=== PATIENT | female | born 1950 | race Hispanic/Latino ===

== ENCOUNTER → 2023-10-01 07:44 | Outpatient (REF) | payer OTHER, SELFPAY | LOC: RCS 07:44 | PROVIDERS: ATTENDING PHYSICIAN Internal Medicine Interventional Cardiology; FAMILY PHYSICIAN Family Medicine; REFERRING PHYSICIAN Orthopaedic Surgery | DX: E11.22 Type 2 diabetes mellitus with diabetic chronic kidney disease (principal); N18.6 End stage renal disease; Z79.4 Long term (current) use of insulin; Z99.2 Dependence on renal dialysis; E66.01 Morbid (severe) obesity due to excess calories; Z68.39 Body mass index [BMI] 39.0-39.9, adult; Z01.810 Encounter for preprocedural cardiovascular examination | CPT/HCPCS: 93306 ==

== ENCOUNTER → 2023-10-26 12:02 | Outpatient (REF) | payer OTHER, SELFPAY | LOC: PAVMRI 12:02 | PROVIDERS: ATTENDING PHYSICIAN Orthopaedic Surgery; FAMILY PHYSICIAN Family Medicine | DX: M54.12 Radiculopathy, cervical region (principal) | CPT/HCPCS: 72141 ==

== ENCOUNTER 2025-02-26 03:38 | Inpatient (IN) | payer MEDICARE, SELFPAY ==
[2025-02-25 22:35] VITALS: BP 152/56
[2025-02-25 23:05] LABS: Hematocrit 33.2 % (37.0-47.0); Hemoglobin 10.7 g/dL (12.0-16.0); Mean Corp Hgb Conc. 32.2 g/dL (33.0-37.0); Mean Corpuscular Volume 93.0 fL (81.0-99.0); Nucleated Red Blood Cells % 0 %; Platelet Count 119 10^3/uL (130-400); Red Cell Dist. Width 16.4 % (11.5-14.5)
[2025-02-25 23:22] LABS: ALT (SGPT) 15 U/L (0-35); AST (SGOT) 24 U/L (14-36); Albumin 3.8 g/dl (3.5-5.0); Alkaline Phosphatase 124 U/L (38-126); Blood Urea Nitrogen 29 mg/dl (7-17); Calcium 9.3 mg/dl (8.4-10.2); Carbon Dioxide 29 mmol/L (22-30); Chloride 95 mmol/L (98-107); Glucose 153 mg/dl (70-99); Potassium 5.7 mmol/L (3.5-5.1); Sodium 131 mmol/L (135-145); Total Protein 6.2 g/dl (6.3-8.2); eGFR 8.89
[2025-02-25 23:33] VITALS: BP 118/44; BMI 40.0
--- NOTE | 2025-02-25 23:50 | ED.GENMED ---
History of Present Illness
General
Chief Complaint: Change in Mental Status
Source: patient
Time Seen by Provider: 02/25/25 23:49
History of Present Illness
History of Present Illness:
74-year-old female brought to the emergency room for evaluation of weakness, mild confusion. Patient states she has not been feeling well over the past couple days. She feels generally weak, sometimes has chills. Today she felt too weak to walk
normally. She had 2 falls and getting up and going to the bathroom. Patient had dialysis today and had an episode of vomiting. Patient believes that she had a complete session. Family concerned that her face seems a bit swollen. Patient has had
a mild cough. She does make urine about twice a day.
Past History
Past History
ED Past Medical History: Asthma, CHF, HTN, IDDM, Renal failure (End-stage renal disease, dialysis dependent.), Hypothyroidism and Other (Anemia)
ED Past Surgical History: Other (cardiac catheterization; cataract extraction)
Social History
Tobacco: Non-smoker
Alcohol: None
Personal: Single
Living: with family (Currently residing at a local shelter for inpatient physical therapy August 2021)
Employment: Not employed
Family History
Family History: Diabetes, CAD and Other (Mother with breast cancer)
Phy Exam
Physical Exam
Physical Exam:
General: Awake, Alert, Oriented X3. Appears chronically ill
Vitals: Afebrile
Head: Atraumatic
Eyes: Pupils equal, EOMI
Throat: Airway intact, no exudates
Neck: Trachea midline
Lungs: Clear and equal b/l
Heart: Regular rate, no murmurs
Abd: Soft, Nontender, No pulsatile mass
Neuro no focal weakness
Skin: Warm, dry, no rash
Extremities: pulses equal b/l, no edema
Course
Orders/Labs/Results
Orders:
Orders
02/25/25 22:45
CT Head W/o Iv Contrast Urgent
Comment:
Reason For Exam: cims
02/25/25 22:46
Complete Blood Count/With Diff Urgent
Comprehensive Metabolic Panel Urgent
02/25/25 23:52
Pro-BNP [NT-proBNP] Urgent
02/26/25 00:05
CR Chest - 2 Views Urgent
Reason For Exam: cough
02/26/25 00:25
Straight cath- Treatment ONCE
02/26/25 01:08
COVID-19 Antigen Urgent
Source: Nasal Swab
02/26/25 02:33
Sodium Zirconium Cyclosilicate [Lokelma] 10 gram PO NOW STA
02/26/25 02:39
Electrocardiogram (*1) Urgent
Reason for Study: QTc Monitoring
EKG- Treatment ONCE
02/26/25 03:24
Admit/Transfer Patient As Directed
Co-Sign Provider:
Level of Care: Inpatient admission
Assign to:: Telemetry
Physician / Group: Danyel
Diagnosis: Pneumonia, Acute TME, ESRD
Reason for Telemetry: Syncope
Date to Stop Telemetry: 02/28/25
Time to Stop Telemetry: 11:00
Reason for Hospitalization: Pneumonia, Acute TME, ESRD
Expected length of stay greater than two midnights?: Yes
ELOS- Estimated Length of Stay in days: 4
I certify the patient meets the requirements for IP care: Yes
PRN Pain Medication Management As Directed
May give lesser potent ordered pain med per pt: Yes
preference::
Protocol:: Medication orders for pain may be administered in a
manner that supports deferring to patient preference
when the pt is:
- Requesting an ordered lesser potent pain medication.
Least to most potent pain medications are defined
as: acetaminophen < NSAID < tramadol < opioids
(morphine, oxycodone, hydromorphone).
- Requesting a lesser dose of the same medication IF
ORDERED.
- Requesting a less intrusive route of administration
if both routes are prescribed by the provider (PO <
IV).
02/26/25 03:25
Code Status As Directed
Resuscitation Status: Full Code
02/26/25 03:41
Acetaminophen [Tylenol] 650 mg PO Q4HPRN PRN
Albuterol Nebs [Ventolin Nebules] 2.5 mg INH R Q4HPRN PRN
Dextrose 50%-Water [Dextrose 50% Syringe] 12.5 grams IV [id number] PRN
Glucagon [GlucaGen] 1 mg IM PRN PRN
VANCOMYCIN Pharmacy to Dose [VANCOCIN Pharmacy to Dose] 1 each Pharmacy To Prepare [Call Pharmacy To Prepare] 0 ml IV PER PROTOCOL
02/26/25 03:41
Activity As Directed
Activity Level: Ambulate
With Assistance
Bedside Glucose Monitoring As Directed
Frequency: AC&HS
Additional Instructions:: Change to q6h if pt on TPN, tube feeding or not eating
Bladder Scan As Directed
Follow Bladder Retention/Intermittent Cath Algorithm?: Yes
PRN if no void in __ hours: 6
Frequency: Per Retention Algorithm
If Bladder Scan Result >: 400
then:: Straight cath
EKG with chest pain [ECG as needed] As Directed
ECG as needed for:: Chest Pain
I/O [Intake/ Output] As Directed
Frequency: Per unit guidelines
Orthostatic Vital Signs As Directed
Orthostatic VS Frequency: BID
Pneumatic Compression Sleeves As Directed
Type: Knee high
Straight Cath As Directed
Frequency: Per Retention Algorithm
Additional Instructions: straight cath as needed per acute urinary retention algorithm for 24 hrs
Additional Instructions: for bladder scan greater than 400 mL
Vital Signs As Directed
Frequency: Per unit guidelines
Weight As Directed
Frequency: Daily
Oxygen Therapy [O2 Therapy] [RESP] Routine
Titrate/Wean O2 to maintain O2 sat greater than (%): 94
DX Deep Vein Thrombosis Video Routine
02/26/25 04:00
Piperacillin/Tazo 2.25 Gram [Zosyn] 2.25 grams in 50 ml IV Q12H
02/26/25 04:26
Basic Metabolic Panel IN AM
Complete Blood Count/No Diff IN AM
Glycohemoglobin (HgbA1c) IN AM
Magnesium IN AM
Phosphorus IN AM
TSH Reflex To Free T4 Routine
Blood Culture Q30M
BRIAN Source: Blood/Venous
Specimen Description:
Blood Culture Q30M
BRIAN Source: Blood/Venous
Specimen Description:
MRSA Screen Routine
BRIAN Source: Nose
Specimen Description:
02/26/25 Breakfast
2000 calorie (17 carb) Diabetic
At Your Request: Full Participation
Liquid Modification: Thin Liquids
Diabetic Diet: Potassium, 2 Gram
Sodium, 2 Gram
Levothyroxine [Synthroid] 150 mcg PO DAILY @ 0600
02/26/25 07:30
Insulin Aspart Corrective Low [Novolog Flexpen-Low Resistance] See Protocol SC AC
02/26/25 08:00
Aspirin Low Dose EC [Aspir Low (Enteric Coated)] 81 mg PO DAILY
Heparin 5,000 units SC Q12
Pantoprazole [Protonix] 40 mg PO DAILY
Sevelamer Carbonate [Renvela] 1,600 mg PO MEALS
02/26/25 11:17
Urinalysis Reflex To Culture Urgent
Date Specimen was Collected: 02/26/25
Time Specimen was Collected: 11:16
02/26/25 22:00
Atorvastatin [Lipitor] 40 mg PO HS
02/28/25 11:00
DC Protocol for Telemetry ONCE
Abnormal Lab Results
02/25/25
22:46
RBC 3.57 L 10^6/uL
(4.20-5.40)
Hgb 10.7 L g/dL
(12.0-16.0)
Hct 33.2 L %
(37.0-47.0)
MCHC 32.2 L g/dL
(33.0-37.0)
RDW 16.4 H %
(11.5-14.5)
Plt Count 119 L 10^3/uL
(130-400)
MPV 11.2 H fL
(7.4-10.4)
Absolute Neuts (auto) 8.5 H 10^3/uL
(1.4-6.5)
Absolute Lymphs (auto) 0.8 L 10^3/uL
(1.2-3.4)
Absolute Monos (auto) 0.8 H 10^3/uL
(0.1-0.6)
Neutrophils % 83.6 H %
(42.2-75.2)
Lymphocytes % 7.8 L %
(20.5-51.1)
Sodium 131 L mmol/L
(135-145)
Potassium 5.7 H mmol/L
(3.5-5.1)
Chloride 95 L mmol/L
(98-107)
BUN 29 H mg/dl
(7-17)
Creatinine 4.9 H* mg/dL
(0.6-1.0)
Glucose 153 H mg/dl
(70-99)
Total Protein 6.2 L g/dl
(6.3-8.2)
02/25/25 22:46
02/25/25 22:46
Vital Signs
Initial and Last Documented VS:
Initial Vital Signs
Temp Pulse Resp BP Pulse Ox
98.3 F 98 18 152/56 92
02/25/25 22:35 02/25/25 22:35 02/25/25 22:35 02/25/25 22:35 02/25/25 22:35
Last Documented Vital Signs
Temp Pulse Resp BP Pulse Ox
98.1 F 88 16 168/74 97
02/28/25 19:00 02/28/25 20:36 02/28/25 20:36 02/28/25 19:00 02/28/25 20:36
MDM/Problems Addressed
Differential Diagnosis Includes:
COVID, UTI, pneumonia, electrolyte abnormality
MDM/Problems Addressed:
Workup here reveals essentially unremarkable CBC, chemistries show an expected elevation of BUN and creatinine. Her potassium is elevated at 5.7. Dose of Lokelma administered. Head CT shows no acute abnormalities. Chest x-ray shows poor
inspiratory effort. No obvious infiltrate to my evaluation. Patient was straight cath but had no urine. Patient will require hospitalization given her level weakness, hypokalemia and potential for bacteremia or other source. Blood cultures
ordered.
*Radiology
Radiology exam reviewed: preliminary read by ED provider (Poor inspiratory effort on my review of the patient's chest x-ray)
*Pulse Oximetry
SaO2: 92
Oxygen Mode of Delivery: Room air
Patient hypoxic: yes
*EKG
Interpreted by ED Provider?: Yes
Interpretation: abnormal
Heart Rate: 87
Rate: normal
[place]: normal axis
Interval: normal interval
QRS Pattern: normal QRS
Ischemia: non-specific ST changes
*Bicycle Racer Interpretation
Rate: normal
Interpretation: normal
Rhythm: sinus
*Critical Care Note
Total Time (30-74mins, 75-104mins- exclusive of procedures): Not Applicable
ED Attending Note
-
Portions of this chart may have been created with voice recognition software.� Occasional wrong word or��sound alike� substitutions may have occurred due to the inherent limitations of voice recognition software.
Discharge Plan
Departure
Patient Disposition: Admit
Date of Disposition: 02/26/25
Time of Disposition: 02:38
Presentation/result/management discussed w/ accepting MD/DO: Hospitalist
Condition: Fair
Discharge Problem:
Altered mental status, Acute hyperkalemia
Interventions
Interventions:
*Risk Screen - Suicide Last Done: 02/25/25 22:39
*General Assessment Last Done: 02/25/25 22:39
*Neglect/Abuse Screening Last Done: 02/25/25 22:39
*ED COVID-19 Vaccine History Last Done: 02/25/25 22:39
*Nursing Disposition Last Done: 02/26/25 14:57
ED- Cardiac Assessment Last Done: 02/25/25 23:33
ED- Neurological Assessment Last Done: 02/25/25 23:33
ED- Pulmonary Assessment Last Done: 02/25/25 23:33
Discharge Date and Time
Discharge Date/Time: 02/26/25 14:58
[2025-02-26] VITALS (10 sets, daily range): BP systolic 105–178; BP diastolic 40–93; BMI 40.0
--- NOTE | 2025-02-26 00:40 | EDRN ---
Attempted to straight cath patient, was only able to get a few drops, patient does state that she typically only urinates once in the morning and once at night, and did not have much to eat or drink yesterday, Dr. Danielle aware.
[2025-02-26 01:39] LABS: COVID-19 Antigen Negative (Negative)
--- NOTE | 2025-02-26 02:00 | EDRN ---
Myself and another RN attempted to walk patient, she was able to walk a few steps, however she needed full assist from both RNs and was a little wobbly on her feet, Dr. Danielle aware.
--- NOTE | 2025-02-26 03:13 | EDRN ---
Dr. Montaño at bedside
[2025-02-26] MEDS: LOKELMA 10 GRAM PO (03:24)
--- NOTE | 2025-02-26 03:31 | HPS.HSE ---
Family Physician
-
Family Physician: Tej Chavez
Chief Complaint
-
Confusion, Lethargy
History of Present Illness
Patient is a 74y F with PMH significant for ESRD on HD, DM-II and GERD / GAVE who presents to ED for evaluation of lethargy, weakness and confusion. History obtained from patient and her daughter at the bedside. Patient states that she has felt
weak and fatigued for the past week or so. She reports hacking, non-productive cough. No noted fever. She lives with her two daughters - who were out of town this weekend and returned home today. No one else in the house has been ill.
Patient went to her usual HD this AM (family monitored her comings and anirudh via Ring camera to confirm this).
Patient states that she 'must have' fallen asleep or passed out on dialysis. HD staff reportedly informed her that she had N/V during her session. Patient does not recall this.
She was told to present to the ED after HD, but was too tired and took the bus home instead. At home she climbed two flights of stairs - stopping midway due to fatigue - and went back to bed.
When daughters returned home this evening they found the patient lying on her bedroom floor confused and disoriented. Patient does not recall falling from bed. She complains of L sided headache and neck discomfort.
Daughters helped the patient to bed (around 7PM) and she fell back to sleep.
Patient then called out to her daughters again around 9:30 PM and they went to find her again on the floor.
They presented to the ED for further evaluation.
Patient states that her newest medication with zolpidem. She complains of chronic insomnia and notes that this has been helping. She started this < 2 weeks ago.
No other new medications.
She does however also take Lyrica, gabapentin and cyclobenzaprine.
Medical History
Past Medical History
Past Medical History: Reports Other
Additional Past Medical History:
Coronary Artery Disease
Chronic HFpEF
Essential Hypertension
Hyperlipidemia
Diabetes Mellitus, Insulin-Dependent
ESRD on HD
Hypothyroidism
Anemia of Chronic Disease
Anxiety/Depression
GERD/Gastritis
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
Past Surgical History: Reports Other
Additional Past Surgical History:
Left Upper Extremity AV Fistula
Right Upper Extremity AV Fistula
Left Carpal Tunnel
Left Tunneled HD Catheter
Social History
Tobacco: Non-smoker
Alcohol: None
Personal: Single
Living: With Family (2 daughters and granddaughters)
Family History
Family History: Other (Family history mother breast cancer other family history DM 2, CAD)
Allergies / Home Medications
Allergies reflects when Allergies were last updated in [employer].
Home Medications with original date entered in [employer]
Allergy/Medication List:
Allergies
Allergy/AdvReac Type Severity Reaction Status Date / Time
cephalexin Allergy rash, Verified 02/25/25 22:41
fever &
itching;
tolerates
cefazolin
(SEE
COMMENTS)
eggplant Allergy Shortness Verified 02/25/25 22:41
of Breath
erythromycin base Allergy Itching,Stomach Verified 02/25/25 22:41
pain 'bad'
latex Allergy Pt states Verified 02/25/25 22:41
she gets a
rash and
wheezes
Home Medications
atorvastatin 40 mg tablet 40 mg PO HS High cholesterol 02/13/20
sevelamer carbonate 800 mg tablet 1,600 mg PO MEALS Kidney Disease 07/30/21
levothyroxine 150 mcg tablet 150 mcg PO DAILY AT 0700 Thyroid 05/21/22
albuterol sulfate 90 mcg/actuation aerosol inhaler 2 puff inhalation R BID Lung/Breathing Issues 05/18/23
aspirin 81 mg tablet,delayed release 81 mg PO DAILY Blood Clot Prevention/Tx 05/18/23
gabapentin 100 mg capsule 100 mg PO HS Neurological Condition 05/18/23
insulin aspart U-100 100 unit/mL (3 mL) subcutaneous pen (Novolog FlexPen U-100 Insulin aspart) 0 - 6 sliding scale dose SC AC Diabetes 05/18/23
insulin glargine 100 unit/mL (3 mL) subcutaneous pen (Lantus Solostar U-100 Insulin) 10 unit SC HS Diabetes 05/18/23
pantoprazole 40 mg tablet,delayed release 40 mg PO DAILY #30 tabs 05/21/23
pregabalin 100 mg capsule (Lyrica) 100 mg PO DAILY 02/26/25
semaglutide 0.25 mg or 0.5 mg (2 mg/3 mL) subcutaneous pen injector (Ozempic) 0.5 mg SC FRIEDMAN 02/26/25
zolpidem 5 mg tablet 5 mg PO HSPRN PRN insomnia 02/26/25
Review of Systems
-
History Source: Patient
A 12 point ROS was completed and negative except as noted: Yes
Constitutional: Reports Fatigue; Denies Fever or Chills
EENT: Reports Sore Throat
Respiratory: Reports Cough and Trouble Breathing; Denies Hemoptysis
Cardiac: Reports Chest Pain and Syncope; Denies Diaphoresis or Palpitations
Abdomen/GI: Reports Nausea, Vomiting and Anorexia; Denies Abdominal Pain, Diarrhea, Constipated, Bloody Stools or Black Stools
: Reports Other (Patient urinates about twice daily. No recent changes.); Denies Dysuria or Flank Pain
Musculoskeletal: Denies Edema
Neurological: Reports Headache and Weakness; Denies Dizzy
Psych: Denies Depression or Anxiety
Physical Exam
Vital Signs
Vital Signs
Temp Pulse Resp BP Pulse Ox
98.3 F 86 22 118/44 92
02/25/25 22:35 02/25/25 23:45 02/25/25 23:45 02/25/25 23:33 02/25/25 23:50
Physical Exam
General: Other (74y F in no acute distress.)
HEENT: Moist mucous membranes and PERRLA
Respiratory: Other (Cough during exam. Coarse breath sounds at both bases. No wheezes.)
Cardiac: S1/S2 and Regular Rhythm; No Murmur
GI: Soft, Non Tender, Non Distended and Normal Bowel Sounds
Musculoskeletal: No Clubbing, No Cyanosis and No Edema
Neuro: AO x 3
Hematologic/Lymphatic: Other (Scarring b/l UE from prior AVF site(s). L IJ tunneled cath sit without bleeding / discharge / erythema.)
Laboratory Results
-
02/25/25 22:46
02/25/25 22:46
Laboratory Results
Total Bilirubin 0.8 mg/dl (0.2-1.3) 02/25/25 22:46
AST 24 U/L (14-36) 02/25/25 22:46
ALT 15 U/L (0-35) 02/25/25 22:46
Alkaline Phosphatase 124 U/L (38-126) 02/25/25 22:46
Impression/Plan
-
A/P: Patient is a 74y F with PMH significant for ESRD on HD, ASCVD and DM-II who presents to ED for evaluation of weakness and confusion.
Pneumonia
Sepsis secondary to the above
- Admit for further evaluation and treatment.
- Cough x 1 week, leukocytosis with L shift, tachycardia and tachypnea on arrival.
- CXR with bibasilar opacities - L > R.
- COVID negative in the ED.
- Empiric IV abx for now.
- Check all cultures and follow-up these results.
- MRSA screen and discontinue Vanco if this is negative.
- Follow temperature curve and monitor for any new / worsening symptoms.
- Albuterol PRN.
Acute TME
- ? secondary to sepsis as noted above versus med effect - or combination thereof.
- Patient recently started on zolpidem (Rx written 8/22).
- Also on cyclobenzaprine, Lyrica AND gabapentin.
- Treat infectious process as noted above.
- Hold all sedating medications acutely.
- Follow for clinical improvement.
- ? if there may have been some med confusion for the past few days while family out of town.
ESRD on HD
- Had HD today - unclear if she completed a full session.
- Nephrology evaluation for HD needs during acute stay.
- Patient states that she takes Lasix 80mg daily - will hold for now.
ASCVD
Chronic HFpEF
- Stable. Continue ASA, statin, etc.
- Holding Lasix acutely as noted above. Follow I/Os, daily weights, etc.
DM-II
- Stable. Continue Lantus.
- Follow glucose and cover with SSI as needed.
- Update A1C.
Hypothyroidism
- Continue current T4 supplementation for now.
- Update TFTs.
GERD / GAVE / Hiatal Hernia
- Stable. Prior h/o GI bleeding.
- Continue PPI.
Morbid Obesity
- Affects all aspects of care.
- Encourage healthy diet and increased activity as tolerated with goal of weight loss.
DVT Prophylaxis: Subcut Heparin
Code Status: Full
[2025-02-26] MEDS: ZOSYN 50 IV ×2 (04:30→15:32)
[2025-02-26] MEDS: VANCOCIN 530 MG IV (05:01)
[2025-02-26 05:08] LABS: Blood Urea Nitrogen 31 mg/dl (7-17); Calcium 8.6 mg/dl (8.4-10.2); Carbon Dioxide 29 mmol/L (22-30); Chloride 99 mmol/L (98-107); Estimated Creatinine Clearance 10 ml/min; Glucose 110 mg/dl (70-99); Magnesium 1.5 mg/dl (1.6-2.3); Potassium 4.9 mmol/L (3.5-5.1); Sodium 133 mmol/L (135-145); eGFR 8.28
--- NOTE | 2025-02-26 06:00 | EDRN ---
Patient is sleeping when observed, call davis in reach, will continue to monitor.
[2025-02-26 06:07] LABS: Hematocrit 29.2 % (37.0-47.0); Hemoglobin 9.6 g/dL (12.0-16.0); Mean Corp Hgb Conc. 32.9 g/dL (33.0-37.0); Mean Corpuscular Volume 93.0 fL (81.0-99.0); Platelet Count 102 10^3/uL (130-400); Red Cell Dist. Width 16.7 % (11.5-14.5)
[2025-02-26] MEDS: SYNTHROID 150 MCG PO (07:05)
[2025-02-26 08:04] LABS: Glucose - Point of Care 104 mg/dl (70-99)
[2025-02-26] MEDS: NOVOLOG FLEXPEN-LOW RESISTANCE SC ×2 (08:04→12:47)
--- NOTE | 2025-02-26 08:05 | W.PN.HOSP.TC ---
Today's Communication/Plan
-
See plan
Assessment / Plan
Assessment / Plan
Physical Exam
General: Not in acute distress
HEENT: Normocephalic. Moist mucous membranes
Respiratory: Expiratory wheezing bilaterally
Cardiac: S1/S2 and Regular Rhythm; No Murmur
GI: Soft, Non Tender, Non Distended and Normal Bowel Sounds
Musculoskeletal: No Cyanosis
Neuro: AAO x 3
Hematologic/Lymphatic: Other (Scarring at the bilateral UE from prior AVF site(s). L IJ tunneled cath sit without bleeding / discharge / erythema)
Assessment/Plan
74 y/o female with past medical history significant for ESRD on HD, DM-II and GERD / GAVE who presented to [facility] ED for evaluation of lethargy, weakness and confusion. History obtained from patient and her daughter at the bedside. Patient stated that
she has felt weak and fatigued for ~1 week prior to arrival. She reported hacking, non-productive cough. No noted fever. She lives with her two daughters - who were out of town over the past weekend and returned home on 02/25/25. No one else in
the house has been ill. Patient went to her usual HD on the morning of 02/25/25 (family monitored her comings and anirudh via Ring camera to confirm this).
Patient stated that she 'must have' fallen asleep or passed out on dialysis. HD staff reportedly informed her that she had N/V during her session. Patient does not recall this.
She was told to present to the [facility] ED after HD, but was too tired and took the bus home instead. At home she climbed two flights of stairs - stopping midway due to fatigue - and went back to bed.
When daughters returned home on 02/25/25 evening, they found the patient lying on her bedroom floor confused and disoriented. Patient does not recall falling from bed. She complains of L sided headache and neck discomfort. Daughters helped the
patient to bed (around 7PM) and she fell back to sleep. Patient then called out to her daughters again around 9:30 PM and they went to find her again on the floor.
Patient states that her newest medication with zolpidem. She complains of chronic insomnia and notes that this has been helping. She started this < 2 weeks ago.
No other new medications. She does however also take Lyrica, gabapentin and cyclobenzaprine.
Pneumonia (Right>Left)
Sepsis secondary to the above
Chills and feeling feverish at home
Aspiration?
- Cough x 1 week, leukocytosis with L shift, tachycardia and tachypnea on arrival.
- CXR with bibasilar opacities - L > R.
- COVID negative in the ED.
- Continue Vancomycin and Zosyn for now
- Check all cultures and follow-up these results.
- MRSA screen and discontinue Vanco if this is negative.
- Follow temperature curve and monitor for any new / worsening symptoms.
- Bronchodilators and steroids as below
- Speech evaluation
Syncope/Encephalopathy
- Suspected patient dyspnea and factors related to dyspnea, as well as polypharmacy, particularly gabapentin, Flexeril, Lyrica, zolpidem.
- Vasovagal episodes also possible considering vomiting and syncope while on hemodialysis.
- Checking echo
- Continue to monitor on telemetry
Acute TME
- ? secondary to sepsis as noted above versus med effect - or combination thereof.
- Patient recently started on zolpidem (Rx written 02/08).
- Also on cyclobenzaprine, Lyrica AND gabapentin.
- Treat infectious process as noted above.
- Hold all sedating medications acutely.
- Follow for clinical improvement.
- ? if there may have been some med confusion for the past few days while family out of town.
Mild intermittent asthma with acute exacerbation
History of Childhood Asthma
- Patient sees outpatient pulmonary at [facility]
- Wheezing on exam, together with fatigue and SOB
- Ordered Duonebs and Pulmicort
- Prednisone 40 mg daily for 5 days
- Consulted pulmonary for additional recommendations
- At the time of discharge, start Symbicort or generic version Breyna
- Will need close outpatient pulmonary follow-up
Nausea in upper chest/lower neck area
- Patient says she has been unable to tolerate much PO intake
- Patient sees GI Dr. Rola Wright at [facility]
- Worsened? Will consider GI consultation
- Speech evaluation requested
Chronic Dyspnea on exertion - likely multifactorial -- obstructive and restrictive lung disease, pneumonia, morbid obesity, heart failure, ESRD
- Repeat echo ordered
ESRD on HD
- Had HD today - unclear if she completed a full session.
- Nephrology evaluation for HD needs during acute stay.
- Patient states that she takes Lasix 80mg daily - will hold for now.
ASCVD
Chronic HFpEF
- Stable. Continue ASA, statin, etc.
- Holding Lasix acutely as noted above. Follow I/Os, daily weights, etc.
- Patient sees [facility] outpatient
- Checking echo as above
DM-II
- Stable. Continue Lantus.
- Follow glucose and cover with SSI as needed.
- Update A1C.
Hypothyroidism
- TSH somewhat suppressed and free T4 elevated
- Reduce Levothyroxine
GERD / GAVE / Hiatal Hernia
- Stable. Prior h/o GI bleeding.
- Continue PPI.
Morbid Obesity
- Affects all aspects of care.
- Encourage healthy diet and increased activity as tolerated with goal of weight loss.
- Check VBG in a.m.
- Assess for need for home oxygen prior to discharge
DVT Prophylaxis: Subcut Heparin
Code Status: Full Code
This is a non-billable note.
Anticipated Discharge: 24 - 48 hours
Subjective/Interval History
-
Date of Service: February 26, 2025
Patient was seen and examined. She was doing okay, she reported still feeling significantly fatigued.
Objective Data
-
Labs:
Laboratory Results
02/25/25 02/26/25
22:46 04:26
WBC 10.2 9.1
Hgb 10.7 L 9.6 L
Hct 33.2 L 29.2 L
Plt Count 119 L 102 L
Sodium 131 L 133 L
Potassium 5.7 H 4.9
Chloride 95 L 99
Carbon Dioxide 29 29
BUN 29 H 31 H
Creatinine 4.9 H* 5.2 H*
Glucose 153 H 110 H
Calcium 9.3 8.6
Total Bilirubin 0.8
AST 24
ALT 15
Alkaline Phosphatase 124
Vital Signs:
Vital Signs
Temp Pulse Resp BP Pulse Ox
98.3 F 84 19 113/43 91
02/25/25 22:35 02/26/25 05:45 02/26/25 05:45 02/26/25 05:00 02/26/25 05:45
--- NOTE | 2025-02-26 08:08 | PHA.VAN.IN ---
Assessment
- Assessment
Renal Function: Patient has ESRD, on chronic Hemodialysis
Hemodialysis Schedule: MWF
Concomitant Antimicrobials: piperacillin/tazobactam
Plan
- Plan
Initial / Loading Dose: 1500mg - 02/26 05:01
Maintenance Regimen: dosing by level / HD
Monitoring: pre-HD 02/27 0600
Pharmacokinetics Vancomycin I
- -
Patient Age: 74
Patient Sex: Female
Vancomycin Day #: 1
Indication: Pulmonary/Respiratory
Requesting Provider: Dr. Montaño
Pertinent Antimicrobial Allergies:
cephalexin - rash, fever & itching; tolerates cefazolin
Tolerates Cefazolin (NOTE: cefazolin has different side chain and structure and is low risk for cross-reactivity with cephalexin); caution with cephalexin allergy and penicillin, ampicillin and amoxicillin cross-reactivity
erythromycin base - Itching,Stomach pain 'bad'
Height / Weight:
Height 5 ft 1 in
Actual Weight 96 kg
Pertinent Past Medical History: BMI~40, ESRD on HD, DM-II
- Vital Signs / Lab Results
Temp Pulse Resp BP Pulse Ox
98.3 F 84 19 113/43 91
02/25/25 22:35 02/26/25 05:45 02/26/25 05:45 02/26/25 05:00 02/26/25 05:45
Lab Results - Hematology
02/25/25 02/26/25
22:46 04:26
WBC 10.2 9.1
Lab Results - Chemistry
02/25/25 02/26/25
22:46 04:26
BUN 29 H 31 H
Creatinine 4.9 H* 5.2 H*
Estimated Creat Clear 10
Albumin 3.8
[2025-02-26] MEDS: PROTONIX 40 MG PO (08:41)
[2025-02-26] MEDS: ASPIR LOW (ENTERIC COATED) 81 MG PO (08:41)
[2025-02-26] MEDS: HEPARIN 5000 UNITS SC ×2 (08:41→20:02)
[2025-02-26] MEDS: RENVELA 1600 MG PO ×3 (08:42→17:10)
--- NOTE | 2025-02-26 09:32 | PTCARENOTE ---
pt aaox3. states no pain. nsr on monitor. left upper arm fistula +b+t lcw hd cath.
[2025-02-26 10:37] LABS: Glycohemoglobin (HgbA1c) 5.1 % (4.0-5.6)
--- NOTE | 2025-02-26 11:34 | W.CON.NEPH ---
Consultation
-
Date/Time Consultation Requested: 02/26/25 9am
Date/Time Consultation Performed: 02/26/25 11am
Requesting Provider: Dr. Montaño
Performing Provider: Dr Montoya
Reason for Consultation: ESRD
Medical History
-
Chief Complaint: ESRD
History of Present Illness:
This is a 74 yo female known to us with ESRD on HD MWF at [facility]. She dialyzes via a left IJ HD CVC after failed LUE AV access. She has diabetes stable on insulin therapy, anemia controlled though low with SHANDA on HD. She has chronic pain
in waist and hips as well as chronic depression. She does not sleep well and recently obtained a rx for zolpidem from her PCP. she also has lyrica for neuropathy. She has not taken flexril for several weeks as she had run out. She is undergoing
renal transplant evaluation. Yesterday on HD she passed out and vomited. She has no recollection of the event. It was recommended that she go to the ER but she declined and went home. She made it into bed and slept for a few hours. When she tried to
get out of bed, she slid the the floor (she has a step to get in and out of bed). She could not get up and had to wait for her daughters to come home to help her. Last night the same thing happened again. Given persistent nausea and headache she
came to the ER.
Past Medical History
Coronary Artery Disease
Chronic HFpEF
Essential Hypertension
Hyperlipidemia
Diabetes Mellitus, Insulin-Dependent
ESRD on HD
Hypothyroidism
Anemia of Chronic Disease
Anxiety/Depression
GERD/Gastritis
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
Left Upper Extremity AV Fistula
Right Upper Extremity AV Fistula
Left Carpal Tunnel
Left Tunneled HD Catheter
Social History
Tobacco: Non-Smoker
Alcohol: None
Family History
Family History: Not Pertinent
Allergies / Home Medications
Allergy/AdvReac Type Severity Reaction Status Date / Time
cephalexin Allergy rash, Verified 02/25/25 22:41
fever &
itching;
tolerates
cefazolin
(SEE
COMMENTS)
eggplant Allergy Shortness Verified 02/25/25 22:41
of Breath
erythromycin base Allergy Itching,Stomach Verified 02/25/25 22:41
pain 'bad'
latex Allergy Pt states Verified 02/25/25 22:41
she gets a
rash and
wheezes
�Medication �Instructions �Recorded �Confirmed �Type
atorvastatin 40 mg tablet 40 mg PO HS High cholesterol 02/13/20 02/26/25 History
sevelamer carbonate 800 mg tablet 1,600 mg PO MEALS Kidney Disease 07/30/21 02/26/25 History
levothyroxine 150 mcg tablet 150 mcg PO DAILY AT 0700 Thyroid 05/21/22 02/26/25 History
albuterol sulfate 90 mcg/actuation 2 puff inhalation R BID 05/18/23 02/26/25 History
aerosol inhaler Lung/Breathing Issues
aspirin 81 mg tablet,delayed 81 mg PO DAILY Blood Clot 05/18/23 02/26/25 History
release Prevention/Tx
gabapentin 100 mg capsule 100 mg PO HS Neurological Condition 05/18/23 02/26/25 History
insulin aspart U-100 100 unit/mL 0 - 6 sliding scale dose SC AC 05/18/23 02/26/25 History
(3 mL) subcutaneous pen (Novolog Diabetes
FlexPen U-100 Insulin aspart)
insulin glargine 100 unit/mL (3 10 unit SC HS Diabetes 05/18/23 02/26/25 History
mL) subcutaneous pen (Lantus
Solostar U-100 Insulin)
pantoprazole 40 mg tablet,delayed 40 mg PO DAILY #30 tabs 05/21/23 02/26/25 Rx
release
furosemide 80 mg tablet (Lasix) 80 mg PO DAILY 02/26/25 02/26/25 History
pregabalin 100 mg capsule (Lyrica) 100 mg PO DAILY 02/26/25 02/26/25 History
semaglutide 0.25 mg or 0.5 mg (2 0.5 mg SC FRIEDMAN 02/26/25 02/26/25 History
mg/3 mL) subcutaneous pen injector
(Ozempic)
zolpidem 5 mg tablet 5 mg PO HSPRN PRN insomnia 02/26/25 02/26/25 History
Review of Systems
-
nausea/headache/weakness
All other systems: Negative unless noted
Physical Exam
Vital Signs
Vital Signs
Temp Pulse Resp BP Pulse Ox
98.8 F 84 19 113/43 91
02/26/25 08:25 02/26/25 05:45 02/26/25 05:45 02/26/25 05:00 02/26/25 05:45
Lab Results
WBC 9.1 10^3/uL (4.8-10.8) 02/26/25 04:26
RBC 3.14 10^6/uL (4.20-5.40) L 02/26/25 04:26
Hgb 9.6 g/dL (12.0-16.0) L 02/26/25 04:26
Hct 29.2 % (37.0-47.0) L 02/26/25 04:26
Plt Count 102 10^3/uL (130-400) L 02/26/25 04:26
Sodium 133 mmol/L (135-145) L 02/26/25 04:26
Potassium 4.9 mmol/L (3.5-5.1) 02/26/25 04:26
Chloride 99 mmol/L (98-107) 02/26/25 04:26
Carbon Dioxide 29 mmol/L (22-30) 02/26/25 04:26
BUN 31 mg/dl (7-17) H 02/26/25 04:26
Creatinine 5.2 mg/dL (0.6-1.0) H* 02/26/25 04:26
eGFR 8.28 02/26/25 04:26
Glucose 110 mg/dl (70-99) H 02/26/25 04:26
Calcium 8.6 mg/dl (8.4-10.2) 02/26/25 04:26
Phosphorus 3.3 mg/dl (2.5-4.5) 02/26/25 04:26
Sxt-O-Abrekpvdsqe Pept 9170 pg/ml 02/25/25 23:52
Albumin 3.8 g/dl (3.5-5.0) 02/25/25 22:46
Laboratory Tests
05/21/23
07:21
Hgb 8.0 L
Physical Exam
Patient is awake alert oriented and in no distress. Mood and affect were pleasant, insight and judgment were good. Pupils are equal round and reactive to light, extraocular movements are intact, sclera were anicteric. Hearing was normal, ears and
nose are intact. Oropharynx was clear. Neck was supple with trachea midline and no thyromegaly. Heart was regular rate and rhythm without rubs. Lower extremities without edema. Lungs were clear to auscultation bilaterally and with normal
excursion. Abdomen was soft, nontender, with normal active bowel sounds, and no hepatosplenomegaly. Skin was without rash and with normal turgor.
Data Reviewed
-
Radiology: Image Personally Visualized and interpreted (CXR 02/26/25 by my reading. low lung volumes, cardiomegaly)
CT Scan: Report Reviewed by me (head CT 02/25/25 no acute disease)
Medical Tests (Nuc Med, Echo etc): Image Personally Visualized and interpreted (EKG 02/26/25 by my reading normal sinus rhythm, left axis deviation)
Labs: Labs Reviewed by me
Old Records: Reviewed
Assessment/Plan
-
Assessment
ESRD
weakness
chronic pain
nausea
anemia
DM2
HTN
failed AV access, now CVC
Plan
HD tomorrow
check iron
hold ozempic with nausea
pain maangement per primary team
PT/OT eval
[2025-02-26 11:51] LABS: Urine Character Slightly Cloudy (Clear)
[2025-02-26 12:33] LABS: Urine Squamous Cell >30 /LPF (Few)
[2025-02-26 12:34] LABS: Urine Red Blood Cell 0-2 /HPF (0-2); Urine White Cell 21-25 /HPF (0-5)
--- NOTE | 2025-02-26 12:37 | CON.PUL ---
Consultation
Consultation Request
Date/Time Consultation Requested: 02/26/2025
Date/Time Consultation Performed: 02/26/2025
Medical History
-
Chief Complaint: Cough with wheezing
History of Present Illness:
Patient is a very pleasant 74-year-old female with extensive past medical history pertinent for hemodialysis for end-stage renal disease, diabetes, mild intermittent asthma and insomnia who was brought to the hospital for lethargy, weakness and
confusion. Patient reportedly over the last week has been having increasing cough, not productive with wheezing and shortness of breath. Patient reports that she reportedly has had a few episodes of passing out including 1 at dialysis which was
complicated by vomiting with possibly aspiration. Patient reports that post her session she went to home and was extremely tired. She got very short of breath walking upstairs and then lying down in her bed. Subsequently she reports she rolled
over and fell on the floor and was unable to get up. She reports that she was on the floor for few hours until her daughter found her and brought to the emergency room. She was felt to have toxic metabolic encephalopathy in the setting of
polypharmacy with newest medication being zolpidem while she has already been on Lyrica, gabapentin and Flexeril. Patient had workup in the emergency room including chest x-ray which showed right greater than left pneumonia and she was also noted
to have bilateral expiratory wheezing. On 02/26, pulmonary service was consulted in view of wheezing regarding further recommendations around asthma management.
Patient has known history of childhood asthma. Once she was an adult she has had more of a mild intermittent asthma pattern. She saw pulmonary intermittently and has not regularly been using any inhalers. She reports episodes of cough with
wheezing no specific relationship to temperature however notes association with exposure to pets particularly dogs which tend to give her increased allergy symptoms and asthma flare. She has not needed prednisone for asthma flare in the last year
and has not needed to go to emergency room or urgent care for asthma exacerbation. She also reports lately worsening exertional dyspnea but does not report any chest pain or chest tightness. No reported paroxysmal nocturnal dyspnea. No reported
orthopnea.
Past Medical History
Past Medical History: Reports Other
Additional Past Medical History:
Coronary Artery Disease
Chronic HFpEF
Essential Hypertension
Hyperlipidemia
Diabetes Mellitus, Insulin-Dependent
ESRD on HD
Hypothyroidism
Anemia of Chronic Disease
Anxiety/Depression
GERD/Gastritis
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
Past Surgical History: Reports Other
Additional Past Surgical History:
Left Upper Extremity AV Fistula
Right Upper Extremity AV Fistula
Left Carpal Tunnel
left Tunneled HD Catheter
Social History
Tobacco: Non-smoker
Alcohol: None
Personal: Single
Living: With Family (2 daughters and granddaughters)
Family History
Family History: Other (Family history mother breast cancer other family history DM 2, CAD). Grand daughter has Asthma
Allergies / Home Medications
Allergies
Allergy/AdvReac Type Severity Reaction Status Date / Time
cephalexin Allergy rash, Verified 02/25/25 22:41
fever &
itching;
tolerates
cefazolin
(SEE
COMMENTS)
eggplant Allergy Shortness Verified 02/25/25 22:41
of Breath
erythromycin base Allergy Itching,Stomach Verified 02/25/25 22:41
pain 'bad'
latex Allergy Pt states Verified 02/25/25 22:41
she gets a
rash and
wheezes
Home Medications
�Medication �Instructions �Recorded �Confirmed �Last Taken �Type
atorvastatin 40 mg tablet 40 mg PO HS High cholesterol 02/13/20 02/26/25 05/17/23 History
sevelamer carbonate 800 mg tablet 1,600 mg PO MEALS Kidney Disease 07/30/21 02/26/25 02/06/23 11:00 History
levothyroxine 150 mcg tablet 150 mcg PO DAILY AT 0700 Thyroid 05/21/22 02/26/25 05/18/23 History
albuterol sulfate 90 mcg/actuation 2 puff inhalation R BID 05/18/23 02/26/2523 History
aerosol inhaler Lung/Breathing Issues
aspirin 81 mg tablet,delayed 81 mg PO DAILY Blood Clot 05/18/23 02/26/25 05/18/23 History
release Prevention/Tx
gabapentin 100 mg capsule 100 mg PO HS Neurological Condition 05/18/23 02/26/25 05/17/23 History
insulin aspart U-100 100 unit/mL 0 - 6 sliding scale dose SC AC 05/18/23 02/26/25 1 Day Ago History
(3 mL) subcutaneous pen (Novolog Diabetes ~05/17/23
FlexPen U-100 Insulin aspart)
insulin glargine 100 unit/mL (3 10 unit SC HS Diabetes 05/18/23 02/26/25 05/17/23 History
mL) subcutaneous pen (Lantus
Solostar U-100 Insulin)
pantoprazole 40 mg tablet,delayed 40 mg PO DAILY #30 tabs 05/21/23 02/26/25 Unknown Rx
release
furosemide 80 mg tablet (Lasix) 80 mg PO DAILY 02/26/25 02/26/25 Unknown History
pregabalin 100 mg capsule (Lyrica) 100 mg PO DAILY 02/26/25 02/26/25 Unknown History
semaglutide 0.25 mg or 0.5 mg (2 0.5 mg SC FRIEDMAN 02/26/25 02/26/25 Unknown History
mg/3 mL) subcutaneous pen injector
(Ozempic)
zolpidem 5 mg tablet 5 mg PO HSPRN PRN insomnia 02/26/25 02/26/25 Unknown History
Review of Systems
-
Hematologic/Lymphatic: Other (All 14 systems reviewed and negative except as stated above in the history of present illness.)
Vitals / Labs / Diagnostic Testing
Vital Signs
Temp Pulse Resp BP Pulse Ox
98.8 F 84 19 113/43 91
02/26/25 08:25 02/26/25 05:45 02/26/25 05:45 02/26/25 05:00 02/26/25 05:45
Lab Data
02/26/25 04:26
02/26/25 04:26
Diagnostic Testing:
Physical Exam
-
HEENT: Normocephalic
Cardiovascular: S1/S2
Respiratory: Wheeze (Mild end expiratory wheeze bilaterally)
GI: Soft and Non Distended
Neurology: Awake, Alert and Oriented
Skin: Warm
General: Comfortable
Assessment
-
#1. Mild intermittent asthma with acute exacerbation
- Suspect current increased wheezing is in the setting of pulmonary infection
- Eosinophil count 0-200. Known history of childhood asthma. Suspect allergic variant with multiple environmental allergies including dogs and pets.
- Agree with scheduled DuoNeb and budesonide. Add prednisone 40 mg daily for 5 days
- Recommend starting Symbicort or generic version Breyna at discharge. Patient will need outpatient follow-up with pulmonary clinic, will leave information in discharge section
- Will pursue additional workup including IgE and RAST panel as outpatient
- Patient also needs pulmonary function testing including spirometry, lung volumes, diffusion capacity assessment, bronchodilator responsiveness as well as 6-minute walk test as outpatient. Restriction noted on prior spirometry likely related to
obesity.
#2. Pneumonia, R>L. Aspiration suspected
- Patient is afebrile, has normal white count of 9.1, afebrile. proBNP significantly elevated at 9170
- Reports chills and feeling feverish at home, reported episodes of vomiting with altered mental status
- Agree with current antibiotic vancomycin and Zosyn. Await MRSA screen and follow-up on cultures
- Prednisone 40 mg daily added for asthma exacerbation
#3. Obesity with BMI 40
- Patient at risk of underlying sleep disordered breathing. Prior history of mild sleep apnea in 2017, did not tolerate CPAP at that time.
- Outpatient follow-up with pulmonary clinic, will pursue sleep study as outpatient
- Bicarb level 29 on basic metabolic panel, elevated considering underlying end-stage neural disease. Check VBG in a.m.
- Assess for need for home oxygen prior to discharge
#4. Dyspnea on exertion.
- Patient's dyspnea on exertion is likely multifactorial. Underlying factors include obstructive airway disease, Pneumonia,Obesity with BMI 40, heart failure with preserved ejection fraction. Restrictive lung disease noted on prior spirometry,
suspect related to obesity.
- Recommend repeat echocardiogram. Will pursue full pulmonary function testing as outpatient along with 6-minute walk test.
- Continue to optimize volume, nephrology service on case for hemodialysis
Other medical diagnoses:
- Syncope/Encephalopathy, recurrent. Concern for polypharmacy, particularly gabapentin, Flexeril, Lyrica, zolpidem. Vasovagal episodes also in differential diagnosis considering vomiting and syncope while on hemodialysis.
- Incisional disease, on hemodialysis. Nephrology service on case
- Hypothyroidism on replacement. TSH somewhat suppressed and free T4 elevated. Defer to primary team, recommend considering lowering thyroxine replacement
- Diabetes mellitus type 2
- Gastroesophageal reflux disease
- Exertional dyspnea. Recommend repeating echocardiogram
- HFpEF. BNP elevated. ECHO pending
- Environmental allergies
Total time spent on this consultation/encounter __76__ minutes which includes review of history, physical exam, medications, laboratory data, personal review of imaging, extensive review of outpatient records, discussion with care team and
respiratory therapy.
Data:
CXR 02/2024: Parenchymal opacity within both lower lungs, which appears new from previous radiograph. Main differential considerations of atelectasis and/or pneumonia.
Cardiomegaly with no evidence for pulmonary edema.
ECHO 09/2023: Normal left ventricular size, wall thickness and systolic function. No
regional wall motion abnormalities are seen. Estimated ejection fraction is 55-
60%. Normal diastolic function.
Normal right ventricular size and function.
Mitral valve opens normally. Thickened mitral valve leaflets. Mitral annular
calcification. Trace mitral regurgitation.
Trileaflet aortic valve. Aortic valve opens normally. No aortic regurgitation
is seen.
Tricuspid valve opens normally. Trace tricuspid regurgitation. Estimated
pulmonary artery pressure of 15-20 mmHg. Assuming a right atrial pressure of 3
mmHg.
Spirometry, 2015. Moderate restrictive lung disease.
[2025-02-26 12:47] LABS: Glucose - Point of Care 105 mg/dl (70-99)
--- NOTE | 2025-02-26 13:12 | CM ---
CM reviewed chart and met with pt bedside in ED. Pt lives with her daughter in [address] [place] [address], 16 steps to enter and additionasl 16 steps to BR/BA. Pt told me she fell out of bed twice yesterday.
Independent in ADLs, personal care and ambulation. She told me she holds on the furniture in the house as it is a small space, uses cane or walker when outside the home.
Received Hemodialysis M-W- at [facility], 550am chair time, uses [facility].
Hx [facility] and [facility], SNF history at [facility], [facility] and [facility].
She does not know if she has prescription coverage.
PCP: Tej Chavez
Pharmacy: [facility] in [place]
Anticipate discharge home, watch for needs.
[2025-02-26] MEDS: DUONEB INH (13:27)
[2025-02-26] MEDS: PULMICORT INH (13:28)
[2025-02-26 15:10] LABS: Glucose - Point of Care 90 mg/dl (70-99)
[2025-02-26] MEDS: DUONEB 3 ML INH ×2 (15:31→19:16)
[2025-02-26] MEDS: DELTASONE 40 MG PO (15:32)
[2025-02-26 16:58] LABS: Glucose - Point of Care 216 mg/dl (70-99)
[2025-02-26] MEDS: NOVOLOG FLEXPEN-LOW RESISTANCE 2 UNITS SC (17:11)
[2025-02-26] MEDS: PULMICORT 0.25 MG INH (19:17)
[2025-02-26] MEDS: ROBITUSSIN DM 5 ML PO (20:42)
[2025-02-26 21:06] LABS: Glucose - Point of Care 215 mg/dl (70-99)
[2025-02-26] MEDS: LIPITOR 40 MG PO (21:19)
[2025-02-26] MEDS: TYLENOL 650 MG PO (21:19)
[2025-02-26] MEDS: LANTUS 0.1 UNITS SC (21:19)
[2025-02-27] MEDS: ZOSYN 50 IV ×2 (01:19→16:08)
[2025-02-27 03:00] VITALS: BP 158/70; BMI 39.5
[2025-02-27] MEDS: SYNTHROID 137 MCG PO (05:19)
[2025-02-27] MEDS: DUONEB 3 ML INH ×4 (07:20→19:10)
[2025-02-27] MEDS: PULMICORT 0.25 MG INH ×2 (07:22→19:10)
[2025-02-27 07:23] VITALS: BP 150/80
[2025-02-27 07:43] LABS: Glucose - Point of Care 156 mg/dl (70-99)
[2025-02-27 08:33] LABS: Venous Blood Gas B.E. -0.2 mmol/L (-4 to +4); Venous Blood Gas O2 Sat % 100.0 %
[2025-02-27 09:00] LABS: Hematocrit 27.4 % (37.0-47.0); Hemoglobin 9.2 g/dL (12.0-16.0); Mean Corp Hgb Conc. 33.6 g/dL (33.0-37.0); Mean Corpuscular Volume 92.6 fL (81.0-99.0); Nucleated Red Blood Cells % 0 %; Platelet Count 91 10^3/uL (130-400); Red Cell Dist. Width 16.4 % (11.5-14.5)
[2025-02-27 09:33] LABS: Carbon Dioxide 24 mmol/L (22-30); Chloride 97 mmol/L (98-107); Iron 32 ug/dl (37-170); Magnesium 1.4 mg/dl (1.6-2.3); Potassium 4.9 mmol/L (3.5-5.1); Sodium 131 mmol/L (135-145)
[2025-02-27 09:42] LABS: Total Iron Binding Capacity 152 ug/dl (265-497)
--- NOTE | 2025-02-27 09:46 | W.PN.HOSP.TC ---
Today's Communication/Plan
-
See plan
Assessment / Plan
Assessment / Plan
Physical Exam
General: Not in acute distress
HEENT: Normocephalic. Moist mucous membranes
Respiratory: Wheezing significantly improved
Cardiac: S1/S2 and Regular Rhythm; No Murmur
GI: Soft, Non Tender, Non Distended and Normal Bowel Sounds
Musculoskeletal: No Cyanosis
Neuro: AAO x 3
Hematologic/Lymphatic: Other (Scarring at the bilateral UE from prior AVF site(s). L IJ tunneled cath sit without bleeding / discharge / erythema)
Assessment/Plan
74 y/o female with past medical history significant for ESRD on HD, DM-II and GERD / GAVE who presented to [facility] ED for evaluation of lethargy, weakness and confusion. History obtained from patient and her daughter at the bedside. Patient stated that
she has felt weak and fatigued for ~1 week prior to arrival. She reported hacking, non-productive cough. No noted fever. She lives with her two daughters - who were out of town over the past weekend and returned home on 02/25/25. No one else in
the house has been ill. Patient went to her usual HD on the morning of 02/25/25 (family monitored her comings and anirudh via Ring camera to confirm this).
Patient stated that she 'must have' fallen asleep or passed out on dialysis. HD staff reportedly informed her that she had N/V during her session. Patient does not recall this.
She was told to present to the [facility] ED after HD, but was too tired and took the bus home instead. At home she climbed two flights of stairs - stopping midway due to fatigue - and went back to bed.
When daughters returned home on 02/25/25 evening, they found the patient lying on her bedroom floor confused and disoriented. Patient does not recall falling from bed. She complains of L sided headache and neck discomfort. Daughters helped the
patient to bed (around 7PM) and she fell back to sleep. Patient then called out to her daughters again around 9:30 PM and they went to find her again on the floor.
Patient states that her newest medication with zolpidem. She complains of chronic insomnia and notes that this has been helping. She started this < 2 weeks ago.
No other new medications. She does however also take Lyrica, gabapentin and cyclobenzaprine.
Pneumonia (Right>Left)
Sepsis secondary to the above
Chills and feeling feverish at home
Aspiration?
- Cough x 1 week, leukocytosis with L shift, tachycardia and tachypnea on arrival.
- CXR with bibasilar opacities - L > R.
- COVID negative in the ED.
- Continue Zosyn; Vancomycin stopped as MRSA negative
- Follow temperature curve and monitor for any new / worsening symptoms.
- Bronchodilators and steroids as below
- Speech evaluation
Syncope/Encephalopathy
- Suspected patient dyspnea and factors related to dyspnea, as well as polypharmacy, particularly gabapentin, Flexeril, Lyrica, zolpidem.
- Vasovagal episodes also possible considering vomiting and syncope while on hemodialysis.
- Echo with EF 55% and worsened MR
- Continue to monitor on telemetry
Acute TME - RESOLVED
- ? secondary to sepsis as noted above versus med effect - or combination thereof.
- Patient recently started on zolpidem (Rx written 02/08).
- Also on outpatient cyclobenzaprine, Lyrica AND gabapentin.
- Treat infectious process as noted above.
- Continue Lyrica but at lower dose of 25 mg daily. Holding cyclobenzaprine and Gabapentin. Suspected that Gabapentin may be mistake on med rec since patient is also on Lyrica -- will check with patient.
- Follow for clinical improvement.
- ? if there may have been some med confusion for the past few days while family out of town.
Mild intermittent asthma with acute exacerbation
History of Childhood Asthma
- Patient sees outpatient pulmonary at [facility]
- On 02/26/25, wheezing on exam, together with fatigue and SOB
- Ordered Duonebs and Pulmicort
- Prednisone 40 mg daily for 5 days (today is Day 2)
- Consulted pulmonary for additional recommendations
- At the time of discharge, start Symbicort or generic version Breyna
- Will need close outpatient pulmonary follow-up
Nausea in upper chest/lower neck area
- Patient says she has been unable to tolerate much PO intake, prior to presentation
- As of 02/27/25, she says she is able to tolerate oral intake well
- Patient sees GI Dr. Rola Wright at [facility]
- Speech evaluation with unremarkable results
Chronic Dyspnea on exertion - likely multifactorial -- obstructive and restrictive lung disease, pneumonia, morbid obesity, heart failure, ESRD
Significantly elevated proBNP
- Repeat echo showed EF 55% with worsened mitral regurgitation
- Question whether patient needs GDMT given SOB, fatigue and worsened MR in setting of EF<60%
- Question whether the mitral regurgitation is contributing to fatigue
- Appreciate cardiology input
ESRD on HD
- Nephrology evaluation for HD needs during acute stay.
- Patient states that she takes Lasix 80mg daily - will hold for now.
ASCVD
Chronic HFpEF
- Stable. Continue ASA, statin, etc.
- Holding Lasix acutely as noted above. Follow I/Os, daily weights, etc.
- Patient sees [facility] outpatient
- Checked echo as above
DM-II
- Stable. Continue Lantus.
- Follow glucose and cover with SSI as needed.
Hypothyroidism
- TSH somewhat suppressed and free T4 elevated
- Reduced Levothyroxine
GERD / GAVE / Hiatal Hernia
- Stable. Prior h/o GI bleeding.
- Continue PPI.
Morbid Obesity
- Affects all aspects of care.
- Encourage healthy diet and increased activity as tolerated with goal of weight loss.
- VBG noted
- Assess for need for home oxygen prior to discharge
Shellfish Allergy
Speech and Swallow: As of 02/27/25, per [employer] communication with Agustina Keita, patient has no signs of dysphagia. Needs to pick softer foods given missing many teeth.
DVT Prophylaxis: Subcutaneous Heparin
Code Status: Full Code
Anticipated Discharge: 24 - 48 hours
Subjective/Interval History
-
Date of Service: February 27, 2025
Patient was seen and examined. She denied any new symptoms or complaints.
Objective Data
-
Labs:
Laboratory Results
02/27/25
07:59
WBC 6.5
Hgb 9.2 L
Hct 27.4 L
Plt Count 91 L
Sodium 131 L
Potassium 4.9
Chloride 97 L
Carbon Dioxide 24
Vital Signs:
Vital Signs
Temp Pulse Resp BP Pulse Ox
97.8 F 89 18 150/80 97
02/27/25 07:23 02/27/25 07:24 02/27/25 07:24 02/27/25 07:23 02/27/25 07:24
I&O
02/26/25 02/27/25 02/28/25
06:59 06:59 06:59
Intake Total 480 / 480
Balance 480 / 480
[2025-02-27 10:36] LABS: Ferritin 1150.0 ng/ml (11.1-264.0)
[2025-02-27] MEDS: RETACRIT 10000 UNITS IV (10:40)
--- NOTE | 2025-02-27 11:03 | W.PN.NEPH.HD ---
Assessment
-
pt seen during HD
vitals stable , UF as tolerated to EDW
improving sob but MCCLURE still
on po steroids
CVC function well
off Ozempic, ambein, gabapentin
Progress Note - Hemodialysis
-
Date of Service: February 27, 2025
Duration: 30 minutes and 3 hours
Potassium Bath: 2
Calcium Bath: 2.5
Opti-Dialyzer: 160
Ultrafiltration: Other (2-2.5)
Blood Flow: 400
Dialysate Flow: 600
Heparin: no
EPO: [id number]
[2025-02-27 11:26] LABS: Glucose - Point of Care 118 mg/dl (70-99)
[2025-02-27] MEDS: HEPARIN 4000 UNITS INTRACATH (11:29)
--- NOTE | 2025-02-27 11:40 | W.PN.PUL3 ---
Today's Communication / Plan
-
- Discontinue IV vancomycin
- Follow-up on cultures
- Continue bronchodilators and steroids
- Continue to optimize volume with hemodialysis
Assessment
-
Patient is a very pleasant 74-year-old female with extensive past medical history pertinent for hemodialysis for end-stage renal disease, diabetes, mild intermittent asthma and insomnia who was brought to the hospital for lethargy, weakness and
confusion. Patient reportedly over the last week has been having increasing cough, not productive with wheezing and shortness of breath. Patient reports that she reportedly has had a few episodes of passing out including 1 at dialysis which was
complicated by vomiting with possibly aspiration. Patient reports that post her session she went to home and was extremely tired. She got very short of breath walking upstairs and then lying down in her bed. Subsequently she reports she rolled
over and fell on the floor and was unable to get up. She reports that she was on the floor for few hours until her daughter found her and brought to the emergency room. She was felt to have toxic metabolic encephalopathy in the setting of
polypharmacy with newest medication being zolpidem while she has already been on Lyrica, gabapentin and Flexeril. Patient had workup in the emergency room including chest x-ray which showed right greater than left pneumonia and she was also noted
to have bilateral expiratory wheezing. On 02/26, pulmonary service was consulted in view of wheezing regarding further recommendations around asthma management.
Patient has known history of childhood asthma. Once she was an adult she has had more of a mild intermittent asthma pattern. She saw pulmonary intermittently and has not regularly been using any inhalers. She reports episodes of cough with
wheezing no specific relationship to temperature however notes association with exposure to pets particularly dogs which tend to give her increased allergy symptoms and asthma flare. She has not needed prednisone for asthma flare in the last year
and has not needed to go to emergency room or urgent care for asthma exacerbation. She also reports lately worsening exertional dyspnea but does not report any chest pain or chest tightness. No reported paroxysmal nocturnal dyspnea. No reported
orthopnea.
#1. Mild intermittent asthma with acute exacerbation
- Clinically improving, likely exacerbated in the setting of pulmonary infection
- Eosinophil count 0-200. Known history of childhood asthma. Suspect allergic variant with multiple environmental allergies including dogs and pets.
- Agree with scheduled DuoNeb and budesonide. Continue prednisone 40 mg daily for 5 days
- Recommend starting Symbicort or generic version Breyna at discharge. Patient will need outpatient follow-up with pulmonary clinic, will leave information in discharge section
- Will pursue additional workup including IgE and RAST panel as outpatient
- Patient also needs pulmonary function testing including spirometry, lung volumes, diffusion capacity assessment, bronchodilator responsiveness as well as 6-minute walk test as outpatient. Restriction noted on prior spirometry likely related to
obesity.
#2. Pneumonia, R>L. Aspiration suspected
- Patient is afebrile. proBNP significantly elevated at 9170
- Reports chills and feeling feverish at home, reported episodes of vomiting with altered mental status
- MRSA screen negative, discontinue IV vancomycin. Continue Zosyn, follow-up on cultures.
- Prednisone 40 mg daily added for asthma exacerbation
#3. Obesity with BMI 40
- Patient at risk of underlying sleep disordered breathing. Prior history of mild sleep apnea in 2017, did not tolerate CPAP at that time.
- Outpatient follow-up with pulmonary clinic, will pursue sleep study as outpatient
- Bicarb level 29 on basic metabolic panel, elevated considering underlying end-stage neural disease. VBG 7.36/45. Without any CO2 retention.
- Assess for need for home oxygen prior to discharge
#4. Dyspnea on exertion.
- Patient's dyspnea on exertion is likely multifactorial. Underlying factors include obstructive airway disease, Pneumonia, Obesity with BMI 40, heart failure with preserved ejection fraction. Restrictive lung disease noted on prior spirometry,
suspect related to obesity.
- Repeat echocardiogram with preserved LVEF, increased mitral regurgitation. Will pursue full pulmonary function testing as outpatient along with 6-minute walk test.
- Continue to optimize volume, nephrology service on case for hemodialysis
Other medical diagnoses:
- Syncope/Encephalopathy, recurrent. Concern for polypharmacy, particularly gabapentin, Flexeril, Lyrica, zolpidem. Vasovagal episodes also in differential diagnosis considering vomiting and syncope while on hemodialysis.
- End stage renal disease, on hemodialysis. Nephrology service on case
- Hypothyroidism on replacement. TSH somewhat suppressed and free T4 elevated. Defer to primary team, recommend considering lowering thyroxine replacement
- Diabetes mellitus type 2
- Gastroesophageal reflux disease
- Exertional dyspnea. Recommend repeating echocardiogram
- HFpEF. BNP elevated. ECHO pending
- Environmental allergies
Total time spent on this consultation/encounter __48__ minutes which includes review of history, physical exam, medications, laboratory data, personal review of imaging, extensive review of outpatient records, discussion with care team and
respiratory therapy.
Data:
ECHO 02/2025: 1. Left ventricular ejection fraction is normal with an ejection fraction of 55 % by Larson's biplane method of discs.
2. Compared to a prior transthoracic echocardiogram study from 10/01/2023 MR has worsened from trace to at least mild to moderate.
3. Mild concentric left ventricular hypertrophy.
4. There is at least mild to moderate mitral regurgitation which may have been underestimated due to mitral annular calcification.
CXR 02/2024: Parenchymal opacity within both lower lungs, which appears new from previous radiograph. Main differential considerations of atelectasis and/or pneumonia.
Cardiomegaly with no evidence for pulmonary edema.
ECHO 09/2023: Normal left ventricular size, wall thickness and systolic function. No
regional wall motion abnormalities are seen. Estimated ejection fraction is 55-
60%. Normal diastolic function.
Normal right ventricular size and function.
Mitral valve opens normally. Thickened mitral valve leaflets. Mitral annular
calcification. Trace mitral regurgitation.
Trileaflet aortic valve. Aortic valve opens normally. No aortic regurgitation
is seen.
Tricuspid valve opens normally. Trace tricuspid regurgitation. Estimated
pulmonary artery pressure of 15-20 mmHg. Assuming a right atrial pressure of 3
mmHg.
Spirometry, 2015. Moderate restrictive lung disease.
Subjective Data
-
Date of Service:
Date of Service: February 27, 2025
Subjective:
Patient comfortably lying in bed, currently receiving hemodialysis.
Review of Systems
Genitourinary: Other (No new pulmonary symptoms reported.)
Objective Data
Data Reviewed
Vital Signs / I&O / Oxygen:
Vital Signs
Temp Pulse Resp BP Pulse Ox
97.8 F 97 18 150/80 96
02/27/25 07:23 02/27/25 11:27 02/27/25 11:27 02/27/25 07:23 02/27/25 11:27
Intake and Output
02/26/25 02/27/25 02/28/25
06:59 06:59 06:59
Intake Total 480 / 480
Balance 480 / 480
SaO2 96
Physical Exam
General: Comfortable
HEENT: Normocephalic
Cardiovascular: S1-S2
Respiratory: Wheeze (Faint end expiratory wheezing, overall improved)
GI: Soft and Non Distended
Neurology: Awake and Alert
Skin: Warm
Labs/Micro/Reports
Lab Data
02/27/25 07:59
02/27/25 07:59
Microbiology
02/26/25 04:26 Nose MRSA Screen - Final
No Methicillin Resistant Staphylococcus aureus isolated.
02/26/25 04:26 Blood/Venous Blood Culture - Preliminary
No Growth in 24 hours- Final report to follow
02/26/25 04:26 Blood/Venous Blood Culture - Preliminary
No Growth in 24 hours- Final report to follow
[2025-02-27 11:42] VITALS: BP 112/60
[2025-02-27] MEDS: NOVOLOG FLEXPEN-LOW RESISTANCE SC ×2 (11:56→12:13)
[2025-02-27] MEDS: RENVELA 1600 MG PO ×3 (12:02→18:05)
[2025-02-27 12:03] LABS: Glucose - Point of Care 146 mg/dl (70-99)
[2025-02-27] MEDS: DELTASONE 40 MG PO (12:05)
[2025-02-27] MEDS: RENVELA PO ×2 (12:06)
[2025-02-27] MEDS: PROTONIX 40 MG PO (12:07)
[2025-02-27] MEDS: ASPIR LOW (ENTERIC COATED) 81 MG PO (12:07)
[2025-02-27] MEDS: HEPARIN 5000 UNITS SC ×2 (12:10→22:06)
[2025-02-27] MEDS: LYRICA 25 MG PO (12:12)
[2025-02-27] MEDS: ZOSYN IV (12:13)
--- NOTE | 2025-02-27 14:11 | CON.CAR ---
Addendum entered and electronically signed by Duglas Apple MD 02/27/25 17:26:
I saw and evaluated the patient. I reviewed the resident�s note and agree with findings and plan as documented in the resident�s note.
Briefly, 74-year-old woman past medical history of end-stage renal disease on dialysis, hypertension, lipidemia and insulin-dependent diabetes who presented with worsening dyspnea and weakness echocardiogram showed worsening mitral digitation and
cardiology is consulted for evaluation of acute heart failure.
Patient reports ongoing shortness of breath as well as cough and wheezing for at least the last several weeks
Evaluated by pulmonology who is treating for possible pneumonia acute asthma exacerbation with antibiotics and steroids
We were asked to comment on a possible contribution from acute heart failure as well
Patient does not appear to be overtly volume overloaded on exam
Echo here shows preserved LV function. Mitral regurgitation has worsened since prior echo however is only mild to moderate and doubt this is contributing to her symptoms.
proBNP is elevated at 9000 but unchanged from prior
Suspect she may benefit from addition volume removal via dialysis. Patient tells me she has been on on Ozempic without significant weight loss. Would suggest targeting a lower dry weight to see if this improves her symptoms.
Reviewed eventual repeat echo as an outpatient in 1 to 2 years to reassess her mitral regurgitation
Original Note:
Consultation
Consultation Request
Date/Time Consultation Requested: 02/27/2025 10:41
Date/Time Consultation Performed: 02/27/2025 12:30
Requesting Provider: Javi Johns MD
Performing Provider: Jaime Logan DO (Resident); Duglas Henson MD
Reason for Consultation: SOB, Mitral Regurgitation on Echo
Medical History
-
Chief Complaint: Shortness of Breath, Weakness
History of Present Illness:
Ifrah Henry is a 74F w/ PMHx ESRD on HD, IDDM, GERD, GAVM, CAD, HTN, HLD, Hypothyroidism and anemia of chronic disease who is presenting for shortness of breath and weakness. Per the patient, she is chronically short of breath, but has felt more
so over the past few weeks. She notes that she lives in a 2 story town home and has to walk up 16 steps to get to her bedroom, which is how she assesses her respiratory status. Normally, she does feel short of breath once at the top of the stairs,
but notes that it is manageable. Over the past few weeks she has noticed she has been more and more short of breath, having to take breaks on the landing about half way up the stairs. Additionally she endorses lethargy, weakness and confusion for
about a week. During this time she has had a non-productive cough. She follows a [facility] schedule for HD, and while at HD on Tuesday, she was told that she passed out and had an episode of vomiting that she does not remember. At the time, she was told to
go to ED, but went home to try to sleep it off. She noted that she was extremely lethargic trying to get to her bed but eventually made it there. When she tried to get out of bed, she slid to the floor. She could not get up and had to wait for her
daughters to come home to help her. Last night the same thing happened again.
ED COURSE
AFVSS w/ coarse breath sounds at the bases
WBC nml, Hb 10.7 plt 119
Na 131 K 5.7 BUN 29, Cr 4.9
CT Head:
CXR: PNA vs atelectasis, no pulmonary edema
ECG: NSR, L Waterman Dev, no change from 04/2023
Pro-BNP 9170 representing a decrease from 9540 in 04/2023
HOSPITAL COURSE
ECHO showed 55% EF and worsened MR from trace to mild to moderate, mild LVH, annular calcification of the mitral valve
ECHO (09/2024): EF 55-60%, trace MR, annular calcification of the mitral valve
We were consulted to comment on possibility of reduced EF and worsening of mitral regurgitation contributing to symptoms and evaluation for GDMT.
Patient also endorses occasional swelling in the hands and feet bilaterally that is chronic, denies abdominal swelling, paroxysmal dyspnea. Does not know if she gets orthopneic because she usually sleeps propped upright secondary to chronic back
pain. Endorses a history of CATA, got a CPAP but stopped using shortly after.
Past Medical History
Past Medical History: IDDM and Other (HD, IDDM, GERD, GAVM, CAD, HTN, HLD, Hypothyroidism and anemia of chronic disease)
Past Surgical History: Other (Left Upper Extremity AV Fistula Right Upper Extremity AV Fistula Left Carpal Tunnel Left Tunneled HD Catheter)
Social History
Tobacco: Non-Smoker
Alcohol: None
Living: With Family
Family History
Family History: CAD and Diabetes
Allergies / Home Medications
Allergy/AdvReac Type Severity Reaction Status Date / Time
cephalexin Allergy rash, Verified 02/25/25 22:41
fever &
itching;
tolerates
cefazolin
(SEE
COMMENTS)
eggplant Allergy Shortness Verified 02/25/25 22:41
of Breath
erythromycin base Allergy Itching,Stomach Verified 02/25/25 22:41
pain 'bad'
latex Allergy Pt states Verified 02/25/25 22:41
she gets a
rash and
wheezes
�Medication �Instructions �Recorded �Confirmed �Type
atorvastatin 40 mg tablet 40 mg PO HS High cholesterol 02/13/20 02/26/25 History
sevelamer carbonate 800 mg tablet 1,600 mg PO MEALS Kidney Disease 07/30/21 02/26/25 History
levothyroxine 150 mcg tablet 150 mcg PO DAILY AT 0700 Thyroid 05/21/22 02/26/25 History
albuterol sulfate 90 mcg/actuation 2 puff inhalation R BID 05/18/23 02/26/25 History
aerosol inhaler Lung/Breathing Issues
aspirin 81 mg tablet,delayed 81 mg PO DAILY Blood Clot 05/18/23 02/26/25 History
release Prevention/Tx
gabapentin 100 mg capsule 100 mg PO HS Neurological Condition 05/18/23 02/26/25 History
insulin aspart U-100 100 unit/mL 0 - 6 sliding scale dose SC AC 05/18/23 02/26/25 History
(3 mL) subcutaneous pen (Novolog Diabetes
FlexPen U-100 Insulin aspart)
insulin glargine 100 unit/mL (3 10 unit SC HS Diabetes 05/18/23 02/26/25 History
mL) subcutaneous pen (Lantus
Solostar U-100 Insulin)
pantoprazole 40 mg tablet,delayed 40 mg PO DAILY #30 tabs 05/21/23 02/26/25 Rx
release
cyclobenzaprine 10 mg tablet 10 mg PO DAILYPRN PRN muscle spasms 02/26/25 02/26/25 History
furosemide 80 mg tablet (Lasix) 80 mg PO DAILY Fluid 02/26/25 02/26/25 History
Retention/Swelling
pregabalin 100 mg capsule (Lyrica) 100 mg PO DAILY Antiseizure Agent, 02/26/25 02/26/25 History
semaglutide 0.25 mg or 0.5 mg (2 0.5 mg SC FRIEDMAN WEIGHT LOSS 02/26/25 02/26/25 History
mg/3 mL) subcutaneous pen injector
(Ozempic)
zolpidem 5 mg tablet 5 mg PO HSPRN PRN insomnia 02/26/25 02/26/25 History
Review of Systems
-
History Source: Patient
All other systems: Negative unless noted
Physical Exam
Vital Signs
Temp Pulse Resp BP Pulse Ox
97.7 F 95 20 112/60 96
02/27/25 11:42 02/27/25 11:42 02/27/25 11:42 02/27/25 11:42 02/27/25 11:42
Lab Results
02/27/25 07:59
02/27/25 07:59
[id number]-Iebdxmfpymu Pept 9170 pg/ml 02/25/25 23:52
Physical Exam
General: No Apparent Distress and Comfortable
Respiratory: Other (coarse breath sounds bilaterally, patient catching breath with longer sentences)
Cardiac: S1/S2 and Regular Rhythm
Musculoskeletal: No Clubbing, No Cyanosis and No Edema
Skin: Warm
Neuro: Awake and Alert
Psych: Calm
Impression / Plan
-
Ifrah Henry is a 74F w/ PMHx ESRD on HD, IDDM, GERD, GAVM, CAD, HTN, HLD, Hypothyroidism and anemia of chronic disease who is presenting for shortness of breath and weakness. CXR was more suggestive of pneumonia than pulmonary edema, but repeat
ECHO shows progression of MR which may play a role in the patient's symptoms. Her BNP is in fact decreased from last visit, and she appears euvolemic on examination. Cardiology was consulted to comment on progression of MR and potential use of GDMT
therapy in the setting of possible CHF. She does not appear volume overloaded clinically but her BNP is elevated and perihilar patchiness on XR that is suggestive of PNA, could be pulmonary edema. However, her pulmonary arterial pressures on echo
were normal which goes against decompensated left sided heart failure. Her elevated BNP could be due to atrial stretch in the setting of volume overload due to ESRD. Additionally, increased mitral regurgitation as seen on ECHO when compared to
09/2024 may also be a result of left sided heart stretch in the setting of increased volumes in ESRD. We would not suggest proceeding with GDMT at this time. The patient may symptomatically benefit from extra dialysis to draw off more fluid. She can
then follow up for repeat ECHO in an outpatient setting.
We will continue to follow for now, possible sign off tomorrow.
Can follow up as an outpatient for repeat ECHO and evaluation of possible HFpEF/reevaluation of MR.
Data Reviewed
-
EKG: Tracing Personally Visualized and interpreted
Radiology: Image Personally Visualized and interpreted and Report Reviewed by me
Medical Tests (Nuc Med, Echo etc): Image Personally Visualized and interpreted, Report Reviewed by me and Discussed with Patient
Labs: Labs Reviewed by me and Discussed with Patient
Old Records: Reviewed
Total Time Spent with Patient (in minutes): 45
[2025-02-27 15:00] VITALS: BP 139/62
--- NOTE | 2025-02-27 15:14 | CM ---
CM reviewed chart, patient seen bedside, per therapy evnini, pt refused therapy today. Patient inquiring if she will need to go to rehab post discharge or if she can return home, patient preference to return home. Patient reports she lives at home
with her two daughters and four year old granddaughter. Pt current with [facility] schedule, 5:50 a.m. chair time. CM will continue to follow for all discharge planning needs.
Plan; home with continuance HD Myrna, watch for PT/OT evals
--- NOTE | 2025-02-27 15:15 | PTOTSP ---
Dysphagia Evaluation
Suspect oral/pharyngeal stages of swallowing are within functional limits. Patient will select soft foods from the menu given baseline changes to dentition that limits ability to masticate some meats.
Recommend:
1. Regular, Thin Liquids
2. Medications as best tolerated
3. Upright to 90 degrees, slow rate with breaks for breathing, reflux precautions
4. No further dysphagia tx warranted. Please reconsult as appropriate.
[2025-02-27 16:53] LABS: Glucose - Point of Care 324 mg/dl (70-99)
[2025-02-27] MEDS: NOVOLOG FLEXPEN-LOW RESISTANCE 4 UNITS SC (16:56)
[2025-02-27 19:00] VITALS: BP 144/70
[2025-02-27 21:35] LABS: Glucose - Point of Care 258 mg/dl (70-99)
[2025-02-27] MEDS: LIPITOR 40 MG PO (22:06)
[2025-02-27] MEDS: TYLENOL 650 MG PO (22:07)
[2025-02-27] MEDS: LANTUS 0.1 UNITS SC (22:09)
[2025-02-27] MEDS: ROBITUSSIN DM 10 ML PO (22:47)
[2025-02-27 23:06] VITALS: BP 172/86
[2025-02-28] VITALS (10 sets, daily range): BP systolic 118–182; BP diastolic 65–88; PULSE 71–102; O2SAT 97–98; BMI 39.5
[2025-02-28] MEDS: ZOSYN 50 IV ×2 (00:16→08:20)
[2025-02-28] MEDS: SYNTHROID 137 MCG PO (06:38)
[2025-02-28] MEDS: DUONEB 3 ML INH ×4 (07:14→20:32)
[2025-02-28] MEDS: PULMICORT 0.25 MG INH (07:14)
[2025-02-28 07:41] LABS: Glucose - Point of Care 156 mg/dl (70-99)
--- NOTE | 2025-02-28 07:42 | W.PN.HOSP.TC ---
Today's Communication/Plan
-
Change Zosyn to Unasyn
PT/OT
Acute Rehab placement
Assessment / Plan
Assessment / Plan
Physical Exam
General: Not in acute distress
HEENT: Normocephalic. Moist mucous membranes
Respiratory: Wheezing resolved
Cardiac: S1/S2 and Regular Rhythm
GI: Soft, Non Tender, Non Distended and Normal Bowel Sounds
Musculoskeletal: No Cyanosis
Neuro: AAO x 3
Hematologic/Lymphatic: Other (Scarring at the bilateral UE from prior AVF site(s). L IJ tunneled cath sit without bleeding / discharge / erythema)
Assessment/Plan
74 y/o female with past medical history significant for ESRD on HD, DM-II and GERD / GAVE who presented to [facility] ED for evaluation of lethargy, weakness and confusion. History obtained from patient and her daughter at the bedside. Patient stated that
she has felt weak and fatigued for ~1 week prior to arrival. She reported hacking, non-productive cough. No noted fever. She lives with her two daughters - who were out of town over the past weekend and returned home on 02/25/25. No one else in
the house has been ill. Patient went to her usual HD on the morning of 02/25/25 (family monitored her comings and anirudh via Ring camera to confirm this).
Patient stated that she 'must have' fallen asleep or passed out on dialysis. HD staff reportedly informed her that she had N/V during her session. Patient does not recall this.
She was told to present to the [facility] ED after HD, but was too tired and took the bus home instead. At home she climbed two flights of stairs - stopping midway due to fatigue - and went back to bed.
When daughters returned home on 02/25/25 evening, they found the patient lying on her bedroom floor confused and disoriented. Patient does not recall falling from bed. She complains of L sided headache and neck discomfort. Daughters helped the
patient to bed (around 7PM) and she fell back to sleep. Patient then called out to her daughters again around 9:30 PM and they went to find her again on the floor.
Patient states that her newest medication with zolpidem. She complains of chronic insomnia and notes that this has been helping. She started this < 2 weeks ago.
No other new medications. She does however also take Lyrica, gabapentin and cyclobenzaprine.
Pneumonia (Right>Left)
Sepsis secondary to the above
Chills and feeling feverish at home
Aspiration?
- Cough x 1 week, leukocytosis with L shift, tachycardia and tachypnea on arrival.
- CXR with bibasilar opacities - L > R.
- COVID negative in the ED.
- Vancomycin stopped as MRSA negative
- On 02/28/25, change Zosyn to Unasyn.
- Follow temperature curve and monitor for any new / worsening symptoms.
- Bronchodilators and steroids as below
- Speech evaluation
- Home oxygen assessment
Syncope/Encephalopathy
- Suspected patient dyspnea and factors related to dyspnea, as well as polypharmacy, particularly gabapentin, Flexeril, Lyrica, zolpidem.
- Lyrica low dose continued
- Patient reports back pain and would Flexeril to be added back if possible.
- Vasovagal episodes also possible considering vomiting and syncope while on hemodialysis.
- Echo with EF 55% and worsened MR
- Continue to monitor on telemetry
Acute TME - RESOLVED
- ? secondary to sepsis as noted above versus med effect - or combination thereof.
- Patient recently started on zolpidem (Rx written 02/08).
- Also on outpatient cyclobenzaprine, Lyrica AND gabapentin.
- Treat infectious process as noted above.
- Continue Lyrica but at lower dose of 25 mg daily. Continue low dose Flexeril. Holding Gabapentin. Patient did confirm she takes both Gabapentin and Lyrica.
- Follow for clinical improvement.
- ? if there may have been some med confusion for the past few days while family out of town.
Mild intermittent asthma with acute exacerbation
History of Childhood Asthma
- IMPROVING
- Patient sees outpatient pulmonary at [facility]
- On 02/26/25, wheezing on exam, together with fatigue and SOB
- Ordered Duonebs and Pulmicort
- Prednisone 40 mg daily for 5 days (today is Day 3)
- Consulted pulmonary for additional recommendations
- At the time of discharge, start Symbicort or generic version Breyna
- Will need close outpatient pulmonary follow-up
Nausea in upper chest/lower neck area
- Patient says she has been unable to tolerate much PO intake, prior to presentation
- Patient has been able to tolerate oral intake well
- Patient sees GI Dr. Rola Wright at [facility]
- Speech evaluation with unremarkable results
Chronic Dyspnea on exertion - likely multifactorial -- obstructive and restrictive lung disease, pneumonia, morbid obesity, heart failure, ESRD
Significantly elevated proBNP
- Repeat echo showed EF 55% with worsened mitral regurgitation
- Question whether patient needs GDMT given SOB, fatigue and worsened MR in setting of EF<60%
- Question whether the mitral regurgitation is contributing to fatigue
- Appreciate cardiology input
ESRD on HD
- Nephrology evaluation for HD needs during acute stay.
- Patient states that she takes Lasix 80mg daily - will hold for now.
Hypomagnesemia
- Replaced
- Recheck serum magnesium
ASCVD
Chronic HFpEF
- Stable. Continue ASA, statin, etc.
- Holding Lasix acutely as noted above. Follow I/Os, daily weights, etc.
- Patient sees [facility] outpatient
- Checked echo as above
DM-II
- Stable. Continue Lantus.
- Follow glucose and cover with SSI as needed.
Hypothyroidism
- TSH somewhat suppressed and free T4 elevated
- Reduced Levothyroxine
GERD / GAVE / Hiatal Hernia
- Stable. Prior h/o GI bleeding.
- Continue PPI.
Morbid Obesity
- Affects all aspects of care.
- Encourage healthy diet and increased activity as tolerated with goal of weight loss.
- VBG noted
- Assess for need for home oxygen prior to discharge
Shellfish Allergy
Speech and Swallow: As of 02/27/25, per [employer] Text communication with Agustina Keita, patient has no signs of dysphagia. Needs to pick softer foods given missing many teeth.
DVT Prophylaxis: Subcutaneous Heparin
Code Status: Full Code
Anticipated Discharge: 24 - 48 hours
Subjective/Interval History
-
Date of Service: February 28, 2025
Patient was seen and examined. Still with fatigue, and cough, but appearing to be doing better today. No new symptoms or complaints.
Objective Data
-
Labs:
Laboratory Results
02/28/25
06:00
WBC Pending
Hgb Pending
Hct Pending
Plt Count Pending
Sodium Pending
Potassium Pending
Chloride Pending
Carbon Dioxide Pending
BUN Pending
Creatinine Pending
Glucose Pending
Calcium Pending
Vital Signs:
Vital Signs
Temp Pulse Resp BP Pulse Ox
98.2 F 85 16 158/65 96
02/28/25 03:00 02/28/25 07:18 02/28/25 07:18 02/28/25 03:00 02/28/25 07:18
I&O
02/27/25 02/28/25 03/01/25
06:59 06:59 06:59
Intake Total 480 / 480 1250 / 1250
Balance 480 / 480 1250 / 1250
[2025-02-28] MEDS: RENVELA 1600 MG PO ×3 (08:17→17:43)
[2025-02-28] MEDS: NOVOLOG FLEXPEN-LOW RESISTANCE 1 UNITS SC ×2 (08:17→11:41)
[2025-02-28] MEDS: PROTONIX 40 MG PO (08:17)
[2025-02-28] MEDS: ASPIR LOW (ENTERIC COATED) 81 MG PO (08:18)
[2025-02-28] MEDS: DELTASONE 40 MG PO (08:18)
[2025-02-28] MEDS: LYRICA 25 MG PO (08:19)
[2025-02-28] MEDS: HEPARIN 5000 UNITS SC ×2 (08:19→19:43)
[2025-02-28 08:23] LABS: Hematocrit 27.9 % (37.0-47.0); Hemoglobin 9.3 g/dL (12.0-16.0); Mean Corp Hgb Conc. 33.3 g/dL (33.0-37.0); Mean Corpuscular Volume 91.8 fL (81.0-99.0); Platelet Count 108 10^3/uL (130-400); Red Cell Dist. Width 17.0 % (11.5-14.5)
[2025-02-28] MEDS: TYLENOL 650 MG PO (08:31)
[2025-02-28] MEDS: ROBITUSSIN DM 10 ML PO (08:32)
[2025-02-28 09:19] LABS: Blood Urea Nitrogen 41 mg/dl (7-17); Calcium 8.9 mg/dl (8.4-10.2); Carbon Dioxide 27 mmol/L (22-30); Chloride 96 mmol/L (98-107); Estimated Creatinine Clearance 10 ml/min; Glucose 148 mg/dl (70-99); Magnesium 1.5 mg/dl (1.6-2.3); Potassium 4.8 mmol/L (3.5-5.1); Sodium 134 mmol/L (135-145); eGFR 8.09
[2025-02-28 11:26] LABS: Glucose - Point of Care 192 mg/dl (70-99)
--- NOTE | 2025-02-28 11:53 | W.PN.PUL3 ---
Today's Communication / Plan
-
- DC IV Zosyn, switch to IV Unasyn
- Continue bronchodilators and PO steroids. Discontinue budesonide
- Initiate Symbicort 2 puffs twice a day, continue at discharge
- Recommend PT/OT, very deconditioned
Assessment
-
Patient is a very pleasant 74-year-old female with extensive past medical history pertinent for hemodialysis for end-stage renal disease, diabetes, mild intermittent asthma and insomnia who was brought to the hospital for lethargy, weakness and
confusion. Patient reportedly over the last week has been having increasing cough, not productive with wheezing and shortness of breath. Patient reports that she reportedly has had a few episodes of passing out including 1 at dialysis which was
complicated by vomiting with possibly aspiration. Patient reports that post her session she went to home and was extremely tired. She got very short of breath walking upstairs and then lying down in her bed. Subsequently she reports she rolled
over and fell on the floor and was unable to get up. She reports that she was on the floor for few hours until her daughter found her and brought to the emergency room. She was felt to have toxic metabolic encephalopathy in the setting of
polypharmacy with newest medication being zolpidem while she has already been on Lyrica, gabapentin and Flexeril. Patient had workup in the emergency room including chest x-ray which showed right greater than left pneumonia and she was also noted
to have bilateral expiratory wheezing. On 02/26, pulmonary service was consulted in view of wheezing regarding further recommendations around asthma management.
Patient has known history of childhood asthma. Once she was an adult she has had more of a mild intermittent asthma pattern. She saw pulmonary intermittently and has not regularly been using any inhalers. She reports episodes of cough with
wheezing no specific relationship to temperature however notes association with exposure to pets particularly dogs which tend to give her increased allergy symptoms and asthma flare. She has not needed prednisone for asthma flare in the last year
and has not needed to go to emergency room or urgent care for asthma exacerbation. She also reports lately worsening exertional dyspnea but does not report any chest pain or chest tightness. No reported paroxysmal nocturnal dyspnea. No reported
orthopnea.
#1. Mild intermittent asthma with acute exacerbation
- Clinically improving, likely exacerbated in the setting of pulmonary infection
- Eosinophil count 0-200. Known history of childhood asthma. Suspect allergic variant with multiple environmental allergies including dogs and pets.
- Continue DuoNeb, discontinue budesonide. Initiate Symbicort twice a day scheduled. Continue prednisone for 5 days. s
- Patient will need outpatient follow-up with pulmonary clinic, will leave information in discharge section
- Will pursue additional workup including IgE and RAST panel as outpatient
- Patient also needs pulmonary function testing including spirometry, lung volumes, diffusion capacity assessment, bronchodilator responsiveness as well as 6-minute walk test as outpatient. Restriction noted on prior spirometry likely related to
obesity.
#2. Pneumonia, R>L. Aspiration suspected
- Patient is afebrile. proBNP significantly elevated at 9170
- Reports chills and feeling feverish at home, reported episodes of vomiting with altered mental status
- MRSA screen negative, discontinued IV vancomycin. Cultures have stayed negative, discontinue Zosyn, initiate Unasyn instead.
- Prednisone 40 mg daily added for asthma exacerbation
#3. Obesity with BMI 40
- Patient at risk of underlying sleep disordered breathing. Prior history of mild sleep apnea in 2017, did not tolerate CPAP at that time.
- Outpatient follow-up with pulmonary clinic, will pursue sleep study as outpatient
- Bicarb level 29 on basic metabolic panel, elevated considering underlying end-stage neural disease. VBG 7.36/45. Without any CO2 retention.
- Assess for need for home oxygen prior to discharge
#4. Dyspnea on exertion.
- Patient's dyspnea on exertion is likely multifactorial. Underlying factors include obstructive airway disease, Pneumonia, Obesity with BMI 40, heart failure with preserved ejection fraction. Restrictive lung disease noted on prior spirometry,
suspect related to obesity.
- Repeat echocardiogram with preserved LVEF, increased mitral regurgitation. Will pursue full pulmonary function testing as outpatient along with 6-minute walk test.
- Continue to optimize volume, nephrology service on case for hemodialysis
- Patient appears to be very deconditioned, likely will benefit from PT/OT services.
Other medical diagnoses:
- Syncope/Encephalopathy, recurrent. Concern for polypharmacy, particularly gabapentin, Flexeril, Lyrica, zolpidem. Vasovagal episodes also in differential diagnosis considering vomiting and syncope while on hemodialysis.
- End stage renal disease, on hemodialysis. Nephrology service on case
- Hypothyroidism on replacement. TSH somewhat suppressed and free T4 elevated. Defer to primary team, recommend considering lowering thyroxine replacement
- Diabetes mellitus type 2
- Gastroesophageal reflux disease
- Exertional dyspnea. Recommend repeating echocardiogram
- HFpEF. BNP elevated. ECHO pending
- Environmental allergies
Total time spent on this consultation/encounter __45__ minutes which includes review of history, physical exam, medications, laboratory data, personal review of imaging, extensive review of outpatient records, discussion with care team and
respiratory therapy.
Data:
ECHO 02/2025: 1. Left ventricular ejection fraction is normal with an ejection fraction of 55 % by Larson's biplane method of discs.
2. Compared to a prior transthoracic echocardiogram study from 10/01/2023 MR has worsened from trace to at least mild to moderate.
3. Mild concentric left ventricular hypertrophy.
4. There is at least mild to moderate mitral regurgitation which may have been underestimated due to mitral annular calcification.
CXR 02/2024: Parenchymal opacity within both lower lungs, which appears new from previous radiograph. Main differential considerations of atelectasis and/or pneumonia.
Cardiomegaly with no evidence for pulmonary edema.
ECHO 09/2023: Normal left ventricular size, wall thickness and systolic function. No
regional wall motion abnormalities are seen. Estimated ejection fraction is 55-
60%. Normal diastolic function.
Normal right ventricular size and function.
Mitral valve opens normally. Thickened mitral valve leaflets. Mitral annular
calcification. Trace mitral regurgitation.
Trileaflet aortic valve. Aortic valve opens normally. No aortic regurgitation
is seen.
Tricuspid valve opens normally. Trace tricuspid regurgitation. Estimated
pulmonary artery pressure of 15-20 mmHg. Assuming a right atrial pressure of 3
mmHg.
Spirometry, 2015. Moderate restrictive lung disease.
Subjective Data
-
Date of Service:
Date of Service: February 28, 2025
Subjective:
Patient comfortably sitting in chair in no acute distress, currently on room air, reports feeling better
Review of Systems
Genitourinary: Other (All 14 systems reviewed and negative except as stated above in the history of present illness.)
Objective Data
Data Reviewed
Vital Signs / I&O / Oxygen:
Vital Signs
Temp Pulse Resp BP Pulse Ox
98.0 F 96 16 126/67 96
02/28/25 11:44 02/28/25 11:44 02/28/25 11:44 02/28/25 11:44 02/28/25 11:44
Intake and Output
02/27/25 02/28/25 03/01/25
06:59 06:59 06:59
Intake Total 480 / 480 1250 / 1250
Balance 480 / 480 1250 / 1250
SaO2 96
Nasal Cannula flow liters per 7
minute
Physical Exam
General: Comfortable
HEENT: Normocephalic
Cardiovascular: S1-S2
Respiratory: Wheeze (Resolved)
GI: Soft and Non Distended
Neurology: Awake and Alert
Skin: Warm
Labs/Micro/Reports
Lab Data
02/28/25 07:52
02/28/25 07:52
Microbiology
02/26/25 04:26 Blood/Venous Blood Culture - Preliminary
No Growth in 48 hours- Final report to follow
02/26/25 04:26 Blood/Venous Blood Culture - Preliminary
No Growth in 48 hours- Final report to follow
02/26/25 11:17 Urine Urine Culture - Final
02/26/25 04:26 Nose MRSA Screen - Final
No Methicillin Resistant Staphylococcus aureus isolated.
--- NOTE | 2025-02-28 13:02 | W.PN.NEPH.PH ---
Today's Communication / Plan
-
HD tomorrow
Assessment/Plan
-
Assessment
ESRD
weakness
chronic pain
nausea
anemia
DM2
HTN
failed AV access, now CVC
Plan
HD tomorrow
high ferritin in setting resp illness
hold ozempic with nausea
ok to resume lasix at higher dose-still makes urine
follow mg s/p po dose
pulm follows
-
-
Date of Service: February 28, 2025
CC / HPI / ROS
-
Chief Complaint:
Follow-up ESRD
History of Present Illness:
BP stable
hb 9.3, no fever
mg is low 1.5
Review of Systems:
MCCLURE on minimaal exertion
no cp, has dry cough
no n/v
Labs
-
Labs:
WBC 7.8 10^3/uL (4.8-10.8) 02/28/25 07:52
RBC 3.04 10^6/uL (4.20-5.40) L 02/28/25 07:52
Hgb 9.3 g/dL (12.0-16.0) L 02/28/25 07:52
Hct 27.9 % (37.0-47.0) L 02/28/25 07:52
Plt Count 108 10^3/uL (130-400) L 02/28/25 07:52
Sodium 134 mmol/L (135-145) L 02/28/25 07:52
Potassium 4.8 mmol/L (3.5-5.1) 02/28/25 07:52
Chloride 96 mmol/L (98-107) L 02/28/25 07:52
Carbon Dioxide 27 mmol/L (22-30) 02/28/25 07:52
BUN 41 mg/dl (7-17) H 02/28/25 07:52
Creatinine 5.3 mg/dL (0.6-1.0) H* 02/28/25 07:52
eGFR 8.09 02/28/25 07:52
Glucose 148 mg/dl (70-99) H 02/28/25 07:52
Calcium 8.9 mg/dl (8.4-10.2) 02/28/25 07:52
Phosphorus 3.3 mg/dl (2.5-4.5) 02/26/25 04:26
Qsm-H-Nkycmlhhnxq Pept 9170 pg/ml 02/25/25 23:52
Albumin 3.8 g/dl (3.5-5.0) 02/25/25 22:46
Physical Exam
-
Vital Signs:
Vital Signs
Temp Pulse Resp BP Pulse Ox
98.0 F 96 16 126/67 96
02/28/25 11:44 02/28/25 11:44 02/28/25 11:44 02/28/25 11:44 02/28/25 11:44
Cardiovascular:: Regular rate and rhythm
Respiratory:: Bilateral: Coarse
Lung Excursion:: Normal
Abdomen:: Nontender and Soft
Extremity Edema:: None: Bilateral:
Orantes Catheter: No
[2025-02-28] MEDS: UNASYN IV (13:58)
--- NOTE | 2025-02-28 14:38 | CM ---
Addendum entered by Nancy Agosto 02/28/25 14:53:
CM left VM for patients daughter, Norma, per patients request.
Original Note:
CM reviewed chart, reviewed with Hospitalist, feel as though patient would benefit from acute rehab. CM reviewed with therapy, patient deconditioned, limited endurance, recommending acute vs SNF. Patient seen bedside, discussed therapy
recommendation, aware patient would need insurance authorization if facilities able to accept for acute rehab. Patient agreeable to referral to [facility]. CM discussed back up SNF options, patient will need SNF with dialysis. CM will continue to follow
for all discharge planning needs.
Plan; referral to [facility], will need auth if able to accept
--- NOTE | 2025-02-28 15:15 | W.PN.CARDCBS ---
Addendum entered and electronically signed by Janusz Chopra DO 02/28/25 16:00:
I saw and examined the patient.
The Mine Safety Director's note was reviewed and I agree with the note.
Comment:
Plan:
Cont HD for volume control and defer additional lasix to nephrology
Echo reviewed with pt and pathophysiology of MR. MR is not clinically significant at this time.
Check echo in one year.
Continue pulm toilet for possible aspiration PNA
Please recall if needed.
Original Note:
Today's Communication / Plan
-
Ongoing SOB, consider a dose of Lasix IV, patient reports she still makes urine, defer to nephrology who is managing HD
Impression / Plan
-
PCP: Dr. Tej Chavez
Podiatric Physician: previously Dr. Chopra
Impression:
Admitted with syncope, PNA and sepsis 02/25/2025
Possible aspiration PNA
AE asthma
Syncope possibly from polypharmacy
Mild to moderate MR by echo 02/27/2025
ESRD on HD
ESRD secondary to diabetic nephropathy
s/p AVF with PCI left upper arm AV fistula
Chronic HFpEF
Diabetes mellitus with multiple microvascular complications
Anemia of CKD
Peripheral diabetic neuropathy
Morbid obesity, BMI 39
Hypertension
Hypothyroidism on replacement
History sleep apnea - not treated
History depression
Hypercholesterolemia
Echo 01/12/2019: Normal LV, mild LVH, EF 65-70%, normal right heart, normal atria, no mitral regurgitation, normal aortic valve, normal tricuspid valve, normal pulmonic valve
SANDOVAL 01/15/19: no vegetation. Nl LVEF. Small Papillary fibroelastoma v Lambdl excresence.
Echo 10/01/2023: EF 55 to 60%, normal RV size and function, trace MR
Echo 02/26/2025: EF 55%, mild to moderate MR, mild concentric LVH
Plan:
-Patient admitted with generalized weakness and SOB and cardiology was consulted for mild to moderate MR possibly contributing to symptoms. Patient had HD on 02/26/2025 and while undergoing treatment she had nausea and vomiting and was told to go to
the ER, but instead went home and while at home was profoundly weak and may barely able to ambulate up the stairs and reports laying on her bedroom floor and then her family found her and brought her to the ER.
-Hospitalist and pulmonology notes reviewed by me on 02/28/2025. Patient is being transition from Zosyn to Unasyn for treatment of a suspected aspiration PNA.
-From a cardiac standpoint, reviewed results of echo with patient. There is evidence of mild to moderate MR, but not to a degree to explain symptoms. Patient should have repeat echo in 1 year.
-Nephrology is following and managing HD. Patient also makes urine. Patient reports ongoing SOB and not sure if she needs more fluid removed during HD or possibly even a dose of Lasix IV as she still makes urine, defer to nephrology.
HPI: Ifrah Henry is a 74F w/ PMHx ESRD on HD, IDDM, GERD, GAVM, CAD, HTN, HLD, Hypothyroidism and anemia of chronic disease who is presenting for shortness of breath and weakness. CXR was more suggestive of pneumonia than pulmonary edema, but
repeat ECHO shows progression of MR which may play a role in the patient's symptoms. Her BNP is in fact decreased from last visit, and she appears euvolemic on examination. Cardiology was consulted to comment on progression of MR and potential use
of GDMT therapy in the setting of possible CHF. She does not appear volume overloaded clinically but her BNP is elevated and perihilar patchiness on XR that is suggestive of PNA, could be pulmonary edema. However, her pulmonary arterial pressures on
echo were normal which goes against decompensated left sided heart failure. Her elevated BNP could be due to atrial stretch in the setting of volume overload due to ESRD. Additionally, increased mitral regurgitation as seen on ECHO when compared to
09/2024 may also be a result of left sided heart stretch in the setting of increased volumes in ESRD. We would not suggest proceeding with GDMT at this time. The patient may symptomatically benefit from extra dialysis to draw off more fluid. She can
then follow up for repeat ECHO in an outpatient setting.
Progress Note - Podiatric Physician
Subjective
Date of Service: February 28, 2025
Ongoing SOB
Objective
Labs:
02/28/25 07:52
02/28/25 07:52
Labs
Hgb 9.3 g/dL (12.0-16.0) L 02/28/25 07:52
Hct 27.9 % (37.0-47.0) L 02/28/25 07:52
Plt Count 108 10^3/uL (130-400) L 02/28/25 07:52
Sodium 134 mmol/L (135-145) L 02/28/25 07:52
Potassium 4.8 mmol/L (3.5-5.1) 02/28/25 07:52
BUN 41 mg/dl (7-17) H 02/28/25 07:52
Creatinine 5.3 mg/dL (0.6-1.0) H* 02/28/25 07:52
Glucose 148 mg/dl (70-99) H 02/28/25 07:52
Vital Signs and I&O:
Vital Signs
Temp Pulse Resp BP Pulse Ox
98.0 F 90 16 126/67 98
02/28/25 11:44 02/28/25 15:12 02/28/25 15:12 02/28/25 11:44 02/28/25 15:12
Vital Signs
Temp Pulse Resp BP Pulse Ox
98.0 F 90 16 126/67 98
02/28/25 11:44 02/28/25 15:12 02/28/25 15:12 02/28/25 11:44 02/28/25 15:12
Intake & Output
02/26/25 02/27/25 02/28/25 03/01/25
06:59 06:59 06:59 06:59
Intake Total 480 / 480 1250 / 1250
Balance 480 / 480 1250 / 1250
Physical Exam
Physical Exam
GEN: NAD. AAOx3
LUNGS: RA. No audible wheeze
CV: SR on tele
[2025-02-28 17:38] LABS: Glucose - Point of Care 318 mg/dl (70-99)
[2025-02-28] MEDS: MAGNESIUM OXIDE 400 MG PO (17:43)
[2025-02-28] MEDS: NOVOLOG FLEXPEN-LOW RESISTANCE 4 UNITS SC (17:44)
[2025-02-28] MEDS: SYMBICORT 160/4.5 MCG INHALER 2 PUFF INH (20:32)
[2025-02-28 21:22] LABS: Glucose - Point of Care 206 mg/dl (70-99)
[2025-02-28] MEDS: LANTUS 0.1 UNITS SC (21:50)
[2025-02-28] MEDS: LIPITOR 40 MG PO (21:50)
[2025-02-28] MEDS: FLEXERIL 5 MG PO (22:00)
[2025-03-01 03:00] VITALS: BP 159/61
[2025-03-01 03:52] VITALS: BMI 40.3
[2025-03-01] MEDS: SYNTHROID 137 MCG PO (05:16)
[2025-03-01] MEDS: ROBITUSSIN DM 10 ML PO (05:17)
[2025-03-01] MEDS: VENTOLIN NEBULES 2.5 MG INH (05:27)
[2025-03-01 07:21] VITALS: BP 132/57
[2025-03-01] MEDS: SYMBICORT 160/4.5 MCG INHALER 2 PUFF INH ×2 (07:43→19:44)
[2025-03-01] MEDS: DUONEB 3 ML INH ×4 (07:43→19:44)
[2025-03-01 07:44] LABS: Glucose - Point of Care 115 mg/dl (70-99)
[2025-03-01] MEDS: NOVOLOG FLEXPEN-LOW RESISTANCE SC ×2 (07:46→11:40)
[2025-03-01] MEDS: HEPARIN 500 UNITS IV ×2 (08:10→08:11)
--- NOTE | 2025-03-01 08:24 | VATNOTE ---
Per pt, R arm AV graft was removed and it is OK to use R arm for blood pressures and IVs.
--- NOTE | 2025-03-01 09:13 | W.PN.PUL3 ---
Today's Communication / Plan
-
- Add Mucinex and PRN Tesalon perals
- Continue Symbicort twice a day scheduled at discharge
- Recommend prednisone 40 mg for 4 days followed by 30 mg for 4 days then 20 mg for 4 days then 10 mg for 4 days and then stop taking
- Total 7 days of antibiotic should suffice
- Assess for home oxygen prior to discharge
- Outpatient follow-up with pulmonary clinic
- Pulmonary team will sign off, please call as needed
Assessment
-
Patient is a very pleasant 74-year-old female with extensive past medical history pertinent for hemodialysis for end-stage renal disease, diabetes, mild intermittent asthma and insomnia who was brought to the hospital for lethargy, weakness and
confusion. Patient reportedly over the last week has been having increasing cough, not productive with wheezing and shortness of breath. Patient reports that she reportedly has had a few episodes of passing out including 1 at dialysis which was
complicated by vomiting with possibly aspiration. Patient reports that post her session she went to home and was extremely tired. She got very short of breath walking upstairs and then lying down in her bed. Subsequently she reports she rolled
over and fell on the floor and was unable to get up. She reports that she was on the floor for few hours until her daughter found her and brought to the emergency room. She was felt to have toxic metabolic encephalopathy in the setting of
polypharmacy with newest medication being zolpidem while she has already been on Lyrica, gabapentin and Flexeril. Patient had workup in the emergency room including chest x-ray which showed right greater than left pneumonia and she was also noted
to have bilateral expiratory wheezing. On 02/26, pulmonary service was consulted in view of wheezing regarding further recommendations around asthma management.
Patient has known history of childhood asthma. Once she was an adult she has had more of a mild intermittent asthma pattern. She saw pulmonary intermittently and has not regularly been using any inhalers. She reports episodes of cough with
wheezing no specific relationship to temperature however notes association with exposure to pets particularly dogs which tend to give her increased allergy symptoms and asthma flare. She has not needed prednisone for asthma flare in the last year
and has not needed to go to emergency room or urgent care for asthma exacerbation. She also reports lately worsening exertional dyspnea but does not report any chest pain or chest tightness. No reported paroxysmal nocturnal dyspnea. No reported
orthopnea.
#1. Mild intermittent asthma with acute exacerbation
- Clinically improving, likely exacerbated in the setting of pulmonary infection. No further wheezing this morning
- Eosinophil count 0-200. Known history of childhood asthma. Suspect allergic variant with multiple environmental allergies including dogs and pets.
- Continue DuoNeb, Symbicort twice a day and prednisone p.o.
- Patient will need outpatient follow-up with pulmonary clinic, will leave information in discharge section
- Will pursue additional workup including IgE and RAST panel as outpatient
- Patient also needs pulmonary function testing including spirometry, lung volumes, diffusion capacity assessment, bronchodilator responsiveness as well as 6-minute walk test as outpatient. Restriction noted on prior spirometry likely related to
obesity.
#2. Pneumonia,. Aspiration suspected
- Patient is afebrile, currently saturating well on room air. proBNP significantly elevated at 9170. WBC count normal, no further expectoration.
- Reports chills and feeling feverish at home, reported episodes of vomiting with altered mental status. No further episodes of chill
- MRSA screen negative, discontinued IV vancomycin. Cultures have stayed negative, discontinued Zosyn, initiated Unasyn instead. 7 days of antibiotics should suffice
- Prednisone 40 mg daily added for asthma exacerbation
- Cough is persisting, follow-up chest x-ray today continued radiological improvement. Add Mucinex twice daily and Tessalon Perles as needed
#3. Obesity with BMI 40
- Patient at risk of underlying sleep disordered breathing. Prior history of mild sleep apnea in 2017, did not tolerate CPAP at that time.
- Outpatient follow-up with pulmonary clinic, will pursue sleep study as outpatient
- Bicarb level 29 on basic metabolic panel, elevated considering underlying end-stage neural disease. VBG 7.36/45. Without any CO2 retention.
- Assess for need for home oxygen prior to discharge
#4. Dyspnea on exertion.
- Patient's dyspnea on exertion is likely multifactorial. Underlying factors include obstructive airway disease, Pneumonia, Obesity with BMI 40, heart failure with preserved ejection fraction. Restrictive lung disease noted on prior spirometry,
suspect related to obesity.
- Repeat echocardiogram with preserved LVEF, increased mitral regurgitation. Will pursue full pulmonary function testing as outpatient along with 6-minute walk test.
- Continue to optimize volume, nephrology service on case for hemodialysis
- Patient appears to be very deconditioned, likely will benefit from PT/OT services.
Other medical diagnoses:
- Syncope/Encephalopathy, recurrent. Concern for polypharmacy, particularly gabapentin, Flexeril, Lyrica, zolpidem. Vasovagal episodes also in differential diagnosis considering vomiting and syncope while on hemodialysis.
- End stage renal disease, on hemodialysis. Nephrology service on case
- Hypothyroidism on replacement. TSH somewhat suppressed and free T4 elevated. Defer to primary team, recommend considering lowering thyroxine replacement
- Diabetes mellitus type 2
- Gastroesophageal reflux disease
- Exertional dyspnea. Recommend repeating echocardiogram
- HFpEF. BNP elevated. ECHO pending
- Environmental allergies
Total time spent on this consultation/encounter __45__ minutes which includes review of history, physical exam, medications, laboratory data, personal review of imaging, extensive review of outpatient records, discussion with care team and
respiratory therapy.
Data:
ECHO 02/2025: 1. Left ventricular ejection fraction is normal with an ejection fraction of 55 % by Larson's biplane method of discs.
2. Compared to a prior transthoracic echocardiogram study from 10/01/2023 MR has worsened from trace to at least mild to moderate.
3. Mild concentric left ventricular hypertrophy.
4. There is at least mild to moderate mitral regurgitation which may have been underestimated due to mitral annular calcification.
CXR 02/2024: Parenchymal opacity within both lower lungs, which appears new from previous radiograph. Main differential considerations of atelectasis and/or pneumonia.
Cardiomegaly with no evidence for pulmonary edema.
ECHO 09/2023: Normal left ventricular size, wall thickness and systolic function. No
regional wall motion abnormalities are seen. Estimated ejection fraction is 55-
60%. Normal diastolic function.
Normal right ventricular size and function.
Mitral valve opens normally. Thickened mitral valve leaflets. Mitral annular
calcification. Trace mitral regurgitation.
Trileaflet aortic valve. Aortic valve opens normally. No aortic regurgitation
is seen.
Tricuspid valve opens normally. Trace tricuspid regurgitation. Estimated
pulmonary artery pressure of 15-20 mmHg. Assuming a right atrial pressure of 3
mmHg.
Spirometry, 2015. Moderate restrictive lung disease.
Subjective Data
-
Date of Service:
Date of Service: March 01, 2025
Subjective:
Patient comfortably lying in bed receiving hemodialysis. Respiratory symptoms improved except for persistent dry cough.
Review of Systems
Genitourinary: Other (No new pulmonary symptoms reported)
Objective Data
Data Reviewed
Vital Signs / I&O / Oxygen:
Vital Signs
Temp Pulse Resp BP Pulse Ox
97.8 F 56 16 132/57 96
03/01/25 07:21 03/01/25 07:44 03/01/25 07:44 03/01/25 07:21 03/01/25 07:21
Intake and Output
02/28/25 03/01/25 03/02/25
06:59 06:59 06:59
Intake Total 1250 / 1250 850 / 850
Balance 1250 / 1250 850 / 850
SaO2 96
Nasal Cannula flow liters per 7
minute
Physical Exam
General: Comfortable
HEENT: Normocephalic
Cardiovascular: S1-S2
Respiratory: Clear and Other (No wheezing or rhonchi, improved respiratory exam.)
GI: Soft and Non Distended
Neurology: Awake and Alert
Skin: Warm
Labs/Micro/Reports
Microbiology
02/26/25 04:26 Blood/Venous Blood Culture - Preliminary
No Growth in 72 hours- Final report to follow
02/26/25 04:26 Blood/Venous Blood Culture - Preliminary
No Growth in 72 hours- Final report to follow
02/26/25 11:17 Urine Urine Culture - Final
02/26/25 04:26 Nose MRSA Screen - Final
No Methicillin Resistant Staphylococcus aureus isolated.
[2025-03-01] MEDS: RETACRIT 8000 UNITS IV (09:31)
[2025-03-01 09:41] LABS: Hematocrit 27.6 % (37.0-47.0); Hemoglobin 9.4 g/dL (12.0-16.0); Mean Corp Hgb Conc. 34.1 g/dL (33.0-37.0); Mean Corpuscular Volume 92.0 fL (81.0-99.0); Platelet Count 117 10^3/uL (130-400); Red Cell Dist. Width 17.0 % (11.5-14.5)
[2025-03-01 09:55] LABS: Blood Urea Nitrogen 63 mg/dl (7-17); Calcium 9.0 mg/dl (8.4-10.2); Carbon Dioxide 27 mmol/L (22-30); Chloride 96 mmol/L (98-107); Estimated Creatinine Clearance 8 ml/min; Glucose 110 mg/dl (70-99); Potassium 4.6 mmol/L (3.5-5.1); Sodium 133 mmol/L (135-145); eGFR 5.79
[2025-03-01 10:02] LABS: Magnesium 1.4 mg/dl (1.6-2.3)
--- NOTE | 2025-03-01 10:05 | W.PN.HOSP.TC ---
Today's Communication/Plan
-
Acute rehab placement pending
Physiatry evaluation requested
See plan
Assessment / Plan
Assessment / Plan
Physical Exam
General: Not in acute distress
HEENT: Normocephalic. Moist mucous membranes
Respiratory: Wheezing resolved
Cardiac: S1/S2 and Regular Rhythm
GI: Soft, Non Tender, Non Distended and Normal Bowel Sounds
Musculoskeletal: No Cyanosis
Neuro: AAO x 3
Hematologic/Lymphatic: Other (Scarring at the bilateral UE from prior AVF site(s). L IJ tunneled cath sit without bleeding / discharge / erythema)
Assessment/Plan
74 y/o female with past medical history significant for ESRD on HD, DM-II and GERD / GAVE who presented to [facility] ED for evaluation of lethargy, weakness and confusion. History obtained from patient and her daughter at the bedside. Patient stated that
she has felt weak and fatigued for ~1 week prior to arrival. She reported hacking, non-productive cough. No noted fever. She lives with her two daughters - who were out of town over the past weekend and returned home on 02/25/25. No one else in
the house has been ill. Patient went to her usual HD on the morning of 02/25/25 (family monitored her comings and anirudh via Ring camera to confirm this).
Patient stated that she 'must have' fallen asleep or passed out on dialysis. HD staff reportedly informed her that she had N/V during her session. Patient does not recall this.
She was told to present to the [facility] ED after HD, but was too tired and took the bus home instead. At home she climbed two flights of stairs - stopping midway due to fatigue - and went back to bed.
When daughters returned home on 02/25/25 evening, they found the patient lying on her bedroom floor confused and disoriented. Patient does not recall falling from bed. She complains of L sided headache and neck discomfort. Daughters helped the
patient to bed (around 7PM) and she fell back to sleep. Patient then called out to her daughters again around 9:30 PM and they went to find her again on the floor.
Patient states that her newest medication with zolpidem. She complains of chronic insomnia and notes that this has been helping. She started this < 2 weeks ago.
No other new medications. She does however also take Lyrica, gabapentin and cyclobenzaprine.
Pneumonia (Right>Left)
Sepsis secondary to the above
Chills and feeling feverish at home
Aspiration?
- Cough x 1 week, leukocytosis with L shift, tachycardia and tachypnea on arrival.
- CXR with bibasilar opacities - L > R.
- COVID negative in the ED.
- Vancomycin stopped as MRSA negative
- On 02/28/25, change Zosyn to Unasyn --> plan for a total of 7 days of antibiotics
- Follow temperature curve and monitor for any new / worsening symptoms.
- Bronchodilators and steroids as below
- Speech evaluation
- Home/outpatient oxygen assessment performed on 03/01/25 -- does not need outpatient oxygen
Syncope/Encephalopathy
- Suspected patient dyspnea and factors related to dyspnea, as well as polypharmacy, particularly gabapentin, Flexeril, Lyrica, zolpidem.
- Lyrica low dose continued
- Patient reports back pain and would like Flexeril to be added back if possible --> Flexeril added back on 02/28/25
- Vasovagal episodes also possible considering vomiting and syncope while on hemodialysis.
- Echo with EF 55% and worsened MR
- Continue to monitor on telemetry
Acute TME - RESOLVED
- ? secondary to sepsis as noted above versus med effect - or combination thereof.
- Patient recently started on zolpidem (Rx written 02/08).
- Also on outpatient cyclobenzaprine, Lyrica AND gabapentin.
- Treat infectious process as noted above.
- Continue Lyrica but at lower dose of 25 mg daily. Continue low dose Flexeril.
- Holding Gabapentin. Patient did confirm she takes both Gabapentin and Lyrica.
- Follow for clinical improvement.
- ? if there may have been some med confusion for the past few days while family out of town.
Mild intermittent asthma with acute exacerbation
History of Childhood Asthma
- IMPROVING
- Patient sees outpatient pulmonary at [facility]
- On 02/26/25, wheezing on exam, together with fatigue and SOB
- Ordered Duonebs and Pulmicort
- Prednisone 40 mg daily for 5 days (today is Day 4)
- Consulted pulmonary for additional recommendations
- At the time of discharge, start Symbicort or generic version Breyna
- Will need close outpatient pulmonary follow-up
Nausea in upper chest/lower neck area
- Patient says she has been unable to tolerate much PO intake, prior to presentation
- Patient has been able to tolerate oral intake well
- Patient sees GI Dr. Rola Wright at [facility]
- Speech evaluation with unremarkable results
Chronic Dyspnea on exertion - likely multifactorial -- obstructive and restrictive lung disease, pneumonia, morbid obesity, heart failure, ESRD
Significantly elevated proBNP
- Repeat echo showed EF 55% with worsened mitral regurgitation
- Question whether patient needs GDMT given SOB, fatigue and worsened MR in setting of EF<60%
- Question whether the mitral regurgitation is contributing to fatigue
- Appreciate cardiology input
ESRD on HD
- Nephrology evaluation for HD needs during acute stay.
- Patient states that she takes Lasix 80mg daily - will hold for now.
Hypomagnesemia
- Replaced
- Recheck serum magnesium
ASCVD
Chronic HFpEF
- Stable. Continue ASA, statin, etc.
- Holding Lasix acutely as noted above. Follow I/Os, daily weights, etc.
- Patient sees [facility] outpatient
- Checked echo as above
DM-II
- Stable. Continue Lantus.
- Follow glucose and cover with SSI as needed.
Hypothyroidism
- TSH somewhat suppressed and free T4 elevated
- Reduced Levothyroxine
GERD / GAVE / Hiatal Hernia
- Stable. Prior h/o GI bleeding.
- Continue PPI.
Morbid Obesity
- Affects all aspects of care.
- Encourage healthy diet and increased activity as tolerated with goal of weight loss.
- VBG noted
- Assess for need for home oxygen prior to discharge
Shellfish Allergy
Speech and Swallow: As of 02/27/25, per [place] Text communication with Agustina Bossman, patient has no signs of dysphagia. Needs to pick softer foods given missing many teeth.
DVT Prophylaxis: Subcutaneous Heparin
Code Status: Full Code
Anticipated Discharge: 24 - 48 hours
Subjective/Interval History
-
Date of Service: March 01, 2025
Patient was seen and examined. She reported feeling better today. She was getting dialysis.
Objective Data
-
Labs:
Laboratory Results
03/01/25
08:35
WBC 7.1
Hgb 9.4 L
Hct 27.6 L
Plt Count 117 L
Sodium 133 L
Potassium 4.6
Chloride 96 L
Carbon Dioxide 27
BUN 63 H
Creatinine 7.0 H*
Glucose 110 H
Calcium 9.0
Vital Signs:
Vital Signs
Temp Pulse Resp BP Pulse Ox
97.8 F 56 16 132/57 96
03/01/25 07:21 03/01/25 07:44 03/01/25 07:44 03/01/25 07:21 03/01/25 07:21
I&O
02/28/25 03/01/25 03/02/25
06:59 06:59 06:59
Intake Total 1250 / 1250 850 / 850
Balance 1250 / 1250 850 / 850
[2025-03-01] MEDS: HEPARIN 4700 UNITS INTRACATH (10:55)
--- NOTE | 2025-03-01 11:17 | W.PN.NEPH.HD ---
Assessment
-
Seen on HD. no complaints. feeling better. VSS access ok
for acute rehab.
There is NO dialysis capability in [facility] at .
Progress Note - Hemodialysis
-
Date of Service: March 01, 2025
Duration: 30 minutes and 3 hours
Potassium Bath: 2
Calcium Bath: 2.5
Opti-Dialyzer: 160
Ultrafiltration: Other (2.5kg)
Blood Flow: 400
Dialysate Flow: 600
Heparin: 500x2
EPO: 8000 units
[2025-03-01 11:34] LABS: Glucose - Point of Care 120 mg/dl (70-99)
[2025-03-01] MEDS: RENVELA PO (11:40)
[2025-03-01 11:45] VITALS: BP 99/49
[2025-03-01] MEDS: HEPARIN 5000 UNITS SC ×2 (12:15→19:45)
[2025-03-01] MEDS: RENVELA 1600 MG PO ×2 (12:16→16:54)
[2025-03-01] MEDS: PROTONIX 40 MG PO (12:16)
[2025-03-01] MEDS: DELTASONE 40 MG PO (12:16)
[2025-03-01] MEDS: LYRICA 25 MG PO (12:16)
[2025-03-01] MEDS: LASIX 80 MG PO ×2 (12:16→16:59)
[2025-03-01] MEDS: ASPIR LOW (ENTERIC COATED) 81 MG PO (12:17)
[2025-03-01] MEDS: MUCINEX 600 MG PO ×2 (12:20→19:45)
--- NOTE | 2025-03-01 12:22 | CM ---
Addendum entered by Nancy Agosto 03/01/25 12:42:
CM spoke with patients daughters Felisa and Ifrah ([phone]) on conference call, discussed [facility] does not accept patient with HD, can send to additional acute rehab facilities for bed availability, discussed acute rehab requires diagnosis for
acute rehab level of care and chance patient will be denied through insurance if acute rehab bed is found, daughters aware. CM discussed request for therapy to re evaluate patient today as patient reports feeling better and looking to potentially go
home. Daughters agreeable to referral to [facility], and [facility], referrals placed in [facility].
Original Note:
CM reviewed chart, spoke with Katy from [facility] does not accept patient who require HD. Patient seen bedside, discussed can explore additional Acute Rehabs, patient will require insurance approval and chance patient may not get
approved. CM discussed if d/c to SNF, patient will require facility that provides HD ([facility], [facility], [facility] and will transport to for HD). Patient reports she is feeling much better and would prefer to discharge home if
able, requesting to work with therapy to see how patient does, TT to PT with request. CM reports she did leave patients daughter a VM yesterday with update. CM will continue to follow for all discharge planning needs.
Plan; patient prefers home with outpatient HD, will watch for update therapy evals pending patient progress
--- NOTE | 2025-03-01 14:08 | RESPNOTE ---
home 02 assessment completed as order
room air 02 sat at rest 100%
ambulating 02 sats on room air 95%
pt walked with a rolling walker and walked roughly 30 feet with 2 people assist
[2025-03-01] MEDS: UNASYN IV (14:37)
[2025-03-01 15:00] VITALS: BP 135/69
[2025-03-01 16:25] LABS: Glucose - Point of Care 183 mg/dl (70-99)
[2025-03-01 16:35] VITALS: BP 105/56; PULSE 99
[2025-03-01] MEDS: NOVOLOG FLEXPEN-LOW RESISTANCE 1 UNITS SC (16:55)
[2025-03-01 19:00] VITALS: BP 152/60
[2025-03-01] MEDS: TYLENOL 650 MG PO (19:48)
[2025-03-01 20:48] LABS: Glucose - Point of Care 376 mg/dl (70-99)
[2025-03-01] MEDS: LANTUS 0.1 UNITS SC (21:34)
[2025-03-01] MEDS: LIPITOR 40 MG PO (21:36)
[2025-03-01] MEDS: NOVOLOG FLEXPEN 5 UNITS SC (21:59)
[2025-03-01] MEDS: FLEXERIL 5 MG PO (23:40)
[2025-03-02 04:30] VITALS: BP 153/67
[2025-03-02 06:00] VITALS: BMI 38.8
[2025-03-02] MEDS: SYNTHROID 137 MCG PO (06:01)
[2025-03-02] MEDS: SYMBICORT 160/4.5 MCG INHALER 2 PUFF INH ×2 (07:20→19:53)
[2025-03-02] MEDS: DUONEB 3 ML INH ×4 (07:20→19:53)
[2025-03-02 07:35] VITALS: BP 155/61
[2025-03-02 08:05] LABS: Glucose - Point of Care 114 mg/dl (70-99)
--- NOTE | 2025-03-02 08:06 | W.PN.HOSP.TC ---
Today's Communication/Plan
-
Acute Rehab Placement Pending
Assessment / Plan
Assessment / Plan
Physical Exam
General: Not in acute distress
HEENT: Normocephalic. Moist mucous membranes
Respiratory: Wheezing resolved
Cardiac: S1/S2 and Regular Rhythm
GI: Soft, Non Tender, Non Distended and Normal Bowel Sounds
Musculoskeletal: No Cyanosis
Neuro: AAO x 3
Hematologic/Lymphatic: Other (Scarring at the bilateral UE from prior AVF site(s). L IJ tunneled cath sit without bleeding / discharge / erythema)
Assessment/Plan
74 y/o female with past medical history significant for ESRD on HD, DM-II and GERD / GAVE who presented to [facility] ED for evaluation of lethargy, weakness and confusion. History obtained from patient and her daughter at the bedside. Patient stated that
she has felt weak and fatigued for ~1 week prior to arrival. She reported hacking, non-productive cough. No noted fever. She lives with her two daughters - who were out of town over the past weekend and returned home on 02/25/25. No one else in
the house has been ill. Patient went to her usual HD on the morning of 02/25/25 (family monitored her comings and anirudh via Ring camera to confirm this).
Patient stated that she 'must have' fallen asleep or passed out on dialysis. HD staff reportedly informed her that she had N/V during her session. Patient does not recall this.
She was told to present to the [facility] ED after HD, but was too tired and took the bus home instead. At home she climbed two flights of stairs - stopping midway due to fatigue - and went back to bed.
When daughters returned home on 02/25/25 evening, they found the patient lying on her bedroom floor confused and disoriented. Patient does not recall falling from bed. She complains of L sided headache and neck discomfort. Daughters helped the
patient to bed (around 7PM) and she fell back to sleep. Patient then called out to her daughters again around 9:30 PM and they went to find her again on the floor.
Patient states that her newest medication with zolpidem. She complains of chronic insomnia and notes that this has been helping. She started this < 2 weeks ago.
No other new medications. She does however also take Lyrica, gabapentin and cyclobenzaprine.
Pneumonia (Right>Left)
Sepsis secondary to the above
Chills and feeling feverish at home
Aspiration?
- Cough x 1 week, leukocytosis with L shift, tachycardia and tachypnea on arrival.
- CXR with bibasilar opacities - L > R.
- COVID negative in the ED.
- Vancomycin stopped as MRSA negative
- On 02/28/25, change Zosyn to Unasyn --> plan for a total of 7 days of antibiotics (first day of antibiotics was 02/26/25)
- Follow temperature curve and monitor for any new / worsening symptoms.
- Bronchodilators and steroids as below
- Speech evaluation
- Home/outpatient oxygen assessment performed on 03/01/25 -- does not need outpatient oxygen
Syncope/Encephalopathy
- Suspected patient dyspnea and factors related to dyspnea, as well as polypharmacy, particularly gabapentin, Flexeril, Lyrica, zolpidem.
- Lyrica low dose continued
- Patient reports back pain and would like Flexeril to be added back if possible --> Flexeril added back on 02/28/25
- Vasovagal episodes also possible considering vomiting and syncope while on hemodialysis.
- Echo with EF 55% and worsened MR
- Continue to monitor on telemetry
Acute TME - RESOLVED
- ? secondary to sepsis as noted above versus med effect - or combination thereof.
- Patient recently started on zolpidem (Rx written 02/08).
- Also on outpatient cyclobenzaprine, Lyrica AND gabapentin.
- Treat infectious process as noted above.
- Continue Lyrica but at lower dose of 25 mg daily. Continue low dose Flexeril.
- Holding Gabapentin. Patient did confirm she takes both Gabapentin and Lyrica.
- Follow for clinical improvement.
- ? if there may have been some med confusion for the past few days while family out of town.
Mild intermittent asthma with acute exacerbation
History of Childhood Asthma
- IMPROVING
- Patient sees outpatient pulmonary at [facility]
- On 02/26/25, wheezing on exam, together with fatigue and SOB
- Ordered Duonebs and Pulmicort
- Prednisone 40 mg daily for 5 days (today is Day 4)
- Consulted pulmonary for additional recommendations
- At the time of discharge, start Symbicort or generic version Breyna
- Will need close outpatient pulmonary follow-up
Nausea in upper chest/lower neck area
- Patient says she has been unable to tolerate much PO intake, prior to presentation
- Patient has been able to tolerate oral intake well
- Patient sees GI Dr. Rola Wright at [facility]
- Speech evaluation with unremarkable results
Chronic Dyspnea on exertion - likely multifactorial -- obstructive and restrictive lung disease, pneumonia, morbid obesity, heart failure, ESRD
Significantly elevated proBNP
- Repeat echo showed EF 55% with worsened mitral regurgitation
- Question whether patient needs GDMT given SOB, fatigue and worsened MR in setting of EF<60%
- Question whether the mitral regurgitation is contributing to fatigue
- Appreciate cardiology input
ESRD on HD
- Nephrology evaluation for HD needs during acute stay.
- Patient states that she takes Lasix 80mg daily - will hold for now.
Hypomagnesemia
- Replaced
- Recheck serum magnesium
ASCVD
Chronic HFpEF
- Stable. Continue ASA, statin, etc.
- Holding Lasix acutely as noted above. Follow I/Os, daily weights, etc.
- Patient sees [facility] outpatient
- Checked echo as above
DM-II
- Stable. Continue Lantus.
- Follow glucose and cover with SSI as needed.
Hypothyroidism
- TSH somewhat suppressed and free T4 elevated
- Reduced Levothyroxine
GERD / GAVE / Hiatal Hernia
- Stable. Prior h/o GI bleeding.
- Continue PPI.
Morbid Obesity
- Affects all aspects of care.
- Encourage healthy diet and increased activity as tolerated with goal of weight loss.
- VBG noted
- Assess for need for home oxygen prior to discharge
Shellfish Allergy
Speech and Swallow: As of 02/27/25, per [place] Text communication with Agustina Keita, patient has no signs of dysphagia. Needs to pick softer foods given missing many teeth.
DVT Prophylaxis: Subcutaneous Heparin
Code Status: Full Code
Anticipated Discharge: 24 - 48 hours
Subjective/Interval History
-
Date of Service: March 02, 2025
Patient was seen and examined. She denied any new significant complaints.
Objective Data
-
Labs:
Laboratory Results
03/02/25
07:41
WBC Pending
Hgb Pending
Hct Pending
Plt Count Pending
Sodium Pending
Potassium Pending
Chloride Pending
Carbon Dioxide Pending
BUN Pending
Creatinine Pending
Glucose Pending
Calcium Pending
Vital Signs:
Vital Signs
Temp Pulse Resp BP Pulse Ox
97.9 F 86 18 153/67 98
03/02/25 04:30 03/02/25 07:23 03/02/25 07:23 03/02/25 04:30 03/02/25 07:23
I&O
03/01/25 03/02/25 03/03/25
06:59 06:59 06:59
Intake Total 850 / 850 1440 / 1440
Balance 850 / 850 1440 / 1440
[2025-03-02] MEDS: NOVOLOG FLEXPEN-LOW RESISTANCE SC ×2 (08:15→12:25)
[2025-03-02] MEDS: LASIX 80 MG PO ×2 (08:26→17:07)
[2025-03-02] MEDS: PROTONIX 40 MG PO (08:27)
[2025-03-02] MEDS: LYRICA 25 MG PO (08:27)
[2025-03-02] MEDS: DELTASONE 40 MG PO (08:28)
[2025-03-02] MEDS: ASPIR LOW (ENTERIC COATED) 81 MG PO (08:28)
[2025-03-02] MEDS: MUCINEX 600 MG PO ×2 (08:28→19:30)
[2025-03-02] MEDS: RENVELA 1600 MG PO ×3 (08:28→17:07)
[2025-03-02] MEDS: HEPARIN 5000 UNITS SC ×2 (08:28→19:30)
[2025-03-02] MEDS: FLEXERIL 5 MG PO ×2 (08:29→11:24)
[2025-03-02 08:40] LABS: Hematocrit 28.4 % (37.0-47.0); Hemoglobin 9.4 g/dL (12.0-16.0); Mean Corp Hgb Conc. 33.1 g/dL (33.0-37.0); Mean Corpuscular Volume 92.2 fL (81.0-99.0); Platelet Count 111 10^3/uL (130-400); Red Cell Dist. Width 17.1 % (11.5-14.5)
[2025-03-02 09:00] VITALS: BP 155/61
[2025-03-02 09:07] LABS: Blood Urea Nitrogen 47 mg/dl (7-17); Calcium 9.2 mg/dl (8.4-10.2); Carbon Dioxide 29 mmol/L (22-30); Chloride 100 mmol/L (98-107); Estimated Creatinine Clearance 11 ml/min; Glucose 108 mg/dl (70-99); Potassium 5.0 mmol/L (3.5-5.1); Sodium 137 mmol/L (135-145); eGFR 8.89
[2025-03-02 11:59] LABS: Glucose - Point of Care 138 mg/dl (70-99)
--- NOTE | 2025-03-02 13:21 | W.PN.NEPH.PH ---
Today's Communication / Plan
-
HD tuesday
Assessment/Plan
-
Assessment
ESRD
weakness
chronic pain
nausea
anemia
DM2
HTN
failed AV access, now CVC
Plan
HD tuesday
await rehab placement
-
-
Date of Service: March 02, 2025
CC / HPI / ROS
-
Chief Complaint:
Follow-up ESRD
History of Present Illness:
BP stable
hb 9.4 stable
tolerated HD yesterday
Review of Systems:
still weak
no cp, has dry cough
no n/v
Labs
-
Labs:
WBC 5.7 10^3/uL (4.8-10.8) 03/02/25 07:41
RBC 3.08 10^6/uL (4.20-5.40) L 03/02/25 07:41
Hgb 9.4 g/dL (12.0-16.0) L 03/02/25 07:41
Hct 28.4 % (37.0-47.0) L 03/02/25 07:41
Plt Count 111 10^3/uL (130-400) L 03/02/25 07:41
Sodium 137 mmol/L (135-145) 03/02/25 07:41
Potassium 5.0 mmol/L (3.5-5.1) 03/02/25 07:41
Chloride 100 mmol/L (98-107) 03/02/25 07:41
Carbon Dioxide 29 mmol/L (22-30) 03/02/25 07:41
BUN 47 mg/dl (7-17) H 03/02/25 07:41
Creatinine 4.9 mg/dL (0.6-1.0) H* 03/02/25 07:41
eGFR 8.89 03/02/25 07:41
Glucose 108 mg/dl (70-99) H 03/02/25 07:41
Calcium 9.2 mg/dl (8.4-10.2) 03/02/25 07:41
Phosphorus 3.3 mg/dl (2.5-4.5) 02/26/25 04:26
Ruv-B-Tsuehikqkpf Pept 9170 pg/ml 02/25/25 23:52
Albumin 3.8 g/dl (3.5-5.0) 02/25/25 22:46
Physical Exam
-
Vital Signs:
Vital Signs
Temp Pulse Resp BP Pulse Ox
97.9 F 80 17 155/61 98
03/02/25 04:30 03/02/25 11:39 03/02/25 11:39 03/02/25 08:26 03/02/25 11:39
Cardiovascular:: Regular rate and rhythm
Respiratory:: Bilateral: Coarse
Lung Excursion:: Normal
Abdomen:: Nontender and Soft
Bowel Sounds:: Normal
Extremity Edema:: None: Bilateral:
[2025-03-02 15:40] VITALS: BP 172/82
[2025-03-02] MEDS: UNASYN IV (15:55)
[2025-03-02 16:13] LABS: Glucose - Point of Care 242 mg/dl (70-99)
[2025-03-02] MEDS: NOVOLOG FLEXPEN-LOW RESISTANCE 2 UNITS SC (17:07)
[2025-03-02] MEDS: FLEXERIL 10 MG PO (21:27)
[2025-03-02] MEDS: LIPITOR 40 MG PO (21:28)
[2025-03-02] MEDS: NEURONTIN 100 MG PO (21:28)
[2025-03-02 21:34] LABS: Glucose - Point of Care 241 mg/dl (70-99)
[2025-03-02] MEDS: LANTUS 0.1 UNITS SC (21:40)
[2025-03-02 23:42] VITALS: BP 149/62
[2025-03-02] MEDS: ROBITUSSIN DM 10 ML PO (23:42)
[2025-03-03] MEDS: SYNTHROID 137 MCG PO (05:56)
[2025-03-03 06:00] VITALS: BMI 39.2
[2025-03-03] MEDS: DUONEB 3 ML INH ×4 (07:28→19:12)
[2025-03-03] MEDS: SYMBICORT 160/4.5 MCG INHALER 2 PUFF INH ×2 (07:28→19:12)
[2025-03-03 08:00] VITALS: BP 159/65
[2025-03-03] MEDS: NOVOLOG FLEXPEN-LOW RESISTANCE SC ×3 (08:14→17:28)
[2025-03-03] MEDS: RENVELA 1600 MG PO ×3 (08:15→17:28)
[2025-03-03] MEDS: PROTONIX 40 MG PO (08:15)
[2025-03-03] MEDS: ASPIR LOW (ENTERIC COATED) 81 MG PO (08:15)
[2025-03-03] MEDS: LYRICA 25 MG PO (08:15)
[2025-03-03] MEDS: LASIX 80 MG PO ×2 (08:15→15:41)
[2025-03-03 08:16] LABS: Glucose - Point of Care 116 mg/dl (70-99)
[2025-03-03] MEDS: MUCINEX 600 MG PO ×2 (08:16→20:06)
[2025-03-03] MEDS: HEPARIN 5000 UNITS SC ×2 (08:16→20:05)
[2025-03-03 09:00] VITALS: BP 137/76; BP 147/64; BP 93/66; PULSE 100; PULSE 92; PULSE 98
[2025-03-03 10:30] LABS: Hematocrit 28.0 % (37.0-47.0); Hemoglobin 9.4 g/dL (12.0-16.0); Mean Corp Hgb Conc. 33.6 g/dL (33.0-37.0); Mean Corpuscular Volume 92.7 fL (81.0-99.0); Platelet Count 126 10^3/uL (130-400); Red Cell Dist. Width 17.2 % (11.5-14.5)
[2025-03-03 10:57] LABS: Blood Urea Nitrogen 73 mg/dl (7-17); Calcium 8.8 mg/dl (8.4-10.2); Carbon Dioxide 25 mmol/L (22-30); Chloride 101 mmol/L (98-107); Estimated Creatinine Clearance 8 ml/min; Glucose 114 mg/dl (70-99); Magnesium 1.5 mg/dl (1.6-2.3); Potassium 4.8 mmol/L (3.5-5.1); Sodium 138 mmol/L (135-145); eGFR 5.79
[2025-03-03 12:04] LABS: Glucose - Point of Care 143 mg/dl (70-99)
--- NOTE | 2025-03-03 12:55 | W.PN.NEPH.PH ---
Today's Communication / Plan
-
HD tomorrow
Assessment/Plan
-
Assessment
ESRD
weakness
chronic pain
nausea
anemia
DM2
HTN
failed AV access, now CVC
Plan
HD tomorrow
await rehab placement
-
-
Date of Service: March 03, 2025
CC / HPI / ROS
-
Chief Complaint:
Follow-up ESRD
History of Present Illness:
BP stable
hb stable
tolerated HD tuesday
Review of Systems:
still weak, but walking more
no cp
no n/v
Labs
-
Labs:
WBC 6.8 10^3/uL (4.8-10.8) 03/03/25 10:10
RBC 3.02 10^6/uL (4.20-5.40) L 03/03/25 10:10
Hgb 9.4 g/dL (12.0-16.0) L 03/03/25 10:10
Hct 28.0 % (37.0-47.0) L 03/03/25 10:10
Plt Count 126 10^3/uL (130-400) L 03/03/25 10:10
Sodium 138 mmol/L (135-145) 03/03/25 10:10
Potassium 4.8 mmol/L (3.5-5.1) 03/03/25 10:10
Chloride 101 mmol/L (98-107) 03/03/25 10:10
Carbon Dioxide 25 mmol/L (22-30) 03/03/25 10:10
BUN 73 mg/dl (7-17) H 03/03/25 10:10
Creatinine 7.0 mg/dL (0.6-1.0) H* 03/03/25 10:10
eGFR 5.79 03/03/25 10:10
Glucose 114 mg/dl (70-99) H 03/03/25 10:10
Calcium 8.8 mg/dl (8.4-10.2) 03/03/25 10:10
Phosphorus 3.3 mg/dl (2.5-4.5) 02/26/25 04:26
Qua-X-Wmtbfogurdb Pept 9170 pg/ml 02/25/25 23:52
Albumin 3.8 g/dl (3.5-5.0) 02/25/25 22:46
Physical Exam
-
Vital Signs:
Vital Signs
Temp Pulse Resp BP Pulse Ox
97.9 F 89 16 159/65 100
03/03/25 08:00 03/03/25 11:20 03/03/25 11:20 03/03/25 08:00 03/03/25 11:20
Cardiovascular:: Regular rate and rhythm
Respiratory:: Bilateral: CTA
Lung Excursion:: Normal
Abdomen:: Nontender and Soft
Bowel Sounds:: Normal
Extremity Edema:: None: Bilateral:
[2025-03-03] MEDS: UNASYN IV (13:19)
--- NOTE | 2025-03-03 14:32 | W.PN.HOSP.TC ---
Today's Communication/Plan
-
I communicated with case management today who said [place] here doesn't accept HD patients and some more referrals were put in; looks like [facility] accepted patient but auth needs to be obtained and need to make sure they have a bed
One dose of Augmentin post dialysis tomorrow
Patient is MUCH improved
Assessment / Plan
Assessment / Plan
Physical Exam
General: Not in acute distress
HEENT: Normocephalic. Moist mucous membranes
Respiratory: Wheezing resolved
Cardiac: S1/S2 and Regular Rhythm
GI: Soft, Non Tender, Non Distended and Normal Bowel Sounds
Musculoskeletal: No Cyanosis
Neuro: AAO x 3
Hematologic/Lymphatic: Other (Scarring at the bilateral UE from prior AVF site(s). L IJ tunneled cath sit without bleeding / discharge / erythema)
Assessment/Plan
74 y/o female with past medical history significant for ESRD on HD, DM-II and GERD / GAVE who presented to [facility] ED for evaluation of lethargy, weakness and confusion. History obtained from patient and her daughter at the bedside. Patient stated that
she has felt weak and fatigued for ~1 week prior to arrival. She reported hacking, non-productive cough. No noted fever. She lives with her two daughters - who were out of town over the past weekend and returned home on 02/25/25. No one else in
the house has been ill. Patient went to her usual HD on the morning of 02/25/25 (family monitored her comings and anirudh via Ring camera to confirm this).
Patient stated that she 'must have' fallen asleep or passed out on dialysis. HD staff reportedly informed her that she had N/V during her session. Patient does not recall this.
She was told to present to the [facility] ED after HD, but was too tired and took the bus home instead. At home she climbed two flights of stairs - stopping midway due to fatigue - and went back to bed.
When daughters returned home on 02/25/25 evening, they found the patient lying on her bedroom floor confused and disoriented. Patient does not recall falling from bed. She complains of L sided headache and neck discomfort. Daughters helped the
patient to bed (around 7PM) and she fell back to sleep. Patient then called out to her daughters again around 9:30 PM and they went to find her again on the floor.
Patient states that her newest medication with zolpidem. She complains of chronic insomnia and notes that this has been helping. She started this < 2 weeks ago.
No other new medications. She does however also take Lyrica, gabapentin and cyclobenzaprine.
Pneumonia (Right>Left)
Sepsis secondary to the above
Chills and feeling feverish at home
Aspiration?
- Cough x 1 week, leukocytosis with L shift, tachycardia and tachypnea on arrival.
- CXR with bibasilar opacities - L > R.
- COVID negative in the ED.
- Vancomycin previously stopped as MRSA negative
- On 02/28/25, change Zosyn to Unasyn --> plan for a total of 7 days of antibiotics (first day of antibiotics was 02/26/25) --> switch to Augmentin (renally-dosed), last day of antibiotics is 03/04/25
- Bronchodilators and steroids (steroids course completed)
- Speech evaluation unremarkable
- Home/outpatient oxygen assessment performed on 03/01/25 -- does not need outpatient oxygen
- Patient is MUCH improved
Syncope/Encephalopathy
- ? secondary to sepsis as noted above versus med effect - or combination thereof
- Polypharmacy, particularly gabapentin, Flexeril, Lyrica and Zolpidem not helping in setting of infection/pneumonia
- Lyrica continued but at lower than home dose. Gabapentin resumed due to pain and insomnia. Zolpidem still on hold
- Patient reports back pain and would like Flexeril to be added back if possible --> Flexeril added back on 02/28/25 and now is at home dose
- Vasovagal episodes also possible considering vomiting and syncope while on hemodialysis.
- Echo with EF 55% and worsened MR
- Patient is doing RELATIVELY GREAT on the above regimen, except for sleep issues
Mild intermittent asthma with acute exacerbation
History of Childhood Asthma
- IMPROVED SIGNIFICANTLY
- Patient sees outpatient pulmonary at [facility]
- On 02/26/25, wheezing on exam, together with fatigue and SOB
- Ordered Duonebs and Pulmicort
- Prednisone 40 mg daily for 5 days -- COURSE COMPLETED
- Consulted pulmonary for additional recommendations
- At the time of discharge, start Symbicort or generic version Breyna
- Will need close outpatient pulmonary follow-up
Nausea in upper chest/lower neck area
- Patient says she has been unable to tolerate much PO intake, prior to presentation
- Patient is now able to tolerate oral intake well
- Patient sees GI Dr. Rola Wright at [facility]
- Speech evaluation with unremarkable results
Chronic Dyspnea on exertion - likely multifactorial -- obstructive and restrictive lung disease, pneumonia, morbid obesity, heart failure, ESRD
Significantly elevated proBNP
- Repeat echo showed EF 55% with worsened mitral regurgitation
- Question whether patient needs GDMT given SOB, fatigue and worsened MR in setting of EF<60%
- Question whether the mitral regurgitation is contributing to fatigue
- Appreciate cardiology input: no need for GDMT right now, follow-up outpatient, nothing else to do from cardio standpoint right now
ESRD on HD
- Nephrology evaluation for HD needs during acute stay.
- Continue patient's home Furosemide but at 80 mg BID instead of daily
Hypomagnesemia
- Replaced
- Recheck serum magnesium
ASCVD
Chronic HFpEF
- Stable. Continue ASA, statin, etc.
- Holding Lasix acutely as noted above. Follow I/Os, daily weights, etc.
- Patient sees [facility] outpatient
- Checked echo as above
DM-II
- Stable. Continue current regimen.
- Follow glucose and cover with SSI as needed.
Hypothyroidism
- TSH somewhat suppressed and free T4 elevated this hospitalization
- Reduced Levothyroxine
GERD / GAVE / Hiatal Hernia
- Stable. Prior h/o GI bleeding.
- Continue PPI.
Morbid Obesity
- Affects all aspects of care.
- Encourage healthy diet and increased activity as tolerated with goal of weight loss.
Shellfish Allergy
Speech and Swallow: As of 02/27/25, per [place] Text communication with Agustina Bossman, patient has no signs of dysphagia. Needs to pick softer foods given missing many teeth.
DVT Prophylaxis: Subcutaneous Heparin
Code Status: Full Code
Anticipated Discharge: Within 24 hours
Subjective/Interval History
-
Date of Service: March 03, 2025
Patient was seen and examined. She denied any complaints, reported her back pain was better.
Objective Data
-
Labs:
Laboratory Results
03/03/25 03/03/25
08:23 10:10
WBC Cancelled 6.8
Hgb Cancelled 9.4 L
Hct Cancelled 28.0 L
Plt Count Cancelled 126 L
Sodium Cancelled 138
Potassium Cancelled 4.8
Chloride Cancelled 101
Carbon Dioxide Cancelled 25
BUN Cancelled 73 H
Creatinine Cancelled 7.0 H*
Glucose Cancelled 114 H
Calcium Cancelled 8.8
Vital Signs:
Vital Signs
Temp Pulse Resp BP Pulse Ox
97.9 F 89 16 159/65 100
03/03/25 08:00 03/03/25 11:20 03/03/25 11:20 03/03/25 08:00 03/03/25 11:20
I&O
03/02/25 03/03/25 03/04/25
06:59 06:59 06:59
Intake Total 1440 / 1440 720 / 720
Balance 1440 / 1440 720 / 720
[2025-03-03] MEDS: TYLENOL 650 MG PO (15:44)
[2025-03-03 16:00] VITALS: BP 151/59
[2025-03-03 17:23] LABS: Glucose - Point of Care 143 mg/dl (70-99)
[2025-03-03] MEDS: NEURONTIN 100 MG PO (21:26)
[2025-03-03] MEDS: LIPITOR 40 MG PO (21:26)
[2025-03-03] MEDS: LANTUS 0.1 UNITS SC (21:31)
[2025-03-03 21:32] LABS: Glucose - Point of Care 144 mg/dl (70-99)
[2025-03-03 23:36] VITALS: BP 157/79
[2025-03-03] MEDS: ROBITUSSIN DM 10 ML PO (23:40)
[2025-03-03] MEDS: TESSALON PERLES 200 MG PO (23:43)
[2025-03-04] MEDS: ANESTHETIC LOZENGE 1 LOZENGE PO ×4 (00:05→21:28)
[2025-03-04] MEDS: SYNTHROID 137 MCG PO (04:41)
[2025-03-04] MEDS: ROBITUSSIN DM 10 ML PO ×2 (04:43→19:47)
[2025-03-04 06:00] VITALS: BMI 39.7
[2025-03-04] MEDS: DUONEB 3 ML INH ×4 (07:09→19:01)
[2025-03-04] MEDS: SYMBICORT 160/4.5 MCG INHALER 2 PUFF INH ×2 (07:09→19:01)
[2025-03-04] MEDS: TYLENOL 650 MG PO ×2 (07:48→13:43)
[2025-03-04] MEDS: PROTONIX 40 MG PO (07:49)
[2025-03-04] MEDS: MUCINEX 600 MG PO ×2 (07:50→19:48)
[2025-03-04] MEDS: ASPIR LOW (ENTERIC COATED) 81 MG PO (07:50)
--- NOTE | 2025-03-04 07:53 | W.PN.HOSP.TC ---
Today's Communication/Plan
-
cipro ear drops started left ear
HD as per nephro
discharge planning
Assessment / Plan
Assessment / Plan
Physical Exam
General: Not in acute distress
HEENT: Normocephalic. Moist mucous membranes, Tragus tenderness
Respiratory: clear to auscultation b/o
Cardiac: S1/S2 and Regular Rhythm
GI: Soft, Non Tender, Non Distended and Normal Bowel Sounds
Musculoskeletal: No Cyanosis
Neuro: AAO x 3
Hematologic/Lymphatic: Other (Scarring at the bilateral UE from prior AVF site(s). L IJ tunneled cath sit without bleeding / discharge / erythema)
Assessment/Plan
74 y/o female with past medical history significant for ESRD on HD, DM-II and GERD / GAVE who presented to [facility] ED for evaluation of lethargy, weakness and confusion. History obtained from patient and her daughter at the bedside. Patient stated that
she has felt weak and fatigued for ~1 week prior to arrival. She reported hacking, non-productive cough. No noted fever. She lives with her two daughters - who were out of town over the past weekend and returned home on 02/25/25. No one else in
the house has been ill. Patient went to her usual HD on the morning of 02/25/25 (family monitored her comings and anirudh via Ring camera to confirm this).
Patient stated that she 'must have' fallen asleep or passed out on dialysis. HD staff reportedly informed her that she had N/V during her session. Patient does not recall this.
She was told to present to the [facility] ED after HD, but was too tired and took the bus home instead. At home she climbed two flights of stairs - stopping midway due to fatigue - and went back to bed.
When daughters returned home on 02/25/25 evening, they found the patient lying on her bedroom floor confused and disoriented. Patient does not recall falling from bed. She complains of L sided headache and neck discomfort. Daughters helped the
patient to bed (around 7PM) and she fell back to sleep. Patient then called out to her daughters again around 9:30 PM and they went to find her again on the floor.
Patient states that her newest medication with zolpidem. She complains of chronic insomnia and notes that this has been helping. She started this < 2 weeks ago.
No other new medications. She does however also take Lyrica, gabapentin and cyclobenzaprine.
Pneumonia (Right>Left)
Sepsis secondary to the above
Chills and feeling feverish at home
- Cough x 1 week, leukocytosis with L shift, tachycardia and tachypnea on arrival.
- CXR with bibasilar opacities - L > R.
- COVID negative in the ED.
- Vancomycin previously stopped as MRSA negative
- On 02/28/25, change Zosyn to Unasyn --> plan for a total of 7 days of antibiotics (first day of antibiotics was 02/26/25) --> switch to Augmentin (renally-dosed), last day of antibiotics is 03/04/25
- Bronchodilators and steroids (steroids course completed)
- Speech evaluation unremarkable
- Home/outpatient oxygen assessment performed on 03/01/25 -- does not need outpatient oxygen
Syncope/Encephalopathy
- possibly secondary to sepsis as noted above versus med effect - or combination thereof
- Polypharmacy, particularly gabapentin, Flexeril, Lyrica and Zolpidem not helping in setting of infection/pneumonia
- Lyrica continued but at lower than home dose. Gabapentin resumed due to pain and insomnia. Zolpidem still on hold
- Patient reports back pain and would like Flexeril to be added back if possible --> Flexeril added back on 02/28/25 and now is at home dose
- Vasovagal episodes also possible considering vomiting and syncope while on hemodialysis.
- Echo with EF 55% and worsened MR
- Patient since improved
Mild intermittent asthma with acute exacerbation
History of Childhood Asthma
- Patient sees outpatient pulmonary at [facility]
- On 02/26/25, wheezing on exam, together with fatigue and SOB
- Ordered Duonebs and Pulmicort
- Prednisone 40 mg daily for 5 days completed
- Pulm gaby appreciated
- At the time of discharge, start Symbicort or generic version Breyna
- Will need close outpatient pulmonary follow-up
Nausea in upper chest/lower neck area
- Patient says she has been unable to tolerate much PO intake, prior to presentation
- Patient is now able to tolerate oral intake well
- Patient sees GI Dr. Rola Wright at [facility]
- Speech evaluation with unremarkable results
Chronic Dyspnea on exertion - likely multifactorial -- obstructive and restrictive lung disease, pneumonia, morbid obesity, heart failure, ESRD
Significantly elevated proBNP
- Repeat echo showed EF 55% with worsened mitral regurgitation
- Appreciate cardiology input: no need for GDMT right now, follow-up outpatient, nothing else to do from cardio standpoint right now
ESRD on HD
- Nephrology evaluation for HD needs during acute stay.
- Continue patient's home Furosemide but at 80 mg BID instead of daily
Hypomagnesemia
-monitor and replete as necessary
Otitis Externa Left ear
-cipro ear drops started 03/04 planned for 5 days
ASCVD
Chronic HFpEF
- Stable. Continue ASA, statin, etc.
- Holding Lasix acutely as noted above. Follow I/Os, daily weights, etc.
- Patient sees [facility] outpatient
- ECHO noted as above
DM-II
- Stable. Continue current regimen.
- Follow glucose and cover with SSI as needed.
Hypothyroidism
- TSH somewhat suppressed and free T4 elevated this hospitalization
- Reduced Levothyroxine
GERD / GAVE / Hiatal Hernia
- Stable. Prior h/o GI bleeding.
- Continue PPI.
Morbid Obesity
- Affects all aspects of care.
- Encourage healthy diet and increased activity as tolerated with goal of weight loss.
Shellfish Allergy
DVT Prophylaxis: Subcutaneous Heparin
Code Status: Full Code
I spent a total of 45 minutes with the patient or on the floor. More than 50% of this time involved counseling and coordination of care.
Anticipated Discharge: 24 - 48 hours
Subjective/Interval History
-
Date of Service: March 04, 2025
No acute distress resting comfortably in bed. Reports left ear jaw pain when swallowing. Tragus tenderness noted
Objective Data
-
Labs:
Laboratory Results
03/04/25
06:00
WBC Pending
Hgb Pending
Hct Pending
Plt Count Pending
Sodium Pending
Potassium Pending
Chloride Pending
Carbon Dioxide Pending
BUN Pending
Creatinine Pending
Glucose Pending
Calcium Pending
Vital Signs:
Vital Signs
Temp Pulse Resp BP Pulse Ox
98.3 F 98 14 157/79 98
03/03/25 23:36 03/04/25 07:12 03/04/25 07:12 03/03/25 23:36 03/04/25 07:12
I&O
03/03/25 03/04/25 03/05/25
06:59 06:59 06:59
Intake Total 720 / 720 1020 / 1020
Balance 720 / 720 1020 / 1020
[2025-03-04] MEDS: LYRICA 25 MG PO (07:55)
[2025-03-04] MEDS: HEPARIN 5000 UNITS SC ×2 (07:56→19:47)
[2025-03-04 08:00] VITALS: BMI 39.7
[2025-03-04 08:07] VITALS: BP 144/91
[2025-03-04] MEDS: NOVOLOG FLEXPEN-LOW RESISTANCE SC ×2 (08:07→12:39)
[2025-03-04 08:10] LABS: Glucose - Point of Care 100 mg/dl (70-99)
[2025-03-04] MEDS: LASIX PO (08:10)
[2025-03-04] MEDS: RENVELA PO (08:11)
[2025-03-04] MEDS: HEPARIN 500 UNITS IV ×2 (08:24→09:25)
[2025-03-04 08:49] LABS: Hematocrit 28.3 % (37.0-47.0); Hemoglobin 9.4 g/dL (12.0-16.0); Mean Corp Hgb Conc. 33.2 g/dL (33.0-37.0); Mean Corpuscular Volume 92.2 fL (81.0-99.0); Platelet Count 120 10^3/uL (130-400); Red Cell Dist. Width 17.5 % (11.5-14.5)
[2025-03-04 08:57] LABS: COVID-19 Antigen Negative (Negative)
[2025-03-04] MEDS: RETACRIT 8000 UNITS IV (09:13)
[2025-03-04 09:30] LABS: Blood Urea Nitrogen 90 mg/dl (7-17); Calcium 8.6 mg/dl (8.4-10.2); Carbon Dioxide 24 mmol/L (22-30); Chloride 99 mmol/L (98-107); Estimated Creatinine Clearance 6 ml/min; Glucose 102 mg/dl (70-99); Magnesium 1.4 mg/dl (1.6-2.3); Potassium 5.2 mmol/L (3.5-5.1); Sodium 136 mmol/L (135-145); eGFR 4.66
--- NOTE | 2025-03-04 10:02 | CON.MR ---
Documented by User: Bernice Joseph MD, Resident 03/05/25 14:34
Consultation
Consultation Request
Date/Time Consultation Requested: 03/01/2025
Date/Time Consultation Performed: 03/05/2025
Requesting Provider: Javi Mares
Performing Provider: Dr. Edmondson
Reason for Consultation: Rehab evaluation
Medical History
-
Chief Complaint: Confusion/lethargy
History of Present Illness:
Mr. Kapoor is a 74y F with PMH significant for ESRD on HD, CATA, HFpEF hypertension hyperlipidemia hypothyroidism anxiety depression DM-II and GERD / GAVE, elevated asthma asthma who presents to ED for evaluation of lethargy, weakness and
confusion. Patient states that she has felt weak and fatigued for the past week or so. She reports hacking, non-productive cough. Patient went to her usual HD on 02/26 and states that she 'must have' fallen asleep or passed out on dialysis. HD staff
reportedly informed her that she had N/V during her session although she does not recall this. She was told to present to the ED after HD, but was too tired and went home instead. Daughters returned home and found the patient lying on her bedroom
floor confused and disoriented. Patient does not recall falling from bed. Patient went back to sleep but then fell again prompting their presentation to the ED. Of note patient started new medication zolpidem less than 2 weeks prior to
presentation. In the ED workup showed a potassium, normal head CT, reassuring EKG, chest x-ray with which showed right greater than left pneumonia and she was also noted to have bilateral expiratory wheezing and patient was admitted to the
hospital for weakness hyperkalemia anemia and sepsis. During her hospital stay her confusion improved and was thought to be likely due to sepsis versus medication effect. Pulmonary treated her for acute asthma exacerbation with bronchodilators and
steroids, she also received a course of antibiotics for sepsis including anaerobic coverage for suspected aspiration pneumonia and received fluid removal via hemodialysis. Echo in the hospital showed an EF of 55% with worsened MR but patient's
proBNP remained unchanged at an elevated level of 9000, cardiology unsure whether this is an acute exacerbation of heart failure but recommended fluid removal via HD. Patient improved with interventions and is currently hemodynamically stable.
Past Medical History
Past Medical History: Asthma, CAD, CHF (HFpEF), GERD, HTN, Hypercholesterolemia, Hypothyroidism, IDDM, Renal Failure (ESRD on HD), Psychiatric (Anxiety/depression) and Other (GAVE, anemia of CKD, CATA, morbid obesity)
Procedure History:
Left Upper Extremity AV Fistula
Right Upper Extremity AV Fistula
Left Carpal Tunnel
Left Tunneled HD Catheter
Family History
Family History: CAD, Diabetes and Other (Breast cancer mother side)
Social History
Functional Level Premorbidity:
Independent for all activities.
iADLs per family
Current Funct Level: Ambulation, Transfer, UE/LE Dressing:
Bed mobility: Min a
Transfer: Min a
Ambulation: 30 feet with RW min A
ADL status: Eating independent, grooming set up, toileting mod a, lower extremity self-care mod a
Tobacco: Non-Smoker
Alcohol: None
Drug: None
Personal: Single
Living: With Family
Is 24 hour care available: Yes
Number of Floors: 3 (living room and bedrrom on 2nd and 3rd floors)
# Steps to Enter: 1
# Steps to Second Floor: 16 + 16
Potential First Floor Set Up: No
Driving: No
Employment: Retired
Allergies / Home Medications
Allergy/AdvReac Type Severity Reaction Status Date / Time
cephalexin Allergy rash, Verified 02/25/25 22:41
fever &
itching;
tolerates
cefazolin
(SEE
COMMENTS)
eggplant Allergy Shortness Verified 02/25/25 22:41
of Breath
erythromycin base Allergy Itching,Stomach Verified 02/25/25 22:41
pain 'bad'
latex Allergy Pt states Verified 02/25/25 22:41
she gets a
rash and
wheezes
shellfish derived Allergy Unknown Verified 02/27/25 15:46
�Medication �Instructions �Recorded �Confirmed �Last Taken �Type
atorvastatin 40 mg tablet 40 mg PO HS High cholesterol 02/13/20 02/26/25 05/17/23 History
sevelamer carbonate 800 mg tablet 1,600 mg PO MEALS Kidney Disease 07/30/21 02/26/25 02/06/23 11:00 History
levothyroxine 150 mcg tablet 150 mcg PO DAILY AT 0700 Thyroid 05/21/22 02/26/25 05/18/23 History
albuterol sulfate 90 mcg/actuation 2 puff inhalation R BID 05/18/23 02/26/25 05/18/23 History
aerosol inhaler Lung/Breathing Issues
aspirin 81 mg tablet,delayed 81 mg PO DAILY Blood Clot 05/18/23 02/26/25 05/18/23 History
release Prevention/Tx
gabapentin 100 mg capsule 100 mg PO HS Neurological Condition 05/18/23 02/26/25 05/17/23 History
insulin aspart U-100 100 unit/mL 0 - 6 sliding scale dose SC AC 05/18/23 02/26/25 1 Day Ago History
(3 mL) subcutaneous pen (Novolog Diabetes ~05/17/23
FlexPen U-100 Insulin aspart)
insulin glargine 100 unit/mL (3 10 unit SC HS Diabetes 05/18/23 02/26/25 05/17/23 History
mL) subcutaneous pen (Lantus
Solostar U-100 Insulin)
pantoprazole 40 mg tablet,delayed 40 mg PO DAILY #30 tabs 05/21/23 02/26/25 Unknown Rx
release
cyclobenzaprine 10 mg tablet 10 mg PO DAILYPRN PRN muscle spasms 02/26/25 02/26/25 Unknown History
furosemide 80 mg tablet (Lasix) 80 mg PO DAILY Fluid 02/26/25 02/26/25 Unknown History
Retention/Swelling
pregabalin 100 mg capsule (Lyrica) 100 mg PO DAILY Antiseizure Agent, 02/26/25 02/26/25 Unknown History
semaglutide 0.25 mg or 0.5 mg (2 0.5 mg SC FRIEDMAN WEIGHT LOSS 02/26/25 02/26/25 Unknown History
mg/3 mL) subcutaneous pen injector
(Ozempic)
zolpidem 5 mg tablet 5 mg PO HSPRN PRN insomnia 02/26/25 02/26/25 Unknown History
Review Of Systems
-
History Source: Patient
Constitutional: Reports No Symptoms; Denies Fever or Fatigue
Eye: Reports No Symptoms; Denies Blurry Vision or Visual Field Cut
EENT: Reports No Symptoms; Denies Tearing, Sore Throat or Runny Nose
Respiratory: Reports No Symptoms; Denies Cough or Trouble Breathing
Cardiac: Reports No Symptoms; Denies Chest Pain or Syncope
Abdomen/GI: Reports No Symptoms and Constipated; Denies Abdominal Pain, Nausea, Vomiting or Diarrhea
: Reports No Symptoms; Denies Dysuria
Musculoskeletal: Reports Joint Pain (Bilateral shoulder pain) and Joint Swelling
Integumentary: Reports No Symptoms
Neurological: Reports No Symptoms
Physical Exam
Active Medications
Generic Name Dose Route Start Last Admin
Trade Name Freq PRN Reason Stop Dose Admin
Acetaminophen 650 mg 02/26/25 03:41 03/04/25 07:48
Acetaminophen 325 Mg Tablet PO 03/26/25 03:40 650 mg
Q4HPRN PRN Administration
Mild Pain / Temp > 101
Albumin Human 12.5 grams 03/04/25 08:00
Albumin 12.5 Grams/50 Ml Bag *For Hemodialysis* IV 03/04/25 23:59
HD-Q1HPRN PRN
SBP < 90 mmHg
Albuterol Sulfate 2.5 mg 02/26/25 03:41 03/01/25 05:27
Albuterol Nebs 2.5 Mg/3 Ml Ampul INH 2.5 mg
R Q4HPRN PRN Administration
SOB
Protocol
Albuterol/Ipratropium 3 ml 02/26/25 12:20 03/04/25 07:09
Ipratropium 0.5/Albuterol 3 Mg (3 Ml Ampul) INH 3 ml
R QID EHSAN Administration
Protocol
Amoxicillin/Clavulanate Potassium 1 tablet 03/04/25 15:00
Amoxicillin (500 Mg)/Clavulanate (125 Mg) Tablet PO 03/04/25 15:01
HD-ONCE ONE
Aspirin 81 mg 02/26/25 08:00 03/04/25 07:50
Aspirin 81 Mg (Enteric Coated) Tablet PO 03/26/25 07:59 81 mg
DAILY EHSAN Administration
Atorvastatin Calcium 40 mg 02/26/25 22:00 03/03/25 21:26
Atorvastatin (Lipitor) 40 Mg Tablet PO 03/26/25 21:59 40 mg
HS EHSAN Administration
Benzocaine/Menthol 1 lozenge 03/03/25 23:50 03/04/25 07:49
Benzocaine/Menthol Lozenge PO 03/31/25 23:49 1 lozenge
Q4HPRN PRN Administration
throat irritation
Benzonatate 200 mg 03/01/25 09:16 03/03/25 23:43
Benzonatate 100 Mg Capsule PO 03/29/25 09:15 200 mg
TIDPRN PRN Administration
cough
Budesonide/Formoterol Fumarate 2 puff 02/28/25 20:00 03/04/25 07:09
Symbicort Inhaler 160/4.5 INH 03/28/25 19:59 2 puff
R BID EHSAN Administration
Protocol
Cyclobenzaprine HCl 10 mg 03/02/25 10:49 03/02/25 21:27
Cyclobenzaprine 10 Mg Tablet PO 03/28/25 15:18 10 mg
DAILYPRN PRN Administration
muscle spasms
Dextrose 12.5 grams 02/26/25 03:41
Dextrose 50% (0.5 Grams/Ml) 50 Ml Syringe IV 03/26/25 03:40
[id number] PRN
hypoglycemia
Protocol
Furosemide 80 mg 03/01/25 08:00 03/04/25 08:10
Furosemide 80 Mg Tablet PO 03/29/25 07:59 Not Given
BID@0800,1600 EHSAN
Gabapentin 100 mg 03/02/25 22:00 03/03/25 21:26
Gabapentin 100 Mg Capsule PO 03/30/25 21:59 100 mg
HS EHSAN Administration
Glucagon 1 mg 02/26/25 03:41
Glucagon 1 Mg Vial IM 03/26/25 03:40
On Hold: 02/26/25 12:17 PRN PRN
hypoglycemia
Protocol
Guaifenesin 600 mg 03/01/25 10:00 03/04/25 07:50
Guaifenesin 600 Mg Extended Release Tablet PO 03/29/25 09:59 600 mg
Q12 EHSAN Administration
Guaifenesin/Dextromethorphan 10 ml 02/27/25 22:33 03/04/25 04:43
Guaifenesin/Dextromethorphan 200 Mg/10 Ml Cup PO 03/27/25 22:32 10 ml
Q4HPRN PRN Administration
productive cough
Heparin Sodium 5,000 units 02/26/25 08:00 03/04/25 07:56
Heparin 5,000 Units/Ml 1 Ml Vial SC 03/26/25 07:59 5,000 units
Q12 EHSAN Administration
Insulin Glargine 10 units/ 0.1 mls @ 0 mls/hr 02/26/25 22:00 03/03/25 21:31
Device SC 03/26/25 21:59 0.1 mls
HS EHSAN Administration
As Directed
Insulin Aspart 0 units 02/26/25 07:30 03/04/25 08:07
Insulin Aspart Low Resistance 300 Units/3 Ml Pen.Injctr SC 03/26/25 07:29 Not Given
AC EHSAN
Protocol
Levothyroxine Sodium 137 mcg 02/27/25 06:00 03/04/25 04:41
Levothyroxine 137 Mcg Tablet PO 03/27/25 05:59 137 mcg
DAILY @ 0600 EHSAN Administration
Mannitol 12.5 grams 03/04/25 08:00
Mannitol 25% (12.5 Grams/50 Ml) Vial IV 03/04/25 23:59
HD-Q1HPRN PRN
SBP < 90 mmHg
Pantoprazole Sodium 40 mg 02/26/25 08:00 03/04/25 07:49
Pantoprazole 40 Mg Delayed Release Tablet PO 03/26/25 07:59 40 mg
DAILY EHSAN Administration
Pregabalin 25 mg 02/27/25 08:00 03/04/25 07:55
Pregabalin 25 Mg Capsule PO 03/27/25 07:59 25 mg
DAILY EHSAN Administration
Sevelamer Carbonate 1,600 mg 02/26/25 08:00 03/04/25 08:11
Sevelamer Carbonate (Renvela) 800 Mg Tablet PO 03/26/25 07:59 Not Given
MEALS EHSAN
Sodium Chloride 0 flush 02/26/25 05:00
Sodium Chloride 0.9% (Flush) Syringe IV 03/26/25 04:59
PER PROTOCOL EHSAN
Sodium Chloride 10 ml 03/04/25 08:00
Sodium Chloride (4 Meq/Ml) 30 Ml Vial *For Hemodialysis* IV 03/04/25 23:59
HD-Q1HPRN PRN
cramps
Vital Signs
Temp Pulse Resp BP Pulse Ox
98.0 F 101 20 144/91 97
03/04/25 08:07 03/04/25 08:07 03/04/25 08:07 03/04/25 08:07 03/04/25 08:07
Height 5 ft 1 in
Actual Weight 95.345 kg
Body Mass Index (BMI) 39.7
Physical Exam
Physical Exam:
General Appearance/Observation: Well-developed, well-nourished individual in no apparent distress.
Pain/Comfort Assessment: Bilateral shoulder, neck chronic pain
Mood/Affect: Appropriate
Integumentary/Operative Site:
Pressure Ulcer: absent
Other Type of Wound: absent:
Eyes: Conjunctiva/Lids: normal Pupils: pupils equal round and reactive to light and Accommodation
Ears/Nose/Throat: oral mucosa moist, throat clear. Lips/Teeth/Gums: normal
Neck: No muscle spasm or tenderness
Cardiovascular: Heart: regular rate, rhythm, no murmur
Pulses: dorsalis pedis 2+ bilaterally
Respiratory: Respiratory Effort/Chest Expansion: normal Auscultation: Clear to auscultation bilaterally
Gastrointestinal: abdomen not tender, no distension, normal abdominal bowel sounds
Genitourinary: No Orantes
Rectal Exam: Deferred
Extremities: Edema: None Cyanosis: None Trophic changes: None
Neurology Exam:
Orientation: Alert, Oriented to self, Time, Place, situation
Memory: Intact immediately
Higher cortical function
Speech: Intact
Repetition: Intact
Comprehension: Intact
Two step command: Intact
Naming: Intact
Cranial Nerves:
CNII: Pupillary light reflex: Intact Visual Field: Intact
CN III, IV, : Extraocular muscles: Intact
CN V: Facial Sensation at Forehead: Intact , Maxilla: Intact, Mandible: Intact
CN VII: Facial movement: Symmetric
CN VIII: Hearing: Normal
CN IX/X: Speech & swallow: Normal, Position of Uvula: Midline
CN XI: Shoulder shrug: Symmetric
CN XII: Tongue protrusion: Midline
Sensory:
Light touch: Intact in bilateral upper and lower extremities
Pinprick: Intact
Reflexes:
Biceps: 0 bilaterally
Brachioradialis: 0 bilaterally
Triceps: 0 bilaterally
Patellar: 0 bilaterally
Achilles: 0 bilaterally
Babinski: Downgoing bilaterally
Clonus: None
Thaddeus: Negative bilaterally
Cerebellar: Dysmetria/Ataxia: None
Musculoskeletal:
Motor: (Manual muscle scale 0-5)
Muscle SA EF WE EE FF FA HF KE DF EHL PF
Right 4 4 5 4 5 4 4 4 5 5 5
Left 4 4 5 4 5 4 4 4 5 5 5
Tone: Normal in all extremities
Range of Motion: Passively within normal limits in all extremities
Lab Results
03/04/25 08:47
03/04/25 08:47
WBC 6.7 10^3/uL (4.8-10.8) 03/04/25 08:47
Hgb 9.4 g/dL (12.0-16.0) L 03/04/25 08:47
Hct 28.3 % (37.0-47.0) L 03/04/25 08:47
MCV 92.2 fL (81.0-99.0) 03/04/25 08:47
Plt Count 120 10^3/uL (130-400) L 03/04/25 08:47
Sodium 136 mmol/L (135-145) 03/04/25 08:47
Potassium 5.2 mmol/L (3.5-5.1) H 03/04/25 08:47
Chloride 99 mmol/L (98-107) 03/04/25 08:47
Carbon Dioxide 24 mmol/L (22-30) 03/04/25 08:47
BUN 90 mg/dl (7-17) H 03/04/25 08:47
Creatinine 8.4 mg/dL (0.6-1.0) H* 03/04/25 08:47
eGFR 4.66 03/04/25 08:47
Glucose 102 mg/dl (70-99) H 03/04/25 08:47
Hemoglobin A1c 5.1 % (4.0-5.6) 02/26/25 04:26
Calcium 8.6 mg/dl (8.4-10.2) 03/04/25 08:47
Phosphorus 3.3 mg/dl (2.5-4.5) 02/26/25 04:26
Magnesium 1.4 mg/dl (1.6-2.3) L 03/04/25 08:47
Total Bilirubin 0.8 mg/dl (0.2-1.3) 02/25/25 22:46
AST 24 U/L (14-36) 02/25/25 22:46
ALT 15 U/L (0-35) 02/25/25 22:46
Alkaline Phosphatase 124 U/L (38-126) 02/25/25 22:46
Total Protein 6.2 g/dl (6.3-8.2) L 02/25/25 22:46
Albumin 3.8 g/dl (3.5-5.0) 02/25/25 22:46
Diagnostic Results
As per HPI.
Assessment / Plan
Assessment
Ms Henry is a 74F w/ PMHx ESRD on HD, IDDM, GERD, GAVM, CAD, HTN, HLD, Hypothyroidism and anemia of chronic disease who is presenting for shortness of breath and weakness. She was admitted with altered mental status in the setting of sepsis versus
asthma exacerbation.
Plan
PM&R PT/OT to increase independence with ADLs, improve balance, coordination, endurance, strength, mobility, community reintegration, decreased burden of care on others and family education.
HTN: continue medications, monitor closely
HLD: Statin
Coronary artery disease : Aspirin
DM II: Accu-Cheks, insulin sliding scale, metformin, lispro, lantus.
Hypothyroidism: levothyroxine
CATA: possible CPAP use.
Pneumonia: Completed course of antibiotics.
Anemia: Likely multifactorial. Continue to monitor.
Thrombocytopenia: Status post liver transplant and with elevated INR. Continue to monitor. With platelets less than 50,000 recommend keeping therapies to bedside. If platelets less than 20,000 will use further caution with activity levels and hold
therapy for platelets less than 10,000.
Skin: monitor for pressure sores/rashes/lesions.
Pain: acetaminophen or oxycodone as needed.
Bowel: Colace and Senna, PRN bisacodyl.
Bladder: Time void, PVRs, PRN straight cath.
GI Prophylaxis: Pantoprazole
DVT Prophylaxis:heparin
Pulmonary: Incentive spirometry
Morbid obesity: Continue to assessment counselor patient about diet adjustments to control obesity. Body habitus and increased force to move body and extremities causes further difficulty with functional tasks.
Safety: Continue to reinforce assistance with all transfers.
Code Status: Full code
Dispo: SNF
Functional and Medical Goals: Modified Independent with ADL�s, ambulation, transfers
Summary
-
Things that must be addressed in Hospital prior to discharge:
Patient must be stable on oral pain medications.
Blood pressure must be less than 180 systolic and 100 diastolic for 24 hours before being stable for transfer to SNF/acute rehab.
Please give blood pressure parameters.
Discharge Destination: SNF
Summary of recommendations:
- Discharge Destination: SNF patient would benefit from PT/OT to increase independence with ADLs, improve balance, coordination, endurance, strength, mobility, community reintegration, decreased burden of care on others and family education.
Will sign off, please re-consult if needed.
Thank you for allowing me to care for your patient. Please contact me with any questions or concerns.
Comments
-
This note was dictated using a voice recognition system. Please excuse any typographical errors from chronometer repairer. If you believe there are any discrepancies, please notify our office.

Documented by User: Alec Edmondson MD 03/05/25 23:02
Medical History
-
History of Present Illness:
Mrs. Kapoor is a 74y F with PMH significant for ESRD on HD, CATA, HFpEF hypertension hyperlipidemia hypothyroidism anxiety depression DM-II and GERD / GAVE, elevated asthma asthma who presents to ED for evaluation of lethargy, weakness and
confusion. Patient states that she has felt weak and fatigued for the past week or so. She reports hacking, non-productive cough. Patient went to her usual HD on 02/26 and states that she 'must have' fallen asleep or passed out on dialysis. HD staff
reportedly informed her that she had N/V during her session although she does not recall this. She was told to present to the ED after HD, but was too tired and went home instead. Daughters returned home and found the patient lying on her bedroom
floor confused and disoriented. Patient does not recall falling from bed. Patient went back to sleep but then fell again prompting their presentation to the ED. Of note patient started new medication zolpidem less than 2 weeks prior to
presentation. In the ED workup showed a potassium, normal head CT, reassuring EKG, chest x-ray with which showed right greater than left pneumonia and she was also noted to have bilateral expiratory wheezing and patient was admitted to the
hospital for weakness hyperkalemia anemia and sepsis. During her hospital stay her confusion improved and was thought to be likely due to sepsis versus medication effect. Pulmonary treated her for acute asthma exacerbation with bronchodilators and
steroids, she also received a course of antibiotics for sepsis including anaerobic coverage for suspected aspiration pneumonia and received fluid removal via hemodialysis. Echo in the hospital showed an EF of 55% with worsened MR but patient's
proBNP remained unchanged at an elevated level of 9000, cardiology unsure whether this is an acute exacerbation of heart failure but recommended fluid removal via HD. Patient improved with interventions and is currently hemodynamically stable.
Past Medical History
Past Medical History: Other (GAVE, anemia of CKD, CATA, morbid obesity, bilateral rotator cuff lesions limiting use of both shoulders)
Social History
Functional Level Premorbidity:
Independent for all activities. She notes that she had difficulty going up and down the steps and she would do them once or twice a day. Mainly went from room to room throughout the day and was not very active.
iADLs per family
Physical Exam
Physical Exam
Physical Exam:
General Appearance/Observation: Well-developed, well-nourished female in no apparent distress.
Pain/Comfort Assessment: Bilateral shoulder, neck chronic pain
Mood/Affect: Appropriate
Integumentary/Operative Site: Left IJ catheter
Pressure Ulcer: absent
Eyes: Conjunctiva/Lids: normal Pupils: pupils equal round and reactive to light and Accommodation
Ears/Nose/Throat: oral mucosa moist, throat clear. Lips/Teeth/Gums: normal
Neck: No muscle spasm or tenderness
Cardiovascular: Heart: regular rate, rhythm, no murmur
Pulses: dorsalis pedis 2+ bilaterally
Respiratory: Respiratory Effort/Chest Expansion: normal Auscultation: Clear to auscultation bilaterally
Gastrointestinal: abdomen not tender, no distension, normal abdominal bowel sounds
Genitourinary: No Orantes
Rectal Exam: Deferred
Extremities: Edema: None Cyanosis: None Trophic changes: None
Neurology Exam:
Orientation: Alert, Oriented to self, Time, Place, situation
Memory: Intact immediately
Repetition: Intact
Comprehension: Intact
Two step command: Intact
Cranial Nerves:
CNII: Pupillary light reflex: Intact Visual Field: Intact
CN III, IV, : Extraocular muscles: Intact
CN V: Facial Sensation at Forehead: Intact , Maxilla: Intact, Mandible: Intact
CN VII: Facial movement: Symmetric
CN VIII: Hearing: Normal
CN IX/X: Speech & swallow: Normal, Position of Uvula: Midline
CN XI: Shoulder shrug: Symmetric
CN XII: Tongue protrusion: Midline
Sensory:
Light touch: Intact in bilateral upper and lower extremities
Pinprick: Intact
Reflexes:
Biceps: 0 bilaterally
Brachioradialis: 0 bilaterally
Triceps: 0 bilaterally
Patellar: 0 bilaterally
Achilles: 0 bilaterally
Babinski: Downgoing bilaterally
Clonus: None
Thaddeus: Negative bilaterally
Cerebellar: Dysmetria/Ataxia: None
Musculoskeletal: Motor: (Manual muscle scale 0-5)
Muscle SA EF WE EE FF FA HF KE DF EHL PF
Right 2 4 5 4 5 4 4 4 5 5 5
Left 2 4 5 4 5 4 4 4 5 5 5
Tone: Normal in all extremities
Range of Motion: Limited active range of motion of both shoulders less than 90 degrees
Assessment / Plan
Assessment
Ms Henry is a 74 y/o F PMH (ESRD on HD, IDDM, GERD, GAVM, CAD, HTN, HLD, Hypothyroidism and anemia of chronic disease) with shortness of breath and weakness as well as altered mental status secondary to pneumonia and sepsis resulting in ADL and
amatory dysfunction
Plan
PM&R PT/OT to increase independence with ADLs, improve balance, coordination, endurance, strength, mobility, community reintegration, decreased burden of care on others and family education.
- Has limited bilateral shoulder movement which patient notes is secondary to bilateral rotator cuff problems
Pneumonia with sepsis: Completed course of antibiotics.
HTN: Lasix 80 mg twice daily, monitor closely
HLD: Statin
Coronary artery disease : Aspirin, statin. Not on beta-camila.
DM II: Accu-Cheks, insulin sliding scale, Lantus 10 units at night
Hypothyroidism: levothyroxine
Anemia: Likely multifactorial including dialysis, monitor.
Thrombocytopenia: Platelets stable in the 120 range continue to monitor. If platelets less than 50,000 recommend keeping therapies to bedside. If platelets less than 20,000 will use further caution with activity levels and hold therapy for
platelets less than 10,000.
Skin: monitor for pressure sores/rashes/lesions.
Pain: acetaminophen as needed. Lyrica 50 mg daily
Bowel: Colace and Senna, PRN bisacodyl.
Bladder: Time void, PVRs, PRN straight cath.
GERD: Pantoprazole
DVT Prophylaxis: Mechanical and heparin
Pulmonary: Incentive spirometry
Morbid obesity: Continue to assessment counselor patient about diet adjustments to control obesity. Body habitus and increased force to move body and extremities causes further difficulty with functional tasks.
Safety: Continue to reinforce assistance with all transfers.
Code Status: Full code
Dispo: SNF, patient with limited ability to use the upper extremities. She is not very active at baseline with concerns for being able to tolerate 3 hours of therapy. Anticipate that a slower and longer therapy program will be more beneficial for
her.
Attending Statement: I performed a history and examined the patient today.� I reviewed the care plan with therapy, nursing, and the resident.� I agree with the history and ROS above as modified.� The physical exam and plan documented reflects my
examination and plan.� � � �A total of 60 minutes were spent with the patient preparing for the evaluation, obtaining history, performing examination and evaluation, counseling, data review, case management, care coordination, sales order processor, and EMR
documentation.
Functional and Medical Goals: Modified Independent/supervision with ADL�s, ambulation, transfers
Summary
-
Summary of recommendations:
- Discharge Destination: SNF patient would benefit from PT/OT to increase independence with ADLs, improve balance, coordination, endurance, strength, mobility, community reintegration, decreased burden of care on others and family education.
Will sign off, please re-consult if needed.
Thank you for allowing me to care for your patient. Please contact me with any questions or concerns.
--- NOTE | 2025-03-04 11:04 | CM ---
Addendum entered by Lakeshia Holley 03/04/25 16:10:
[facility] does not have any available beds/HD chairs, VM left for daughter Felisa.
Addendum entered by Lakeshia Holley 03/04/25 15:06:
CM spoke with [facility] and they would accept patient pending auth / physician Dr. David Le [phone]. cm called to patient daughters and they indicated that they would like patient to have a referral sent to [facility] as
she had been there previously and would like to be closer to home. CM reviewed differences with Acute vs SNF and PT reviewed patient with recommendation SNF vs Acute today. CM sent referral to [facility] and await response at this time. CM
updated physician also via tt. CM will continue to follow for discharge planning needs.
Plan; SNF vs Acute; pending authorization and acceptance.
Original Note:
Patient seen at bedside with patient on HD. Patient recommendation from therapy remains Acute vs SNF and pending assessment today. CM spoke with liaison from [facility] [phone], and per [facility] patient does not qualify for Acute rehab
at this time. CM sent updated clinicals to [facility] and await response regarding bed availaility. CM will continue to follow for discharge planning needs.
Plan; Acute rehab vs snf
[2025-03-04] MEDS: MANNITOL 25% 12.5 GRAMS IV (11:09)
[2025-03-04] MEDS: FLEXBUMIN 25% FOR HEMODIALYSIS 12.5 GRAMS IV (11:10)
[2025-03-04] MEDS: HEPARIN 4700 UNITS INTRACATH (11:15)
[2025-03-04 11:36] LABS: Glucose - Point of Care 98 mg/dl (70-99)
--- NOTE | 2025-03-04 12:49 | W.PN.NEPH.HD ---
Assessment
-
Seen on dialysis tolerating treatment ultrafiltration 2 L
Progress Note - Hemodialysis
-
Date of Service: March 04, 2025
Duration: 30 minutes and 3 hours
Potassium Bath: 2
Calcium Bath: 2.5
Opti-Dialyzer: 160
Ultrafiltration: Other (2.5kg)
Blood Flow: 400
Dialysate Flow: 600
Heparin: 500x2
EPO: 8000 units
[2025-03-04] MEDS: RENVELA 1600 MG PO ×2 (13:42→18:35)
[2025-03-04 14:47] VITALS: BP 146/57; O2SAT 98
[2025-03-04 14:51] VITALS: BP 145/59; PULSE 108
[2025-03-04] MEDS: AUGMENTIN 500 MG/125 MG 1 TABLET PO (14:53)
[2025-03-04 15:22] VITALS: BP 155/63
--- NOTE | 2025-03-04 16:16 | PTCARENOTE ---
Assumed care of pt from previous nurse. Pt with some generalized pain and sore throat pain, managed with tylenol and lozenges. Pt had dialysis today, resting comfortably. Pt call davis is within reach, pt rings [email or web address] cont to monitor.
[2025-03-04 16:57] LABS: Glucose - Point of Care 191 mg/dl (70-99)
[2025-03-04] MEDS: MIRALAX 17 GRAMS PO (17:40)
[2025-03-04] MEDS: LASIX 80 MG PO (17:41)
[2025-03-04] MEDS: NOVOLOG FLEXPEN-LOW RESISTANCE 1 UNITS SC (18:35)
[2025-03-04] MEDS: CIPRO 1 DROPPERETT OTIC (19:47)
[2025-03-04] MEDS: SENOKOT-S 1 TABLET PO (19:48)
[2025-03-04 21:13] LABS: Glucose - Point of Care 174 mg/dl (70-99)
[2025-03-04] MEDS: NEURONTIN 100 MG PO (21:28)
[2025-03-04] MEDS: LANTUS 0.1 UNITS SC (21:28)
[2025-03-04] MEDS: LIPITOR 40 MG PO (21:28)
[2025-03-04] MEDS: TESSALON PERLES 200 MG PO (21:29)
[2025-03-04] MEDS: MELATONIN 5 MG PO (22:40)
[2025-03-04 23:14] VITALS: BP 157/77; BP 185/72; BP 188/86; PULSE 108; PULSE 97; PULSE 98
[2025-03-05] VITALS (9 sets, daily range): BP systolic 140–180; BP diastolic 60–115; PULSE 80–96; BMI 39.0
[2025-03-05] MEDS: SYNTHROID 137 MCG PO (03:19)
[2025-03-05] MEDS: ANESTHETIC LOZENGE 1 LOZENGE PO ×2 (03:20→19:44)
[2025-03-05] MEDS: ROBITUSSIN DM 10 ML PO ×2 (03:20→20:06)
[2025-03-05 07:34] LABS: Hematocrit 28.6 % (37.0-47.0); Hemoglobin 9.6 g/dL (12.0-16.0); Mean Corp Hgb Conc. 33.6 g/dL (33.0-37.0); Mean Corpuscular Volume 92.9 fL (81.0-99.0); Platelet Count 127 10^3/uL (130-400); Red Cell Dist. Width 17.7 % (11.5-14.5)
[2025-03-05] MEDS: DUONEB 3 ML INH (07:49)
[2025-03-05] MEDS: SYMBICORT 160/4.5 MCG INHALER 2 PUFF INH ×2 (07:49→20:17)
[2025-03-05 08:04] LABS: Blood Urea Nitrogen 45 mg/dl (7-17); Calcium 9.0 mg/dl (8.4-10.2); Carbon Dioxide 27 mmol/L (22-30); Chloride 101 mmol/L (98-107); Estimated Creatinine Clearance 10 ml/min; Glucose 102 mg/dl (70-99); Magnesium 1.6 mg/dl (1.6-2.3); Potassium 4.7 mmol/L (3.5-5.1); Sodium 137 mmol/L (135-145); eGFR 7.74
[2025-03-05 08:19] LABS: Glucose - Point of Care 94 mg/dl (70-99)
[2025-03-05] MEDS: NOVOLOG FLEXPEN-LOW RESISTANCE SC ×3 (09:17→17:34)
[2025-03-05] MEDS: PROTONIX 40 MG PO (09:33)
[2025-03-05] MEDS: LYRICA 25 MG PO (09:33)
[2025-03-05] MEDS: SENOKOT-S 1 TABLET PO ×2 (09:33→19:45)
[2025-03-05] MEDS: ASPIR LOW (ENTERIC COATED) 81 MG PO (09:33)
[2025-03-05] MEDS: MUCINEX 600 MG PO ×2 (09:33→19:45)
[2025-03-05] MEDS: RENVELA 1600 MG PO (09:33)
[2025-03-05] MEDS: HEPARIN 5000 UNITS SC ×2 (09:34→19:44)
[2025-03-05] MEDS: MIRALAX 17 GRAMS PO (09:34)
--- NOTE | 2025-03-05 09:42 | CM ---
Chart reviewed and patient has been declined at [facility], per [facility] patient does not meet acute rehab criteria, referral sent to [facility] and they have accepted patient special education case manager will attempt to obtain Auth for patient, special education case manager reached out to
patient's daughter, Felisa and explained to her that patient may not be approved for acute rehab by insurance and patient's daughter stated that she would want patient to return to home if patient is denied, no HD beds at [facility].
Plan; Submit Auth for [facility] acute rehab.
[2025-03-05] MEDS: FLEXERIL 10 MG PO (09:50)
[2025-03-05] MEDS: LASIX 80 MG PO ×2 (09:50→16:22)
[2025-03-05] MEDS: ROBITUSSIN DM PO (09:50)
--- NOTE | 2025-03-05 11:08 | W.PN.HOSP.TC ---
Today's Communication/Plan
-
cont bowel regimen
suppository prn constipation
zofran prn nausea
Lyrica increased to 50 mg daily (dose to be given after dialysis on dialysis days)
Gabapentin discontinued in favor increased dose Lyrica
cont melatonin prn sleep
replete Mg
Assessment / Plan
Assessment / Plan
Physical Exam
General: Not in acute distress
HEENT: Normocephalic. Moist mucous membranes, Tragus tenderness
Respiratory: clear to auscultation b/o
Cardiac: S1/S2 and Regular Rhythm
GI: Soft, Non Tender, Non Distended and Normal Bowel Sounds
Musculoskeletal: No Cyanosis
Neuro: AAO x 3
Hematologic/Lymphatic: Other (Scarring at the bilateral UE from prior AVF site(s). L IJ tunneled cath sit without bleeding / discharge / erythema)
Assessment/Plan
74 y/o female with past medical history significant for ESRD on HD, DM-II and GERD / GAVE who presented to [facility] ED for evaluation of lethargy, weakness and confusion. History obtained from patient and her daughter at the bedside. Patient stated that
she has felt weak and fatigued for ~1 week prior to arrival. She reported hacking, non-productive cough. No noted fever. She lives with her two daughters - who were out of town over the past weekend and returned home on 02/25/25. No one else in
the house has been ill. Patient went to her usual HD on the morning of 02/25/25 (family monitored her comings and anirudh via Ring camera to confirm this).
Patient stated that she 'must have' fallen asleep or passed out on dialysis. HD staff reportedly informed her that she had N/V during her session. Patient does not recall this.
She was told to present to the [facility] ED after HD, but was too tired and took the bus home instead. At home she climbed two flights of stairs - stopping midway due to fatigue - and went back to bed.
When daughters returned home on 02/25/25 evening, they found the patient lying on her bedroom floor confused and disoriented. Patient does not recall falling from bed. She complains of L sided headache and neck discomfort. Daughters helped the
patient to bed (around 7PM) and she fell back to sleep. Patient then called out to her daughters again around 9:30 PM and they went to find her again on the floor.
Patient states that her newest medication with zolpidem. She complains of chronic insomnia and notes that this has been helping. She started this < 2 weeks ago.
No other new medications. She does however also take Lyrica, gabapentin and cyclobenzaprine.
Pneumonia (Right>Left)
Sepsis secondary to the above
Chills and feeling feverish at home
- Cough x 1 week, leukocytosis with L shift, tachycardia and tachypnea on arrival.
- CXR with bibasilar opacities - L > R.
- COVID negative in the ED.
- Vancomycin previously stopped as MRSA negative
- On 02/28/25, changed Zosyn to Unasyn --> plan for a total of 7 days of antibiotics (first day of antibiotics was 02/26/25) --> switch to Augmentin (renally-dosed), last day of antibiotics is 03/04/25
- Bronchodilators and steroids (steroids course completed)
- Speech evaluation unremarkable
- Home/outpatient oxygen assessment performed on 03/01/25 -- does not need outpatient oxygen
Syncope/Encephalopathy
-possibly secondary to sepsis as noted above versus med effect - or combination thereof
- concern for possible Polypharmacy (gabapentin, Flexeril, Lyrica and Zolpidem)
- Lyrica resumed at lower dose. Zolpidem on hold. Trial PRN melatonin
- cont prn Flexeril
- Vasovagal episodes also possible considering vomiting and syncope while on hemodialysis.
- Echo with EF 55% and worsened MR
- Patient since improved
Mild intermittent asthma with acute exacerbation
History of Childhood Asthma
- Patient sees outpatient pulmonary at [facility]
- On 02/26/25, wheezing on exam, together with fatigue and SOB
- Ordered Duonebs and Pulmicort
- Prednisone 40 mg daily for 5 days completed
- Pulm eval appreciated
- At the time of discharge, start Symbicort or generic version Breyna
- Will need close outpatient pulmonary follow-up
Nausea/vomiting suspect d/t severe constipation
-03/05 Abd X-ray appreciated moderate fecal matter colon no obstruction
-prn zofran
-bowel regimen miralax senokot-s
-prn bisacodyl suppository
Chronic Dyspnea on exertion - likely multifactorial -- obstructive and restrictive lung disease, pneumonia, morbid obesity, heart failure, ESRD, physical deconditioning
Significantly elevated proBNP
- Repeat echo showed EF 55% with worsened mitral regurgitation
- Appreciate cardiology input: no need for GDMT right now, follow-up outpatient, nothing else to do from cardio standpoint right now
ESRD on HD
- Nephrology evaluation for HD needs during acute stay.
- Continue patient's home Furosemide but at 80 mg BID instead of daily
Hypomagnesemia
-monitor and replete as necessary
Suspect Otitis Externa Left ear vs Trigeminal Neuralgia
-cipro ear drops started 03/04 planned for 5 days
-Lyrica increased to 50 mg daily (dose to be given after dialysis on dialysis days)
-Gabapentin discontinued in favor of increased dose Lyrica as above
ASCVD
Chronic HFpEF
- Stable. Continue ASA, statin, etc.
- Home Lasix resumed at increased dose 80 mg BID as per Nephro
- Patient sees [facility] outpatient
- ECHO noted as above
DM-II
- Stable. Continue current regimen.
- Follow glucose and cover with SSI as needed.
Hypothyroidism
- TSH somewhat suppressed and free T4 elevated this hospitalization
- Home Levothyroxine reduced from 150 mcg to 137 mcg daily
- repeat TFT in 1 month
GERD / GAVE / Hiatal Hernia
- Stable. Prior h/o GI bleeding.
- Continue PPI.
Morbid Obesity
- Affects all aspects of care.
- Encourage healthy diet and increased activity as tolerated with goal of weight loss.
Shellfish Allergy
DVT Prophylaxis: Subcutaneous Heparin
Code Status: Full Code
I spent a total of 45 minutes with the patient or on the floor. More than 50% of this time involved counseling and coordination of care.
Anticipated Discharge: 24 - 48 hours
Subjective/Interval History
-
Date of Service: March 05, 2025
Nausea vomiting this morning, suspect d/t severe constipation, improved with zofran. Also reports left sided head pain/paraesthesia persists.
Objective Data
-
Labs:
Laboratory Results
03/05/25
07:12
WBC 6.5
Hgb 9.6 L
Hct 28.6 L
Plt Count 127 L
Sodium 137
Potassium 4.7
Chloride 101
Carbon Dioxide 27
BUN 45 H
Creatinine 5.5 H*
Glucose 102 H
Calcium 9.0
Vital Signs:
Vital Signs
Temp Pulse Resp BP Pulse Ox
98.4 F 96 16 178/76 95
03/05/25 07:45 03/05/25 07:52 03/05/25 07:52 03/05/25 07:45 03/05/25 07:52
I&O
03/04/25 03/05/25 03/06/25
06:59 06:59 06:59
Intake Total 1020 / 1020 480 / 480
Balance 1020 / 1020 480 / 480
[2025-03-05] MEDS: ZOFRAN 4 MG IV ×2 (11:13→17:19)
[2025-03-05] MEDS: MAGNESIUM SULFATE 50 IV (11:13)
[2025-03-05] MEDS: CIPRO 1 DROPPERETT OTIC ×2 (11:14→19:45)
[2025-03-05] MEDS: FLUSH (NSS) 2 FLUSH IV (11:15)
[2025-03-05] MEDS: DUONEB INH ×3 (11:59→19:35)
[2025-03-05 12:35] LABS: Glucose - Point of Care 121 mg/dl (70-99)
[2025-03-05] MEDS: RENVELA PO ×2 (13:00→17:34)
--- NOTE | 2025-03-05 14:50 | W.PN.NEPH.PH ---
Today's Communication / Plan
-
Acute need for dialysis today
HD tomorrow
Assessment/Plan
-
Assessment
ESRD
weakness
chronic pain
nausea
anemia
DM2
HTN
failed AV access, now CVC
Plan
MWF
No acute need for dialysis today
await rehab placement
See orders
-
-
Date of Service: March 05, 2025
CC / HPI / ROS
-
Chief Complaint:
Follow-up ESRD
History of Present Illness:
BP stable
hb stable
Review of Systems:
no cp
no n/v
Labs
-
Labs:
WBC 6.5 10^3/uL (4.8-10.8) 03/05/25 07:12
RBC 3.08 10^6/uL (4.20-5.40) L 03/05/25 07:12
Hgb 9.6 g/dL (12.0-16.0) L 03/05/25 07:12
Hct 28.6 % (37.0-47.0) L 03/05/25 07:12
Plt Count 127 10^3/uL (130-400) L 03/05/25 07:12
Sodium 137 mmol/L (135-145) 03/05/25 07:12
Potassium 4.7 mmol/L (3.5-5.1) 03/05/25 07:12
Chloride 101 mmol/L (98-107) 03/05/25 07:12
Carbon Dioxide 27 mmol/L (22-30) 03/05/25 07:12
BUN 45 mg/dl (7-17) H 03/05/25 07:12
Creatinine 5.5 mg/dL (0.6-1.0) H* 03/05/25 07:12
eGFR 7.74 03/05/25 07:12
Glucose 102 mg/dl (70-99) H 03/05/25 07:12
Calcium 9.0 mg/dl (8.4-10.2) 03/05/25 07:12
Phosphorus 5.3 mg/dl (2.5-4.5) H 03/05/25 07:12
Toi-F-Jsstmrqchwj Pept 9170 pg/ml 02/25/25 23:52
Albumin 3.8 g/dl (3.5-5.0) 02/25/25 22:46
Physical Exam
-
Vital Signs:
Vital Signs
Temp Pulse Resp BP Pulse Ox
98.2 F 90 12 167/70 91
03/05/25 11:52 03/05/25 11:52 03/05/25 11:52 03/05/25 11:52 03/05/25 11:52
Cardiovascular:: Regular rate and rhythm
Respiratory:: Bilateral: CTA
Lung Excursion:: Normal
Abdomen:: Nontender and Soft
Bowel Sounds:: Normal
Extremity Edema:: None: Bilateral:
[2025-03-05 17:08] LABS: Glucose - Point of Care 113 mg/dl (70-99)
[2025-03-05] MEDS: TYLENOL 650 MG PO (17:19)
[2025-03-05] MEDS: TESSALON PERLES 200 MG PO (17:28)
[2025-03-05] MEDS: SYMBICORT 160/4.5 MCG INHALER INH (19:35)
[2025-03-05] MEDS: VENTOLIN NEBULES 2.5 MG INH (20:14)
[2025-03-05] MEDS: MELATONIN 5 MG PO (21:27)
[2025-03-05] MEDS: LIPITOR 40 MG PO (21:27)
[2025-03-05 21:34] LABS: Glucose - Point of Care 120 mg/dl (70-99)
[2025-03-05] MEDS: LANTUS 0.1 UNITS SC (21:34)
[2025-03-06] MEDS: ANESTHETIC LOZENGE 1 LOZENGE PO ×4 (01:15→21:50)
[2025-03-06] MEDS: ROBITUSSIN DM 10 ML PO ×4 (01:15→22:20)
--- NOTE | 2025-03-06 02:20 | DOWNTIME ---
There was a [employer] Downtime on 03/06/2025 from 0100 to 03/06/2025 at 0215. Downtime documentation of patient's care, including medication administrations, has been reconciled in the electronic record per guidelines. Refer to the
patient's paper chart under the miscellaneous tab to see printed paper medication records and downtime forms.
[2025-03-06 06:00] VITALS: BMI 39.2
[2025-03-06] MEDS: SYNTHROID 137 MCG PO (06:02)
[2025-03-06] MEDS: TESSALON PERLES 200 MG PO (06:05)
[2025-03-06] MEDS: ZOFRAN 4 MG IV ×2 (06:46→12:52)
--- NOTE | 2025-03-06 07:28 | W.PN.HOSP.TC ---
Today's Communication/Plan
-
HD as per Nephro
increased dose Lyrica
cont cipro ear drops
once fleet enema
Assessment / Plan
Assessment / Plan
Physical Exam
General: Not acute distress appears relatively comfortable at this time
HEENT: Normocephalic. Moist mucous membranes
Respiratory: clear to auscultation b/l
Cardiac: S1/S2 and Regular Rhythm
GI: Soft, Non Tender, Non Distended and Normal Bowel Sounds
Musculoskeletal: No Cyanosis
Neuro: AAO x 3 conversant coherent
Psych: calm
Assessment/Plan
74 y/o female with past medical history significant for ESRD on HD, DM-II and GERD / GAVE who presented to [facility] ED for evaluation of lethargy, weakness and confusion. History obtained from patient and her daughter at the bedside. Patient stated that
she has felt weak and fatigued for ~1 week prior to arrival. She reported hacking, non-productive cough. No noted fever. She lives with her two daughters - who were out of town over the past weekend and returned home on 02/25/25. No one else in
the house has been ill. Patient went to her usual HD on the morning of 02/25/25 (family monitored her comings and anirudh via Ring camera to confirm this).
Patient stated that she 'must have' fallen asleep or passed out on dialysis. HD staff reportedly informed her that she had N/V during her session. Patient does not recall this.
She was told to present to the [facility] ED after HD, but was too tired and took the bus home instead. At home she climbed two flights of stairs - stopping midway due to fatigue - and went back to bed.
When daughters returned home on 02/25/25 evening, they found the patient lying on her bedroom floor confused and disoriented. Patient does not recall falling from bed. She complains of L sided headache and neck discomfort. Daughters helped the
patient to bed (around 7PM) and she fell back to sleep. Patient then called out to her daughters again around 9:30 PM and they went to find her again on the floor.
Patient states that her newest medication with zolpidem. She complains of chronic insomnia and notes that this has been helping. She started this < 2 weeks ago.
No other new medications. She does however also take Lyrica, gabapentin and cyclobenzaprine.
Pneumonia (Right>Left)
Sepsis secondary to the above
Chills and feeling feverish at home
- Cough x 1 week, leukocytosis with L shift, tachycardia and tachypnea on arrival.
- CXR with bibasilar opacities - L > R.
- COVID negative in the ED.
- Vancomycin previously stopped as MRSA negative
- On 02/28/25, changed Zosyn to Unasyn --> plan for a total of 7 days of antibiotics (first day of antibiotics was 02/26/25) --> switch to Augmentin (renally-dosed), last day of antibiotics is 03/04/25
- Bronchodilators and steroids (steroids course completed)
- Speech evaluation unremarkable
- Home/outpatient oxygen assessment performed on 03/01/25 -- does not need outpatient oxygen
Syncope/Encephalopathy
-possibly secondary to sepsis as noted above versus med effect - or combination thereof
- concern for possible Polypharmacy (gabapentin, Flexeril, Lyrica and Zolpidem)
- Lyrica resumed at lower dose. Zolpidem on hold. Trial PRN melatonin
- cont prn Flexeril
- Vasovagal episodes also possible considering vomiting and syncope while on hemodialysis.
- Echo with EF 55% and worsened MR
- Patient since improved
Mild intermittent asthma with acute exacerbation
History of Childhood Asthma
- Patient sees outpatient pulmonary at [facility]
- On 02/26/25, wheezing on exam, together with fatigue and SOB
- Ordered Duonebs and Pulmicort
- Prednisone 40 mg daily for 5 days completed
- Pulm eval appreciated
- At the time of discharge, start Symbicort or generic version Breyna
- outpatient pulmonary follow-up
Nausea/vomiting suspect d/t severe constipation
-03/05 Abd X-ray appreciated moderate fecal matter colon no obstruction
-prn zofran
-bowel regimen miralax senokot-s
-prn bisacodyl suppository
-03/06/25 once fleet enema
Chronic Dyspnea on exertion - likely multifactorial -- obstructive and restrictive lung disease, pneumonia, morbid obesity, heart failure, ESRD, physical deconditioning
Significantly elevated proBNP
- Repeat echo showed EF 55% with worsened mitral regurgitation
- Appreciate cardiology input: no need for GDMT right now, follow-up outpatient, nothing else to do from cardio standpoint right now
ESRD on HD
- Nephrology evaluation for HD needs during acute stay.
- Continue patient's home Furosemide but at 80 mg BID instead of daily
Hypomagnesemia
-monitor and replete as necessary
Suspect Otitis Externa Left ear vs Trigeminal Neuralgia
-cipro ear drops started 03/04 planned for 5 days
-Lyrica increased to 50 mg daily (dose to be given after dialysis on dialysis days)
-Gabapentin discontinued in favor of increased dose Lyrica as above
-considering oxcarbazepine if no improvement
ASCVD
Chronic HFpEF
- Stable. Continue ASA, statin, etc.
- Home Lasix resumed at increased dose 80 mg BID as per Nephro
- Patient sees [facility] outpatient
- ECHO noted as above
DM-II
- Stable. Continue current regimen.
- Follow glucose and cover with SSI as needed.
Hypothyroidism
- TSH somewhat suppressed and free T4 elevated this hospitalization
- Home Levothyroxine reduced from 150 mcg to 137 mcg daily
- repeat TFT in 1 month
GERD / GAVE / Hiatal Hernia
- Stable. Prior h/o GI bleeding.
- Continue PPI.
Morbid Obesity
- Affects all aspects of care.
- Encourage healthy diet and increased activity as tolerated with goal of weight loss.
Shellfish Allergy
DVT Prophylaxis: Subcutaneous Heparin
Code Status: Full Code
discussed with patient and patient's daughter Felisa
I spent a total of 45 minutes with the patient or on the floor. More than 50% of this time involved counseling and coordination of care.
Anticipated Discharge: 24 - 48 hours
Subjective/Interval History
-
Date of Service: March 06, 2025
on HD today. Intermittent n/v persists. Constipation also persists. Left sided head facial pain continues.
Objective Data
-
Labs:
Laboratory Results
03/06/25
06:00
Sodium Pending
Potassium Pending
Chloride Pending
Carbon Dioxide Pending
BUN Pending
Creatinine Pending
Glucose Pending
Calcium Pending
Vital Signs:
Vital Signs
Temp Pulse Resp BP Pulse Ox
97.9 F 86 20 140/61 93
03/05/25 23:41 03/05/25 23:41 03/05/25 23:41 03/05/25 23:41 03/05/25 23:41
I&O
03/05/25 03/06/25 03/07/25
06:59 06:59 06:59
Intake Total 480 / 480 1250 / 1250
Output Total 0 / 0
Balance 480 / 480 1250 / 1250
[2025-03-06 07:33] LABS: Glucose - Point of Care 88 mg/dl (70-99)
[2025-03-06] MEDS: SYMBICORT 160/4.5 MCG INHALER 2 PUFF INH ×2 (07:34→19:41)
[2025-03-06] MEDS: DUONEB 3 ML INH (07:34)
[2025-03-06 07:45] VITALS: BP 160/79
[2025-03-06] MEDS: LASIX PO (08:00)
[2025-03-06] MEDS: NOVOLOG FLEXPEN-LOW RESISTANCE SC ×3 (08:26→18:11)
[2025-03-06] MEDS: RETACRIT 4000 UNITS IV (08:28)
[2025-03-06] MEDS: HEPARIN 5000 UNITS SC ×2 (08:32→20:28)
[2025-03-06] MEDS: CIPRO 1 DROPPERETT OTIC ×2 (08:34→20:29)
[2025-03-06] MEDS: RENVELA PO ×2 (08:34→13:17)
[2025-03-06 09:33] LABS: Blood Urea Nitrogen 53 mg/dl (7-17); Calcium 8.7 mg/dl (8.4-10.2); Carbon Dioxide 26 mmol/L (22-30); Chloride 100 mmol/L (98-107); Estimated Creatinine Clearance 7 ml/min; Glucose 103 mg/dl (70-99); Magnesium 2.1 mg/dl (1.6-2.3); Potassium 5.4 mmol/L (3.5-5.1); Sodium 137 mmol/L (135-145); eGFR 5.09
--- NOTE | 2025-03-06 09:55 | CM ---
Plan is for [facility] Acute rehab, will submit for Auth when patient has been cleared for discharge.
Plan; Acute rehab at [facility] needs Auth.
[2025-03-06] MEDS: MANNITOL 25% 12.5 GRAMS IV (10:38)
[2025-03-06] MEDS: FLEXBUMIN 25% FOR HEMODIALYSIS 12.5 GRAMS IV (10:39)
--- NOTE | 2025-03-06 11:32 | W.PN.NEPH.HD ---
Assessment
-
Seen on HD. c/o nausea, left facial pain. VSS, access ok.
ok for lyrica/oxcarbamazepinea
await rehab
Progress Note - Hemodialysis
-
Date of Service: March 06, 2025
Duration: 30 minutes and 3 hours
Potassium Bath: 2
Calcium Bath: 2.5
Opti-Dialyzer: 160
Ultrafiltration: Other (2kg)
Blood Flow: 400
Dialysate Flow: 600
Heparin: 0
EPO: 4000 units
[2025-03-06 12:24] LABS: Glucose - Point of Care 71 mg/dl (70-99)
[2025-03-06] MEDS: ASPIR LOW (ENTERIC COATED) 81 MG PO (12:54)
[2025-03-06] MEDS: FLUSH (NSS) 1 FLUSH IV (12:54)
[2025-03-06] MEDS: FLEXERIL 10 MG PO (12:54)
[2025-03-06] MEDS: MUCINEX 600 MG PO ×2 (12:55→20:28)
[2025-03-06] MEDS: PROTONIX 40 MG PO (12:55)
[2025-03-06] MEDS: MIRALAX 17 GRAMS PO (12:55)
[2025-03-06] MEDS: SENOKOT-S 1 TABLET PO ×2 (12:55→20:28)
[2025-03-06 12:56] VITALS: BP 117/72; PULSE 89; O2SAT 97
[2025-03-06] MEDS: FLEET MINERAL OIL ENEMA 133 ML RECTAL (12:56)
[2025-03-06] MEDS: LYRICA 50 MG PO (13:00)
[2025-03-06 15:45] VITALS: BP 99/64
[2025-03-06 16:45] LABS: Glucose - Point of Care 109 mg/dl (70-99)
[2025-03-06] MEDS: LASIX 80 MG PO (18:14)
[2025-03-06] MEDS: RENVELA 1600 MG PO (18:17)
[2025-03-06 21:33] LABS: Glucose - Point of Care 148 mg/dl (70-99)
[2025-03-06] MEDS: TYLENOL 650 MG PO (21:49)
[2025-03-06] MEDS: LANTUS 0.1 UNITS SC (21:49)
[2025-03-06] MEDS: LIPITOR 40 MG PO (21:50)
[2025-03-06] MEDS: MELATONIN 5 MG PO (21:50)
[2025-03-06 22:42] VITALS: BP 147/63
[2025-03-07] MEDS: SYNTHROID 137 MCG PO (05:28)
[2025-03-07] MEDS: TYLENOL 650 MG PO (05:49)
[2025-03-07] MEDS: ROBITUSSIN DM 10 ML PO (05:50)
[2025-03-07] MEDS: ANESTHETIC LOZENGE 1 LOZENGE PO (05:50)
[2025-03-07 06:00] VITALS: BMI 38.3
[2025-03-07 07:13] VITALS: BP 128/75
--- NOTE | 2025-03-07 07:14 | W.PN.HOSP.TC ---
Today's Communication/Plan
-
start oxcarbazepine
milk and molasses enema
discharge planning
Assessment / Plan
Assessment / Plan
Physical Exam
General: Not acute distress appears relatively comfortable at this time
HEENT: Normocephalic. Moist mucous membranes
Respiratory: clear to auscultation b/l
Cardiac: S1/S2 and Regular Rhythm
GI: Soft, Non Tender, Non Distended and Normal Bowel Sounds
Musculoskeletal: No Cyanosis
Neuro: AAO x 3 conversant coherent
Psych: calm
Assessment/Plan
74 y/o female with past medical history significant for ESRD on HD, DM-II and GERD / GAVE who presented to [facility] ED for evaluation of lethargy, weakness and confusion. History obtained from patient and her daughter at the bedside. Patient stated that
she has felt weak and fatigued for ~1 week prior to arrival. She reported hacking, non-productive cough. No noted fever. She lives with her two daughters - who were out of town over the past weekend and returned home on 02/25/25. No one else in
the house has been ill. Patient went to her usual HD on the morning of 02/25/25 (family monitored her comings and anirudh via Ring camera to confirm this).
Patient stated that she 'must have' fallen asleep or passed out on dialysis. HD staff reportedly informed her that she had N/V during her session. Patient does not recall this.
She was told to present to the [facility] ED after HD, but was too tired and took the bus home instead. At home she climbed two flights of stairs - stopping midway due to fatigue - and went back to bed.
When daughters returned home on 02/25/25 evening, they found the patient lying on her bedroom floor confused and disoriented. Patient does not recall falling from bed. She complains of L sided headache and neck discomfort. Daughters helped the
patient to bed (around 7PM) and she fell back to sleep. Patient then called out to her daughters again around 9:30 PM and they went to find her again on the floor.
Patient states that her newest medication with zolpidem. She complains of chronic insomnia and notes that this has been helping. She started this < 2 weeks ago.
No other new medications. She does however also take Lyrica, gabapentin and cyclobenzaprine.
Pneumonia (Right>Left)
Sepsis secondary to the above
Chills and feeling feverish at home
- Cough x 1 week, leukocytosis with L shift, tachycardia and tachypnea on arrival.
- CXR with bibasilar opacities - L > R.
- COVID negative in the ED.
- Vancomycin previously stopped as MRSA negative
- On 02/28/25, changed Zosyn to Unasyn --> plan for a total of 7 days of antibiotics (first day of antibiotics was 02/26/25) --> switch to Augmentin (renally-dosed), last day of antibiotics is 03/04/25
- Bronchodilators and steroids (steroids course completed)
- Speech evaluation unremarkable
- Home/outpatient oxygen assessment performed on 03/01/25 -- does not need outpatient oxygen
Syncope/Encephalopathy
-possibly secondary to sepsis as noted above versus med effect - or combination thereof
- concern for possible Polypharmacy (gabapentin, Flexeril, Lyrica and Zolpidem)
- Lyrica resumed at lower dose. Zolpidem on hold. Trial PRN melatonin
- cont prn Flexeril
- Vasovagal episodes also possible considering vomiting and syncope while on hemodialysis.
- Echo with EF 55% and worsened MR
- Patient since improved
Mild intermittent asthma with acute exacerbation
History of Childhood Asthma
- Patient sees outpatient pulmonary at [facility]
- On 02/26/25, wheezing on exam, together with fatigue and SOB
- Ordered Duonebs and Pulmicort
- Prednisone 40 mg daily for 5 days completed
- Pulm eval appreciated
- At the time of discharge, start Symbicort or generic version Breyna
- outpatient pulmonary follow-up
Nausea/vomiting suspect d/t severe constipation
-03/05 Abd X-ray appreciated moderate fecal matter colon no obstruction
-prn zofran
-bowel regimen miralax senokot-s
-prn bisacodyl suppository
-03/06/25 once fleet enema, no improvement noted
-03/07/25 once milk and molasses enemia
Chronic Dyspnea on exertion - likely multifactorial -- obstructive and restrictive lung disease, pneumonia, morbid obesity, heart failure, ESRD, physical deconditioning
Significantly elevated proBNP
- Repeat echo showed EF 55% with worsened mitral regurgitation
- Appreciate cardiology input: no need for GDMT right now, follow-up outpatient, nothing else to do from cardio standpoint right now
ESRD on HD
- Nephrology evaluation for HD needs during acute stay.
- Continue patient's home Furosemide but at 80 mg BID instead of daily
Hypomagnesemia
-monitor and replete as necessary
Most likely Trigeminal Neuralgia
Left Ear Otitis Externa ruled out
-cipro ear drops discontinued
-Lyrica increased to 50 mg daily (dose to be given after dialysis on dialysis days)
-Gabapentin discontinued in favor of increased dose Lyrica as above
-oxcarbazepine 150 mg BID started, patient since noted significant improvement in left sided facial/head pain
ASCVD
Chronic HFpEF
- Stable. Continue ASA, statin, etc.
- Home Lasix resumed at increased dose 80 mg BID as per Nephro
- Patient sees [facility] outpatient
- ECHO noted as above
DM-II
- Stable. Continue current regimen.
- Follow glucose and cover with SSI as needed.
Hypothyroidism
- TSH somewhat suppressed and free T4 elevated this hospitalization
- Home Levothyroxine reduced from 150 mcg to 137 mcg daily
- repeat TFT in 1 month
GERD / GAVE / Hiatal Hernia
- Stable. Prior h/o GI bleeding.
- Continue PPI.
Morbid Obesity
- Affects all aspects of care.
- Encourage healthy diet and increased activity as tolerated with goal of weight loss.
Shellfish Allergy
DVT Prophylaxis: Subcutaneous Heparin
Code Status: Full Code
I spent a total of 45 minutes with the patient or on the floor. More than 50% of this time involved counseling and coordination of care.
Anticipated Discharge: Within 24 hours
Subjective/Interval History
-
Date of Service: March 07, 2025
nausea vomiting this morning, reports constipation persists along with left sided facial/head pain
Objective Data
-
Vital Signs:
Vital Signs
Temp Pulse Resp BP Pulse Ox
98.4 F 85 18 147/63 91
03/06/25 22:42 03/06/25 22:42 03/06/25 22:42 03/06/25 22:42 03/06/25 22:42
I&O
03/06/25 03/07/25 03/08/25
06:59 06:59 06:59
Intake Total 1250 / 1250 600 / 600
Output Total 0 / 0
Balance 1250 / 1250 600 / 600
[2025-03-07] MEDS: SYMBICORT 160/4.5 MCG INHALER 2 PUFF INH ×2 (07:54→19:45)
[2025-03-07 08:10] LABS: Glucose - Point of Care 106 mg/dl (70-99)
[2025-03-07] MEDS: NOVOLOG FLEXPEN-LOW RESISTANCE SC ×3 (08:16→17:39)
[2025-03-07] MEDS: CIPRO 1 DROPPERETT OTIC (08:17)
[2025-03-07] MEDS: MIRALAX 17 GRAMS PO (08:17)
[2025-03-07] MEDS: MUCINEX 600 MG PO ×2 (08:17→20:10)
[2025-03-07] MEDS: LYRICA 50 MG PO (08:19)
[2025-03-07] MEDS: ASPIR LOW (ENTERIC COATED) 81 MG PO (08:19)
[2025-03-07] MEDS: SENOKOT-S 1 TABLET PO ×2 (08:19→20:10)
[2025-03-07] MEDS: PROTONIX 40 MG PO (08:19)
[2025-03-07] MEDS: RENVELA 1600 MG PO ×3 (08:19→17:39)
[2025-03-07] MEDS: HEPARIN 5000 UNITS SC ×2 (08:26→20:10)
[2025-03-07] MEDS: LASIX 80 MG PO ×2 (08:27→17:36)
--- NOTE | 2025-03-07 10:21 | W.PN.NEPH.PH ---
Today's Communication / Plan
-
HD tomorrow
Assessment/Plan
-
Assessment
ESRD
weakness
chronic pain
nausea
anemia
DM2
HTN
failed AV access, now CVC
Plan
MWF
HD tomorrow
await rehab placement
-
-
Date of Service: March 07, 2025
CC / HPI / ROS
-
Chief Complaint:
Follow-up ESRD
History of Present Illness:
BP stable
hb stable
tolerated HD yesterday
Review of Systems:
eating this morning
nausea
no cp
no n/v
Labs
-
Labs:
WBC 6.5 10^3/uL (4.8-10.8) 03/05/25 07:12
RBC 3.08 10^6/uL (4.20-5.40) L 03/05/25 07:12
Hgb 9.6 g/dL (12.0-16.0) L 03/05/25 07:12
Hct 28.6 % (37.0-47.0) L 03/05/25 07:12
Plt Count 127 10^3/uL (130-400) L 03/05/25 07:12
Sodium 137 mmol/L (135-145) 03/06/25 08:15
Potassium 5.4 mmol/L (3.5-5.1) H 03/06/25 08:15
Chloride 100 mmol/L (98-107) 03/06/25 08:15
Carbon Dioxide 26 mmol/L (22-30) 03/06/25 08:15
BUN 53 mg/dl (7-17) H 03/06/25 08:15
Creatinine 7.8 mg/dL (0.6-1.0) H* 03/06/25 08:15
eGFR 5.09 03/06/25 08:15
Glucose 103 mg/dl (70-99) H 03/06/25 08:15
Calcium 8.7 mg/dl (8.4-10.2) 03/06/25 08:15
Phosphorus 6.9 mg/dl (2.5-4.5) H 03/06/25 08:15
Eqo-F-Nizmsqdrexz Pept 9170 pg/ml 02/25/25 23:52
Albumin 3.8 g/dl (3.5-5.0) 02/25/25 22:46
Physical Exam
-
Vital Signs:
Vital Signs
Temp Pulse Resp BP Pulse Ox
98.3 F 72 16 128/75 95
03/07/25 07:13 03/07/25 08:27 03/07/25 07:55 03/07/25 08:27 03/07/25 07:55
Cardiovascular:: Regular rate and rhythm
Respiratory:: Bilateral: CTA
Lung Excursion:: Normal
Abdomen:: Nontender and Soft
Bowel Sounds:: Normal
Extremity Edema:: None: Bilateral:
[2025-03-07] MEDS: ZOFRAN 4 MG IV (11:39)
[2025-03-07 11:45] LABS: Glucose - Point of Care 149 mg/dl (70-99)
[2025-03-07] MEDS: TRILEPTAL 150 MG PO ×2 (13:22→20:10)
[2025-03-07 15:18] VITALS: BP 156/64
--- NOTE | 2025-03-07 15:29 | CM ---
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
facilities.
Plan; Acute rehab at [facility] if approved by insurance, v's home with family.
[2025-03-07 17:11] LABS: Glucose - Point of Care 81 mg/dl (70-99)
--- NOTE | 2025-03-07 20:00 | PTCARENOTE ---
Pt ordered enema during day shift but was not administered. This RN administered enema per ordered @ 2200, which resulted in a large hard formed stool. Pt reports adequate relief s/p enema. Plan of care ongoing.
[2025-03-07 21:17] LABS: Glucose - Point of Care 120 mg/dl (70-99)
[2025-03-07] MEDS: LANTUS 0.1 UNITS SC (21:37)
[2025-03-07] MEDS: LIPITOR 40 MG PO (21:37)
[2025-03-07 23:00] VITALS: BP 167/66
[2025-03-08] MEDS: SYNTHROID 137 MCG PO (05:11)
[2025-03-08] MEDS: TYLENOL 650 MG PO (05:12)
[2025-03-08] MEDS: ANESTHETIC LOZENGE 1 LOZENGE PO ×3 (05:15→21:45)
[2025-03-08] MEDS: TESSALON PERLES 200 MG PO (05:17)
[2025-03-08 06:00] VITALS: BMI 38.6
[2025-03-08] MEDS: SYMBICORT 160/4.5 MCG INHALER 2 PUFF INH ×2 (07:05→20:08)
[2025-03-08 07:35] VITALS: BP 166/76
[2025-03-08 07:47] LABS: Glucose - Point of Care 98 mg/dl (70-99)
[2025-03-08] MEDS: NOVOLOG FLEXPEN-LOW RESISTANCE SC ×3 (08:15→16:41)
[2025-03-08] MEDS: HEPARIN 5000 UNITS SC ×2 (08:15→19:39)
[2025-03-08] MEDS: ASPIR LOW (ENTERIC COATED) 81 MG PO (08:16)
[2025-03-08] MEDS: RENVELA 1600 MG PO ×3 (08:16→17:39)
[2025-03-08] MEDS: MUCINEX 600 MG PO ×2 (08:16→19:39)
[2025-03-08] MEDS: PROTONIX 40 MG PO (08:16)
[2025-03-08] MEDS: MIRALAX 17 GRAMS PO (08:16)
[2025-03-08] MEDS: SENOKOT-S 1 TABLET PO ×2 (08:16→19:39)
[2025-03-08] MEDS: TRILEPTAL 150 MG PO ×2 (08:16→19:39)
[2025-03-08] MEDS: LASIX 80 MG PO ×2 (08:16→16:07)
[2025-03-08] MEDS: LYRICA 50 MG PO (08:28)
--- NOTE | 2025-03-08 08:34 | W.PN.HOSP.TC ---
Today's Communication/Plan
-
Medically stable for discharge Acute vs SNF rehab
cont bowel regimen
HD as per Nephro
cont oxcarbazepine current dose for now
Assessment / Plan
Assessment / Plan
Physical Exam
General: Not acute distress, appears comfortable at this time
HEENT: Normocephalic. Moist mucous membranes
Respiratory: clear to auscultation b/l
Cardiac: S1/S2 and Regular Rhythm
GI: Soft, Non Tender, Non Distended and Normal Bowel Sounds
Musculoskeletal: No Cyanosis
Neuro: AAO x 3 conversant coherent
Psych: calm
Assessment/Plan
74 y/o female with past medical history significant for ESRD on HD, DM-II and GERD / GAVE who presented to [facility] ED for evaluation of lethargy, weakness and confusion. History obtained from patient and her daughter at the bedside. Patient stated that
she has felt weak and fatigued for ~1 week prior to arrival. She reported hacking, non-productive cough. No noted fever. She lives with her two daughters - who were out of town over the past weekend and returned home on 02/25/25. No one else in
the house has been ill. Patient went to her usual HD on the morning of 02/25/25 (family monitored her comings and anirudh via Ring camera to confirm this).
Patient stated that she 'must have' fallen asleep or passed out on dialysis. HD staff reportedly informed her that she had N/V during her session. Patient does not recall this.
She was told to present to the [facility] ED after HD, but was too tired and took the bus home instead. At home she climbed two flights of stairs - stopping midway due to fatigue - and went back to bed.
When daughters returned home on 02/25/25 evening, they found the patient lying on her bedroom floor confused and disoriented. Patient does not recall falling from bed. She complains of L sided headache and neck discomfort. Daughters helped the
patient to bed (around 7PM) and she fell back to sleep. Patient then called out to her daughters again around 9:30 PM and they went to find her again on the floor.
Patient states that her newest medication with zolpidem. She complains of chronic insomnia and notes that this has been helping. She started this < 2 weeks ago.
No other new medications. She does however also take Lyrica, gabapentin and cyclobenzaprine.
Pneumonia (Right>Left)
Sepsis secondary to the above
Chills and feeling feverish at home
- Cough x 1 week, leukocytosis with L shift, tachycardia and tachypnea on arrival.
- CXR with bibasilar opacities - L > R.
- COVID negative in the ED.
- Vancomycin previously stopped as MRSA negative
- On 02/28/25, changed Zosyn to Unasyn --> plan for a total of 7 days of antibiotics (first day of antibiotics was 02/26/25) --> switch to Augmentin (renally-dosed), last day of antibiotics is 03/04/25
- Bronchodilators and steroids (steroids course completed)
- Speech evaluation unremarkable
- Home/outpatient oxygen assessment performed on 03/01/25 -- does not need outpatient oxygen
Syncope/Encephalopathy
-possibly secondary to sepsis as noted above versus med effect - or combination thereof
- concern for possible Polypharmacy (gabapentin, Flexeril, Lyrica and Zolpidem)
- Lyrica resumed at lower dose. Zolpidem on hold. Trial PRN melatonin
- cont prn Flexeril
- Vasovagal episodes also possible considering vomiting and syncope while on hemodialysis.
- Echo with EF 55% and worsened MR
- Patient since improved
Mild intermittent asthma with acute exacerbation
History of Childhood Asthma
- Patient sees outpatient pulmonary at [facility]
- On 02/26/25, wheezing on exam, together with fatigue and SOB
- Ordered Duonebs and Pulmicort
- Prednisone 40 mg daily for 5 days completed
- Pulm eval appreciated
- At the time of discharge, start Symbicort or generic version Breyna
- outpatient pulmonary follow-up
Nausea/vomiting suspect d/t severe constipation
-03/05 Abd X-ray appreciated moderate fecal matter colon no obstruction
-prn zofran
-bowel regimen miralax senokot-s
-prn bisacodyl suppository
-03/06/25 once fleet enema, no improvement noted
-03/07/25 once milk and molasses enemia
-constipation n/v since resolved
Chronic Dyspnea on exertion - likely multifactorial -- obstructive and restrictive lung disease, pneumonia, morbid obesity, heart failure, ESRD, physical deconditioning
Significantly elevated proBNP
- Repeat echo showed EF 55% with worsened mitral regurgitation
- Appreciate cardiology input: no need for GDMT right now, follow-up outpatient, nothing else to do from cardio standpoint right now
ESRD on HD
- Nephrology evaluation for HD needs during acute stay.
- Continue patient's home Furosemide but at 80 mg BID instead of daily
Hypomagnesemia
-monitor and replete as necessary
Trigeminal Neuralgia
Left Ear Otitis Externa ruled out
-cipro ear drops discontinued
-Lyrica increased to 50 mg daily (dose to be given after dialysis on dialysis days)
-Gabapentin discontinued in favor of increased dose Lyrica as above
-oxcarbazepine 150 mg BID started, patient since noted significant improvement in left sided facial/head pain though not resolved
ASCVD
Chronic HFpEF
- Stable. Continue ASA, statin, etc.
- Home Lasix resumed at increased dose 80 mg BID as per Nephro
- Patient sees [facility] outpatient
- ECHO noted as above
DM-II
- Stable. Continue current regimen.
- Follow glucose and cover with SSI as needed.
Hypothyroidism
- TSH somewhat suppressed and free T4 elevated this hospitalization
- Home Levothyroxine reduced from 150 mcg to 137 mcg daily
- repeat TFT in 1 month
GERD / GAVE / Hiatal Hernia
- Stable. Prior h/o GI bleeding.
- Continue PPI.
Morbid Obesity
- Affects all aspects of care.
- Encourage healthy diet and increased activity as tolerated with goal of weight loss.
Shellfish Allergy
DVT Prophylaxis: Subcutaneous Heparin
Code Status: Full Code
Medically stable for discharge Acute vs SNF rehab pending insurance auth
Called daughters with update, no answer received, message left for daughter Felisa with brief update and call back number
I spent a total of 45 minutes with the patient or on the floor. More than 50% of this time involved counseling and coordination of care.
Anticipated Discharge: 24 - 48 hours
Subjective/Interval History
-
Date of Service: March 08, 2025
Reports much improvement since start oxcarbazepine and resolution of constipation. N/V resolved at this time, tolerating diet. Left facial/head pain persists but significantly improved.
Objective Data
-
Labs:
Laboratory Results
03/08/25
07:00
Hgb Pending
Hct Pending
Sodium Pending
Potassium Pending
Chloride Pending
Carbon Dioxide Pending
Vital Signs:
Vital Signs
Temp Pulse Resp BP Pulse Ox
98.1 F 72 14 167/66 96
03/07/25 23:00 03/08/25 07:08 03/08/25 07:08 03/07/25 23:00 03/08/25 07:08
I&O
03/07/25 03/08/25 03/09/25
06:59 06:59 06:59
Intake Total 600 / 600 480 / 480
Output Total 350 / 350
Balance 600 / 600 130 / 130
[2025-03-08 11:09] VITALS: BP 164/66; BP 167/74; PULSE 82; PULSE 85; O2SAT 97
--- NOTE | 2025-03-08 11:29 | CM ---
Chart reviewed and plan is to submit patient's physical therapy notes to [facility] for Auth for acute rehab, patient has been accepted at [facility]. manager mortgage reached out to Dior [phone] in admissions and confirmed a bed for patient,
patient will need Auth.
[facility]

Elise Le
[2025-03-08 11:37] LABS: Glucose - Point of Care 84 mg/dl (70-99)
[2025-03-08 13:03] LABS: Hematocrit 29.9 % (37.0-47.0); Hemoglobin 9.7 g/dL (12.0-16.0)
[2025-03-08 13:25] LABS: Carbon Dioxide 28 mmol/L (22-30); Chloride 100 mmol/L (98-107); Potassium 5.3 mmol/L (3.5-5.1); Sodium 136 mmol/L (135-145)
--- NOTE | 2025-03-08 13:38 | W.PN.NEPH.HD ---
Assessment
-
Tolerating treatment
Progress Note - Hemodialysis
-
Date of Service: March 08, 2025
Duration: 30 minutes and 3 hours
Potassium Bath: 2
Calcium Bath: 2.5
Opti-Dialyzer: 160
Ultrafiltration: Other (2kg)
Blood Flow: 400
Dialysate Flow: 600
Heparin: 0
EPO: 4000 units
[2025-03-08] MEDS: RETACRIT 4000 UNITS IV (14:10)
[2025-03-08] MEDS: MANNITOL 25% 12.5 GRAMS IV (15:05)
[2025-03-08] MEDS: FLEXBUMIN 25% FOR HEMODIALYSIS 12.5 GRAMS IV (15:11)
[2025-03-08 15:16] VITALS: BP 107/53
[2025-03-08] MEDS: HEPARIN 4700 UNITS INTRACATH (16:15)
[2025-03-08 16:40] LABS: Glucose - Point of Care 153 mg/dl (70-99)
[2025-03-08 17:20] VITALS: BMI 38.6
[2025-03-08 21:11] LABS: Glucose - Point of Care 121 mg/dl (70-99)
[2025-03-08] MEDS: LIPITOR 40 MG PO (21:28)
[2025-03-08] MEDS: LANTUS 0.1 UNITS SC (21:28)
[2025-03-08] MEDS: MELATONIN 5 MG PO (21:45)
[2025-03-08 23:00] VITALS: BP 167/75; BP 175/78; BP 185/75; PULSE 85; PULSE 86; PULSE 96
[2025-03-09 06:00] VITALS: BMI 38.2
[2025-03-09] MEDS: SYNTHROID 137 MCG PO (06:05)
[2025-03-09] MEDS: ANESTHETIC LOZENGE 1 LOZENGE PO (06:08)
[2025-03-09] MEDS: TYLENOL 650 MG PO (06:11)
[2025-03-09] MEDS: TESSALON PERLES 200 MG PO (06:11)
[2025-03-09 07:37] LABS: Glucose - Point of Care 79 mg/dl (70-99)
--- NOTE | 2025-03-09 07:41 | W.PN.HOSP.TC ---
Today's Communication/Plan
-
Medically stable for discharge to rehab awaiting insurance auth
cont HD as per Nephro
oxcarbazepine to increase tonight to 300 mg BID
Assessment / Plan
Assessment / Plan
Physical Exam
General: Not acute distress, appears comfortable at this time
HEENT: Normocephalic. Moist mucous membranes
Respiratory: clear to auscultation b/l
Cardiac: S1/S2 and Regular Rhythm
GI: Soft, Non Tender, Non Distended and Normal Bowel Sounds
Musculoskeletal: No Cyanosis
Neuro: AAO x 3 conversant coherent
Psych: calm
Assessment/Plan
74 y/o female with past medical history significant for ESRD on HD, DM-II and GERD / GAVE who presented to [facility] ED for evaluation of lethargy, weakness and confusion. History obtained from patient and her daughter at the bedside. Patient stated that
she has felt weak and fatigued for ~1 week prior to arrival. She reported hacking, non-productive cough. No noted fever. She lives with her two daughters - who were out of town over the past weekend and returned home on 02/25/25. No one else in
the house has been ill. Patient went to her usual HD on the morning of 02/25/25 (family monitored her comings and anirudh via Ring camera to confirm this).
Patient stated that she 'must have' fallen asleep or passed out on dialysis. HD staff reportedly informed her that she had N/V during her session. Patient does not recall this.
She was told to present to the [facility] ED after HD, but was too tired and took the bus home instead. At home she climbed two flights of stairs - stopping midway due to fatigue - and went back to bed.
When daughters returned home on 02/25/25 evening, they found the patient lying on her bedroom floor confused and disoriented. Patient does not recall falling from bed. She complains of L sided headache and neck discomfort. Daughters helped the
patient to bed (around 7PM) and she fell back to sleep. Patient then called out to her daughters again around 9:30 PM and they went to find her again on the floor.
Patient states that her newest medication with zolpidem. She complains of chronic insomnia and notes that this has been helping. She started this < 2 weeks ago.
No other new medications. She does however also take Lyrica, gabapentin and cyclobenzaprine.
Pneumonia (Right>Left)
Sepsis secondary to the above
Chills and feeling feverish at home
- Cough x 1 week, leukocytosis with L shift, tachycardia and tachypnea on arrival.
- CXR with bibasilar opacities - L > R.
- COVID negative in the ED.
- Vancomycin previously stopped as MRSA negative
- On 02/28/25, changed Zosyn to Unasyn --> plan for a total of 7 days of antibiotics (first day of antibiotics was 02/26/25) --> switch to Augmentin (renally-dosed), last day of antibiotics is 03/04/25
- Bronchodilators and steroids (steroids course completed)
- Speech evaluation unremarkable
- Home/outpatient oxygen assessment performed on 03/01/25 -- does not need outpatient oxygen
Syncope/Encephalopathy
-possibly secondary to sepsis as noted above versus med effect - or combination thereof
- concern for possible Polypharmacy (gabapentin, Flexeril, Lyrica and Zolpidem)
- Lyrica resumed at lower dose. Zolpidem on hold. Trial PRN melatonin
- cont prn Flexeril
- Vasovagal episodes also possible considering vomiting and syncope while on hemodialysis.
- Echo with EF 55% and worsened MR
- Patient since improved
Mild intermittent asthma with acute exacerbation
History of Childhood Asthma
- Patient sees outpatient pulmonary at [facility]
- On 02/26/25, wheezing on exam, together with fatigue and SOB
- Ordered Duonebs and Pulmicort
- Prednisone 40 mg daily for 5 days completed
- Pulm eval appreciated
- At the time of discharge, start Symbicort or generic version Breyna
- outpatient pulmonary follow-up
Nausea/vomiting suspect d/t severe constipation
-03/05 Abd X-ray appreciated moderate fecal matter colon no obstruction
-prn zofran
-bowel regimen miralax senokot-s
-prn bisacodyl suppository
-03/06/25 once fleet enema, no improvement noted
-03/07/25 once milk and molasses enemia
-constipation n/v since resolved
Chronic Dyspnea on exertion - likely multifactorial -- obstructive and restrictive lung disease, pneumonia, morbid obesity, heart failure, ESRD, physical deconditioning
Significantly elevated proBNP
- Repeat echo showed EF 55% with worsened mitral regurgitation
- Appreciate cardiology input: no need for GDMT right now, follow-up outpatient, nothing else to do from cardio standpoint right now
ESRD on HD
- Nephrology evaluation for HD needs during acute stay.
- Continue patient's home Furosemide but at 80 mg BID instead of daily
Hypomagnesemia
-monitor and replete as necessary
Trigeminal Neuralgia
Left Ear Otitis Externa ruled out
-cipro ear drops discontinued
-Lyrica increased to 50 mg daily (dose to be given after dialysis on dialysis days)
-Gabapentin discontinued in favor of increased dose Lyrica as above
-oxcarbazepine 150 mg BID started, patient since noted significant improvement in left sided facial/head pain though not resolved, slow titration to avoid polypharmacy, increased to 300 mg BID starting evening 03/09/25
ASCVD
Chronic HFpEF
- Stable. Continue ASA, statin, etc.
- Home Lasix resumed at increased dose 80 mg BID as per Nephro
- Patient sees [facility]
- ECHO noted as above
DM-II
- Stable. Continue current regimen.
- Follow glucose and cover with SSI as needed.
Hypothyroidism
- TSH somewhat suppressed and free T4 elevated this hospitalization
- Home Levothyroxine reduced from 150 mcg to 137 mcg daily
- repeat TFT in 1 month
GERD / GAVE / Hiatal Hernia
- Stable. Prior h/o GI bleeding.
- Continue PPI.
Morbid Obesity
- Affects all aspects of care.
- Encourage healthy diet and increased activity as tolerated with goal of weight loss.
Shellfish Allergy
DVT Prophylaxis: Subcutaneous Heparin
Code Status: Full Code
Medically stable for discharge Acute vs SNF rehab pending insurance auth
discussed with patient and patient's daughters Felisa and same name Ifrah
I spent a total of 45 minutes with the patient or on the floor. More than 50% of this time involved counseling and coordination of care.
Anticipated Discharge: 24 - 48 hours
Subjective/Interval History
-
Date of Service: March 09, 2025
No acute distress sitting up comfortably in bed overall reports feeling well though left facial head pain persists leading to poor sleep. Tolerating diet
Objective Data
-
Vital Signs:
Vital Signs
Temp Pulse Resp BP Pulse Ox
98.4 F 85 18 175/78 93
03/08/25 23:00 03/08/25 23:00 03/08/25 23:00 03/08/25 23:00 03/08/25 23:00
I&O
03/08/25 03/09/25 03/10/25
06:59 06:59 06:59
Intake Total 480 / 480 250 / 250
Output Total 350 / 350
Balance 130 / 130 250 / 250
[2025-03-09] MEDS: NOVOLOG FLEXPEN-LOW RESISTANCE SC ×3 (07:50→18:12)
[2025-03-09 08:25] VITALS: BP 133/54
[2025-03-09] MEDS: PROTONIX 40 MG PO (08:26)
[2025-03-09] MEDS: RENVELA 1600 MG PO ×3 (08:26→18:13)
[2025-03-09] MEDS: LASIX 80 MG PO ×2 (08:26→16:07)
[2025-03-09] MEDS: LYRICA 50 MG PO (08:27)
[2025-03-09] MEDS: MUCINEX 600 MG PO ×2 (08:27→19:49)
[2025-03-09] MEDS: TRILEPTAL 150 MG PO (08:27)
[2025-03-09] MEDS: SENOKOT-S 1 TABLET PO ×2 (08:27→19:49)
[2025-03-09] MEDS: ASPIR LOW (ENTERIC COATED) 81 MG PO (08:27)
[2025-03-09] MEDS: MIRALAX 17 GRAMS PO (08:28)
[2025-03-09] MEDS: HEPARIN 5000 UNITS SC ×2 (08:28→19:50)
[2025-03-09] MEDS: SYMBICORT 160/4.5 MCG INHALER 2 PUFF INH ×2 (08:33→19:37)
[2025-03-09 11:43] VITALS: BP 122/60; BP 122/68; BP 134/60; PULSE 80; PULSE 84; PULSE 89
[2025-03-09 12:29] LABS: Glucose - Point of Care 114 mg/dl (70-99)
--- NOTE | 2025-03-09 15:31 | PTCARENOTE ---
Assumed care of pt from previous nurse. Pt denies pain. Pt call davis is within reach, pt rings phu. will cont to monitor.
[2025-03-09 15:40] VITALS: BP 163/77
--- NOTE | 2025-03-09 15:55 | W.PN.NEPH.PH ---
Today's Communication / Plan
-
Dialysis Tuesday
Assessment/Plan
-
Assessment
ESRD
weakness
chronic pain
nausea
anemia
DM2
HTN
failed AV access, now CVC
Plan
MWF
No acute need for dialysis today
await rehab placement
-
-
Date of Service: March 09, 2025
CC / HPI / ROS
-
Chief Complaint:
Follow-up ESRD
History of Present Illness:
BP stable
hb stable
tolerated HD yesterday
Review of Systems:
eating this morning
nausea
no cp
no n/v
Labs
-
Labs:
WBC 6.5 10^3/uL (4.8-10.8) 03/05/25 07:12
RBC 3.08 10^6/uL (4.20-5.40) L 03/05/25 07:12
Hgb 9.7 g/dL (12.0-16.0) L 03/08/25 12:34
Hct 29.9 % (37.0-47.0) L 03/08/25 12:34
Plt Count 127 10^3/uL (130-400) L 03/05/25 07:12
Sodium 136 mmol/L (135-145) 03/08/25 12:34
Potassium 5.3 mmol/L (3.5-5.1) H 03/08/25 12:34
Chloride 100 mmol/L (98-107) 03/08/25 12:34
Carbon Dioxide 28 mmol/L (22-30) 03/08/25 12:34
BUN 53 mg/dl (7-17) H 03/06/25 08:15
Creatinine 7.8 mg/dL (0.6-1.0) H* 03/06/25 08:15
eGFR 5.09 03/06/25 08:15
Glucose 103 mg/dl (70-99) H 03/06/25 08:15
Calcium 8.7 mg/dl (8.4-10.2) 03/06/25 08:15
Phosphorus 6.9 mg/dl (2.5-4.5) H 03/06/25 08:15
Wsh-L-Hxaehqrpbjt Pept 9170 pg/ml 02/25/25 23:52
Albumin 3.8 g/dl (3.5-5.0) 02/25/25 22:46
Physical Exam
-
Vital Signs:
Vital Signs
Temp Pulse Resp BP Pulse Ox
98.1 F 78 16 133/54 95
03/09/25 08:25 03/09/25 08:36 03/09/25 08:36 03/09/25 08:26 03/09/25 08:25
Cardiovascular:: Regular rate and rhythm
Respiratory:: Bilateral: CTA
Lung Excursion:: Normal
Abdomen:: Nontender and Soft
Bowel Sounds:: Normal
Extremity Edema:: None: Bilateral:
[2025-03-09] MEDS: ZOFRAN 4 MG IV (16:07)
[2025-03-09 16:41] LABS: Glucose - Point of Care 125 mg/dl (70-99)
[2025-03-09] MEDS: TRILEPTAL 300 MG PO (19:49)
[2025-03-09 20:48] LABS: Hepatitis B Surface Antigen Negative (Negative)
[2025-03-09 21:57] LABS: Glucose - Point of Care 170 mg/dl (70-99)
[2025-03-09] MEDS: MELATONIN 5 MG PO (22:47)
[2025-03-09] MEDS: LANTUS 0.1 UNITS SC (22:48)
[2025-03-09] MEDS: LIPITOR 40 MG PO (22:48)
[2025-03-09 23:00] VITALS: BP 151/77
[2025-03-10 04:00] VITALS: BMI 38.8
[2025-03-10] MEDS: SYNTHROID 137 MCG PO (05:20)
[2025-03-10 07:34] VITALS: BP 197/86
[2025-03-10] MEDS: SYMBICORT 160/4.5 MCG INHALER 2 PUFF INH ×2 (07:39→20:04)
--- NOTE | 2025-03-10 07:53 | W.PN.HOSP.TC ---
Today's Communication/Plan
-
Oxygen therapy prn as per Neuro
MRA neck w/o contrast pending
HD as per nephro
PT/OT
Assessment / Plan
Assessment / Plan
Physical Exam
General: Not acute distress, appears relatively comfortable at this time
HEENT: Normocephalic. Moist mucous membranes
Respiratory: clear to auscultation b/l
Cardiac: S1/S2 and Regular Rhythm
GI: Soft, Non Tender, Non Distended and Normal Bowel Sounds
Musculoskeletal: No Cyanosis
Neuro: AAO x 3 conversant coherent
Psych: calm
Assessment/Plan
74 y/o female with past medical history significant for ESRD on HD, DM-II and GERD / GAVE who presented to [facility] ED for evaluation of lethargy, weakness and confusion. History obtained from patient and her daughter at the bedside. Patient stated that
she has felt weak and fatigued for ~1 week prior to arrival. She reported hacking, non-productive cough. No noted fever. She lives with her two daughters - who were out of town over the past weekend and returned home on 02/25/25. No one else in
the house has been ill. Patient went to her usual HD on the morning of 02/25/25 (family monitored her comings and anirudh via Ring camera to confirm this).
Patient stated that she 'must have' fallen asleep or passed out on dialysis. HD staff reportedly informed her that she had N/V during her session. Patient does not recall this.
She was told to present to the [facility] ED after HD, but was too tired and took the bus home instead. At home she climbed two flights of stairs - stopping midway due to fatigue - and went back to bed.
When daughters returned home on 02/25/25 evening, they found the patient lying on her bedroom floor confused and disoriented. Patient does not recall falling from bed. She complains of L sided headache and neck discomfort. Daughters helped the
patient to bed (around 7PM) and she fell back to sleep. Patient then called out to her daughters again around 9:30 PM and they went to find her again on the floor.
Patient states that her newest medication with zolpidem. She complains of chronic insomnia and notes that this has been helping. She started this < 2 weeks ago.
No other new medications. She does however also take Lyrica, gabapentin and cyclobenzaprine.
Pneumonia (Right>Left)
Sepsis secondary to the above
Chills and feeling feverish at home
- Cough x 1 week, leukocytosis with L shift, tachycardia and tachypnea on arrival.
- CXR with bibasilar opacities - L > R.
- COVID negative in the ED.
- Vancomycin previously stopped as MRSA negative
- On 02/28/25, changed Zosyn to Unasyn --> plan for a total of 7 days of antibiotics (first day of antibiotics was 02/26/25) --> switch to Augmentin (renally-dosed), last day of antibiotics is 03/04/25
- Bronchodilators and steroids (steroids course completed)
- Speech evaluation unremarkable
- Home/outpatient oxygen assessment performed on 03/01/25 -- does not need outpatient oxygen
Syncope/Encephalopathy
-possibly secondary to sepsis as noted above versus med effect - or combination thereof
- concern for possible Polypharmacy (gabapentin, Flexeril, Lyrica and Zolpidem)
- Lyrica resumed at lower dose. Zolpidem on hold. Trial PRN melatonin
- cont prn Flexeril
- Vasovagal episodes also possible considering vomiting and syncope while on hemodialysis.
- Echo with EF 55% and worsened MR
- Patient since improved
Mild intermittent asthma with acute exacerbation
History of Childhood Asthma
- Patient sees outpatient pulmonary at [facility]
- On 02/26/25, wheezing on exam, together with fatigue and SOB
- Ordered Duonebs and Pulmicort
- Prednisone 40 mg daily for 5 days completed
- Pulm eval appreciated
- At the time of discharge, start Symbicort or generic version Breyna
- outpatient pulmonary follow-up
Nausea/vomiting suspect d/t severe constipation
-03/05 Abd X-ray appreciated moderate fecal matter colon no obstruction
-prn zofran
-bowel regimen miralax senokot-s
-prn bisacodyl suppository
-03/06/25 once fleet enema, no improvement noted
-03/07/25 once milk and molasses enemia
-constipation n/v since resolved
Chronic Dyspnea on exertion - likely multifactorial -- obstructive and restrictive lung disease, pneumonia, morbid obesity, heart failure, ESRD, physical deconditioning
Significantly elevated proBNP
- Repeat echo showed EF 55% with worsened mitral regurgitation
- Appreciate cardiology input: no need for GDMT right now, follow-up outpatient, nothing else to do from cardio standpoint right now
ESRD on HD
- Nephrology evaluation for HD needs during acute stay.
- Continue patient's home Furosemide but at 80 mg BID instead of daily
Hypomagnesemia
-monitor and replete as necessary
Trigeminal Neuralgia vs Trigeminal Autonomic Cephalgia (type of headache)
Left Ear Otitis Externa ruled out
cipro ear drops discontinued
Lyrica increased to 50 mg daily (dose to be given after dialysis on dialysis days)
Gabapentin discontinued in favor of increased dose Lyrica as above (doesn't make sense to be on both Lyrica and gabapentin)
oxcarbazepine 150 mg BID started, patient since noted significant improvement in left sided facial/head pain though not resolved, briefly increased to 300 mg BID since tapered back to 150 mg d/t the following.
Neuro eval appreciated assessed more likely Trigeminal Autonomic Cephalgia or other form of headache
-recommended tapering off Lyrica and Oxcarbazepine (concern toxic-metabolic myoclonus and polyneuropathy) patient however notes significant improvement with oxcarbazepine (more so than with Lyrica) would attempt to taper off Lyrica first,
oxcarbazepine at lowest dose possible, follow up oxcarbazepine level
-MRA neck w/o pending
-prn Oxygen therapy NRB w/ at least 7L for 15 min while sitting upright (patient notes significant relief headache with this therapy)
-recommended prn cocktail Toradol/Benadryl/Reglan however pharmacy expressed significant concerns regarding use Toradol/High dose NSAID in ESRD patient. Holding off for now, especially since other therapies effective as above
ASCVD
Chronic HFpEF
- Stable. Continue ASA, statin, etc.
- Home Lasix resumed at increased dose 80 mg BID as per Nephro
- Patient sees [facility] Card[facility] outpatient
- ECHO noted as above
DM-II
- Stable. Continue current regimen.
- Follow glucose and cover with SSI as needed.
Hypothyroidism
- TSH somewhat suppressed and free T4 elevated this hospitalization
- Home Levothyroxine reduced from 150 mcg to 137 mcg daily
- repeat TFT in 1 month
GERD / GAVE / Hiatal Hernia
- Stable. Prior h/o GI bleeding.
- Continue PPI.
Morbid Obesity
- Affects all aspects of care.
- Encourage healthy diet and increased activity as tolerated with goal of weight loss.
[employer]
case mgmt gaby appreciated pt accepted to [facility] acute rehab, awaiting insurance auth
DVT Prophylaxis: Subcutaneous Heparin
Code Status: Full Code
discussed with patient and patient's daughters Felisa and same name Ifrah
I spent a total of 45 minutes with the patient or on the floor. More than 50% of this time involved counseling and coordination of care.
Anticipated Discharge: 24 - 48 hours
Subjective/Interval History
-
Date of Service: March 10, 2025
No acute distress, head facial pain persists on left, no spreading to the right
Objective Data
-
Vital Signs:
Vital Signs
Temp Pulse Resp BP Pulse Ox
98.1 F 81 16 151/77 96
03/09/25 23:00 03/10/25 07:42 03/10/25 07:42 03/09/25 23:00 03/10/25 07:42
I&O
03/09/25 03/10/25 03/11/25
06:59 06:59 06:59
Intake Total 250 / 250 480 / 480
Balance 250 / 250 480 / 480
[2025-03-10] MEDS: ASPIR LOW (ENTERIC COATED) 81 MG PO (08:10)
[2025-03-10] MEDS: PROTONIX 40 MG PO (08:12)
[2025-03-10 08:13] LABS: Glucose - Point of Care 85 mg/dl (70-99)
[2025-03-10] MEDS: TRILEPTAL 300 MG PO (08:13)
[2025-03-10] MEDS: RENVELA 1600 MG PO ×3 (08:13→17:39)
[2025-03-10] MEDS: LYRICA 50 MG PO (08:14)
[2025-03-10] MEDS: MUCINEX 600 MG PO ×2 (08:15→20:19)
[2025-03-10] MEDS: LASIX 80 MG PO ×2 (08:15→17:09)
[2025-03-10] MEDS: HEPARIN 5000 UNITS SC ×2 (08:15→20:19)
[2025-03-10] MEDS: NOVOLOG FLEXPEN-LOW RESISTANCE SC ×3 (08:21→17:12)
[2025-03-10] MEDS: MIRALAX PO (08:23)
[2025-03-10] MEDS: SENOKOT-S PO ×2 (08:23→20:20)
[2025-03-10 12:10] LABS: Glucose - Point of Care 115 mg/dl (70-99)
--- NOTE | 2025-03-10 12:44 | CON.NEURO ---
Consultation
Order
Date of Consultation: 03/10/25
Requesting Provider: Blake Walls MD
Reason for Consult: Headache
Neurology Consultation Note.
HPI: This is a 74-year-old woman who presented to [facility] on 02/25/2025 after being found by her daughter's lying on her bedroom floor confused and disoriented.
The patient was treated for pneumonia, hyponatremia and hyperkalemia.
Ms. Henry reports intermittent moderate to severe predominantly left hemispheric pain, which started 3-4 days ago.
The facial pain is described as irregular, stabbing and intermittent, causing the patient to wince. The pain episodes last about 15 minutes, occurring approximately hourly, sometimes more frequently. The patient reports that the pain never fully
resolves between episodes. No identified triggers. Ms. Henry states that she thought that her pain has improved following initiation of Tegretol however she states that her headache is back
No reports of head trauma, change in vision, facial allodynia, worsening of symptoms with speech or toothbrushing, nausea, photophobia or phonophobia, worsening with cough
VS: Review of vital signs was notable for elevated blood pressure up to 197/86
EKG:NSR, QTcB Int : 459 ms
PDMP:Zolpidem Tartrate 5 Mg 30 tablets filled in on 01/06/2025, 02/08/2025, Pregabalin 100 Mg 180 capsules filled in on 06/27/2024
Labs on admission: Sodium�131, creatinine�4.9, potassium�5.7, glucose�153, magnesium�1.5, free T4-2.45 (0.78�2.19), SARS Cov 2�negative
CT head wo contrast(02/25/2025) diffuse cortical atrophy with nonspecific white matter changes
Brain MRI without cordell (09/06/2021) done for confusion showed mild chronic microvascular white matter ischemic disease and interval development of small chronic hemorrhagic focus involving periventricular white matter at the superior margin of the
body of the right lateral ventricle. Possibly secondary to chronic hemorrhagic lacunar infarct or tiny developmental venous anomaly.
PMH: Migraines with aur, R rotator cuff tear, ESRD on HD, HTN, DLP, DM, polyneuropathy, hypothyroidism, anemia, thrombocytopenia, BMI 38, insomnia, cervical DJD, Gastric antral vascular ectasia, h/o GIB
PSH: Bilateral cataract surgery, brachiocephalic AVF
SH:lives with daughters; Previously worked for [employer] in [facility]; Never drove, non-smoker, denies excessive alcohol use
FH: Mother�breast cancer, father�diabetes
All: Erythromycin, cephalexin, shellfish
ROS:General: Positive for transient fatigue, confusion.
HEENT: Positive for runny nose
Respiratory: Positive for violent cough, shortness of breath.
Gastrointestinal: Positive for transient vomiting. Admission.
Neurological: Positive for headache
Musculoskeletal: Positive for chronic right arm pain
General: Well developed. In no acute distress.
Cardio: Regular rate and rhythm without murmur. Extremities are without cyanosis or edema.
Neuro:
Mental Status: Alert, oriented to person, place, time. Normal attention and recall. Good fund of knowledge. Follows complex requests across the midline. Comprehension, naming, and repetition intact.
Cranial Nerves: Pupils are equally round, surgical. EOMs full. Visual bello full to confrontation. No ptosis. No nystagmus. V1-V3 intact to light touch and pinprick bilaterally, symmetric. Face symmetric. Normal hearing AU. The palate
elevated well. SCMs and traps 5/5. Tongue midline. No dysarthria.
Motor: Normal bulk and tone. No pronator or arm drift. Strength 5/5 throughout except for pain related proximal right arm weakness (chronic). No clonus.
Reflexes: Without exam due to body habitus
Sensory: Absent vibration at the toes and ankles
Coordination: No dysmetria or tremor. Intermittent myoclonus
Gait: deferred
Assessment and Plan:
I. Trigeminal autonomic cephalgia vs idiopathic stabbing headache
II. Toxic-metabolic myoclonus
II. Distal symmetric large fiber polyneuropathy. Likely etiology�metabolic
- Fall precaution
- Avoid medications known to cause myoclonus recommendation is for chronic uremia
- IV Toradol 30 mg, Reglan 10 mg, Benadryl 25 mg Q8h PRN for moderate to severe headache.
- Brain MRI without cordell
- trial of oxygen 100% of O2 via a nonrebreathing facemask with a flow rate of at least 7 L/min for 15 minutes at the start of an attack with the patient sitting in an upright position. Oxygen is effective for up to 78 percent of patients with
cluster headache.
- Would wean off Tegretol and Lyrica and consider Indomethacin
- Please obtain medical records from patient's neurology for review.
I personally reviewed all radiology and labs along with past medical records pertinent to current medical problems. Total time spent in patient care is 60 minutes.
Thank you for allowing us to participate in the care of this patient. We will continue to follow. Please do not hesitate to contact us with any questions or concerns.
Subjective/Objective
Subjective Data
Date of Service: March 10, 2025
Objective Data
Vital Signs
Temp Pulse Resp BP Pulse Ox
36.7 C 81 16 197/86 96
03/10/25 07:34 03/10/25 07:42 03/10/25 07:42 03/10/25 07:34 03/10/25 07:42
Lab Results
03/08/25 12:34
03/08/25 12:34
Sodium 136 mmol/L (135-145) 03/08/25 12:34
Potassium 5.3 mmol/L (3.5-5.1) H 03/08/25 12:34
BUN 53 mg/dl (7-17) H 03/06/25 08:15
Glucose 103 mg/dl (70-99) H 03/06/25 08:15
Calcium 8.7 mg/dl (8.4-10.2) 03/06/25 08:15
Phosphorus 6.9 mg/dl (2.5-4.5) H 03/06/25 08:15
Dpf-R-Eaupbeglcxq Pept 9170 pg/ml 02/25/25 23:52
Patient Allergies
cephalexin Allergy (Verified 02/25/25 22:41)
rash, fever & itching; tolerates cefazolin (SEE COMMENTS)
eggplant Allergy (Verified 02/25/25 22:41)
Shortness of Breath
erythromycin base Allergy (Verified 02/25/25 22:41)
Itching,Stomach pain 'bad'
latex Allergy (Verified 02/25/25 22:41)
Pt states she gets a rash and wheezes
shellfish derived Allergy (Verified 02/27/25 15:46)
Unknown
Medications
-
Active Medications
Generic Name Dose Route Start Last Admin
Trade Name Freq PRN Reason Stop Dose Admin
Acetaminophen 650 mg 02/26/25 03:41 03/09/25 06:11
Acetaminophen 325 Mg Tablet PO 03/26/25 03:40 650 mg
Q4HPRN PRN Administration
Mild Pain / Temp > 101
Albuterol Sulfate 2.5 mg 02/26/25 03:41 03/05/25 20:14
Albuterol Nebs 2.5 Mg/3 Ml Ampul INH 2.5 mg
R Q4HPRN PRN Administration
SOB
Protocol
Aspirin 81 mg 02/26/25 08:00 03/10/25 08:10
Aspirin 81 Mg (Enteric Coated) Tablet PO 03/26/25 07:59 81 mg
DAILY EHSAN Administration
Atorvastatin Calcium 40 mg 02/26/25 22:00 03/09/25 22:48
Atorvastatin (Lipitor) 40 Mg Tablet PO 03/26/25 21:59 40 mg
HS EHSAN Administration
Benzocaine/Menthol 1 lozenge 03/03/25 23:50 03/09/25 06:08
Benzocaine/Menthol Lozenge PO 03/31/25 23:49 1 lozenge
Q4HPRN PRN Administration
throat irritation
Benzonatate 200 mg 03/01/25 09:16 03/09/25 06:11
Benzonatate 100 Mg Capsule PO 03/29/25 09:15 200 mg
TIDPRN PRN Administration
cough
Bisacodyl 10 mg 03/05/25 19:29
Bisacodyl 10 Mg Rectal Suppository RECTAL 04/02/25 19:28
DAILYPRN PRN
constipation
Budesonide/Formoterol Fumarate 2 puff 02/28/25 20:00 03/10/25 07:39
Symbicort Inhaler 160/4.5 INH 03/28/25 19:59 2 puff
R BID EHSAN Administration
Protocol
Cyclobenzaprine HCl 10 mg 03/02/25 10:49 03/06/25 12:54
Cyclobenzaprine 10 Mg Tablet PO 03/28/25 15:18 10 mg
DAILYPRN PRN Administration
muscle spasms
Dextrose 12.5 grams 02/26/25 03:41
Dextrose 50% (0.5 Grams/Ml) 50 Ml Syringe IV 03/26/25 03:40
[id number] PRN
hypoglycemia
Protocol
Furosemide 80 mg 03/01/25 08:00 03/10/25 08:15
Furosemide 80 Mg Tablet PO 03/29/25 07:59 80 mg
BID@0800,1600 EHSAN Administration
Guaifenesin 600 mg 03/01/25 10:00 03/10/25 08:15
Guaifenesin 600 Mg Extended Release Tablet PO 03/29/25 09:59 600 mg
Q12 EHSAN Administration
Guaifenesin/Dextromethorphan 10 ml 02/27/25 22:33 03/07/25 05:50
Guaifenesin/Dextromethorphan 200 Mg/10 Ml Cup PO 03/27/25 22:32 10 ml
Q4HPRN PRN Administration
productive cough
Heparin Sodium 5,000 units 02/26/25 08:00 03/10/25 08:15
Heparin 5,000 Units/Ml 1 Ml Vial SC 03/26/25 07:59 5,000 units
Q12 EHSAN Administration
Insulin Glargine 10 units/ 0.1 mls @ 0 mls/hr 02/26/25 22:00 03/09/25 22:48
Device SC 03/26/25 21:59 0.1 mls
HS EHSAN Administration
As Directed
Insulin Aspart 0 units 02/26/25 07:30 03/10/25 12:31
Insulin Aspart Low Resistance 300 Units/3 Ml Pen.Injctr SC 03/26/25 07:29 Not Given
AC EHSAN
Protocol
Levothyroxine Sodium 137 mcg 02/27/25 06:00 03/10/25 05:20
Levothyroxine 137 Mcg Tablet PO 03/27/25 05:59 137 mcg
DAILY @ 0600 EHSAN Administration
Melatonin 5 mg 03/05/25 22:00 03/09/25 22:47
Melatonin 5 Mg Tablet PO 04/02/25 21:59 5 mg
HSPRN PRN Administration
insomnia
Ondansetron HCl 4 mg 03/05/25 10:28 03/09/25 16:07
Ondansetron 4 Mg/2 Ml Vial IV 04/02/25 10:27 4 mg
Q6HPRN PRN Administration
NAUSEA/VOMITING
Oxcarbazepine 300 mg 03/09/25 20:00 03/10/25 08:13
Oxcarbazepine 300 Mg Tablet PO 04/06/25 19:59 300 mg
BID EHSAN Administration
Pantoprazole Sodium 40 mg 02/26/25 08:00 03/10/25 08:12
Pantoprazole 40 Mg Delayed Release Tablet PO 03/26/25 07:59 40 mg
DAILY EHSAN Administration
Phenol 0 spray 03/07/25 06:07
Chloraseptic (1.4% Phenol) Throat [place] PO 04/04/25 06:06
Q2HPRN PRN
sore throat
Polyethylene Glycol 17 grams 03/04/25 18:00 03/10/25 08:23
Polyethylene Glycol Powder 17 Grams Packet PO 04/01/25 17:59 Not Given
DAILY EHSAN
Pregabalin 50 mg 03/05/25 12:22 03/10/25 08:14
Pregabalin 25 Mg Capsule PO 03/27/25 07:59 50 mg
DAILY EHSAN Administration
Senna/Docusate Sodium 1 tablet 03/04/25 20:00 03/10/25 08:23
Docusate W/Senna (Nel-Colace) Tablet PO 04/01/25 19:59 Not Given
BID EHSAN
Sevelamer Carbonate 1,600 mg 02/26/25 08:00 03/10/25 08:13
Sevelamer Carbonate (Renvela) 800 Mg Tablet PO 03/26/25 07:59 1,600 mg
MEALS EHSAN Administration
Sodium Chloride 0 flush 02/26/25 05:00 03/06/25 12:54
Sodium Chloride 0.9% (Flush) Syringe IV 03/26/25 04:59 1 flush
PER PROTOCOL EHSAN Administration
Home Medications
�Medication �Instructions �Recorded
atorvastatin 40 mg tablet 40 mg PO HS High cholesterol 02/13/20
sevelamer carbonate 800 mg tablet 1,600 mg PO MEALS Kidney Disease 07/30/21
levothyroxine 150 mcg tablet 150 mcg PO DAILY AT 0700 Thyroid 05/21/22
albuterol sulfate 90 mcg/actuation 2 puff inhalation R BID 05/18/23
aerosol inhaler Lung/Breathing Issues
aspirin 81 mg tablet,delayed 81 mg PO DAILY Blood Clot 05/18/23
release Prevention/Tx
gabapentin 100 mg capsule 100 mg PO HS Neurological Condition 05/18/23
insulin aspart U-100 100 unit/mL 0 - 6 sliding scale dose SC AC 05/18/23
(3 mL) subcutaneous pen (Novolog Diabetes
FlexPen U-100 Insulin aspart)
insulin glargine 100 unit/mL (3 10 unit SC HS Diabetes 05/18/23
mL) subcutaneous pen (Lantus
Solostar U-100 Insulin)
pantoprazole 40 mg tablet,delayed 40 mg PO DAILY #30 tabs 05/21/23
release
cyclobenzaprine 10 mg tablet 10 mg PO DAILYPRN PRN muscle spasms 02/26/25
furosemide 80 mg tablet (Lasix) 80 mg PO DAILY Fluid 02/26/25
Retention/Swelling
pregabalin 100 mg capsule (Lyrica) 100 mg PO DAILY Antiseizure Agent, 02/26/25
semaglutide 0.25 mg or 0.5 mg (2 0.5 mg SC FRIEDMAN WEIGHT LOSS 02/26/25
mg/3 mL) subcutaneous pen injector
(Ozempic)
zolpidem 5 mg tablet 5 mg PO HSPRN PRN insomnia 02/26/25
Vital Signs and Labs
-
Vital Signs and Labs:
Vital Signs
Temp Pulse Resp BP Pulse Ox
36.7 C 81 16 197/86 96
03/10/25 07:34 03/10/25 07:42 03/10/25 07:42 03/10/25 07:34 03/10/25 07:42
Lab Results
03/08/25 12:34
03/08/25 12:34
Sodium 136 mmol/L (135-145) 03/08/25 12:34
Potassium 5.3 mmol/L (3.5-5.1) H 03/08/25 12:34
BUN 53 mg/dl (7-17) H 03/06/25 08:15
Glucose 103 mg/dl (70-99) H 03/06/25 08:15
Calcium 8.7 mg/dl (8.4-10.2) 03/06/25 08:15
Phosphorus 6.9 mg/dl (2.5-4.5) H 03/06/25 08:15
Yhi-Z-Jjrbolwplhp Pept 9170 pg/ml 02/25/25 23:52
Medications
-
Medications:
Generic Name Dose Route Start Last Admin
Trade Name Freq PRN Reason Stop Dose Admin
Acetaminophen 650 mg 02/26/25 03:41 03/09/25 06:11
Acetaminophen 325 Mg Tablet PO 03/26/25 03:40 650 mg
Q4HPRN PRN Administration
Mild Pain / Temp > 101
Albuterol Sulfate 2.5 mg 02/26/25 03:41 03/05/25 20:14
Albuterol Nebs 2.5 Mg/3 Ml Ampul INH 2.5 mg
R Q4HPRN PRN Administration
SOB
Protocol
Aspirin 81 mg 02/26/25 08:00 03/10/25 08:10
Aspirin 81 Mg (Enteric Coated) Tablet PO 03/26/25 07:59 81 mg
DAILY EHSAN Administration
Atorvastatin Calcium 40 mg 02/26/25 22:00 03/09/25 22:48
Atorvastatin (Lipitor) 40 Mg Tablet PO 03/26/25 21:59 40 mg
HS EHSAN Administration
Benzocaine/Menthol 1 lozenge 03/03/25 23:50 03/09/25 06:08
Benzocaine/Menthol Lozenge PO 03/31/25 23:49 1 lozenge
Q4HPRN PRN Administration
throat irritation
Benzonatate 200 mg 03/01/25 09:16 03/09/25 06:11
Benzonatate 100 Mg Capsule PO 03/29/25 09:15 200 mg
TIDPRN PRN Administration
cough
Bisacodyl 10 mg 03/05/25 19:29
Bisacodyl 10 Mg Rectal Suppository RECTAL 04/02/25 19:28
DAILYPRN PRN
constipation
Budesonide/Formoterol Fumarate 2 puff 02/28/25 20:00 09/21/25 07:39
Symbicort Inhaler 160/4.5 INH 03/28/25 19:59 2 puff
R BID EHSAN Administration
Protocol
Cyclobenzaprine HCl 10 mg 03/02/25 10:49 03/06/25 12:54
Cyclobenzaprine 10 Mg Tablet PO 03/28/25 15:18 10 mg
DAILYPRN PRN Administration
muscle spasms
Dextrose 12.5 grams 02/26/25 03:41
Dextrose 50% (0.5 Grams/Ml) 50 Ml Syringe IV 03/26/25 03:40
[id number] PRN
hypoglycemia
Protocol
Furosemide 80 mg 03/01/25 08:00 03/10/25 08:15
Furosemide 80 Mg Tablet PO 03/29/25 07:59 80 mg
BID@0800,1600 EHSAN Administration
Guaifenesin 600 mg 03/01/25 10:00 03/10/25 08:15
Guaifenesin 600 Mg Extended Release Tablet PO 03/29/25 09:59 600 mg
Q12 EHSAN Administration
Guaifenesin/Dextromethorphan 10 ml 02/27/25 22:33 03/07/25 05:50
Guaifenesin/Dextromethorphan 200 Mg/10 Ml Cup PO 03/27/25 22:32 10 ml
Q4HPRN PRN Administration
productive cough
Heparin Sodium 5,000 units 02/26/25 08:00 03/10/25 08:15
Heparin 5,000 Units/Ml 1 Ml Vial SC 03/26/25 07:59 5,000 units
Q12 EHSAN Administration
Insulin Glargine 10 units/ 0.1 mls @ 0 mls/hr 02/26/25 22:00 03/09/25 22:48
Device SC 03/26/25 21:59 0.1 mls
HS EHSAN Administration
As Directed
Insulin Aspart 0 units 02/26/25 07:30 03/10/25 12:31
Insulin Aspart Low Resistance 300 Units/3 Ml Pen.Injctr SC 03/26/25 07:29 Not Given
AC EHSAN
Protocol
Levothyroxine Sodium 137 mcg 02/27/25 06:00 03/10/25 05:20
Levothyroxine 137 Mcg Tablet PO 03/27/25 05:59 137 mcg
DAILY @ 0600 EHSAN Administration
Melatonin 5 mg 03/05/25 22:00 03/09/25 22:47
Melatonin 5 Mg Tablet PO 04/02/25 21:59 5 mg
HSPRN PRN Administration
insomnia
Ondansetron HCl 4 mg 03/05/25 10:28 03/09/25 16:07
Ondansetron 4 Mg/2 Ml Vial IV 04/02/25 10:27 4 mg
Q6HPRN PRN Administration
NAUSEA/VOMITING
Oxcarbazepine 300 mg 03/09/25 20:00 03/10/25 08:13
Oxcarbazepine 300 Mg Tablet PO 04/06/25 19:59 300 mg
BID EHSAN Administration
Pantoprazole Sodium 40 mg 02/26/25 08:00 03/10/25 08:12
Pantoprazole 40 Mg Delayed Release Tablet PO 03/26/25 07:59 40 mg
DAILY EHSAN Administration
Phenol 0 spray 03/07/25 06:07
Chloraseptic (1.4% Phenol) Throat [place] PO 04/04/25 06:06
Q2HPRN PRN
sore throat
Polyethylene Glycol 17 grams 03/04/25 18:00 03/10/25 08:23
Polyethylene Glycol Powder 17 Grams Packet PO 04/01/25 17:59 Not Given
DAILY EHSAN
Pregabalin 50 mg 03/05/25 12:22 03/10/25 08:14
Pregabalin 25 Mg Capsule PO 03/27/25 07:59 50 mg
DAILY EHSAN Administration
Senna/Docusate Sodium 1 tablet 03/04/25 20:00 03/10/25 08:23
Docusate W/Senna (Nel-Colace) Tablet PO 04/01/25 19:59 Not Given
BID EHSAN
Sevelamer Carbonate 1,600 mg 02/26/25 08:00 03/10/25 08:13
Sevelamer Carbonate (Renvela) 800 Mg Tablet PO 03/26/25 07:59 1,600 mg
MEALS EHSAN Administration
Sodium Chloride 0 flush 02/26/25 05:00 03/06/25 12:54
Sodium Chloride 0.9% (Flush) Syringe IV 03/26/25 04:59 1 flush
PER PROTOCOL EHSAN Administration
Home Medications
-
Home Medications
atorvastatin 40 mg tablet 40 mg PO HS High cholesterol 02/13/20
sevelamer carbonate 800 mg tablet 1,600 mg PO MEALS Kidney Disease 07/30/21
levothyroxine 150 mcg tablet 150 mcg PO DAILY AT 0700 Thyroid 05/21/22
albuterol sulfate 90 mcg/actuation aerosol inhaler 2 puff inhalation R BID Lung/Breathing Issues 05/18/23
aspirin 81 mg tablet,delayed release 81 mg PO DAILY Blood Clot Prevention/Tx 05/18/23
gabapentin 100 mg capsule 100 mg PO HS Neurological Condition 05/18/23
insulin aspart U-100 100 unit/mL (3 mL) subcutaneous pen (Novolog FlexPen U-100 Insulin aspart) 0 - 6 sliding scale dose SC AC Diabetes 05/18/23
insulin glargine 100 unit/mL (3 mL) subcutaneous pen (Lantus Solostar U-100 Insulin) 10 unit SC HS Diabetes 05/18/23
pantoprazole 40 mg tablet,delayed release 40 mg PO DAILY #30 tabs 05/21/23
cyclobenzaprine 10 mg tablet 10 mg PO DAILYPRN PRN muscle spasms 02/26/25
furosemide 80 mg tablet (Lasix) 80 mg PO DAILY Fluid Retention/Swelling 02/26/25
pregabalin 100 mg capsule (Lyrica) 100 mg PO DAILY Antiseizure Agent, 02/26/25
semaglutide 0.25 mg or 0.5 mg (2 mg/3 mL) subcutaneous pen injector (Ozempic) 0.5 mg SC FRIEDMAN WEIGHT LOSS 02/26/25
zolpidem 5 mg tablet 5 mg PO HSPRN PRN insomnia 02/26/25
[2025-03-10 14:43] LABS: D-Dimer 1.57 ug/mlFEU (0.00-0.50)
[2025-03-10 14:50] LABS: C-Reactive Protein 16.80 mg/L (0.0-10.00)
--- NOTE | 2025-03-10 14:51 | W.PN.NEPH.PH ---
Today's Communication / Plan
-
Dialysis tomorrow
Assessment/Plan
-
Assessment
ESRD
weakness
chronic pain
nausea
anemia
DM2
HTN
failed AV access, now CVC
Plan
MWF
No acute need for dialysis today
await rehab placement
-
-
Date of Service: March 10, 2025
CC / HPI / ROS
-
Chief Complaint:
Follow-up ESRD
History of Present Illness:
BP stable
hb stable
tolerated HD yesterday
Review of Systems:
eating this morning
nausea
no cp
no n/v
Labs
-
Labs:
WBC 6.5 10^3/uL (4.8-10.8) 03/05/25 07:12
RBC 3.08 10^6/uL (4.20-5.40) L 03/05/25 07:12
Hgb 9.7 g/dL (12.0-16.0) L 03/08/25 12:34
Hct 29.9 % (37.0-47.0) L 03/08/25 12:34
Plt Count 127 10^3/uL (130-400) L 03/05/25 07:12
Sodium 136 mmol/L (135-145) 03/08/25 12:34
Potassium 5.3 mmol/L (3.5-5.1) H 03/08/25 12:34
Chloride 100 mmol/L (98-107) 03/08/25 12:34
Carbon Dioxide 28 mmol/L (22-30) 03/08/25 12:34
BUN 53 mg/dl (7-17) H 03/06/25 08:15
Creatinine 7.8 mg/dL (0.6-1.0) H* 03/06/25 08:15
eGFR 5.09 03/06/25 08:15
Glucose 103 mg/dl (70-99) H 03/06/25 08:15
Calcium 8.7 mg/dl (8.4-10.2) 03/06/25 08:15
Phosphorus 6.9 mg/dl (2.5-4.5) H 03/06/25 08:15
Eoi-Q-Gxhkqhixidt Pept 9170 pg/ml 02/25/25 23:52
Albumin 3.8 g/dl (3.5-5.0) 02/25/25 22:46
Physical Exam
-
Vital Signs:
Vital Signs
Temp Pulse Resp BP Pulse Ox
98.0 F 81 16 197/86 96
03/10/25 07:34 03/10/25 07:42 03/10/25 07:42 03/10/25 07:34 03/10/25 07:42
Cardiovascular:: Regular rate and rhythm
Respiratory:: Bilateral: CTA
Lung Excursion:: Normal
Abdomen:: Nontender and Soft
Bowel Sounds:: Normal
Extremity Edema:: None: Bilateral:
[2025-03-10 15:22] VITALS: BP 184/80
[2025-03-10 16:40] LABS: Glucose - Point of Care 118 mg/dl (70-99)
[2025-03-10] MEDS: ANESTHETIC LOZENGE 1 LOZENGE PO (17:01)
[2025-03-10 17:42] LABS: Vitamin B12 477 pg/ml (239-931)
[2025-03-10] MEDS: TRILEPTAL 150 MG PO (20:19)
[2025-03-10] MEDS: LIPITOR 40 MG PO (20:19)
[2025-03-10 21:24] LABS: Glucose - Point of Care 119 mg/dl (70-99)
[2025-03-10] MEDS: LANTUS 0.1 UNITS SC (21:35)
[2025-03-10 23:00] VITALS: BP 142/70
[2025-03-11 03:56] VITALS: BMI 38.8
[2025-03-11] MEDS: SYNTHROID 137 MCG PO (05:38)
[2025-03-11 07:00] VITALS: BP 145/90
--- NOTE | 2025-03-11 07:48 | W.PN.HOSP.TC ---
Today's Communication/Plan
-
Dialysis today
Brain MRI
Assessment / Plan
Assessment / Plan
Physical Exam
General: Not acute distress, appears relatively comfortable at this time
HEENT: Normocephalic. Moist mucous membranes
Respiratory: clear to auscultation b/l
Cardiac: S1/S2 and Regular Rhythm
GI: Soft, Non Tender, Non Distended and Normal Bowel Sounds
Musculoskeletal: No Cyanosis
Neuro: AAO x 3 conversant coherent
Psych: calm
Assessment/Plan
74 y/o female with past medical history significant for ESRD on HD, DM-II and GERD / GAVE who presented to [facility] ED for evaluation of lethargy, weakness and confusion. History obtained from patient and her daughter at the bedside. Patient stated that
she has felt weak and fatigued for ~1 week prior to arrival. She reported hacking, non-productive cough. No noted fever. She lives with her two daughters - who were out of town over the past weekend and returned home on 02/25/25. No one else in
the house has been ill. Patient went to her usual HD on the morning of 02/25/25 (family monitored her comings and anirudh via Ring camera to confirm this).
Patient stated that she 'must have' fallen asleep or passed out on dialysis. HD staff reportedly informed her that she had N/V during her session. Patient does not recall this.
She was told to present to the [facility] ED after HD, but was too tired and took the bus home instead. At home she climbed two flights of stairs - stopping midway due to fatigue - and went back to bed.
When daughters returned home on 02/25/25 evening, they found the patient lying on her bedroom floor confused and disoriented. Patient does not recall falling from bed. She complains of L sided headache and neck discomfort. Daughters helped the
patient to bed (around 7PM) and she fell back to sleep. Patient then called out to her daughters again around 9:30 PM and they went to find her again on the floor.
Patient states that her newest medication with zolpidem. She complains of chronic insomnia and notes that this has been helping. She started this < 2 weeks ago.
No other new medications. She does however also take Lyrica, gabapentin and cyclobenzaprine.
Pneumonia (Right>Left)
Sepsis secondary to the above
Chills and feeling feverish at home
- Cough x 1 week, leukocytosis with L shift, tachycardia and tachypnea on arrival.
- CXR with bibasilar opacities - L > R.
- COVID negative in the ED.
- Vancomycin previously stopped as MRSA negative
- On 02/28/25, changed Zosyn to Unasyn --> plan for a total of 7 days of antibiotics (first day of antibiotics was 02/26/25) --> switch to Augmentin (renally-dosed), last day of antibiotics is 03/04/25
- Bronchodilators and steroids (steroids course completed)
- Speech evaluation unremarkable
- Home/outpatient oxygen assessment performed on 03/01/25 -- does not need outpatient oxygen
Syncope/Encephalopathy
-possibly secondary to sepsis as noted above versus med effect - or combination thereof
- concern for possible Polypharmacy (gabapentin, Flexeril, Lyrica and Zolpidem)
- Lyrica resumed at lower dose. Zolpidem on hold. Trial PRN melatonin
- cont prn Flexeril
- Vasovagal episodes also possible considering vomiting and syncope while on hemodialysis.
- Echo with EF 55% and worsened MR
- Patient since improved
Mild intermittent asthma with acute exacerbation
History of Childhood Asthma
- Patient sees outpatient pulmonary at [facility]
- On 02/26/25, wheezing on exam, together with fatigue and SOB
- Ordered Duonebs and Pulmicort
- Prednisone 40 mg daily for 5 days completed
- Pulm eval appreciated
- At the time of discharge, start Symbicort or generic version Breyna
- outpatient pulmonary follow-up
Nausea/vomiting suspect d/t severe constipation
-03/05 Abd X-ray appreciated moderate fecal matter colon no obstruction
-prn zofran
-bowel regimen miralax senokot-s
-prn bisacodyl suppository
-03/06/25 once fleet enema, no improvement noted
-03/07/25 once milk and molasses enema
-constipation n/v since resolved
-Also developed diarrhea, so bowel regimen was switched to PRN
Chronic Dyspnea on exertion - likely multifactorial -- obstructive and restrictive lung disease, pneumonia, morbid obesity, heart failure, ESRD, physical deconditioning
Significantly elevated proBNP
- Repeat echo showed EF 55% with worsened mitral regurgitation
- Appreciate cardiology input: no need for GDMT right now, follow-up outpatient, nothing else to do from cardio standpoint right now
ESRD on HD
- Nephrology evaluation for HD needs during acute stay.
- Continue patient's home Furosemide but at 80 mg BID instead of daily
Hypomagnesemia
-monitor and replete as necessary
Trigeminal Neuralgia vs Trigeminal Autonomic Cephalgia (type of headache)
Left-sided facial pain
Left Ear Otitis Externa ruled out
cipro ear drops discontinued
Lyrica increased to 50 mg daily (dose to be given after dialysis on dialysis days)
Gabapentin discontinued in favor of increased dose Lyrica as above (doesn't make sense to be on both Lyrica and gabapentin)
oxcarbazepine 150 mg BID started, patient since noted significant improvement in left sided facial/head pain though not resolved, briefly increased to 300 mg BID since tapered back to 150 mg d/t the following.
Neuro eval appreciated assessed more likely Trigeminal Autonomic Cephalgia or other form of headache
-recommended tapering off Lyrica and Oxcarbazepine (concern toxic-metabolic myoclonus and polyneuropathy) patient however notes significant improvement with oxcarbazepine (more so than with Lyrica) would attempt to taper off Lyrica first,
oxcarbazepine at lowest dose possible, follow up oxcarbazepine level
-MRA neck w/o pending
-prn Oxygen therapy NRB w/ at least 7L for 15 min while sitting upright (patient notes significant relief headache with this therapy)
-recommended prn cocktail Toradol/Benadryl/Reglan however pharmacy expressed significant concerns regarding use Toradol/High dose NSAID in ESRD patient. Holding off for now, especially since other therapies effective as above
ASCVD
Chronic HFpEF
- Stable. Continue ASA, statin, etc.
- Home Lasix resumed at increased dose 80 mg BID as per Nephro
- Patient sees [facility] outpatient
- ECHO noted as above
DM-II
- Stable. Continue current regimen.
- Follow glucose and cover with SSI as needed.
Hypothyroidism
- TSH somewhat suppressed and free T4 elevated this hospitalization
- Home Levothyroxine reduced from 150 mcg to 137 mcg daily
- repeat TFT in 1 month
GERD / GAVE / Hiatal Hernia
- Stable. Prior h/o GI bleeding.
- Continue PPI.
Morbid Obesity
- Affects all aspects of care.
- Encourage healthy diet and increased activity as tolerated with goal of weight loss.
Shellfish Allergy
case mgmt gaby appreciated pt accepted to [facility] acute rehab, awaiting insurance auth
DVT Prophylaxis: Subcutaneous Heparin
Code Status: Full Code
Dr. Walls discussed with patient and patient's daughters Felisa and same name Ifrah
Anticipated Discharge: 24 - 48 hours
Subjective/Interval History
-
Date of Service: March 11, 2025
Patient was seen and examined. She was sleeping during dialysis. No new symptoms or complaints.
Objective Data
-
Vital Signs:
Vital Signs
Temp Pulse Resp BP Pulse Ox
97.7 F 87 18 142/70 98
03/10/25 23:00 03/10/25 23:00 03/10/25 23:00 03/10/25 23:00 03/10/25 23:00
I&O
03/10/25 03/11/25 03/12/25
06:59 06:59 06:59
Intake Total 480 / 480 750 / 750
Balance 480 / 480 750 / 750
[2025-03-11] MEDS: SYMBICORT 160/4.5 MCG INHALER 2 PUFF INH ×2 (07:54→19:38)
--- NOTE | 2025-03-11 08:17 | W.PN.NEURO.1 ---
Today's Communication / Plan
-
.
Subjective/Objective
Subjective Data
Date of Service: March 11, 2025
Neurology follow-up note.
HPI: Ms. Henry endorses sore throat as well as ongoing constant left hemicephalic headache. No reports of photophobia, phonophobia, change in vision.
Labs: ESR�42, CRP�16.80 vitamin B12 [address]
CT head wo contrast(02/25/2025) diffuse cortical atrophy with nonspecific white matter changes
PMH: Migraines with aura, R rotator cuff tear, ESRD on HD, HTN, DLP, DM, polyneuropathy, hypothyroidism, anemia, thrombocytopenia, BMI 38, insomnia, cervical DJD, Gastric antral vascular ectasia, h/o GIB
PSH: Bilateral cataract surgery, brachiocephalic AVF
SH:lives with daughters; Previously worked for [employer] in [facility]; Never drove, non-smoker, denies excessive alcohol use
FH: Mother�breast cancer, father�diabetes
All: Erythromycin, cephalexin, shellfish
ROS:General: Positive for transient fatigue, confusion.
HEENT: Positive for runny nose
Respiratory: Positive for violent cough, shortness of breath.
Gastrointestinal: Positive for transient vomiting. Admission.
Neurological: Positive for headache
Musculoskeletal: Positive for chronic right arm pain and limited range of movements
General: Well developed. In no acute distress.
Cardio: Regular rate and rhythm without murmur. Extremities are without cyanosis or edema.
Neuro:
Mental Status: Alert, oriented to person, place, time. Normal attention and recall. Good fund of knowledge. Follows complex requests across the midline. Comprehension, naming, and repetition intact.
Cranial Nerves: Pupils are equally round, surgical. EOMs full. Visual bello full to confrontation. No ptosis. No nystagmus. V1-V3 intact to light touch and pinprick bilaterally, symmetric. Face symmetric. Normal hearing AU. The palate
elevated well. SCMs and traps 5/5. Tongue midline. No dysarthria.
Motor: Normal bulk and tone. No pronator or arm drift. Strength 5/5 throughout except for pain related proximal right arm weakness (chronic). No clonus.
Reflexes: Without exam due to body habitus
Sensory: Absent vibration at the toes and ankles
Coordination: No dysmetria or tremor. Intermittent myoclonus
Gait: deferred
Assessment and Plan:
I. Trigeminal autonomic cephalgia?
II. PNA
II. Distal symmetric large fiber polyneuropathy. Likely etiology�metabolic
- Fall precautions
- IV Reglan 10 mg, Benadryl 25 mg Q8h PRN for moderate to severe headache.
- Brain MRI without cordell
- Wean off Trileptal given inefficacy
- Consider valproate 500 mg BID IV if headache continues to be moderate to severe
I personally reviewed all radiology and labs along with past medical records pertinent to current medical problems. Total time spent in patient care is 35 minutes.
Thank you for allowing us to participate in the care of this patient. We will continue to follow. Please do not hesitate to contact us with any questions or concerns.
Objective Data
Vital Signs
Temp Pulse Resp BP Pulse Ox
36.5 C 90 16 142/70 96
03/10/25 23:00 03/11/25 07:55 03/11/25 07:55 03/10/25 23:00 03/11/25 07:55
Sodium 136 mmol/L (135-145) 03/08/25 12:34
Potassium 5.3 mmol/L (3.5-5.1) H 03/08/25 12:34
BUN 53 mg/dl (7-17) H 03/06/25 08:15
Glucose 103 mg/dl (70-99) H 03/06/25 08:15
Calcium 8.7 mg/dl (8.4-10.2) 03/06/25 08:15
Phosphorus 6.9 mg/dl (2.5-4.5) H 03/06/25 08:15
Swm-R-Nieozkwdoun Pept 9170 pg/ml 02/25/25 23:52
Vitamin B12 Cancelled 03/10/25 15:03
Patient Allergies
cephalexin Allergy (Verified 02/25/25 22:41)
rash, fever & itching; tolerates cefazolin (SEE COMMENTS)
eggplant Allergy (Verified 02/25/25 22:41)
Shortness of Breath
erythromycin base Allergy (Verified 02/25/25 22:41)
Itching,Stomach pain 'bad'
latex Allergy (Verified 02/25/25 22:41)
Pt states she gets a rash and wheezes
shellfish derived Allergy (Verified 02/27/25 15:46)
Unknown
Vital Signs and Labs
-
Vital Signs and Labs:
Vital Signs
Temp Pulse Resp BP Pulse Ox
36.5 C 90 16 142/70 96
03/10/25 23:00 03/11/25 07:55 03/11/25 07:55 03/10/25 23:00 03/11/25 07:55
Sodium 136 mmol/L (135-145) 03/08/25 12:34
Potassium 5.3 mmol/L (3.5-5.1) H 03/08/25 12:34
BUN 53 mg/dl (7-17) H 03/06/25 08:15
Glucose 103 mg/dl (70-99) H 03/06/25 08:15
Calcium 8.7 mg/dl (8.4-10.2) 03/06/25 08:15
Phosphorus 6.9 mg/dl (2.5-4.5) H 03/06/25 08:15
Rvu-S-Zvhtykrbidf Pept 9170 pg/ml 02/25/25 23:52
Vitamin B12 Cancelled 03/10/25 15:03
Medications
-
Medications:
Generic Name Dose Route Start Last Admin
Trade Name Freq PRN Reason Stop Dose Admin
Acetaminophen 650 mg 02/26/25 03:41 03/09/25 06:11
Acetaminophen 325 Mg Tablet PO 03/26/25 03:40 650 mg
Q4HPRN PRN Administration
Mild Pain / Temp > 101
Albuterol Sulfate 2.5 mg 02/26/25 03:41 03/05/25 20:14
Albuterol Nebs 2.5 Mg/3 Ml Ampul INH 2.5 mg
R Q4HPRN PRN Administration
SOB
Protocol
Aspirin 81 mg 02/26/25 08:00 03/10/25 08:10
Aspirin 81 Mg (Enteric Coated) Tablet PO 03/26/25 07:59 81 mg
DAILY EHSAN Administration
Atorvastatin Calcium 40 mg 02/26/25 22:00 03/10/25 20:19
Atorvastatin (Lipitor) 40 Mg Tablet PO 03/26/25 21:59 40 mg
HS EHSAN Administration
Benzocaine/Menthol 1 lozenge 03/03/25 23:50 03/10/25 17:01
Benzocaine/Menthol Lozenge PO 03/31/25 23:49 1 lozenge
Q4HPRN PRN Administration
throat irritation
Benzonatate 200 mg 03/01/25 09:16 03/09/25 06:11
Benzonatate 100 Mg Capsule PO 03/29/25 09:15 200 mg
TIDPRN PRN Administration
cough
Bisacodyl 10 mg 03/05/25 19:29
Bisacodyl 10 Mg Rectal Suppository RECTAL 04/02/25 19:28
DAILYPRN PRN
constipation
Budesonide/Formoterol Fumarate 2 puff 02/28/25 20:00 03/11/25 07:54
Symbicort Inhaler 160/4.5 INH 03/28/25 19:59 2 puff
R BID EHSAN Administration
Protocol
Cyclobenzaprine HCl 10 mg 03/02/25 10:49 03/06/25 12:54
Cyclobenzaprine 10 Mg Tablet PO 03/28/25 15:18 10 mg
DAILYPRN PRN Administration
muscle spasms
Dextrose 12.5 grams 02/26/25 03:41
Dextrose 50% (0.5 Grams/Ml) 50 Ml Syringe IV 03/26/25 03:40
[id number] PRN
hypoglycemia
Protocol
Furosemide 80 mg 03/01/25 08:00 03/10/25 17:09
Furosemide 80 Mg Tablet PO 03/29/25 07:59 80 mg
BID@0800,1600 EHSAN Administration
Guaifenesin 600 mg 03/01/25 10:00 03/10/25 20:19
Guaifenesin 600 Mg Extended Release Tablet PO 03/29/25 09:59 600 mg
Q12 EHSAN Administration
Guaifenesin/Dextromethorphan 10 ml 02/27/25 22:33 03/07/25 05:50
Guaifenesin/Dextromethorphan 200 Mg/10 Ml Cup PO 03/27/25 22:32 10 ml
Q4HPRN PRN Administration
productive cough
Heparin Sodium 5,000 units 02/26/25 08:00 03/10/25 20:19
Heparin 5,000 Units/Ml 1 Ml Vial SC 03/26/25 07:59 5,000 units
Q12 EHSAN Administration
Insulin Glargine 10 units/ 0.1 mls @ 0 mls/hr 02/26/25 22:00 03/10/25 21:35
Device SC 03/26/25 21:59 0.1 mls
HS EHSAN Administration
As Directed
Insulin Aspart 0 units 02/26/25 07:30 03/10/25 17:12
Insulin Aspart Low Resistance 300 Units/3 Ml Pen.Injctr SC 03/26/25 07:29 Not Given
AC EHSAN
Protocol
Levothyroxine Sodium 137 mcg 02/27/25 06:00 03/11/25 05:38
Levothyroxine 137 Mcg Tablet PO 03/27/25 05:59 137 mcg
DAILY @ 0600 EHSAN Administration
Mannitol 12.5 grams 03/11/25 08:00
Mannitol 25% (12.5 Grams/50 Ml) Vial IV 03/11/25 23:59
HD-Q1HPRN PRN
SBP < 90 mmHg
Melatonin 5 mg 03/05/25 22:00 03/09/25 22:47
Melatonin 5 Mg Tablet PO 04/02/25 21:59 5 mg
HSPRN PRN Administration
insomnia
Ondansetron HCl 4 mg 03/05/25 10:28 03/09/25 16:07
Ondansetron 4 Mg/2 Ml Vial IV 04/02/25 10:27 4 mg
Q6HPRN PRN Administration
NAUSEA/VOMITING
Oxcarbazepine 150 mg 03/10/25 20:00 03/10/25 20:19
Oxcarbazepine 150 Mg Tablet PO 04/07/25 19:59 150 mg
BID EHSAN Administration
Pantoprazole Sodium 40 mg 02/26/25 08:00 03/10/25 08:12
Pantoprazole 40 Mg Delayed Release Tablet PO 03/26/25 07:59 40 mg
DAILY EHSAN Administration
Phenol 0 spray 03/07/25 06:07
Chloraseptic (1.4% Phenol) Throat [place] PO 04/04/25 06:06
Q2HPRN PRN
sore throat
Polyethylene Glycol 17 grams 03/04/25 18:00 03/10/25 08:23
Polyethylene Glycol Powder 17 Grams Packet PO 04/01/25 17:59 Not Given
DAILY EHSAN
Pregabalin 50 mg 03/05/25 12:22 03/10/25 08:14
Pregabalin 25 Mg Capsule PO 03/27/25 07:59 50 mg
DAILY EHSAN Administration
Senna/Docusate Sodium 1 tablet 03/04/25 20:00 03/10/25 20:20
Docusate W/Senna (Nel-Colace) Tablet PO 04/01/25 19:59 Not Given
BID EHSAN
Sevelamer Carbonate 1,600 mg 02/26/25 08:00 03/10/25 17:39
Sevelamer Carbonate (Renvela) 800 Mg Tablet PO 03/26/25 07:59 1,600 mg
MEALS EHSAN Administration
Sodium Chloride 0 flush 02/26/25 05:00 03/06/25 12:54
Sodium Chloride 0.9% (Flush) Syringe IV 03/26/25 04:59 1 flush
PER PROTOCOL EHSAN Administration
Thiamine HCl 100 mg 03/11/25 08:00
Thiamine 100 Mg Tablet PO 04/08/25 07:59
DAILY EHSAN
Home Medications
-
Home Medications
atorvastatin 40 mg tablet 40 mg PO HS High cholesterol 02/13/20
sevelamer carbonate 800 mg tablet 1,600 mg PO MEALS Kidney Disease 07/30/21
levothyroxine 150 mcg tablet 150 mcg PO DAILY AT 0700 Thyroid 05/21/22
albuterol sulfate 90 mcg/actuation aerosol inhaler 2 puff inhalation R BID Lung/Breathing Issues 05/18/23
aspirin 81 mg tablet,delayed release 81 mg PO DAILY Blood Clot Prevention/Tx 05/18/23
gabapentin 100 mg capsule 100 mg PO HS Neurological Condition 05/18/23
insulin aspart U-100 100 unit/mL (3 mL) subcutaneous pen (Novolog FlexPen U-100 Insulin aspart) 0 - 6 sliding scale dose SC AC Diabetes 05/18/23
insulin glargine 100 unit/mL (3 mL) subcutaneous pen (Lantus Solostar U-100 Insulin) 10 unit SC HS Diabetes 05/18/23
pantoprazole 40 mg tablet,delayed release 40 mg PO DAILY #30 tabs 05/21/23
cyclobenzaprine 10 mg tablet 10 mg PO DAILYPRN PRN muscle spasms 02/26/25
furosemide 80 mg tablet (Lasix) 80 mg PO DAILY Fluid Retention/Swelling 02/26/25
pregabalin 100 mg capsule (Lyrica) 100 mg PO DAILY Antiseizure Agent, 02/26/25
semaglutide 0.25 mg or 0.5 mg (2 mg/3 mL) subcutaneous pen injector (Ozempic) 0.5 mg SC FRIEDMAN WEIGHT LOSS 02/26/25
zolpidem 5 mg tablet 5 mg PO HSPRN PRN insomnia 02/26/25
[2025-03-11 08:20] LABS: Glucose - Point of Care 102 mg/dl (70-99)
[2025-03-11] MEDS: NOVOLOG FLEXPEN-LOW RESISTANCE SC ×2 (08:27→12:36)
[2025-03-11] MEDS: RENVELA PO (08:35)
[2025-03-11] MEDS: HEPARIN 5000 UNITS SC ×2 (08:36→22:10)
[2025-03-11] MEDS: TRILEPTAL 150 MG PO (08:37)
[2025-03-11] MEDS: PROTONIX 40 MG PO (08:37)
[2025-03-11] MEDS: MUCINEX 600 MG PO ×2 (08:37→22:09)
[2025-03-11] MEDS: ASPIR LOW (ENTERIC COATED) 81 MG PO (08:37)
[2025-03-11] MEDS: SENOKOT-S PO ×2 (08:38→22:09)
[2025-03-11] MEDS: MIRALAX PO (08:38)
--- NOTE | 2025-03-11 08:52 | W.PN.NEPH.HD ---
Assessment
-
Patient seen on dialysis
Systolic blood pressure 177 at current UF
HD via PermCath
Progress Note - Hemodialysis
-
Date of Service: March 11, 2025
Duration: 30 minutes and 3 hours
Calcium Bath: 2.5
Opti-Dialyzer: 160
Ultrafiltration: Other (2.5)
Blood Flow: 400
Dialysate Flow: 600
Heparin: None
EPO: 4000
[2025-03-11 09:19] LABS: Hematocrit 31.2 % (37.0-47.0); Hemoglobin 10.0 g/dL (12.0-16.0)
[2025-03-11] MEDS: RETACRIT 4000 UNITS IV (09:31)
[2025-03-11 10:00] LABS: Carbon Dioxide 25 mmol/L (22-30); Chloride 99 mmol/L (98-107); Potassium 5.6 mmol/L (3.5-5.1); Sodium 135 mmol/L (135-145)
[2025-03-11 11:43] LABS: Glucose - Point of Care 101 mg/dl (70-99)
[2025-03-11] MEDS: RENVELA 1600 MG PO ×2 (12:44→16:46)
[2025-03-11] MEDS: LASIX 80 MG PO ×2 (12:44→16:44)
[2025-03-11 12:46] LABS: Lyme Antibody Screen, EIA Negative (Negative)
[2025-03-11] MEDS: LYRICA 50 MG PO (12:46)
[2025-03-11 14:18] LABS: Glucose - Point of Care 99 mg/dl (70-99)
--- NOTE | 2025-03-11 14:34 | CM ---
Chart reviewed and patient with ESRD on HD, patient and and daughter requesting acute rehab and if patient is not approved for acute rehab they want to take patient to home, patient has been in many skilled facilities in past, patient has been
accepted at [facility] Acute rehab, will need auth from insurance.
Plan; Patient and family want acute rehab or home, patient accepted at [facility]. Needs auth for acute rehab.
[2025-03-11 15:00] VITALS: BP 146/56
[2025-03-11 16:36] LABS: Glucose - Point of Care 157 mg/dl (70-99)
[2025-03-11] MEDS: NOVOLOG FLEXPEN-LOW RESISTANCE 1 UNITS SC (16:45)
[2025-03-11 21:42] LABS: Glucose - Point of Care 113 mg/dl (70-99)
[2025-03-11] MEDS: LIPITOR 40 MG PO (22:09)
[2025-03-11] MEDS: LANTUS 0.1 UNITS SC (22:10)
[2025-03-11] MEDS: OCEAN, SALINE MIST 1 SPRAYS NASAL (22:11)
[2025-03-11] MEDS: MELATONIN 5 MG PO (22:22)
[2025-03-11 23:00] VITALS: BP 165/73
[2025-03-12] MEDS: ANESTHETIC LOZENGE 1 LOZENGE PO (03:28)
[2025-03-12] MEDS: TYLENOL 650 MG PO (03:29)
[2025-03-12 04:54] VITALS: BMI 38.6
[2025-03-12] MEDS: SYNTHROID 137 MCG PO (05:52)
[2025-03-12 07:00] VITALS: BP 175/79
[2025-03-12] MEDS: SYMBICORT 160/4.5 MCG INHALER 2 PUFF INH ×2 (07:25→19:23)
[2025-03-12 07:26] LABS: Glucose - Point of Care 78 mg/dl (70-99)
[2025-03-12] MEDS: NOVOLOG FLEXPEN-LOW RESISTANCE SC ×2 (07:56→17:02)
[2025-03-12] MEDS: RENVELA 1600 MG PO ×3 (09:39→17:02)
[2025-03-12] MEDS: LYRICA 50 MG PO (09:39)
[2025-03-12] MEDS: LASIX 80 MG PO ×2 (09:39→15:48)
[2025-03-12] MEDS: PROTONIX 40 MG PO (09:39)
[2025-03-12] MEDS: MUCINEX 600 MG PO ×2 (09:39→22:13)
[2025-03-12] MEDS: HEPARIN 5000 UNITS SC ×2 (09:40→22:13)
[2025-03-12] MEDS: ASPIR LOW (ENTERIC COATED) 81 MG PO (09:40)
[2025-03-12] MEDS: MIRALAX PO (09:45)
[2025-03-12] MEDS: TRILEPTAL 150 MG PO (09:45)
[2025-03-12] MEDS: SENOKOT-S PO ×2 (09:45→22:14)
--- NOTE | 2025-03-12 10:30 | W.PN.NEPH.PH ---
Today's Communication / Plan
-
Dialysis tomorrow
Assessment/Plan
-
Assessment
ESRD
weakness
chronic pain
nausea
anemia
DM2
HTN
failed AV access, now CVC
Plan
MWF HD to continue,orders provided
MRIs without acute findings per review of report
await rehab placement
Maintain phosphate binders with meals re: hyperphosphatemia
-
-
Date of Service: March 12, 2025
CC / HPI / ROS
-
Chief Complaint:
Follow-up ESRD
History of Present Illness:
BP stable
hb stable
ESRD Tuesday
Review of Systems:
eating this morning
nausea
no cp
no n/v
Labs
-
Labs:
WBC 6.5 10^3/uL (4.8-10.8) 03/05/25 07:12
RBC 3.08 10^6/uL (4.20-5.40) L 03/05/25 07:12
Hgb 10.0 g/dL (12.0-16.0) L 03/11/25 08:55
Hct 31.2 % (37.0-47.0) L 03/11/25 08:55
Plt Count 127 10^3/uL (130-400) L 03/05/25 07:12
eGFR 5.09 03/06/25 08:15
Phosphorus 6.9 mg/dl (2.5-4.5) H 03/06/25 08:15
Tyu-J-Hmmhxiuhhug Pept 9170 pg/ml 02/25/25 23:52
Albumin 3.8 g/dl (3.5-5.0) 02/25/25 22:46
Physical Exam
-
Vital Signs:
Vital Signs
Temp Pulse Resp BP Pulse Ox
98.0 F 79 16 175/79 98
03/12/25 07:00 03/12/25 07:28 03/12/25 07:28 03/12/25 07:00 03/12/25 07:28
Cardiovascular:: Regular rate and rhythm
Respiratory:: Bilateral: CTA
Lung Excursion:: Normal
Abdomen:: Nontender and Soft
Bowel Sounds:: Normal
Extremity Edema:: None: Bilateral:
Orantes Catheter: No
[2025-03-12 10:43] LABS: Blood Urea Nitrogen 30 mg/dl (7-17); Calcium 9.5 mg/dl (8.4-10.2); Carbon Dioxide 27 mmol/L (22-30); Chloride 97 mmol/L (98-107); Estimated Creatinine Clearance 8 ml/min; Glucose 79 mg/dl (70-99); Magnesium 1.9 mg/dl (1.6-2.3); Potassium 5.1 mmol/L (3.5-5.1); Sodium 133 mmol/L (135-145); eGFR 6.45
[2025-03-12 11:12] VITALS: BP 132/62; BP 157/72; PULSE 85
--- NOTE | 2025-03-12 11:22 | W.PN.HOSP.TC ---
Today's Communication/Plan
-
Dysphagia -- NPO after midnight for EGD tomorrow
Auth and placement pending, as per case management
Baclofen for pain
Assessment / Plan
Assessment / Plan
Physical Exam
General: Not acute distress, appears relatively comfortable at this time
HEENT: Normocephalic. Moist mucous membranes
Respiratory: clear to auscultation b/l
Cardiac: S1/S2 and Regular Rhythm
GI: Soft, Non Tender, Non Distended and Normal Bowel Sounds
Musculoskeletal: No Cyanosis
Neuro: AAO x 3 conversant coherent
Psych: calm
Assessment/Plan
74 y/o female with past medical history significant for ESRD on HD, DM-II and GERD / GAVE who presented to [facility] ED for evaluation of lethargy, weakness and confusion. History obtained from patient and her daughter at the bedside. Patient stated that
she has felt weak and fatigued for ~1 week prior to arrival. She reported hacking, non-productive cough. No noted fever. She lives with her two daughters - who were out of town over the past weekend and returned home on 02/25/25. No one else in
the house has been ill. Patient went to her usual HD on the morning of 02/25/25 (family monitored her comings and anirudh via Ring camera to confirm this).
Patient stated that she 'must have' fallen asleep or passed out on dialysis. HD staff reportedly informed her that she had N/V during her session. Patient does not recall this.
She was told to present to the [facility] ED after HD, but was too tired and took the bus home instead. At home she climbed two flights of stairs - stopping midway due to fatigue - and went back to bed.
When daughters returned home on 02/25/25 evening, they found the patient lying on her bedroom floor confused and disoriented. Patient does not recall falling from bed. She complains of L sided headache and neck discomfort. Daughters helped the
patient to bed (around 7PM) and she fell back to sleep. Patient then called out to her daughters again around 9:30 PM and they went to find her again on the floor.
Patient states that her newest medication with zolpidem. She complains of chronic insomnia and notes that this has been helping. She started this < 2 weeks ago.
No other new medications. She does however also take Lyrica, gabapentin and cyclobenzaprine.
Dysphagia
- Increase PPI to BID
- AXR to eval fecal burden
- C/w miralax
- NPO at MO for UGI tomorrow
- Appreciate GI
Pneumonia (Right>Left)
Sepsis secondary to the above
Chills and feeling feverish at home
- Cough x 1 week, leukocytosis with L shift, tachycardia and tachypnea on arrival.
- CXR with bibasilar opacities - L > R.
- COVID negative in the ED.
- Vancomycin previously stopped as MRSA negative
- On 02/28/25, changed Zosyn to Unasyn --> plan for a total of 7 days of antibiotics (first day of antibiotics was 02/26/25) --> switch to Augmentin (renally-dosed), last day of antibiotics is 03/04/25
- Bronchodilators and steroids (steroids course completed)
- Speech evaluation unremarkable
- Home/outpatient oxygen assessment performed on 03/01/25 -- does not need outpatient oxygen
Syncope/Encephalopathy
-possibly secondary to sepsis as noted above versus med effect - or combination thereof
- concern for possible Polypharmacy (gabapentin, Flexeril, Lyrica and Zolpidem)
- Lyrica resumed at lower dose. Zolpidem on hold. Trial PRN melatonin
- cont prn Flexeril
- Vasovagal episodes also possible considering vomiting and syncope while on hemodialysis.
- Echo with EF 55% and worsened MR
- Patient since improved
Mild intermittent asthma with acute exacerbation
History of Childhood Asthma
- Patient sees outpatient pulmonary at [facility]
- On 02/26/25, wheezing on exam, together with fatigue and SOB
- Ordered Duonebs and Pulmicort
- Prednisone 40 mg daily for 5 days completed
- Pulm eval appreciated
- At the time of discharge, start Symbicort or generic version Breyna
- outpatient pulmonary follow-up
Nausea/vomiting suspect d/t severe constipation
-03/05 Abd X-ray appreciated moderate fecal matter colon no obstruction
-prn zofran
-bowel regimen miralax senokot-s
-prn bisacodyl suppository
-03/06/25 once fleet enema, no improvement noted
-03/07/25 once milk and molasses enema
-constipation n/v since resolved
-Also developed diarrhea, so bowel regimen was switched to PRN
Chronic Dyspnea on exertion - likely multifactorial -- obstructive and restrictive lung disease, pneumonia, morbid obesity, heart failure, ESRD, physical deconditioning
Significantly elevated proBNP
- Repeat echo showed EF 55% with worsened mitral regurgitation
- Appreciate cardiology input: no need for GDMT right now, follow-up outpatient, nothing else to do from cardio standpoint right now
ESRD on HD
- Nephrology evaluation for HD needs during acute stay.
- Continue patient's home Furosemide but at 80 mg BID instead of daily
Hypomagnesemia
-monitor and replete as necessary
Trigeminal Neuralgia vs Trigeminal Autonomic Cephalgia (type of headache)
Left-sided facial pain
Left Ear Otitis Externa ruled out
cipro ear drops discontinued
Lyrica increased to 50 mg daily (dose to be given after dialysis on dialysis days)
Gabapentin discontinued in favor of increased dose Lyrica as above (doesn't make sense to be on both Lyrica and gabapentin)
oxcarbazepine 150 mg BID started, patient since noted significant improvement in left sided facial/head pain though not resolved, briefly increased to 300 mg BID since tapered back to 150 mg d/t the following.
Neuro eval appreciated assessed more likely Trigeminal Autonomic Cephalgia or other form of headache
-recommended tapering off Lyrica and Oxcarbazepine (concern toxic-metabolic myoclonus and polyneuropathy) patient however notes significant improvement with oxcarbazepine (more so than with Lyrica) would attempt to taper off Lyrica first,
oxcarbazepine now stopped and replaced with Baclofen as per neurology
-prn Oxygen therapy NRB w/ at least 7L for 15 min while sitting upright (patient notes significant relief headache with this therapy)
-recommended prn cocktail Toradol/Benadryl/Reglan however pharmacy expressed significant concerns regarding use Toradol/High dose NSAID in ESRD patient. Holding off for now, especially since other therapies effective as above
ASCVD
Chronic HFpEF
- Stable. Continue ASA, statin, etc.
- Home Lasix resumed at increased dose 80 mg BID as per Nephro
- Patient sees [facility] outpatient
- ECHO noted as above
DM-II
- Stable. Continue current regimen.
- Follow glucose and cover with SSI as needed.
Hypothyroidism
- TSH somewhat suppressed and free T4 elevated this hospitalization
- Home Levothyroxine reduced from 150 mcg to 137 mcg daily
- repeat TFT in 1 month
GERD / GAVE / Hiatal Hernia
- Stable. Prior h/o GI bleeding.
- Continue PPI.
Morbid Obesity
- Affects all aspects of care.
- Encourage healthy diet and increased activity as tolerated with goal of weight loss.
Shellfish Allergy
case mgmt eval appreciated pt accepted to [facility] [place] acute rehab, awaiting insurance auth
DVT Prophylaxis: Subcutaneous Heparin
Code Status: Full Code
Dr. Walls discussed with patient and patient's daughters Felisa and same name Ifrah
Anticipated Discharge: 24 - 48 hours
Subjective/Interval History
-
Date of Service: March 12, 2025
Patient was seen and examined. She said she didn't get that much sleep last night. She also reports difficulty swallowing. She reports continued pain on the right side of her face.
Objective Data
-
Labs:
Laboratory Results
03/12/25
09:11
Sodium 133 L
Potassium 5.1
Chloride 97 L
Carbon Dioxide 27
BUN 30 H
Creatinine 6.4 H*
Glucose 79
Calcium 9.5
Vital Signs:
Vital Signs
Temp Pulse Resp BP Pulse Ox
98.0 F 79 16 175/79 98
03/12/25 07:00 03/12/25 07:28 03/12/25 07:28 03/12/25 07:00 03/12/25 07:28
I&O
03/11/25 03/12/25 03/13/25
06:59 06:59 06:59
Intake Total 750 / 750 120 / 120
Balance 750 / 750 120 / 120
[2025-03-12 11:38] LABS: Glucose - Point of Care 171 mg/dl (70-99)
--- NOTE | 2025-03-12 11:55 | CON.GI ---
Addendum entered and electronically signed by Rola Aviles Do, MD 03/12/25 17:47:
I saw and examined the patient.
The FILE MACHINE OPERATOR's note was reviewed and I agree with the note.
Comment: Ifrah is a 74yo W with h/o DM, COPD, ESRD on HD who was admitted for weakness with confusion treated for PNA. She has had 13 day admission awaiting placement currently. GI consulted for dysphagia. She is known to me for chronic GERD and
GAVE with APC in the past. She feels overall reflux improved on protonix but still has breakthrough. She feels that since admission food slow to go down. She also reports constipation. Had good evacuation with enema but none since there is fecal
smearing at times. Exam VSS soft obese abdomen NTTP. Labs reviewed
Impression
- Dysphagia
Suspect esophagitis. She has had several EGDs last 06/2023
Ozempic may be contributor as worsens GERD
Also trigeminal autonomic cephalgia as well
- GERD
- Constipation
- Pelvic floor dysfunction
- PNA
- COPD
- ESRD on HD
- DM
- Obesity
Recommendation
- Documented as eating 80% of DM meals
- Increase PPI to BID
- AXR to eval fecal burden
- C/w miralax
- NPO at DC for UGI tomorrow
Will follow with you
Original Note:
Consultation
-
Date/Time Consultation Requested: 03/12/25 1145
Date/Time Consultation Performed: 03/12/25 1155
Requesting Provider: Javi garcia MD
Performing Provider: JIM Vasquez, Rola Wright MD
Reason for Consultation: dysphagia, drooling
Medical History
Chief Complaint / HPI
Chief Complaint: shortness of breath
History of Present Illness:
Pt is a 73yo with multiple medical problems IDDM, GERD, Asthma, COPD, CVA, CAD, CHF, HTN, hypercholesterolemia, ESRD on HD, CATA, anemia, GAVE with APC , duodenal polyp, gastric polyp, diverticulosis and duodenitis presents to with weakness and
confusion with concern for PNA and weakness. She is now noted with dysphagia, and drooling and asked to see. Labs noted with chronic but stable hbg at 10, persistent thrombocytopenia, Na 133, BUN 30, creat 6.4 with known renal disease otherwise
stable chemistry. Xray completed 03/05 with moderate stool in colon no obstruction.
In review with patient she had recent transplant evaluation for kidney at [facility] and was declined and she was unclear of denial but was recommended to start Ozempic. She started about 4 months ago and now presents with PNA. She had multiple GI
complaints of dysphagia with solids and liquid in upper esophagus, nausea, vomiting, feeling of increased salivation and drooling, bloating, constipation with need for enemas then diarrhea. She denies blood or black in stools. Last EGD last
06/2023- with Dr. Wright with normal esophagus, GAVE with APC treatment and normal duodenum with hx multiple prior scopes in past.
Past Medical History
Past Medical History: CAD, CHF, COPD, GERD, HTN, Hypercholesterolemia, Hypothyroidism, IDDM, Renal Failure (ESRD on HD) and Other (GAVE )
Past Surgical History: Orthopedic (carpel tunnel) and Other (AV fistula, tunneled cath )
Social History
Tobacco: Non-Smoker
Alcohol: None
Drug: None
Living: With Family
Employment: Retired
Family History
Family History: Other (no family hx colon cA or polyps)
Allergies / Home Medications
Allergy/AdvReac Type Severity Reaction Status Date / Time
cephalexin Allergy rash, Verified 02/25/25 22:41
fever &
itching;
tolerates
cefazolin
(SEE
COMMENTS)
eggplant Allergy Shortness Verified 02/25/25 22:41
of Breath
erythromycin base Allergy Itching,Stomach Verified 02/25/25 22:41
pain 'bad'
latex Allergy Pt states Verified 02/25/25 22:41
she gets a
rash and
wheezes
shellfish derived Allergy Unknown Verified 02/27/25 15:46
�Medication �Instructions �Recorded
atorvastatin 40 mg tablet 40 mg PO HS High cholesterol 02/13/20
sevelamer carbonate 800 mg tablet 1,600 mg PO MEALS Kidney Disease 07/30/21
levothyroxine 150 mcg tablet 150 mcg PO DAILY AT 0700 Thyroid 05/21/22
albuterol sulfate 90 mcg/actuation 2 puff inhalation R BID 05/18/23
aerosol inhaler Lung/Breathing Issues
aspirin 81 mg tablet,delayed 81 mg PO DAILY Blood Clot 05/18/23
release Prevention/Tx
gabapentin 100 mg capsule 100 mg PO HS Neurological Condition 05/18/23
insulin aspart U-100 100 unit/mL 0 - 6 sliding scale dose SC AC 05/18/23
(3 mL) subcutaneous pen (Novolog Diabetes
FlexPen U-100 Insulin aspart)
insulin glargine 100 unit/mL (3 10 unit SC HS Diabetes 05/18/23
mL) subcutaneous pen (Lantus
Solostar U-100 Insulin)
pantoprazole 40 mg tablet,delayed 40 mg PO DAILY #30 tabs 05/21/23
release
cyclobenzaprine 10 mg tablet 10 mg PO DAILYPRN PRN muscle spasms 02/26/25
furosemide 80 mg tablet (Lasix) 80 mg PO DAILY Fluid 02/26/25
Retention/Swelling
pregabalin 100 mg capsule (Lyrica) 100 mg PO DAILY Antiseizure Agent, 02/26/25
semaglutide 0.25 mg or 0.5 mg (2 0.5 mg SC FRIEDMAN WEIGHT LOSS 02/26/25
mg/3 mL) subcutaneous pen injector
(Ozempic)
zolpidem 5 mg tablet 5 mg PO HSPRN PRN insomnia 02/26/25
Review of Systems
-
History Source: Patient
Constitutional: Reports Fatigue
EENT: Reports No Symptoms
Respiratory: Reports Trouble Breathing
Abdomen/GI: Reports Nausea, Vomiting, Diarrhea, Constipated and Other (bloating )
: Reports Other (small amounts of urination with HD)
Musculoskeletal: Reports Joint Pain
Skin: Reports No Symptoms
Neurological: Reports Weakness
Endocrine: Reports No Symptoms
Hematologic/Lymphatic: Reports No Symptoms
Vital Signs
Temp Pulse Resp BP Pulse Ox
98.0 F 79 16 175/79 98
03/12/25 07:00 03/12/25 07:28 03/12/25 07:28 03/12/25 07:00 03/12/25 07:28
Physical Exam
Exam
General: Well Developed, Well Nourished, No Apparent Distress and Other (no drooling during exam )
HEENT: Normocephalic and Anicteric
Respiratory: Clear
Cardiac: Regular Rhythm
GI: Soft, Non Tender and Distended (minimal )
Musculoskeletal: No Clubbing and No Cyanosis
Skin: Warm and Dry
Neuro: Awake, Alert and AO x 3
Psych: Calm
Results
WBC 6.5 10^3/uL (4.8-10.8) 03/05/25 07:12
Hgb 10.0 g/dL (12.0-16.0) L 03/11/25 08:55
Hct 31.2 % (37.0-47.0) L 03/11/25 08:55
MCV 92.9 fL (81.0-99.0) 03/05/25 07:12
Plt Count 127 10^3/uL (130-400) L 03/05/25 07:12
Absolute Neuts (auto) 5.7 10^3/uL (1.4-6.5) 02/27/25 07:59
Sodium 133 mmol/L (135-145) L 03/12/25 09:11
Potassium 5.1 mmol/L (3.5-5.1) 03/12/25 09:11
Chloride 97 mmol/L (98-107) L 03/12/25 09:11
Carbon Dioxide 27 mmol/L (22-30) 03/12/25 09:11
BUN 30 mg/dl (7-17) H 03/12/25 09:11
Creatinine 6.4 mg/dL (0.6-1.0) H* 03/12/25 09:11
Calcium 9.5 mg/dl (8.4-10.2) 03/12/25 09:11
Total Bilirubin 0.8 mg/dl (0.2-1.3) 02/25/25 22:46
AST 24 U/L (14-36) 02/25/25 22:46
ALT 15 U/L (0-35) 02/25/25 22:46
Alkaline Phosphatase 124 U/L (38-126) 02/25/25 22:46
Diagnostic Image Results:
02/18/25 Abd X ray --
Moderate fecal matter throughout the colon. No evidence of intestinal obstruction. Stable
Severe bilateral hip osteoarthritis. Progressed bilaterally.
Prior GI Procedures:
07/15/2023 EGD > Indication: HUMBLE and h/o AVMFindings: GAVE s/p APC, no bx taken
05/[address] Lott clot in gastric body underneath diffuse AVMs s/p APC, multiple small AVMs around prepyloric area s/p APC, nodular lesion in duodenual bulb on bx duodenitis.
07/2022 VCS: normal
06/2022 EGD enteroscopy: Normal esophagus, gave treated with APC. Duodenitis. Examined portion of the jejunum normal.
07/02/2022 colonoscopy: Diminutive polyp found in cecum. 4 mm polyp in the sigmoid. Diverticulosis in the left colon in the right colon. (Hyperplastic polyp)
06/2022 EGD no gross lesions in entire esophagus. Z-line regular at 34 cm. Small hiatal hernia. GAVE treated with APC. Clips placed. Single gastric polyp biopsied. Negative H. pylori. Del's gland hyperplasia and gastric heterotopia.
Assessment / Plan
-
Pt is a 73yo with multiple medical problems IDDM, GERD, Asthma, COPD, CVA, CAD, CHF, HTN, hypercholesterolemia, ESRD on HD, CATA, anemia, GAVE with APC , duodenal polyp, gastric polyp, diverticulosis and duodenitis presents to with weakness and
confusion with concern for PNA and weakness. She is now noted with dysphagia, and drooling and asked to see. She also has complaints of nausea, vomiting, feeling of increased salivation, bloating, constipation with need for enemas then diarrhea
during admission. Labs noted with chronic but stable hbg at 10, persistent thrombocytopenia, Na 133, BUN 30, creat 6.4 with known renal disease otherwise stable chemistry. Xray completed 03/05 with moderate stool in colon no obstruction. She is
new to Ozempic 4 months ago. Last EGD last 06/2023- with Dr. Wright with normal esophagus, GAVE with APC treatment and normal duodenum with hx multiple prior scopes in past.
-dysphagia
-drooling with feeling increased salivation
-bloating
-nausea/vomiting
-constipation then diarrhea
-PNA/sepsis on admission
-syncope/encephalopathy
-hx chronic anemia
-hx GAVE
other med problem:
IDDM, GERD, Asthma, COPD, CVA, CAD, CHF, HTN, hypercholesterolemia, ESRD on HD, CATA, anemia, duodenal polyp, gastric polyp, diverticulosis and duodenitis
PLAN:
etiology of symptoms unclear may have some component of dysphagia with dysmotility vs esophagitis with recent inhaler use vs other . She has had multiple EGD less likely mass or stricture. She also has complaints of nausea, vomiting, and
bloating. She is new to Ozempic along with Miralax added during admission for constipation which may be causing nausea and bloating symptoms
cont PPI daily
cont bowel regimen with Miralax daily and senna BID with Dulcolax PRN
hbg stable with hx GAVE
-
-
Thank you for consultation and allowing me to participate in the patient's care. Please call the broadcast director operations GI physician during the after hours with any questions or concerns.
[2025-03-12 12:09] VITALS: BP 160/69
[2025-03-12] MEDS: NOVOLOG FLEXPEN-LOW RESISTANCE 1 UNITS SC (12:30)
[2025-03-12 14:35] VITALS: BP 124/56
--- NOTE | 2025-03-12 14:36 | CM ---
CM reviewed chart, reviewed with Hospitalist, stable for d/c.
CM spoke with Dior ([phone]) from [facility], able to offer patient a bed- updated clinicals faxed to Dior at [phone]
Auth submitted to [facility], faxed [phone], pending ref #[id number].
CM will continue to follow for all d/c planning needs.
Plan; Auth submitted to [facility] for [facility] approval to [facility]
[2025-03-12 16:54] LABS: Glucose - Point of Care 111 mg/dl (70-99)
--- NOTE | 2025-03-12 19:11 | W.PN.NEURO.1 ---
Today's Communication / Plan
-
.
Subjective/Objective
Subjective Data
Date of Service: March 12, 2025
Neurology follow-up note.
HPI: Ms. Henry describes severe left-sided facial pain extending from the ear to the neck and head, involving the lower jaw and gums. The pain is characterized as throbbing and intermittent, but constant since last night. Aggravating factors
include washing the face and brushing teeth, particularly affecting the gums which have been painful for two days. The patient states that Trileptal provided temporary relief before the pain returned.
Concurrent with the facial pain, the patient is experiencing difficulty swallowing for at least a week. They report a sensation of food and pills getting stuck in their throat. This is accompanied by some soreness. The patient is also experiencing
sialorrhea.
The patient recalls these facial pain episodes typically last for weeks before disappearing for a few years. Previously, she managed the pain with Tylenol, 'Percocet' and Aleve. The last attack occurred a few years ago and eventually resolved with
Tylenol treatment.
Brain MRI wo cordell(03/11/2025) mild to moderate age-related parenchymal atrophy. T2/FLAIR hyperintense signal in the white matter of the bilateral cerebral hemispheres. Stable single small chronic microhemorrhage in the right periventricular centrum
semiovale.
PMH: Migraines with aura, R rotator cuff tear, ESRD on HD, HTN, DLP, DM, polyneuropathy, hypothyroidism, anemia, thrombocytopenia, BMI 38, insomnia, cervical DJD, Gastric antral vascular ectasia, h/o GIB
PSH: Bilateral cataract surgery, brachiocephalic AVF
SH:lives with daughters; Previously worked for [employer] in [facility]; Never drove, non-smoker, denies excessive alcohol use
FH: Mother�breast cancer, father�diabetes
All: Erythromycin, cephalexin, shellfish
ROS:General: Positive for insomnia.
HEENT: Positive for facial pain, eye pain, difficulty swallowing, drooling, sore throat sensation, ear pain, jaw pain, gum pain.
Respiratory: Positive for cough (last week).
Gastrointestinal: Positive for dysphagia.
Neurological: Positive for facial pain.
General: Well developed. In no acute distress.
Cardio: Regular rate and rhythm without murmur. Extremities are without cyanosis or edema.
Neuro:
Mental Status: Alert, oriented to person, place, time. Normal attention and recall. Good fund of knowledge. Follows complex requests across the midline. Comprehension, naming, and repetition intact.
Cranial Nerves: Pupils are equally round, surgical. EOMs full. Visual bello full to confrontation. No ptosis. No nystagmus. V1-V3 intact to light touch and pinprick bilaterally, symmetric. Face symmetric. Normal hearing AU. The palate
elevated well. SCMs and traps 5/5. Tongue midline. No dysarthria.
Motor: Normal bulk and tone. No pronator or arm drift. Strength 5/5 throughout except for pain related proximal right arm weakness (chronic). No clonus.
Coordination: No dysmetria or tremor. Intermittent myoclonus
Gait: deferred
Assessment and Plan:
I. Trigeminal autonomic cephalgia?
II. PNA
II. Distal symmetric large fiber polyneuropathy. Likely etiology�metabolic
- Fall precautions
- IV Reglan 10 mg, Benadryl 25 mg Q8h PRN for moderate to severe headache.
- Start baclofen 2.5 mg 3 times daily
- Consider valproate 500 mg BID IV if headache continues to be moderate to severe
-Will follow
I personally reviewed all radiology and labs along with past medical records pertinent to current medical problems. Total time spent in patient care is 35 minutes.
Thank you for allowing us to participate in the care of this patient. We will continue to follow. Please do not hesitate to contact us with any questions or concerns.
Objective Data
Vital Signs
Temp Pulse Resp BP Pulse Ox
36.7 C 75 16 124/56 98
03/12/25 14:35 03/12/25 14:35 03/12/25 14:35 03/12/25 14:35 03/12/25 14:35
Lab Results
03/11/25 08:55
03/12/25 09:11
Sodium 133 mmol/L (135-145) L 03/12/25 09:11
Potassium 5.1 mmol/L (3.5-5.1) 03/12/25 09:11
BUN 30 mg/dl (7-17) H 03/12/25 09:11
Glucose 79 mg/dl (70-99) 03/12/25 09:11
Calcium 9.5 mg/dl (8.4-10.2) 03/12/25 09:11
Phosphorus 6.9 mg/dl (2.5-4.5) H 03/06/25 08:15
Jhb-Y-Dixmbndbynj Pept 9170 pg/ml 02/25/25 23:52
Vitamin B12 Cancelled 03/10/25 15:03
Patient Allergies
cephalexin Allergy (Verified 02/25/25 22:41)
rash, fever & itching; tolerates cefazolin (SEE COMMENTS)
eggplant Allergy (Verified 02/25/25 22:41)
Shortness of Breath
erythromycin base Allergy (Verified 02/25/25 22:41)
Itching,Stomach pain 'bad'
latex Allergy (Verified 02/25/25 22:41)
Pt states she gets a rash and wheezes
shellfish derived Allergy (Verified 02/27/25 15:46)
Unknown
Vital Signs and Labs
-
Vital Signs and Labs:
Vital Signs
Temp Pulse Resp BP Pulse Ox
36.7 C 75 16 124/56 98
03/12/25 14:35 03/12/25 14:35 03/12/25 14:35 03/12/25 14:35 03/12/25 14:35
Lab Results
03/11/25 08:55
03/12/25 09:11
Sodium 133 mmol/L (135-145) L 03/12/25 09:11
Potassium 5.1 mmol/L (3.5-5.1) 03/12/25 09:11
BUN 30 mg/dl (7-17) H 03/12/25 09:11
Glucose 79 mg/dl (70-99) 03/12/25 09:11
Calcium 9.5 mg/dl (8.4-10.2) 03/12/25 09:11
Phosphorus 6.9 mg/dl (2.5-4.5) H 03/06/25 08:15
Vfe-Z-Qebnmklrjyc Pept 9170 pg/ml 02/25/25 23:52
Vitamin B12 Cancelled 03/10/25 15:03
Medications
-
Medications:
Generic Name Dose Route Start Last Admin
Trade Name Freq PRN Reason Stop Dose Admin
Acetaminophen 650 mg 02/26/25 03:41 03/12/25 03:29
Acetaminophen 325 Mg Tablet PO 03/26/25 03:40 650 mg
Q4HPRN PRN Administration
Mild Pain / Temp > 101
Albuterol Sulfate 2.5 mg 02/26/25 03:41 03/05/25 20:14
Albuterol Nebs 2.5 Mg/3 Ml Ampul INH 2.5 mg
R Q4HPRN PRN Administration
SOB
Protocol
Aspirin 81 mg 02/26/25 08:00 03/12/25 09:40
Aspirin 81 Mg (Enteric Coated) Tablet PO 03/26/25 07:59 81 mg
DAILY EHSAN Administration
Atorvastatin Calcium 40 mg 02/26/25 22:00 03/11/25 22:09
Atorvastatin (Lipitor) 40 Mg Tablet PO 03/26/25 21:59 40 mg
HS EHSAN Administration
Baclofen 2.5 mg 03/12/25 20:00
Baclofen 5 Mg Tablet PO 04/09/25 19:59
Q12 EHSAN
Benzocaine/Menthol 1 lozenge 03/03/25 23:50 03/12/25 03:28
Benzocaine/Menthol Lozenge PO 03/31/25 23:49 1 lozenge
Q4HPRN PRN Administration
throat irritation
Benzonatate 200 mg 03/01/25 09:16 03/09/25 06:11
Benzonatate 100 Mg Capsule PO 03/29/25 09:15 200 mg
TIDPRN PRN Administration
cough
Bisacodyl 10 mg 03/05/25 19:29
Bisacodyl 10 Mg Rectal Suppository RECTAL 04/02/25 19:28
DAILYPRN PRN
constipation
Budesonide/Formoterol Fumarate 2 puff 02/28/25 20:00 03/12/25 07:25
Symbicort Inhaler 160/4.5 INH 03/28/25 19:59 2 puff
R BID EHSAN Administration
Protocol
Cyclobenzaprine HCl 10 mg 03/02/25 10:49 03/06/25 12:54
Cyclobenzaprine 10 Mg Tablet PO 03/28/25 15:18 10 mg
DAILYPRN PRN Administration
muscle spasms
Dextrose 12.5 grams 02/26/25 03:41
Dextrose 50% (0.5 Grams/Ml) 50 Ml Syringe IV 03/26/25 03:40
[id number] PRN
hypoglycemia
Protocol
Epoetin Konrad-epbx 6,000 units 03/13/25 08:00
Epoetin Konrad-Epbx (Retacrit) 3,000 Units/Ml Vial IV 03/13/25 08:01
HD-ONCE ONE
Furosemide 80 mg 03/01/25 08:00 03/12/25 15:48
Furosemide 80 Mg Tablet PO 03/29/25 07:59 80 mg
BID@0800,1600 EHSAN Administration
Guaifenesin 600 mg 03/01/25 10:00 03/12/25 09:39
Guaifenesin 600 Mg Extended Release Tablet PO 03/29/25 09:59 600 mg
Q12 EHSAN Administration
Guaifenesin/Dextromethorphan 10 ml 02/27/25 22:33 03/07/25 05:50
Guaifenesin/Dextromethorphan 200 Mg/10 Ml Cup PO 03/27/25 22:32 10 ml
Q4HPRN PRN Administration
productive cough
Heparin Sodium 5,000 units 02/26/25 08:00 03/12/25 09:40
Heparin 5,000 Units/Ml 1 Ml Vial SC 03/26/25 07:59 5,000 units
Q12 EHSAN Administration
Heparin Sodium 0 units 03/13/25 08:00
Heparin (1000 Units/Ml) 10,000 Units/10 Ml Vial INTRACATH 03/13/25 08:01
HD-ONCE ONE
Insulin Glargine 10 units/ 0.1 mls @ 0 mls/hr 02/26/25 22:00 03/11/25 22:10
Device SC 03/26/25 21:59 0.1 mls
HS EHSAN Administration
As Directed
Insulin Aspart 0 units 02/26/25 07:30 03/12/25 17:02
Insulin Aspart Low Resistance 300 Units/3 Ml Pen.Injctr SC 03/26/25 07:29 Not Given
AC EHSAN
Protocol
Levothyroxine Sodium 137 mcg 02/27/25 06:00 03/12/25 05:52
Levothyroxine 137 Mcg Tablet PO 03/27/25 05:59 137 mcg
DAILY @ 0600 EHSAN Administration
Mannitol 12.5 grams 03/13/25 08:00
Mannitol 25% (12.5 Grams/50 Ml) Vial IV 03/13/25 23:59
HD-Q1HPRN PRN
SBP < 90 mmHg
Melatonin 5 mg 03/05/25 22:00 03/11/25 22:22
Melatonin 5 Mg Tablet PO 04/02/25 21:59 5 mg
HSPRN PRN Administration
insomnia
Ondansetron HCl 4 mg 03/05/25 10:28 03/09/25 16:07
Ondansetron 4 Mg/2 Ml Vial IV 04/02/25 10:27 4 mg
Q6HPRN PRN Administration
NAUSEA/VOMITING
Pantoprazole Sodium 40 mg 02/26/25 08:00 03/12/25 09:39
Pantoprazole 40 Mg Delayed Release Tablet PO 03/26/25 07:59 40 mg
DAILY EHSAN Administration
Phenol 0 spray 03/07/25 06:07
Chloraseptic (1.4% Phenol) Throat [place] PO 04/04/25 06:06
Q2HPRN PRN
sore throat
Polyethylene Glycol 17 grams 03/04/25 18:00 03/12/25 09:45
Polyethylene Glycol Powder 17 Grams Packet PO 04/01/25 17:59 Not Given
DAILY EHSAN
Pregabalin 50 mg 03/05/25 12:22 03/12/25 09:39
Pregabalin 25 Mg Capsule PO 03/27/25 07:59 50 mg
DAILY EHSAN Administration
Senna/Docusate Sodium 1 tablet 03/04/25 20:00 03/12/25 09:45
Docusate W/Senna (Nel-Colace) Tablet PO 04/01/25 19:59 Not Given
BID EHSAN
Sevelamer Carbonate 1,600 mg 02/26/25 08:00 03/12/25 17:02
Sevelamer Carbonate (Renvela) 800 Mg Tablet PO 03/26/25 07:59 1,600 mg
MEALS EHSAN Administration
Sodium Chloride 0 flush 02/26/25 05:00 03/06/25 12:54
Sodium Chloride 0.9% (Flush) Syringe IV 03/26/25 04:59 1 flush
PER PROTOCOL EHSAN Administration
Sodium Chloride 0 sprays 03/11/25 20:09 03/11/25 22:11
Sodium Chloride 0.65% Nasal [place] 45 Ml Bottle NASAL 04/08/25 20:08 1 sprays
QIDPRN PRN Administration
nasal congestion/dryness
Sodium Chloride 10 ml 03/13/25 08:00
Sodium Chloride (4 Meq/Ml) 30 Ml Vial *For Hemodialysis* IV 03/13/25 23:59
HD-Q1HPRN PRN
cramps
Home Medications
-
Home Medications
atorvastatin 40 mg tablet 40 mg PO HS High cholesterol 02/13/20
sevelamer carbonate 800 mg tablet 1,600 mg PO MEALS Kidney Disease 07/30/21
levothyroxine 150 mcg tablet 150 mcg PO DAILY AT 0700 Thyroid 05/21/22
albuterol sulfate 90 mcg/actuation aerosol inhaler 2 puff inhalation R BID Lung/Breathing Issues 05/18/23
aspirin 81 mg tablet,delayed release 81 mg PO DAILY Blood Clot Prevention/Tx 05/18/23
gabapentin 100 mg capsule 100 mg PO HS Neurological Condition 05/18/23
insulin aspart U-100 100 unit/mL (3 mL) subcutaneous pen (Novolog FlexPen U-100 Insulin aspart) 0 - 6 sliding scale dose SC AC Diabetes 05/18/23
insulin glargine 100 unit/mL (3 mL) subcutaneous pen (Lantus Solostar U-100 Insulin) 10 unit SC HS Diabetes 05/18/23
pantoprazole 40 mg tablet,delayed release 40 mg PO DAILY #30 tabs 05/21/23
cyclobenzaprine 10 mg tablet 10 mg PO DAILYPRN PRN muscle spasms 02/26/25
furosemide 80 mg tablet (Lasix) 80 mg PO DAILY Fluid Retention/Swelling 02/26/25
pregabalin 100 mg capsule (Lyrica) 100 mg PO DAILY Antiseizure Agent, 02/26/25
semaglutide 0.25 mg or 0.5 mg (2 mg/3 mL) subcutaneous pen injector (Ozempic) 0.5 mg SC FRIEDMAN WEIGHT LOSS 02/26/25
zolpidem 5 mg tablet 5 mg PO HSPRN PRN insomnia 02/26/25
[2025-03-12 21:10] LABS: Glucose - Point of Care 141 mg/dl (70-99)
[2025-03-12] MEDS: LIORESAL 2.5 MG PO (22:13)
[2025-03-12] MEDS: LANTUS 0.1 UNITS SC (22:14)
[2025-03-12] MEDS: LIPITOR 40 MG PO (22:14)
[2025-03-12 23:54] VITALS: BP 170/76
[2025-03-13] MEDS: SYNTHROID 137 MCG PO (05:52)
[2025-03-13 06:00] VITALS: BMI 38.7
[2025-03-13 07:00] VITALS: BP 189/85
[2025-03-13] MEDS: SYMBICORT 160/4.5 MCG INHALER 2 PUFF INH ×2 (07:45→19:21)
[2025-03-13 07:47] LABS: Glucose - Point of Care 71 mg/dl (70-99)
[2025-03-13] MEDS: NOVOLOG FLEXPEN-LOW RESISTANCE SC ×3 (08:26→16:33)
--- NOTE | 2025-03-13 10:11 | W.PN.HOSP.TC ---
Today's Communication/Plan
-
MRI of the spine as below
Restarted Trileptal given facial pain
Appreciate GI
Assessment / Plan
Assessment / Plan
Physical Exam
General: Not acute distress, appears relatively comfortable at this time
HEENT: Normocephalic. Moist mucous membranes
Respiratory: clear to auscultation b/l
Cardiac: S1/S2 and Regular Rhythm
GI: Soft, Non Tender, Non Distended and Normal Bowel Sounds
Musculoskeletal: No Cyanosis
Neuro: AAO x 3 conversant coherent
Psych: calm
Assessment/Plan
74 y/o female with past medical history significant for ESRD on HD, DM-II and GERD / GAVE who presented to [facility] ED for evaluation of lethargy, weakness and confusion. History obtained from patient and her daughter at the bedside. Patient stated that
she has felt weak and fatigued for ~1 week prior to arrival. She reported hacking, non-productive cough. No noted fever. She lives with her two daughters - who were out of town over the past weekend and returned home on 02/25/25. No one else in
the house has been ill. Patient went to her usual HD on the morning of 02/25/25 (family monitored her comings and anirudh via Ring camera to confirm this).
Patient stated that she 'must have' fallen asleep or passed out on dialysis. HD staff reportedly informed her that she had N/V during her session. Patient does not recall this.
She was told to present to the [facility] ED after HD, but was too tired and took the bus home instead. At home she climbed two flights of stairs - stopping midway due to fatigue - and went back to bed.
When daughters returned home on 02/25/25 evening, they found the patient lying on her bedroom floor confused and disoriented. Patient does not recall falling from bed. She complains of L sided headache and neck discomfort. Daughters helped the
patient to bed (around 7PM) and she fell back to sleep. Patient then called out to her daughters again around 9:30 PM and they went to find her again on the floor.
Patient states that her newest medication with zolpidem. She complains of chronic insomnia and notes that this has been helping. She started this < 2 weeks ago.
No other new medications. She does however also take Lyrica, gabapentin and cyclobenzaprine.
Dysphagia
- Increase PPI to BID
- AXR to eval fecal burden
- C/w miralax
- UGI today
- Appreciate GI
Left leg reduced sensation
Fecal incontinence (more so with coughing)
-Check MRI Thoracic and Lumbar Spine with and without contrast
-On 03/13/25, I spoke with academic administrator Dr. Melgar who said it is fine to do MRI contrast in the setting of ESRD
Pneumonia (Right>Left)
Sepsis secondary to the above
Chills and feeling feverish at home
- Cough x 1 week, leukocytosis with L shift, tachycardia and tachypnea on arrival.
- CXR with bibasilar opacities - L > R.
- COVID negative in the ED.
- Vancomycin previously stopped as MRSA negative
- On 02/28/25, changed Zosyn to Unasyn --> plan for a total of 7 days of antibiotics (first day of antibiotics was 02/26/25) --> switch to Augmentin (renally-dosed), last day of antibiotics is 03/04/25
- Bronchodilators and steroids (steroids course completed)
- Speech evaluation unremarkable
- Home/outpatient oxygen assessment performed on 03/01/25 -- does not need outpatient oxygen
Syncope/Encephalopathy
-possibly secondary to sepsis as noted above versus med effect - or combination thereof
- concern for possible Polypharmacy (gabapentin, Flexeril, Lyrica and Zolpidem)
- Lyrica resumed at lower dose. Zolpidem on hold. Trial PRN melatonin
- cont prn Flexeril
- Vasovagal episodes also possible considering vomiting and syncope while on hemodialysis.
- Echo with EF 55% and worsened MR
- Patient since improved
Mild intermittent asthma with acute exacerbation
History of Childhood Asthma
- Patient sees outpatient pulmonary at [facility]
- On 02/26/25, wheezing on exam, together with fatigue and SOB
- Ordered Duonebs and Pulmicort
- Prednisone 40 mg daily for 5 days completed
- Pulm eval appreciated
- At the time of discharge, start Symbicort or generic version Breyna
- outpatient pulmonary follow-up
Nausea/vomiting suspect d/t severe constipation
-03/05 Abd X-ray appreciated moderate fecal matter colon no obstruction
-prn zofran
-bowel regimen miralax senokot-s
-prn bisacodyl suppository
-03/06/25 once fleet enema, no improvement noted
-03/07/25 once milk and molasses enema
-constipation n/v since resolved
-Also developed diarrhea, so bowel regimen was switched to PRN
Chronic Dyspnea on exertion - likely multifactorial -- obstructive and restrictive lung disease, pneumonia, morbid obesity, heart failure, ESRD, physical deconditioning
Significantly elevated proBNP
- Repeat echo showed EF 55% with worsened mitral regurgitation
- Appreciate cardiology input: no need for GDMT right now, follow-up outpatient, nothing else to do from cardio standpoint right now
ESRD on HD
- Nephrology evaluation for HD needs during acute stay.
- Continue patient's home Furosemide but at 80 mg BID instead of daily
Hypomagnesemia
-monitor and replete as necessary
Trigeminal Neuralgia vs Trigeminal Autonomic Cephalgia (type of headache)
Left-sided facial pain
Left Ear Otitis Externa ruled out
cipro ear drops discontinued
Lyrica increased to 50 mg daily (dose to be given after dialysis on dialysis days)
Gabapentin discontinued in favor of increased dose Lyrica as above (doesn't make sense to be on both Lyrica and gabapentin)
oxcarbazepine 150 mg BID started, patient since noted significant improvement in left sided facial/head pain though not resolved, briefly increased to 300 mg BID since tapered back to 150 mg d/t the following.
Neuro eval appreciated assessed more likely Trigeminal Autonomic Cephalgia or other form of headache
-recommended tapering off Lyrica and Oxcarbazepine (concern toxic-metabolic myoclonus and polyneuropathy) patient however notes significant improvement with oxcarbazepine (more so than with Lyrica) would attempt to taper off Lyrica first,
oxcarbazepine was stopped, but restarted on 03/13/25, and Baclofen added as per neurology; Lyrica restarted 03/13/25
-prn Oxygen therapy NRB w/ at least 7L for 15 min while sitting upright (patient notes significant relief headache with this therapy)
-recommended prn cocktail Toradol/Benadryl/Reglan however pharmacy expressed significant concerns regarding use Toradol/High dose NSAID in ESRD patient. Holding off for now, especially since other therapies effective as above
ASCVD
Chronic HFpEF
- Stable. Continue ASA, statin, etc.
- Home Lasix resumed at increased dose 80 mg BID as per Nephro
- Patient sees [facility] Cardiology outpatient
- ECHO noted as above
DM-II
- Stable. Continue current regimen.
- Follow glucose and cover with SSI as needed.
Hypothyroidism
- TSH somewhat suppressed and free T4 elevated this hospitalization
- Home Levothyroxine reduced from 150 mcg to 137 mcg daily
- repeat TFT in 1 month
GERD / GAVE / Hiatal Hernia
- Stable. Prior h/o GI bleeding.
- Continue PPI.
Morbid Obesity
- Affects all aspects of care.
- Encourage healthy diet and increased activity as tolerated with goal of weight loss.
Shellfish Allergy
case mgmt eval appreciated pt accepted to [facility] acute rehab, awaiting insurance auth
DVT Prophylaxis: Subcutaneous Heparin
Code Status: Full Code
Dr. Walls discussed with patient and patient's daughters Felisa and same name Ifrah
Anticipated Discharge: 24 - 48 hours
Subjective/Interval History
-
Date of Service: March 13, 2025
Patient was seen and examined. She denied any new complaints, but reported back pain, fecal incontinence (she thinks maybe with coughing).
Objective Data
-
Vital Signs:
Vital Signs
Temp Pulse Resp BP Pulse Ox
97.4 F 85 16 189/85 99
03/13/25 07:00 03/13/25 07:47 03/13/25 07:47 03/13/25 07:00 03/13/25 07:47
I&O
03/12/25 03/13/25 03/14/25
06:59 06:59 06:59
Intake Total 120 / 120 1919
Balance 120 / 120 1919
--- NOTE | 2025-03-13 10:39 | CM ---
Addendum entered by Danielle Torres RN 03/13/25 14:37:
Called from [facility] called pts case went to medical equipment repairer and wanted a peer to peer .DR Vishnu GALVIN MD she called and spoke with pediatrician/medical doctor.
[facility] called back to say acute rehab denied but within 24 hours can accept a snf with no additional PT evals.
Spoke with Felisa ashton explained above . She requested [facility] Sn[facility] . Referral placed.
[facility] acute aware pt not coming.
PLAN to snf after auth
Original Note:
Called [facility] [phone] spoke with Mile Vazquez she said case was under review with pediatrician/medical doctor.Pending ref #[id number].
Awaiting auth for acute rehab.
[facility] ([phone]) from [facility], offered patient a bed after auth.
[facility] Acute rehab
report [phone]

Plan [facility] after auth
[2025-03-13] MEDS: RENVELA 1600 MG PO ×2 (11:59→16:29)
[2025-03-13 12:03] LABS: Glucose - Point of Care 86 mg/dl (70-99)
[2025-03-13 12:08] VITALS: BP 177/73; PULSE 77; O2SAT 97
--- NOTE | 2025-03-13 13:04 | W.PN.NEPH.HD ---
Progress Note - Hemodialysis
-
Date of Service: March 13, 2025
Duration: 30 minutes and 3 hours
Calcium Bath: 2.5
Opti-Dialyzer: 160
Ultrafiltration: Other (2.5)
Blood Flow: 400
Dialysate Flow: 600
Heparin: None
EPO: 4000
--- NOTE | 2025-03-13 13:04 | W.PN.NEURO.1 ---
Today's Communication / Plan
-
.
Subjective/Objective
Subjective Data
Date of Service: March 13, 2025
24-hour events hypertensive up to 189/80 in the morning, afebrile.
Neurology follow-up note.
HPI: Ms. Henry complaints of severe headache and left facial pain. She reports waking up today with intense pain that she describes as feeling 'like a bad toothache' in her gum area, extending to her ear.
The patient states that the pain is currently at a level of 5 - 6 out of 10. She mentions soreness in her ear and discomfort with swallowing and chewing. The patient does not report any eye pain.
Mr. Henry is unsure of its effectiveness as she fell asleep after taking it.
Brain MRI wo cordell(03/11/2025) mild to moderate age-related parenchymal atrophy. T2/FLAIR hyperintense signal in the white matter of the bilateral cerebral hemispheres. Stable single small chronic microhemorrhage in the right periventricular centrum
semiovale.
PMH: Migraines with aura, R rotator cuff tear, ESRD on HD, HTN, DLP, DM, polyneuropathy, hypothyroidism, anemia, thrombocytopenia, BMI 38, insomnia, cervical DJD, Gastric antral vascular ectasia, h/o GIB
PSH: Bilateral cataract surgery, brachiocephalic AVF
SH:lives with daughters; Previously worked for [employer] in [facility]; Never drove, non-smoker, denies excessive alcohol use
FH: Mother�breast cancer, father�diabetes
All: Erythromycin, cephalexin, shellfish
ROS:General: Positive for insomnia.
HEENT: Positive for ear pain, sore throat, and difficulty swallowing. Negative for eye pain.
Respiratory: Positive for cough (last week).
Gastrointestinal: Positive for dysphagia.
Neurological: Positive for facial pain.
General: Well developed. In no acute distress.
Cardio: Regular rate and rhythm without murmur. Extremities are without cyanosis or edema.
Neuro:
Mental Status: Alert, oriented to person, place, time. Normal attention and recall. Good fund of knowledge. Follows complex requests across the midline. Comprehension, naming, and repetition intact.
Cranial Nerves: Pupils are equally round, surgical. EOMs full. Visual bello full to confrontation. No ptosis. No nystagmus. V1-V3 intact to light touch and pinprick bilaterally, symmetric. Face symmetric. Normal hearing AU. The palate
elevated well. SCMs and traps 5/5. Tongue midline. No dysarthria.
Motor: Normal bulk and tone. No pronator or arm drift. Strength 5/5 throughout except for pain related proximal right arm weakness (chronic). No clonus.
Coordination: No dysmetria or tremor. Intermittent myoclonus
Gait: deferred
Assessment and Plan:
I. Trigeminal autonomic cephalgia?
II. PNA
II. Distal symmetric large fiber polyneuropathy. Likely etiology�metabolic
- Fall precautions
- restart Trileptal 150 mg once a day
- Continue baclofen 2.5 mg 3 times daily
- Continue Lyrica 75 mg QD
- ENT consult
- Will follow
I personally reviewed all radiology and labs along with past medical records pertinent to current medical problems. Total time spent in patient care is 35 minutes.
Thank you for allowing us to participate in the care of this patient. We will continue to follow. Please do not hesitate to contact us with any questions or concerns.
Objective Data
Vital Signs
Temp Pulse Resp BP Pulse Ox
36.3 C 85 16 189/85 99
03/13/25 07:00 03/13/25 07:47 03/13/25 07:47 03/13/25 07:00 03/13/25 07:47
Sodium 133 mmol/L (135-145) L 03/12/25 09:11
Potassium 5.1 mmol/L (3.5-5.1) 03/12/25 09:11
BUN 30 mg/dl (7-17) H 03/12/25 09:11
Glucose 79 mg/dl (70-99) 03/12/25 09:11
Calcium 9.5 mg/dl (8.4-10.2) 03/12/25 09:11
Phosphorus 6.9 mg/dl (2.5-4.5) H 03/06/25 08:15
Mmo-K-Skxpaupifcs Pept 9170 pg/ml 02/25/25 23:52
Vitamin B12 Cancelled 03/10/25 15:03
Patient Allergies
cephalexin Allergy (Verified 02/25/25 22:41)
rash, fever & itching; tolerates cefazolin (SEE COMMENTS)
eggplant Allergy (Verified 02/25/25 22:41)
Shortness of Breath
erythromycin base Allergy (Verified 02/25/25 22:41)
Itching,Stomach pain 'bad'
latex Allergy (Verified 02/25/25 22:41)
Pt states she gets a rash and wheezes
shellfish derived Allergy (Verified 02/27/25 15:46)
Unknown
Vital Signs and Labs
-
Vital Signs and Labs:
Vital Signs
Temp Pulse Resp BP Pulse Ox
36.3 C 85 16 189/85 99
03/13/25 07:00 03/13/25 07:47 03/13/25 07:47 03/13/25 07:00 03/13/25 07:47
Sodium 133 mmol/L (135-145) L 03/12/25 09:11
Potassium 5.1 mmol/L (3.5-5.1) 03/12/25 09:11
BUN 30 mg/dl (7-17) H 03/12/25 09:11
Glucose 79 mg/dl (70-99) 03/12/25 09:11
Calcium 9.5 mg/dl (8.4-10.2) 03/12/25 09:11
Phosphorus 6.9 mg/dl (2.5-4.5) H 03/06/25 08:15
Aar-Q-Mnmysthrnog Pept 9170 pg/ml 02/25/25 23:52
Vitamin B12 Cancelled 03/10/25 15:03
Medications
-
Medications:
Generic Name Dose Route Start Last Admin
Trade Name Freq PRN Reason Stop Dose Admin
Acetaminophen 650 mg 02/26/25 03:41 03/12/25 03:29
Acetaminophen 325 Mg Tablet PO 03/26/25 03:40 650 mg
Q4HPRN PRN Administration
Mild Pain / Temp > 101
Albuterol Sulfate 2.5 mg 02/26/25 03:41 03/05/25 20:14
Albuterol Nebs 2.5 Mg/3 Ml Ampul INH 2.5 mg
R Q4HPRN PRN Administration
SOB
Protocol
Aspirin 81 mg 02/26/25 08:00 03/12/25 09:40
Aspirin 81 Mg (Enteric Coated) Tablet PO 03/26/25 07:59 81 mg
DAILY EHSAN Administration
Atorvastatin Calcium 40 mg 02/26/25 22:00 03/12/25 22:14
Atorvastatin (Lipitor) 40 Mg Tablet PO 03/26/25 21:59 40 mg
HS EHSAN Administration
Baclofen 2.5 mg 03/12/25 20:00 03/12/25 22:13
Baclofen 5 Mg Tablet PO 04/09/25 19:59 2.5 mg
Q12 EHSAN Administration
Benzocaine/Menthol 1 lozenge 03/03/25 23:50 03/12/25 03:28
Benzocaine/Menthol Lozenge PO 03/31/25 23:49 1 lozenge
Q4HPRN PRN Administration
throat irritation
Benzonatate 200 mg 03/01/25 09:16 03/09/25 06:11
Benzonatate 100 Mg Capsule PO 03/29/25 09:15 200 mg
TIDPRN PRN Administration
cough
Bisacodyl 10 mg 03/05/25 19:29
Bisacodyl 10 Mg Rectal Suppository RECTAL 04/02/25 19:28
DAILYPRN PRN
constipation
Budesonide/Formoterol Fumarate 2 puff 02/28/25 20:00 03/13/25 07:45
Symbicort Inhaler 160/4.5 INH 03/28/25 19:59 2 puff
R BID EHSAN Administration
Protocol
Cyclobenzaprine HCl 10 mg 03/02/25 10:49 03/06/25 12:54
Cyclobenzaprine 10 Mg Tablet PO 03/28/25 15:18 10 mg
DAILYPRN PRN Administration
muscle spasms
Dextrose 12.5 grams 02/26/25 03:41
Dextrose 50% (0.5 Grams/Ml) 50 Ml Syringe IV 03/26/25 03:40
[id number] PRN
hypoglycemia
Protocol
Furosemide 80 mg 03/01/25 08:00 03/12/25 15:48
Furosemide 80 Mg Tablet PO 03/29/25 07:59 80 mg
BID@0800,1600 EHSAN Administration
Guaifenesin 600 mg 03/01/25 10:00 03/12/25 22:13
Guaifenesin 600 Mg Extended Release Tablet PO 03/29/25 09:59 600 mg
Q12 EHSAN Administration
Guaifenesin/Dextromethorphan 10 ml 02/27/25 22:33 03/07/25 05:50
Guaifenesin/Dextromethorphan 200 Mg/10 Ml Cup PO 03/27/25 22:32 10 ml
Q4HPRN PRN Administration
productive cough
Heparin Sodium 5,000 units 02/26/25 08:00 03/12/25 22:13
Heparin 5,000 Units/Ml 1 Ml Vial SC 03/26/25 07:59 5,000 units
Q12 EHSAN Administration
Insulin Glargine 10 units/ 0.1 mls @ 0 mls/hr 02/26/25 22:00 03/12/25 22:14
Device SC 03/26/25 21:59 0.1 mls
HS EHSAN Administration
As Directed
Insulin Aspart 0 units 02/26/25 07:30 03/13/25 12:02
Insulin Aspart Low Resistance 300 Units/3 Ml Pen.Injctr SC 03/26/25 07:29 Not Given
AC EHSAN
Protocol
Levothyroxine Sodium 137 mcg 02/27/25 06:00 03/13/25 05:52
Levothyroxine 137 Mcg Tablet PO 03/27/25 05:59 137 mcg
DAILY @ 0600 EHSAN Administration
Mannitol 12.5 grams 03/13/25 08:00
Mannitol 25% (12.5 Grams/50 Ml) Vial IV 03/13/25 23:59
HD-Q1HPRN PRN
SBP < 90 mmHg
Melatonin 5 mg 03/05/25 22:00 03/11/25 22:22
Melatonin 5 Mg Tablet PO 04/02/25 21:59 5 mg
HSPRN PRN Administration
insomnia
Ondansetron HCl 4 mg 03/05/25 10:28 03/09/25 16:07
Ondansetron 4 Mg/2 Ml Vial IV 04/02/25 10:27 4 mg
Q6HPRN PRN Administration
NAUSEA/VOMITING
Pantoprazole Sodium 40 mg 02/26/25 08:00 03/12/25 09:39
Pantoprazole 40 Mg Delayed Release Tablet PO 03/26/25 07:59 40 mg
DAILY EHSAN Administration
Phenol 0 spray 03/07/25 06:07
Chloraseptic (1.4% Phenol) Throat [place] PO 04/04/25 06:06
Q2HPRN PRN
sore throat
Polyethylene Glycol 17 grams 03/04/25 18:00 03/12/25 09:45
Polyethylene Glycol Powder 17 Grams Packet PO 04/01/25 17:59 Not Given
DAILY EHSAN
Pregabalin 50 mg 03/05/25 12:22 03/12/25 09:39
Pregabalin 25 Mg Capsule PO 03/27/25 07:59 50 mg
DAILY EHSAN Administration
Senna/Docusate Sodium 1 tablet 03/04/25 20:00 03/12/25 22:14
Docusate W/Senna (Nel-Colace) Tablet PO 04/01/25 19:59 Not Given
BID EHSAN
Sevelamer Carbonate 1,600 mg 02/26/25 08:00 03/13/25 11:59
Sevelamer Carbonate (Renvela) 800 Mg Tablet PO 03/26/25 07:59 1,600 mg
MEALS EHSAN Administration
Sodium Chloride 0 flush 02/26/25 05:00 03/06/25 12:54
Sodium Chloride 0.9% (Flush) Syringe IV 03/26/25 04:59 1 flush
PER PROTOCOL EHSAN Administration
Sodium Chloride 0 sprays 03/11/25 20:09 03/11/25 22:11
Sodium Chloride 0.65% Nasal [place] 45 Ml Bottle NASAL 04/08/25 20:08 1 sprays
QIDPRN PRN Administration
nasal congestion/dryness
Sodium Chloride 10 ml 03/13/25 08:00
Sodium Chloride (4 Meq/Ml) 30 Ml Vial *For Hemodialysis* IV 03/13/25 23:59
HD-Q1HPRN PRN
cramps
Home Medications
-
Home Medications
atorvastatin 40 mg tablet 40 mg PO HS High cholesterol 02/13/20
sevelamer carbonate 800 mg tablet 1,600 mg PO MEALS Kidney Disease 07/30/21
levothyroxine 150 mcg tablet 150 mcg PO DAILY AT 0700 Thyroid 05/21/22
albuterol sulfate 90 mcg/actuation aerosol inhaler 2 puff inhalation R BID Lung/Breathing Issues 05/18/23
aspirin 81 mg tablet,delayed release 81 mg PO DAILY Blood Clot Prevention/Tx 05/18/23
gabapentin 100 mg capsule 100 mg PO HS Neurological Condition 05/18/23
insulin aspart U-100 100 unit/mL (3 mL) subcutaneous pen (Novolog FlexPen U-100 Insulin aspart) 0 - 6 sliding scale dose SC AC Diabetes 05/18/23
insulin glargine 100 unit/mL (3 mL) subcutaneous pen (Lantus Solostar U-100 Insulin) 10 unit SC HS Diabetes 05/18/23
pantoprazole 40 mg tablet,delayed release 40 mg PO DAILY #30 tabs 05/21/23
cyclobenzaprine 10 mg tablet 10 mg PO DAILYPRN PRN muscle spasms 02/26/25
furosemide 80 mg tablet (Lasix) 80 mg PO DAILY Fluid Retention/Swelling 02/26/25
pregabalin 100 mg capsule (Lyrica) 100 mg PO DAILY Antiseizure Agent, 02/26/25
semaglutide 0.25 mg or 0.5 mg (2 mg/3 mL) subcutaneous pen injector (Ozempic) 0.5 mg SC FRIEDMAN WEIGHT LOSS 02/26/25
zolpidem 5 mg tablet 5 mg PO HSPRN PRN insomnia 02/26/25
[2025-03-13 13:14] LABS: Hematocrit 30.2 % (37.0-47.0); Hemoglobin 10.0 g/dL (12.0-16.0); Mean Corp Hgb Conc. 33.1 g/dL (33.0-37.0); Mean Corpuscular Volume 95.0 fL (81.0-99.0); Platelet Count 141 10^3/uL (130-400); Red Cell Dist. Width 16.5 % (11.5-14.5)
[2025-03-13 13:34] LABS: Blood Urea Nitrogen 43 mg/dl (7-17); Calcium 9.3 mg/dl (8.4-10.2); Carbon Dioxide 24 mmol/L (22-30); Chloride 97 mmol/L (98-107); Estimated Creatinine Clearance 6 ml/min; Glucose 123 mg/dl (70-99); Potassium 5.4 mmol/L (3.5-5.1); Sodium 132 mmol/L (135-145); eGFR 4.72
[2025-03-13] MEDS: MIRALAX PO (14:24)
[2025-03-13] MEDS: SENOKOT-S PO (14:25)
[2025-03-13] MEDS: RETACRIT 6000 UNITS IV (14:53)
[2025-03-13 15:30] VITALS: BP 162/88
[2025-03-13] MEDS: TRILEPTAL 150 MG PO (16:22)
[2025-03-13] MEDS: LYRICA 75 MG PO (16:22)
[2025-03-13] MEDS: PROTONIX 40 MG PO (16:23)
[2025-03-13] MEDS: MUCINEX 600 MG PO ×2 (16:23→20:48)
[2025-03-13] MEDS: LIORESAL 2.5 MG PO ×2 (16:23→20:49)
[2025-03-13] MEDS: LASIX 80 MG PO (16:23)
[2025-03-13] MEDS: ASPIR LOW (ENTERIC COATED) 81 MG PO (16:24)
[2025-03-13] MEDS: RENVELA PO (16:24)
[2025-03-13] MEDS: HEPARIN 5000 UNITS SC ×2 (16:24→20:50)
[2025-03-13] MEDS: LASIX PO (16:24)
[2025-03-13] MEDS: HEPARIN 4700 UNITS INTRACATH (16:33)
[2025-03-13 16:34] LABS: Glucose - Point of Care 135 mg/dl (70-99)
--- NOTE | 2025-03-13 16:41 | W.PN.GI.CBS2 ---
Today's Communication / Plan
-
Mag citrate for fecal burden seen on AXR
Results of UGI reviewed no obstruction--presbyesophagus and small HH contributor. HOB elevated pre and post meals for at least 1 hr
Tolerating diet
Will sign off please call for ?
Assessment / Plan
-
Ifrah is a 74yo W with h/o DM, COPD, ESRD on HD who was admitted for weakness with confusion treated for PNA. She has had 13 day admission awaiting placement currently. GI consulted for dysphagia. She is known to me for chronic GERD and GAVE
with [facility] in the past. She feels overall reflux improved on protonix but still has breakthrough. She feels that since admission food slow to go down. She also reports constipation. Had good evacuation with enema but none since there is fecal
smearing at times.
Impression
- Dysphagia
Suspect esophagitis. She has had several EGDs last 06/2023
Ozempic may be contributor as worsens GERD
Also trigeminal autonomic cephalgia as well
- GERD
- Constipation
- Pelvic floor dysfunction
- PNA
- COPD
- ESRD on HD
- DM
- Obesity
Recommendation
- She is tolerating Diet
- Results of UGI reviewed with her by APPN without obstruction and copy given. HOB elevated pre and post meals
- C/w PPI BID
- AXR again shows fecal burden. mag citrate 10oz x2 now
- C/w miralax
GI will sign off please call for ?
Subjective
Subjective
Date of Service: March 13, 2025
She had UGI series and getting HD now. Tolerating diet welll
Objective
Data Reviewed
Laboratory Data:
Laboratory Results
03/13/25 13:00
03/13/25 13:00
Laboratory Results
Phosphorus 6.9 mg/dl (2.5-4.5) H 03/06/25 08:15
Magnesium 1.9 mg/dl (1.6-2.3) 03/12/25 09:11
Total Bilirubin 0.8 mg/dl (0.2-1.3) 02/25/25 22:46
AST 24 U/L (14-36) 02/25/25 22:46
ALT 15 U/L (0-35) 02/25/25 22:46
Alkaline Phosphatase 124 U/L (38-126) 02/25/25 22:46
Vital Signs and I&O:
Vital Signs
Temp Pulse Resp BP Pulse Ox
97.4 F 85 16 189/85 99
03/13/25 07:00 03/13/25 07:47 03/13/25 07:47 03/13/25 07:00 03/13/25 07:47
I&O
03/12/25 03/13/25 03/14/25
06:59 06:59 06:59
Intake Total 120 / 120 1919
Balance 120 / 120 1919
Physical Exam
Physical Exam
GEN: No acute distress, conversant, pleasant obese depressed affect
HEENT: anicteric, extraocular movements intact, clear oropharynx without exudates
GI: soft, mildly-distended, not tender to palpation, normal active bowel sounds, no hepatosplenomegaly
EXT: warm, well perfused, trace edema bilaterally
NEURO: AAOx3, non-focal
[2025-03-13] MEDS: CITROMA 300 ML PO (16:54)
[2025-03-13] MEDS: LYRICA PO (16:54)
[2025-03-13] MEDS: SENOKOT-S 1 TABLET PO (20:49)
[2025-03-13 21:25] LABS: Glucose - Point of Care 128 mg/dl (70-99)
[2025-03-13] MEDS: LANTUS 0.1 UNITS SC (22:14)
[2025-03-13] MEDS: LIPITOR 40 MG PO (22:15)
[2025-03-13] MEDS: MELATONIN 5 MG PO (22:15)
[2025-03-13] MEDS: ANESTHETIC LOZENGE 1 LOZENGE PO (22:25)
[2025-03-13] MEDS: TESSALON PERLES 200 MG PO (22:25)
[2025-03-13 23:10] VITALS: BP 141/69
[2025-03-14] MEDS: SYNTHROID 137 MCG PO (05:01)
[2025-03-14 06:00] VITALS: BMI 38.1
[2025-03-14] MEDS: SYMBICORT 160/4.5 MCG INHALER 2 PUFF INH ×2 (07:22→19:46)
[2025-03-14 07:58] VITALS: BP 136/72
[2025-03-14 08:05] LABS: Glucose - Point of Care 106 mg/dl (70-99)
[2025-03-14] MEDS: ASPIR LOW (ENTERIC COATED) 81 MG PO (08:16)
[2025-03-14] MEDS: NOVOLOG FLEXPEN-LOW RESISTANCE SC ×2 (08:16→18:02)
[2025-03-14] MEDS: TRILEPTAL 150 MG PO (08:16)
[2025-03-14] MEDS: RENVELA 1600 MG PO ×3 (08:17→18:01)
[2025-03-14] MEDS: MUCINEX 600 MG PO ×2 (08:17→20:26)
[2025-03-14] MEDS: LIORESAL 2.5 MG PO ×2 (08:17→20:26)
[2025-03-14] MEDS: SENOKOT-S 1 TABLET PO (08:17)
[2025-03-14] MEDS: PROTONIX 40 MG PO (08:17)
[2025-03-14] MEDS: MIRALAX PO (08:18)
[2025-03-14] MEDS: LASIX 80 MG PO ×2 (08:19→18:00)
[2025-03-14] MEDS: LYRICA 75 MG PO (08:19)
[2025-03-14] MEDS: HEPARIN 5000 UNITS SC ×2 (08:19→20:27)
[2025-03-14 11:37] LABS: Glucose - Point of Care 172 mg/dl (70-99)
--- NOTE | 2025-03-14 11:48 | W.PN.NEPH.PH ---
Today's Communication / Plan
-
Dialysis tomorrow
Assessment/Plan
-
Assessment
ESRD
weakness
chronic pain
nausea
anemia
DM2
HTN
failed AV access, now CVC
Plan
MWF HD to continue,orders provided
MRIs without acute findings per review of report
await rehab placement
Maintain phosphate binders with meals re: hyperphosphatemia
Patient with fecal incontinence repeat MRI has been ordered by hospitalist
-
-
Date of Service: March 14, 2025
CC / HPI / ROS
-
Chief Complaint:
Follow-up ESRD
History of Present Illness:
BP stable
hb stable
ESRD Tuesday
Review of Systems:
eating this morning
nausea
no cp
no n/v
Labs
-
Labs:
WBC 8.3 10^3/uL (4.8-10.8) 03/13/25 13:00
RBC 3.18 10^6/uL (4.20-5.40) L 03/13/25 13:00
Hgb 10.0 g/dL (12.0-16.0) L 03/13/25 13:00
Hct 30.2 % (37.0-47.0) L 03/13/25 13:00
Plt Count 141 10^3/uL (130-400) 03/13/25 13:00
Sodium 132 mmol/L (135-145) L 03/13/25 13:00
Potassium 5.4 mmol/L (3.5-5.1) H 03/13/25 13:00
Chloride 97 mmol/L (98-107) L 03/13/25 13:00
Carbon Dioxide 24 mmol/L (22-30) 03/13/25 13:00
BUN 43 mg/dl (7-17) H 03/13/25 13:00
Creatinine 8.3 mg/dL (0.6-1.0) H* 03/13/25 13:00
eGFR 4.72 03/13/25 13:00
Glucose 123 mg/dl (70-99) H 03/13/25 13:00
Calcium 9.3 mg/dl (8.4-10.2) 03/13/25 13:00
Phosphorus 6.9 mg/dl (2.5-4.5) H 03/06/25 08:15
Hzm-S-Hhlrcnpxdvr Pept 9170 pg/ml 02/25/25 23:52
Albumin 3.8 g/dl (3.5-5.0) 02/25/25 22:46
Physical Exam
-
Vital Signs:
Vital Signs
Temp Pulse Resp BP Pulse Ox
97.6 F 85 17 136/72 95
03/14/25 07:58 03/14/25 07:58 03/14/25 07:58 03/14/25 07:58 03/14/25 07:58
Cardiovascular:: Regular rate and rhythm
Respiratory:: Bilateral: CTA
Lung Excursion:: Normal
Abdomen:: Nontender and Soft
Bowel Sounds:: Normal
Extremity Edema:: None: Bilateral:
Orantes Catheter: No
[2025-03-14] MEDS: NOVOLOG FLEXPEN-LOW RESISTANCE 1 UNITS SC (12:25)
[2025-03-14 13:03] VITALS: BP 117/88
--- NOTE | 2025-03-14 13:07 | CM ---
Addendum entered by Danielle Torres RN 03/14/25 14:30:
Sara at [facility] said no HD chair but [facility] has HD bed.
Spoke with patient and her dgt Norma [phone] . Barrientos agree with [facility] for SNF and HD.
Dgt said she can transport to SNF
Spoke with Sara at [facility] she called back to say she can offer a HD bed at [facility] .Auth information below given to Sara .
Sara requested HD flow sheets , H and P labs, HD MD notes . All faxed to [phone].
Awaiting acceptance at [facility] for HD.
[facility] address [address], [place] , [address]
report [phone] or [phone]

PLAN To [facility] after pt accepted by HD.
Original Note:
Patient accepted at [facility], NPI# [id number], - Dr Horn, NPI# [id number]
[facility] for [facility] authorization, spoke with Margarito.
Approved skilled rehab at [facility] for 5 days.
Start date today 03/14/25, LCD 03/18/25
Reference# [id number]
updates to fax# [phone]
[2025-03-14 17:39] LABS: Glucose - Point of Care 143 mg/dl (70-99)
--- NOTE | 2025-03-14 18:22 | VATNOTE ---
Notified by pt's PCN that MRI used pt's L tunnelled HD cath to administer contrast for MRI. Spoke w/ technology lab teacher and she flushed with 10 mL NSS, 20 mL contrast, then another 10 mL NSS. Per technology lab teacher, she thought pt had a port. Metal Forger'S Assistant notified and
HD RN notified. Per HD nurse, the lumen that was used should be flushed w/ 20 mL NSS and then a new cap should be placed on lumen. Upon assessment of HD cath, the blue lumen was not clamped, the red lumen was clamped. Per RI tech, she used the blue
lumen to instill the inject the contrast. This VAT RN cleaned the end of the lumen w/ CHG, flushed the blue lumen w/ 20 mL sterile NSS, and replaced the cap. Will continue to monitor.
--- NOTE | 2025-03-14 18:54 | W.PN.HOSP.TC ---
Today's Communication/Plan
-
See plan
Assessment / Plan
Assessment / Plan
Physical Exam
General: Not acute distress, appears relatively comfortable at this time
HEENT: Normocephalic. Moist mucous membranes
Respiratory: clear to auscultation b/l
Cardiac: S1/S2 and Regular Rhythm
GI: Soft, Non Tender, Non Distended and Normal Bowel Sounds
Musculoskeletal: No Cyanosis
Neuro: AAO x 3 conversant coherent
Psych: calm
Assessment/Plan
74 y/o female with past medical history significant for ESRD on HD, DM-II and GERD / GAVE who presented to [facility] ED for evaluation of lethargy, weakness and confusion. History obtained from patient and her daughter at the bedside. Patient stated that
she has felt weak and fatigued for ~1 week prior to arrival. She reported hacking, non-productive cough. No noted fever. She lives with her two daughters - who were out of town over the past weekend and returned home on 02/25/25. No one else in
the house has been ill. Patient went to her usual HD on the morning of 02/25/25 (family monitored her comings and anirudh via Ring camera to confirm this).
Patient stated that she 'must have' fallen asleep or passed out on dialysis. HD staff reportedly informed her that she had N/V during her session. Patient does not recall this.
She was told to present to the [facility] ED after HD, but was too tired and took the bus home instead. At home she climbed two flights of stairs - stopping midway due to fatigue - and went back to bed.
When daughters returned home on 02/25/25 evening, they found the patient lying on her bedroom floor confused and disoriented. Patient does not recall falling from bed. She complains of L sided headache and neck discomfort. Daughters helped the
patient to bed (around 7PM) and she fell back to sleep. Patient then called out to her daughters again around 9:30 PM and they went to find her again on the floor.
Patient states that her newest medication with zolpidem. She complains of chronic insomnia and notes that this has been helping. She started this < 2 weeks ago.
No other new medications. She does however also take Lyrica, gabapentin and cyclobenzaprine.
Dysphagia
- Patient is tolerating Diet
- Recently increased PPI to BID -- continued
- AXR to eval fecal burden
- C/w miralax
- UGI study showed no obstruction
- Aspiration precautions; HOB elevated pre and post meals
Left leg reduced sensation
Fecal incontinence (more so with coughing)
-Follow-up MRI Thoracic and Lumbar Spine with and without contrast
-On 03/13/25, I spoke with paper guillotine operator Dr. Melgar who said it is fine to do MRI contrast in the setting of ESRD
-Since contrast was given through patient's HD catheter during MRI, paper guillotine operator recommended 1x doses of antibiotics, discussed this case with on-call infectious disease Dr. Man and also on-call paper guillotine operator, and the recommendation was to provide
patient with Vancomycin 1 gram IV and Merrem 500 mg IV (both ordered)
Pneumonia (Right>Left)
Sepsis secondary to the above
Chills and feeling feverish at home
- Cough x 1 week, leukocytosis with L shift, tachycardia and tachypnea on arrival.
- CXR with bibasilar opacities - L > R.
- COVID negative in the ED.
- Vancomycin previously stopped as MRSA negative
- On 02/28/25, changed Zosyn to Unasyn --> plan for a total of 7 days of antibiotics (first day of antibiotics was 02/26/25) --> switch to Augmentin (renally-dosed), last day of antibiotics is 03/04/25
- Bronchodilators and steroids (steroids course completed)
- Speech evaluation unremarkable
- Home/outpatient oxygen assessment performed on 03/01/25 -- does not need outpatient oxygen
Syncope/Encephalopathy
-possibly secondary to sepsis as noted above versus med effect - or combination thereof
- concern for possible Polypharmacy (gabapentin, Flexeril, Lyrica and Zolpidem)
- Lyrica resumed at lower dose. Zolpidem on hold. Trial PRN melatonin
- cont prn Flexeril
- Vasovagal episodes also possible considering vomiting and syncope while on hemodialysis.
- Echo with EF 55% and worsened MR
- Patient since improved
Mild intermittent asthma with acute exacerbation
History of Childhood Asthma
- [facility]
- On 02/26/25, wheezing on exam, together with fatigue and SOB
- Ordered Duonebs and Pulmicort
- Prednisone 40 mg daily for 5 days completed
- Pulm eval appreciated
- At the time of discharge, start Symbicort or generic version Breyna
- outpatient pulmonary follow-up
Nausea/vomiting suspect d/t severe constipation
-03/05 Abd X-ray appreciated moderate fecal matter colon no obstruction
-prn zofran
-bowel regimen miralax senokot-s
-prn bisacodyl suppository
-03/06/25 once fleet enema, no improvement noted
-03/07/25 once milk and molasses enema
-Miralax for constipation -- but hold Miralax if diarrhea -- patient had diarrhea after Miralax and Mag Citrate
Chronic Dyspnea on exertion - likely multifactorial -- obstructive and restrictive lung disease, pneumonia, morbid obesity, heart failure, ESRD, physical deconditioning
Significantly elevated proBNP
- Repeat echo showed EF 55% with worsened mitral regurgitation
- Appreciate cardiology input: no need for GDMT right now, follow-up outpatient, nothing else to do from cardio standpoint right now
ESRD on HD
- Nephrology evaluation for HD needs during acute stay.
- Continue patient's home Furosemide but at 80 mg BID instead of daily
Hypomagnesemia
-monitor and replete as necessary
Trigeminal Neuralgia vs Trigeminal Autonomic Cephalgia (type of headache)
Left-sided facial pain
Left Ear Otitis Externa ruled out
cipro ear drops discontinued
Lyrica increased to 50 mg daily (dose to be given after dialysis on dialysis days)
Gabapentin discontinued in favor of increased dose Lyrica as above (doesn't make sense to be on both Lyrica and gabapentin)
oxcarbazepine 150 mg BID started, patient since noted significant improvement in left sided facial/head pain though not resolved, briefly increased to 300 mg BID since tapered back to 150 mg d/t the following.
Neuro eval appreciated assessed more likely Trigeminal Autonomic Cephalgia or other form of headache
-recommended tapering off Lyrica and Oxcarbazepine (concern toxic-metabolic myoclonus and polyneuropathy) patient however notes significant improvement with oxcarbazepine (more so than with Lyrica) would attempt to taper off Lyrica first,
oxcarbazepine was stopped, but restarted on 03/13/25, and Baclofen added as per neurology; Lyrica restarted 03/13/25
-prn Oxygen therapy NRB w/ at least 7L for 15 min while sitting upright (patient notes significant relief headache with this therapy)
-recommended prn cocktail Toradol/Benadryl/Reglan however pharmacy expressed significant concerns regarding use Toradol/High dose NSAID in ESRD patient. Holding off for now, especially since other therapies effective as above
ASCVD
Chronic HFpEF
- Stable. Continue ASA, statin, etc.
- Home Lasix resumed at increased dose 80 mg BID as per Nephro
- Patient sees [facility] Cardiology outpatient
- ECHO noted as above
DM-II
- Stable. Continue current regimen.
- Follow glucose and cover with SSI as needed.
Hypothyroidism
- TSH somewhat suppressed and free T4 elevated this hospitalization
- Home Levothyroxine reduced from 150 mcg to 137 mcg daily
- repeat TFT in 1 month
GERD / GAVE / Hiatal Hernia
- Stable. Prior h/o GI bleeding.
- Continue PPI.
Morbid Obesity
- Affects all aspects of care.
- Encourage healthy diet and increased activity as tolerated with goal of weight loss.
Shellfish Allergy
case mgmt gaby appreciated pt accepted to [facility] acute rehab, awaiting insurance auth
DVT Prophylaxis: Subcutaneous Heparin
Code Status: Full Code
Dr. Walls discussed with patient and patient's daughters Felisa and same name Ifrah
Anticipated Discharge: 24 - 48 hours
Subjective/Interval History
-
Date of Service: March 14, 2025
Patient was seen and examined. She reported that her pain was better today.
Objective Data
-
Vital Signs:
Vital Signs
Temp Pulse Resp BP Pulse Ox
97.6 F 85 17 136/72 95
03/14/25 07:58 03/14/25 07:58 03/14/25 07:58 03/14/25 07:58 03/14/25 07:58
I&O
03/13/25 03/14/25 03/15/25
06:59 06:59 06:59
Intake Total 1919 1280 / 1280
Balance 1919 1280 / 1280
[2025-03-14] MEDS: STERILE WATER FOR INJECTION 10 ML IV (20:24)
[2025-03-14] MEDS: MERREM 500 MG IV (20:24)
[2025-03-14] MEDS: VANCOCIN 200 IV (20:27)
[2025-03-14] MEDS: FLEXERIL 10 MG PO (20:33)
[2025-03-14] MEDS: SENOKOT-S PO (21:03)
[2025-03-14] MEDS: ANESTHETIC LOZENGE 1 LOZENGE PO (21:20)
[2025-03-14] MEDS: MELATONIN 5 MG PO (21:20)
[2025-03-14] MEDS: LIPITOR 40 MG PO (21:20)
[2025-03-14 21:31] LABS: Glucose - Point of Care 178 mg/dl (70-99)
[2025-03-14] MEDS: LANTUS 0.1 UNITS SC (21:34)
[2025-03-14 23:00] VITALS: BP 195/79
[2025-03-15 03:00] VITALS: BP 145/110
[2025-03-15 06:00] VITALS: BMI 38.1
[2025-03-15] MEDS: SYNTHROID 137 MCG PO (06:31)
[2025-03-15 07:20] VITALS: BP 168/68
[2025-03-15] MEDS: MIRALAX PO (07:49)
[2025-03-15] MEDS: TRILEPTAL 150 MG PO (07:50)
[2025-03-15] MEDS: PROTONIX 40 MG PO (07:50)
[2025-03-15] MEDS: LIORESAL 2.5 MG PO (07:50)
[2025-03-15] MEDS: RENVELA PO ×4 (07:50→12:34)
[2025-03-15] MEDS: LASIX 80 MG PO ×2 (07:50→15:44)
[2025-03-15] MEDS: ASPIR LOW (ENTERIC COATED) 81 MG PO (07:50)
[2025-03-15] MEDS: MUCINEX 600 MG PO (07:50)
[2025-03-15] MEDS: LYRICA 75 MG PO (07:50)
[2025-03-15] MEDS: HEPARIN SC (07:54)
[2025-03-15] MEDS: SENOKOT-S PO (07:54)
[2025-03-15 08:02] LABS: Glucose - Point of Care 100 mg/dl (70-99)
--- NOTE | 2025-03-15 08:03 | W.PN.HOSP.TC ---
Today's Communication/Plan
-
Discharge today
Assessment / Plan
Assessment / Plan
Physical Exam
General: Not acute distress, appears relatively comfortable at this time
HEENT: Normocephalic. Moist mucous membranes
Respiratory: clear to auscultation b/l
Cardiac: S1/S2 and Regular Rhythm
GI: Soft, Non Tender, Non Distended and Normal Bowel Sounds
Musculoskeletal: No Cyanosis
Neuro: AAOx3
Psych: calm
Assessment/Plan
74 y/o female with past medical history significant for ESRD on HD, DM-II and GERD / GAVE who presented to [facility] ED for evaluation of lethargy, weakness and confusion. History obtained from patient and her daughter at the bedside. Patient stated that
she has felt weak and fatigued for ~1 week prior to arrival. She reported hacking, non-productive cough. No noted fever. She lives with her two daughters - who were out of town over the past weekend and returned home on 02/25/25. No one else in
the house has been ill. Patient went to her usual HD on the morning of 02/25/25 (family monitored her comings and anirudh via Ring camera to confirm this).
Patient stated that she 'must have' fallen asleep or passed out on dialysis. HD staff reportedly informed her that she had N/V during her session. Patient does not recall this.
She was told to present to the [facility] ED after HD, but was too tired and took the bus home instead. At home she climbed two flights of stairs - stopping midway due to fatigue - and went back to bed.
When daughters returned home on 02/25/25 evening, they found the patient lying on her bedroom floor confused and disoriented. Patient does not recall falling from bed. She complains of L sided headache and neck discomfort. Daughters helped the
patient to bed (around 7PM) and she fell back to sleep. Patient then called out to her daughters again around 9:30 PM and they went to find her again on the floor.
Patient states that her newest medication with zolpidem. She complains of chronic insomnia and notes that this has been helping. She started this < 2 weeks ago.
No other new medications. She does however also take Lyrica, gabapentin and cyclobenzaprine.
Dysphagia
- Patient is tolerating Diet
- Recently increased PPI to BID -- continued
- AXR to eval fecal burden
- C/w miralax/bowel regimen, hold for diarrhea
- UGI study showed no obstruction -- showed presbyesophagus and small HH contributor.
- Aspiration precautions; HOB elevated pre and post meals
- THIN LIQUIDS
Left leg reduced sensation
Fecal incontinence (more so with coughing)
-Follow-up MRI Thoracic and Lumbar Spine with and without contrast without significant findings to explain above symptoms
-Provide all of patient's imaging reports with patient on the discharge paperwork
-On 03/13/25, I spoke with company pilot Dr. Melgar who said it is fine to do MRI contrast in the setting of ESRD
-Since contrast was given through patient's HD catheter during MRI, company pilot recommended 1x doses of antibiotics, discussed this case with on-call infectious disease Dr. Man and also on-call company pilot, and the recommendation was to provide
patient with Vancomycin 1 gram IV and Merrem 500 mg IV (both ordered)
Pneumonia (Right>Left)
Sepsis secondary to the above
Chills and feeling feverish at home
- Cough x 1 week, leukocytosis with L shift, tachycardia and tachypnea on arrival.
- CXR with bibasilar opacities - L > R.
- COVID negative in the ED.
- Vancomycin previously stopped as MRSA negative
- On 02/28/25, changed Zosyn to Unasyn --> plan for a total of 7 days of antibiotics (first day of antibiotics was 02/26/25) --> switch to Augmentin (renally-dosed), last day of antibiotics is 03/04/25
- Bronchodilators and steroids (steroids course completed)
- Speech evaluation unremarkable
- Home/outpatient oxygen assessment performed on 03/01/25 -- does not need outpatient oxygen
Severe bilateral hip osteoarthritis
Syncope/Encephalopathy -- suspected from polypharmacy and pneumonia
-possibly secondary to sepsis as noted above versus med effect - or combination thereof
- concern for possible Polypharmacy (gabapentin, Flexeril, Lyrica and Zolpidem) -- continue current medication regimen as patient improved on this regimen
- Vasovagal episodes also possible considering vomiting and syncope while on hemodialysis.
- Echo with EF 55% and worsened MR
- Patient since improved
- Follow fall precautions
Mild intermittent asthma with acute exacerbation
History of Childhood Asthma
- Patient sees outpatient pulmonary at [facility]
- On 02/26/25, wheezing on exam, together with fatigue and SOB
- Ordered Duonebs and Pulmicort
- Prednisone 40 mg daily for 5 days completed
- Pulm eval appreciated
- Continue Symbicort twice a day scheduled at discharge
- Monitor oxygen saturations
- outpatient pulmonary follow-up
Nausea/vomiting suspect due to severe constipation
-03/05 Abd X-ray appreciated moderate fecal matter colon no obstruction
-prn zofran
-bowel regimen miralax senokot-s
-prn bisacodyl suppository
-03/06/25 once fleet enema, no improvement noted
-03/07/25 once milk and molasses enema
-Miralax for constipation -- but hold Miralax if diarrhea -- patient had diarrhea after Miralax and Mag Citrate
Chronic Dyspnea on exertion - likely multifactorial -- obstructive and restrictive lung disease, pneumonia, morbid obesity, heart failure, ESRD, physical deconditioning
Significantly elevated proBNP
- Repeat echo showed EF 55% with worsened mitral regurgitation
- Appreciate cardiology input: no need for GDMT right now, follow-up outpatient, nothing else to do from cardio standpoint right now
ESRD on HD
- Nephrology evaluation for HD needs during acute stay.
- Continue patient's home Furosemide but at 80 mg BID instead of daily
Hypomagnesemia
-monitor and replete as necessary
-Recheck labs outpatient
Trigeminal Neuralgia vs Trigeminal Autonomic Cephalgia (type of headache)
Left-sided facial pain
Left Ear Otitis Externa ruled out
cipro ear drops discontinued
Lyrica increased to 50 mg daily (dose to be given after dialysis on dialysis days)
Gabapentin discontinued in favor of increased dose Lyrica as above (doesn't make sense to be on both Lyrica and gabapentin)
oxcarbazepine 150 mg BID started, patient since noted significant improvement in left sided facial/head pain though not resolved, briefly increased to 300 mg BID since tapered back to 150 mg d/t the following.
Neuro eval appreciated assessed more likely Trigeminal Autonomic Cephalgia or other form of headache
-recommended tapering off Lyrica and Oxcarbazepine (concern toxic-metabolic myoclonus and polyneuropathy) patient however notes significant improvement with oxcarbazepine (more so than with Lyrica) would attempt to taper off Lyrica first,
oxcarbazepine was stopped, but restarted on 03/13/25, and Baclofen added as per neurology; Lyrica restarted 03/13/25
-prn Oxygen therapy NRB w/ at least 7L for 15 min while sitting upright (patient notes significant relief headache with this therapy)
-recommended prn cocktail Toradol/Benadryl/Reglan however pharmacy expressed significant concerns regarding use Toradol/High dose NSAID in ESRD patient. Holding off for now, especially since other therapies effective as above
FINAL DISCHARGE MED REGIMEN FOR ABOVE
-Continue Trileptal 150 mg once a day
-Continue Baclofen 2.5 mg 3 times daily
-Continue Lyrica 75 mg QD
-Will need outpatient ENT consult
Hypertension
ASCVD
Chronic HFpEF
- Stable. Continue ASA, statin, etc.
- Home Lasix resumed at increased dose 80 mg BID as per Nephro
- Patient sees [facility] outpatient
- Patient needs repeat echo in 1 year
- ECHO noted as above
Type 2 Diabetes Mellitus
- Stable. Continue current regimen.
- Follow glucose and cover with SSI as needed.
Hypothyroidism (on replacement)
- TSH somewhat suppressed and free T4 elevated this hospitalization
- Home Levothyroxine reduced from 150 mcg to 137 mcg daily
- repeat TFT in 2 weeks
Hypercholesterolemia
GERD / GAVE / Hiatal Hernia
- Stable. Prior h/o GI bleeding.
- Continue PPI.
History of Depression
Morbid Obesity
- Affects all aspects of care.
- Encourage healthy diet and increased activity as tolerated with goal of weight loss.
- Follow-up outpatient with [facility] pulmonary
- Will need sleep study
Shellfish Allergy
DVT Prophylaxis: Subcutaneous Heparin
Code Status: Full Code
Dr. Walls discussed with patient and patient's daughters Felisa and same name Ifrah
More than 30 minutes spent in discharge including
Final examination of the patient
Summarizing hospital stay
Instructions for continuing care to all relevant caregivers
Preparation of discharge records, prescriptions, and referral forms
Total time spent (in minutes): 43
Anticipated Discharge: Today
Subjective/Interval History
-
Date of Service: March 15, 2025
Patient was seen and examined. She was getting dialysis. Overnight, she received medication for headache.
Objective Data
-
Labs:
Laboratory Results
03/15/25
06:00
WBC Pending
Hgb Pending
Hct Pending
Plt Count Pending
Sodium Pending
Potassium Pending
Chloride Pending
Carbon Dioxide Pending
BUN Pending
Creatinine Pending
Glucose Pending
Calcium Pending
Vital Signs:
Vital Signs
Temp Pulse Resp BP Pulse Ox
97.8 F 77 18 168/68 99
03/15/25 03:00 03/15/25 07:50 03/15/25 03:00 03/15/25 07:50 03/15/25 03:00
I&O
03/14/25 03/15/25 03/16/25
06:59 06:59 06:59
Intake Total 1280 / 1280 320 / 320
Balance 1280 / 1280 320 / 320
[2025-03-15] MEDS: NOVOLOG FLEXPEN-LOW RESISTANCE SC ×3 (08:04→15:50)
[2025-03-15] MEDS: SYMBICORT 160/4.5 MCG INHALER 2 PUFF INH (08:05)
[2025-03-15] MEDS: TYLENOL 650 MG PO (08:23)
[2025-03-15 08:57] LABS: Hematocrit 31.6 % (37.0-47.0); Hemoglobin 10.1 g/dL (12.0-16.0); Mean Corp Hgb Conc. 32.0 g/dL (33.0-37.0); Mean Corpuscular Volume 94.9 fL (81.0-99.0); Platelet Count 134 10^3/uL (130-400); Red Cell Dist. Width 16.4 % (11.5-14.5)
[2025-03-15 09:32] LABS: Blood Urea Nitrogen 34 mg/dl (7-17); Calcium 8.9 mg/dl (8.4-10.2); Carbon Dioxide 28 mmol/L (22-30); Chloride 99 mmol/L (98-107); Estimated Creatinine Clearance 7 ml/min; Glucose 96 mg/dl (70-99); Magnesium 2.3 mg/dl (1.6-2.3); Potassium 5.3 mmol/L (3.5-5.1); Sodium 135 mmol/L (135-145); eGFR 5.42
--- NOTE | 2025-03-15 09:50 | CM ---
Sara accepted pt at [facility] for HD too.
[facility] [employer] [facility] authorization,Reference# [id number]
updates to fax# [phone] Approved skilled rehab at [facility] for 5 days.
Start date today 03/14/25, LCD 03/18/25 Sara is aware.
Sara at [facility] said no HD chair but [facility] has HD bed.
Spoke with patient and her dgt Norma [phone] .Agrees with [facility] for SNF and HD.
Dgt said she can transport to SNF
RN aware of above.
[facility] address [address], [place] , [address]
report [phone] or [phone]

PLAN To [facility] after pt accepted by HD.
--- NOTE | 2025-03-15 09:51 | W.PN.NEPH.HD ---
Assessment
-
Patient seen on dialysis
Systolic blood pressure elevated at current UF
For discharge to [place] rehab after dialysis today
Progress Note - Hemodialysis
-
Date of Service: March 15, 2025
Duration: 30 minutes and 3 hours
Potassium Bath: 2
Calcium Bath: 2.5
Opti-Dialyzer: 160
Ultrafiltration: Other (2.5kg)
Blood Flow: 400
Dialysate Flow: 600
Heparin: none
EPO: given
[2025-03-15] MEDS: RETACRIT 4000 UNITS IV (11:46)
[2025-03-15 11:56] LABS: Glucose - Point of Care 107 mg/dl (70-99)
--- NOTE | 2025-03-15 14:47 | W.DCSUMMARY ---
Discharge Summary
Discharge Data
Date of Admission: 02/26/25
Date of Discharge: 03/15/25
Total time spent discharging patient (in min): 43
-
Pending Results: No
Hospital Course
74 y F with PMH significant for ESRD on HD, Type 2 Diabetes Mellitus and GERD/GAVE who presented to the [facility] emergency room for evaluation of lethargy, weakness, syncope and confusion. Patient was started on antibiotics for pneumonia and her
sedating medications were held. Given her reports of pain, some of her sedating pain medications were gradually resumed, and she tolerated them well. Bronchodilators were started and pulmonary was consulted for patient's shortness of breath in
setting of asthma exacerbation. Prednisone was added and patient's asthma symptoms and wheezing improved. Nephrology was consulted for dialysis and patient was continued on dialysis. Since patient's echocardiogram showed worsening mitral
regurgitation, cardiology was consulted to see whether this was contributing to patient's shortness of breath -- cardiology recommended continuing volume removal as much as possible through dialysis. Echocardiogram would need to be repeated in 1
year. Patient's symptoms improved significantly. Physiatry was consulted and they evaluated patient. Patient was treated with bowel regimen for constipation. Patient had head and facial pain, and was temporarily treated for otitis externa (later
otitis externa was ruled out and Cipro drops were stopped). Lyrica was increased to help with the pain. Gabapentin was stopped. Later Oxcarbazepine had to be started and increased to help with the pain. Neurology also recommended supplementation
oxygen therapy to help with the pain, and it did help. Neurology also recommended low dose Baclofen to help with patient's significant head and facial pain. NSAIDs type of medications were not preferred due to patient's end stage renal disease.
Patiet reported some dysphagia and gastroenterology was consulted and they recommended pantoprazole 40 mg twice per day. Patient reported some fecal incontinence which was new therefore MRI of her thoracolumbar spine was checked. The results of
patient's upper gastrointestinal x-ray showed no obstruction--presbyesophagus and small HH contributor, gastroenterology recommended aspiration precautions with head of bed upright. Patient was okay for discharge with Trileptal 150 mg once a day,
Baclofen 2.5 mg 3 times daily and Lyrica 75 mg QD, for her severe pain, as per neurology recommendations. Patient would need outpatient ENT consult.
Discharge Plan
-
Patient Disposition: [facility]/SNF
Discharge Diagnosis/Procedures: Dysphagia -- UGI study showed no obstruction -- showed presbyesophagus and small hiatal hernia contributor
Left leg reduced sensation
Fecal incontinence (more so with coughing)
Iron overload on thoracolumbar MRI in February 2025 hospitalization?
Pneumonia (Right>Left)
Sepsis secondary to the above
Chills and feeling feverish at home
Severe bilateral hip osteoarthritis
Syncope/Encephalopathy -- suspected from polypharmacy and pneumonia
Mild intermittent asthma with acute exacerbation
History of Childhood Asthma
Nausea/vomiting suspect due to severe constipation
Chronic Dyspnea on exertion - likely multifactorial -- obstructive and restrictive lung disease, pneumonia, morbid obesity, heart failure, ESRD, physical deconditioning
Significantly elevated proBNP
ESRD on HD
Hypomagnesemia
Trigeminal Neuralgia vs Trigeminal Autonomic Cephalgia (type of headache)
Left-sided facial pain
Hypertension
Atherosclerotic Cardiovascular Disease
Chronic HFpEF
Type 2 Diabetes Mellitus
Hypothyroidism (on replacement)
Hypercholesterolemia
GERD / GAVE / Hiatal Hernia
History of Depression
Morbid Obesity
Condition: Fair
Diet: Diabetic, Carb Controlled and Other diet
Additional Diets: RENAL DIALYSIS DIET AND THIN LIQUIDS
Activity: With assistance
Driving Restrictions: No driving
Blood Work: Check CBC, CMP, Magnesium within 3 to 4 days. Check thyroid function tests in 2 to 3 weeks.
Other Services: PT
Specialty Instructions: Weigh Daily- Call MD for wt gain/loss 3 lbs overnight/5 lbs in 1 week
Activity Restrictions/Additional Instructions:
To Nurse: please provide all of patient's imaging reports (from this hospitalization) with patient on the discharge paperwork
PLEASE FOLLOW ASPIRATION PRECAUTIONS. Also head of bed elevated pre-meals and post-meals
PLEASE FOLLOW FALL PRECAUTIONS
Patient sees [facility] Cardiology outpatient
- Patient needs repeat echocardiogram in 1 year
Referrals:
Miquel Feliz MD [Active, Pulmonary Medicine] - in one month
Tobias Montiel MD [Active, Otology] - in two to three weeks
Referral Note: Facial pain follow-up
Tej hCavez MD [Family Provider, [facility]] - in less than 1 week
Referral Note: Hospitalization Follow-Up. Your office will need to obtain copies of all the imaging reports from February 2025 [facility] Hospitalization
Additional Discharge Medication Instructions: Pantoprazole has been increased from 40 mg once per day to 40 mg twice per day given your swallowing symptoms
Miralax and Senokot-S are new medications for constipation
Furosemide increased to 80 mg BID from once a day
Symbicort is a new medication to help with breathing
Oxcarbazepine and Baclofen are new medications to help with face and head pain
Your Pregabalin has been reduced to 75 mg daily from 100 mg daily to reduce side effects
Zolpidem and Gabapentin have been stopped to reduce chances of drowsiness and falls
Prescriptions:
New
Chloraseptic Sore Throat 6-10 mg Lozenge
1 aury PO Q4HPRN PRN (Reason: throat irritation) Qty: 18 0RF
furosemide 80 mg Tablet
80 mg PO BID@0800,1600 Qty: 60 1RF
levothyroxine 137 mcg Tablet
137 mcg PO DAILY @ 0600 Qty: 30 1RF
baclofen 5 mg Tablet
2.5 mg PO Q12 Qty: 60 1RF
pregabalin 75 mg Capsule
75 mg PO DAILY Qty: 30 1RF
melatonin 5 mg Tablet
5 mg PO HSPRN PRN (Reason: insomnia) Qty: 30 0RF
polyethylene glycol 3350 17 gram Powder In Packet
17 g PO DAILY Qty: 30 0RF
guaifenesin 600 mg Tablet Extended Release 12hr
600 mg PO Q12 Qty: 10 0RF
pantoprazole 40 mg Tablet,Delayed Release (Dr/Ec)
40 mg PO BID Qty: 60 0RF
sennosides-docusate sodium [Senna Plus] 8.6-50 mg Tablet
1 tab PO BID Qty: 60 0RF
budesonide-formoterol [Symbicort] 160-4.5 mcg/actuation Hfa Aerosol Inhaler
2 puff inhalation R BID Qty: 10.2 0RF
oxcarbazepine 150 mg Tablet
150 mg PO DAILY Qty: 60 1RF
acetaminophen 325 mg Tablet
650 mg PO Q4HPRN PRN (Reason: Mild Pain / Temp > 101) Qty: 30 0RF
Continued
atorvastatin 40 MG tablet
40 mg PO HS
sevelamer carbonate 800 MG tablet
1,600 mg PO MEALS
aspirin 81 mg Tablet,Delayed Release (Dr/Ec)
81 mg PO DAILY
albuterol sulfate 90 mcg/actuation Hfa Aerosol Inhaler
2 puff INHALATION R BID
insulin glargine [Lantus Solostar U-100 Insulin] 100 unit/mL (3 mL) insulin pen
10 unit SC HS
cyclobenzaprine 10 mg Tablet
10 mg PO DAILYPRN PRN (Reason: muscle spasms)
Held
Ozempic 0.25 mg or 0.5 mg (2 mg/3 mL) pen injector
0.5 mg SC FRIEDMAN
Hold Instructions: Resume on 03/29/25. Discuss with outpatient doctor before resuming this medication
Discontinued
levothyroxine 150 mcg tablet
150 mcg PO DAILY AT 0700
gabapentin 100 mg Capsule
100 mg PO HS
insulin aspart U-100 [Novolog FlexPen U-100 Insulin] 100 unit/mL (3 mL) Insulin Pen
0 - 6 sliding scale dose SC AC
pantoprazole 40 mg Tablet,Delayed Release (Dr/Ec)
40 mg PO DAILY Qty: 30 0RF
zolpidem 5 mg tablet
5 mg PO HSPRN PRN (Reason: insomnia)
pregabalin [Lyrica] 100 mg Capsule
100 mg PO DAILY
furosemide [Lasix] 80 mg Tablet
80 mg PO DAILY
Discharge Orders:
Discharge Patient (As Directed); Ordered 03/15/25
Ordered By: Javi Vazquez
Discharge Date and Time
Discharge Date/Time: 03/15/25 18:48
Print Language: GEORGIAN
[2025-03-15 15:04] VITALS: BP 176/74
[2025-03-15 15:50] LABS: Glucose - Point of Care 77 mg/dl (70-99)
[2025-03-15] MEDS: RENVELA 1600 MG PO (15:53)
[2025-03-15 18:34] VITALS: BP 111/47
== END 2025-03-15 18:48 | DRG 871 ==
LOC: 4 WEST ACU 03:38
PROVIDERS: Emergency Medicine; Internal Medicine; Internal Medicine Nephrology; Specialist; ADMITTING PHYSICIAN Hospitalist; ATTENDING PHYSICIAN Hospitalist; CONSULT PHYSICIAN Internal Medicine; CONSULT PHYSICIAN Internal Medicine Cardiovascular Disease; CONSULT PHYSICIAN Internal Medicine Gastroenterology; CONSULT PHYSICIAN Physical Medicine & Rehabilitation; CONSULT PHYSICIAN Psychiatry & Neurology Neurology; CONSULT PHYSICIAN Specialist; EMERGENCY PHYSICIAN Emergency Medicine; FAMILY PHYSICIAN Family Medicine
PROC: 5A1D70Z Performance of Urinary Filtration, Intermittent, Less than 6 Hours Per Day (ICD-10-PCS; 2025-02-27)
DX: A41.9 Sepsis, unspecified organism (principal); G92.8 Other toxic encephalopathy; J18.9 Pneumonia, unspecified organism; N18.6 End stage renal disease; J44.0 Chronic obstructive pulmonary disease with (acute) lower respiratory infection; I50.32 Chronic diastolic (congestive) heart failure; I13.2 Hypertensive heart and chronic kidney disease with heart failure and with stage 5 chronic kidney disease, or end stage renal disease; Z68.41 Body mass index [BMI] 40.0-44.9, adult; J45.21 Mild intermittent asthma with (acute) exacerbation; J44.1 Chronic obstructive pulmonary disease with (acute) exacerbation; E87.1 Hypo-osmolality and hyponatremia; E87.5 Hyperkalemia; Z99.2 Dependence on renal dialysis; E11.40 Type 2 diabetes mellitus with diabetic neuropathy, unspecified; E11.22 Type 2 diabetes mellitus with diabetic chronic kidney disease; R13.10 Dysphagia, unspecified; K59.00 Constipation, unspecified; K11.7 Disturbances of salivary secretion; R15.9 Full incontinence of feces; E66.01 Morbid (severe) obesity due to excess calories; D63.1 Anemia in chronic kidney disease; R65.20 Severe sepsis without septic shock; I34.0 Nonrheumatic mitral (valve) insufficiency; E83.42 Hypomagnesemia; D69.6 Thrombocytopenia, unspecified; G44.099 Other trigeminal autonomic cephalgias (TAC), not intractable; G50.0 Trigeminal neuralgia; E03.9 Hypothyroidism, unspecified; E78.00 Pure hypercholesterolemia, unspecified; K22.89 Other specified disease of esophagus; K21.9 Gastro-esophageal reflux disease without esophagitis; K44.9 Diaphragmatic hernia without obstruction or gangrene; F51.04 Psychophysiologic insomnia; K31.819 Angiodysplasia of stomach and duodenum without bleeding; I25.10 Atherosclerotic heart disease of native coronary artery without angina pectoris; M16.0 Bilateral primary osteoarthritis of hip; T50.995A Adverse effect of other drugs, medicaments and biological substances, initial encounter; J98.4 Other disorders of lung; R79.1 Abnormal coagulation profile; G47.33 Obstructive sleep apnea (adult) (pediatric); G89.29 Other chronic pain; F32.A Depression, unspecified; F41.9 Anxiety disorder, unspecified; Z11.52 Encounter for screening for COVID-19; Z79.82 Long term (current) use of aspirin; Z79.4 Long term (current) use of insulin
CPT/HCPCS: 70450; 70551; 71045; 71046; 72157; 72158; 74018; 74221; 80048; 80051; 80053; 80156; 80202; 81003; 81015; 82607; 82728; 82805; 82962; 83036; 83540; 83550; 83735; 83880; 84100; 84439; 84443; 85014; 85018; 85025; 85027; 85379; 85652; 86140; 86618; 87040; 87070; 87086; 87340; 87811; 92610; 93005; 93306; 94640; 97116; 97129; 97163; 97167; 97530; 97535; A9575; G0257; P9047; Q5106

== ENCOUNTER 2025-03-17 14:09 | Inpatient (IN) | payer MEDICARE, SELFPAY ==
[2025-03-17] VITALS (34 sets, daily range): BP systolic 117–210; BP diastolic 60–99
--- NOTE | 2025-03-17 10:31 | ED.GENMED ---
History of Present Illness
<Rashida Lopez PA-C - Last Filed: 03/17/25 16:53>
General
Chief Complaint: Malaise
Source: patient, records and [facility]
Exam Limitations: none
Time Seen by Provider: 03/17/25 10:31
History of Present Illness
History of Present Illness:
74yoF with a history of ESRD on hemodialysis, CHF, insulin dependent diabetes, hypertension, hyperlipidemia, and hypothyroidism presenting via EMS for evaluation of weakness. Patient was just discharged from this facility 2 days ago after a
prolonged hospitalization. During her admission, she was treated for pneumonia. She was also noted to have encephalopathy which was suspected to be related to the pneumonia and polypharmacy. She was also seen by neurology for facial pain and
headache. She had an MRI brain on 03/11 which was normal. She also underwent MRI of thoracic and lumbar spine 3 days ago for back pain and fecal incontinence which showed degenerative changes. She was discharged to [facility] 2 days
ago. Last dialysis session was 2 days ago while in the hospital. The nurse went to check on her this morning and she was noted to be lethargic. Her blood pressure was elevated at 240/100 and heart rate was also elevated prompting EMS call. This
is reportedly an acute change in mental status from yesterday. She did not receive any PRN medications this morning. Patient states she does not feel well although is unable to elaborate on this. She denies any fevers, vomiting, diarrhea, chest
pain.
Past History
<Rashida Lopez PA-C - Last Filed: 03/17/25 16:53>
Past History
ED Past Medical History: Asthma, CHF, HTN, IDDM, Renal failure (End-stage renal disease, dialysis dependent.), Hypothyroidism and Other (Anemia)
ED Past Surgical History: Other (cardiac catheterization; cataract extraction)
Social History
Tobacco: Non-smoker
Alcohol: None
Personal: Single
Living: with family (Currently residing at a local [facility] for inpatient physical therapy August 2021)
Employment: Not employed
Family History
Family History: Diabetes, CAD and Other (Mother with breast cancer)
Phy Exam
<Rashida Lopez PA-C - Last Filed: 03/17/25 16:53>
Physical Exam
Physical Exam:
Chronically ill-appearing female, no acute distress
General Physical Exam
General Presentation: no apparent distress
General Skin: warm and dry
General Habitus: elderly
ENT Exam
ENT Exam: normocephalic
Cardiovascular Exam
Cardiovascular Exam: regular rate/rhythm
Pulmonary Exam
Pulmonary Exam: lungs clear, no respiratory distress, no rales, no crackles and no rhonchi
Gastrointestinal Exam
Gastrointestinal Exam: non tender, soft and non distended
Neurological Exam
Neurological Exam: other (Sleeping on exam but does arouse to voice. Patient appears confused and is repetitive. Oriented to person and place. Unable to tell me month/year. Follows commands in all extremities. Intermittent twitching in upper
extremities.)
[place] Coma Scale
Eye Opening: Spontaneous
Verbal Response: Confused
Motor Response: Obeys Commands
GCS Total Score: 14
Skin Exam
Skin Exam: normal color and warm/dry
Psychiatric Exam
Psychiatric Exam: normal mood/affect
<Burke Danielle DO - Last Filed: 03/17/25 18:17>
[place] Coma Scale
GCS Total Score: 14
Course
<Rashida Lopez PA-C - Last Filed: 03/17/25 16:53>
Orders/Labs/Results
Orders:
Orders
03/17/25 09:51
Electrocardiogram (*1) Urgent
Reason for Study: Fatigue / Weakness
EKG- Treatment ONCE
03/17/25 10:49
CT Head W/o Iv Contrast Urgent
Comment:
Reason For Exam: AMS
03/17/25 10:57
CR Chest - 2 Views Urgent
Comment:
Reason For Exam: AMS
03/17/25 10:58
Bedside Glucose- Treatment ONCE
03/17/25 11:22
Complete Blood Count/With Diff Urgent
Comprehensive Metabolic Panel Urgent
Creatine Phosphokinase Urgent
Comment: ADD ON
Magnesium Urgent
TSH Reflex To Free T4 Urgent
Venous Blood Gas Urgent
%Oxygen/Room Air: room air
03/17/25 13:10
NEUROLOGY CONSULT Routine
Consulting Provider: Annmarie Hancock
Was physician already notified: Yes
Reason for consult: Encephalopathy, on Trileptal, neuro saw last admission
03/17/25 13:12
NEPHROLOGY CONSULT Routine
Consulting Provider: Oscar Hickman V.
Was physician already notified: Yes
Reason for consult: ESRD on dialysis
03/17/25 13:27
Hemodialysis treatment As Directed
Treatment date:: 03/18/25
Treatment type: Hemodialysis
Ultrafiltration (kg): 2-3kg
Treatment time (duration): 3 hours 30 minutes
Use dialysis access:: Tunneled Cath
Dialyzer:: Optiflux 160
Blood flow rate minimum: 350
Blood flow rate maximum: 400
Dialysis flow rate: 600 mL/min
Dialysate temperature: 37 degrees Celsius
Sodium (Na): 137
Potassium (K): 2
Calcium (Ca): 2.5
Bicarbonate (HCO3): 37
03/17/25 13:39
HydrALAZINE [Apresoline] 10 mg IV NOW STA
03/17/25 13:52
Consult Instant Print Operator [Instant Print Operator Consult] Urgent
Consulting Provider: Phil Barriga
Was physician already notified: Yes
Reason for consult: Severely depressed mental status, concerned about airway protection
03/17/25 13:55
Admit/Transfer Patient As Directed
Co-Sign Provider:
Level of Care: Inpatient admission
Assign to:: ICU
Physician / Group: Dr. Javi Vazquez/Hospitalists
Diagnosis: Severely Depressed Mental Status
Reason for Hospitalization: Severely Depressed Mental Status, concern for airway protection
Expected length of stay greater than two midnights?: Yes
ELOS- Estimated Length of Stay in days: 3
I certify the patient meets the requirements for IP care: Yes
03/17/25 14:02
Code Status As Directed
Resuscitation Status: Full Code
03/18/25 07:00
Electrolytes Urgent
Comment: pre-Hemodialysis lab, to be drawn by HD nurse
H&H Urgent
Comment: pre-Hemodialysis lab, to be drawn by HD nurse
03/18/25 08:00
Epoetin Konrad-Epbx [Retacrit] 8,000 units IV HD-ONCE ONE
Heparin See Dose Instructions INTRACATH HD-ONCE ONE
Mannitol 25% 12.5 grams IV HD-Q1HPRN PRN
Sodium Chloride [Sodium Chloride 4 Meq/ml For Hemodialysis] 10 ml IV HD-Q1HPRN PRN
Abnormal Lab Results
03/17/25
11:22
RBC 3.46 L 10^6/uL
(4.20-5.40)
Hgb 10.5 L g/dL
(12.0-16.0)
Hct 33.1 L %
(37.0-47.0)
MCHC 31.7 L g/dL
(33.0-37.0)
RDW 16.7 H %
(11.5-14.5)
MPV 10.7 H fL
(7.4-10.4)
Absolute Lymphs (auto) 0.8 L 10^3/uL
(1.2-3.4)
Lymphocytes % 16.2 L %
(20.5-51.1)
Monocytes % 10.6 H %
(1.7-9.3)
VBG pCO2 55 H mmHg
(35-48)
VBG HCO3 29.7 H mmol/L
(22-27)
Potassium 5.2 H mmol/L
(3.5-5.1)
BUN 34 H mg/dl
(7-17)
Creatinine 7.6 H* mg/dL
(0.6-1.0)
Total Protein 6.1 L g/dl
(6.3-8.2)
03/17/25 11:22
03/17/25 11:22
Vital Signs
Initial and Last Documented VS:
Initial Vital Signs
Temp Pulse Resp BP Pulse Ox
97.5 F 66 18 117/82 98
03/17/25 09:43 03/17/25 09:43 03/17/25 09:43 03/17/25 09:43 03/17/25 09:43
Last Documented Vital Signs
Temp Pulse Resp BP Pulse Ox
97.5 F 73 10 175/73 99
03/17/25 09:43 03/17/25 14:45 03/17/25 14:45 03/17/25 14:40 03/17/25 14:45
Natanlt;Burke Danielle DO - Last Filed: 03/17/25 18:17>
Orders/Labs/Results
Orders:
Orders
03/17/25 09:51
Electrocardiogram (*1) Urgent
Reason for Study: Fatigue / Weakness
EKG- Treatment ONCE
03/17/25 10:49
CT Head W/o Iv Contrast Urgent
Comment:
Reason For Exam: AMS
03/17/25 10:57
CR Chest - 2 Views Urgent
Comment:
Reason For Exam: AMS
03/17/25 10:58
Bedside Glucose- Treatment ONCE
03/17/25 11:22
Complete Blood Count/With Diff Urgent
Comprehensive Metabolic Panel Urgent
Creatine Phosphokinase Urgent
Comment: ADD ON
Magnesium Urgent
TSH Reflex To Free T4 Urgent
Venous Blood Gas Urgent
%Oxygen/Room Air: room air
03/17/25 13:10
NEUROLOGY CONSULT Routine
Consulting Provider: Annmarie Hancock
Was physician already notified: Yes
Reason for consult: Encephalopathy, on Trileptal, neuro saw last admission
03/17/25 13:12
NEPHROLOGY CONSULT Routine
Consulting Provider: Oscar Hickman V.
Was physician already notified: Yes
Reason for consult: ESRD on dialysis
03/17/25 13:27
Hemodialysis treatment As Directed
Treatment date:: 03/18/25
Treatment type: Hemodialysis
Ultrafiltration (kg): 2-3kg
Treatment time (duration): 3 hours 30 minutes
Use dialysis access:: Tunneled Cath
Dialyzer:: Optiflux 160
Blood flow rate minimum: 350
Blood flow rate maximum: 400
Dialysis flow rate: 600 mL/min
Dialysate temperature: 37 degrees Celsius
Sodium (Na): 137
Potassium (K): 2
Calcium (Ca): 2.5
Bicarbonate (HCO3): 37
03/17/25 13:39
HydrALAZINE [Apresoline] 10 mg IV NOW STA
03/17/25 13:52
Consult Instant Print Operator [Instant Print Operator Consult] Urgent
Consulting Provider: Phil Barriga
Was physician already notified: Yes
Reason for consult: Severely depressed mental status, concerned about airway protection
03/17/25 13:55
Admit/Transfer Patient As Directed
Co-Sign Provider:
Level of Care: Inpatient admission
Assign to:: ICU
Physician / Group: Dr. Javi Vazquez/Hospitalists
Diagnosis: Severely Depressed Mental Status
Reason for Hospitalization: Severely Depressed Mental Status, concern for airway protection
Expected length of stay greater than two midnights?: Yes
ELOS- Estimated Length of Stay in days: 3
I certify the patient meets the requirements for IP care: Yes
03/17/25 14:02
Code Status As Directed
Resuscitation Status: Full Code
03/18/25 07:00
Electrolytes Urgent
Comment: pre-Hemodialysis lab, to be drawn by HD nurse
H&H Urgent
Comment: pre-Hemodialysis lab, to be drawn by HD nurse
03/18/25 08:00
Epoetin Konrad-Epbx [Retacrit] 8,000 units IV HD-ONCE ONE
Heparin See Dose Instructions INTRACATH HD-ONCE ONE
Mannitol 25% 12.5 grams IV HD-Q1HPRN PRN
Sodium Chloride [Sodium Chloride 4 Meq/ml For Hemodialysis] 10 ml IV HD-Q1HPRN PRN
Abnormal Lab Results
03/17/25
11:22
RBC 3.46 L 10^6/uL
(4.20-5.40)
Hgb 10.5 L g/dL
(12.0-16.0)
Hct 33.1 L %
(37.0-47.0)
MCHC 31.7 L g/dL
(33.0-37.0)
RDW 16.7 H %
(11.5-14.5)
MPV 10.7 H fL
(7.4-10.4)
Absolute Lymphs (auto) 0.8 L 10^3/uL
(1.2-3.4)
Lymphocytes % 16.2 L %
(20.5-51.1)
Monocytes % 10.6 H %
(1.7-9.3)
VBG pCO2 55 H mmHg
(35-48)
VBG HCO3 29.7 H mmol/L
(22-27)
Potassium 5.2 H mmol/L
(3.5-5.1)
BUN 34 H mg/dl
(7-17)
Creatinine 7.6 H* mg/dL
(0.6-1.0)
Total Protein 6.1 L g/dl
(6.3-8.2)
03/17/25 11:22
03/17/25 11:22
Vital Signs
Initial and Last Documented VS:
Initial Vital Signs
Temp Pulse Resp BP Pulse Ox
97.5 F 66 18 117/82 98
03/17/25 09:43 03/17/25 09:43 03/17/25 09:43 03/17/25 09:43 03/17/25 09:43
Last Documented Vital Signs
Temp Pulse Resp BP Pulse Ox
97.5 F 73 10 175/73 99
03/17/25 09:43 03/17/25 14:45 03/17/25 14:45 03/17/25 14:40 03/17/25 14:45
<Rashida Lopez PA-C - Last Filed: 03/17/25 16:53>
MDM/Problems Addressed
Differential Diagnosis Includes:
74yoF presenting for AMS. Just discharged 2 days ago after a prolonged hospitalization. VSS. Patient appears fatigued on exam but is arousable to voice. She is repetitive in her answers. She is oriented to person and place but not time.
Differential diagnosis includes but is not limited to: Hypercarbia, uremia, polypharmacy, infectious process
Initial ED plan: Check CBC, CMP, VBG, EKG, chest x-ray, and CT head.
<Rashida Lopez PA-C - Last Filed: 03/17/25 16:53>
*Pulse Oximetry
SaO2: 98
Oxygen Mode of Delivery: Room air
Patient hypoxic: no
*EKG
Interpreted by ED Provider?: Yes
EKG Intrepretation Date: 03/17/25
Heart Rate: 63
Rate: normal
Rhythm: sinus
[place]: left axis deviation
QRS Pattern: normal QRS
Ischemia: no ischemia
*Critical Care Note
Total Time (30-74mins, 75-104mins- exclusive of procedures): Not Applicable
<Rashida Lopez PA-C - Last Filed: 03/17/25 16:53>
Update Note
Update Note:
Mild hypercapnia present with a pCO2 of 55. Venous pH is normal. Remainder of labs consistent with underlying ESRD. CT head negative for acute findings. Given acute change in mental status, patient will require admission.
ED Attending Note
<Rashida Lopez PA-C - Last Filed: 03/17/25 16:53>
-
Portions of this chart may have been created with voice recognition software.� Occasional wrong word or��sound alike� substitutions may have occurred due to the inherent limitations of voice recognition software.
<Burke Danielle DO - Last Filed: 03/17/25 18:17>
ED Attending Note
Patient seen and examined by attending physician: Yes
I performed the substantive portion of visit, reviewed & personally made and approve the management plan that is documented in note by myself or VINI.: Yes
ED Attending Note:
I have reviewed and agree with Tawny's note
Patient sent from [facility] due to hallucinations and depressed mental status. Patient was hospitalized here at [facility] for similar symptoms. She had an extensive workup without any clear cause.
General: Sleepy, difficult to arouse
Vitals: unremarkable
Head: Atraumatic
Eyes: Pupils equal, EOMI
Throat: Airway intact, no exudates
Neck: Trachea midline, no nuchal rigidity
Lungs: Clear and equal b/l
Heart: Regular rate, no murmurs
Neuro: Grossly nonfocal
Skin: Warm, dry, no rash
Patient presents with sedation. The overall presentation seems most consistent with medication effect. Labs and CT do not show anything acute. VBG appears to be baseline. Patient will require hospitalization, close monitoring and supportive care.
Discharge Plan
Departure
Patient Disposition: Admit
Date of Disposition: 03/17/25
Time of Disposition: 13:06
Presentation/result/management discussed w/ accepting MD/DO: Hospitalist
Discharge Problem:
Altered mental status
Interventions
Interventions:
*Risk Screen - Suicide Last Done: 03/17/25 12:00
*General Assessment Last Done: 03/17/25 12:00
*Neglect/Abuse Screening Last Done: 03/17/25 12:00
*ED- Fall Risk Assessment Last Done: 03/17/25 12:00
[2025-03-17 11:11] LABS: Glucose - Point of Care 87 mg/dl (70-99)
[2025-03-17 11:30] LABS: Hematocrit 33.1 % (37.0-47.0); Hemoglobin 10.5 g/dL (12.0-16.0); Mean Corp Hgb Conc. 31.7 g/dL (33.0-37.0); Mean Corpuscular Volume 95.7 fL (81.0-99.0); Nucleated Red Blood Cells % 0 %; Platelet Count 150 10^3/uL (130-400); Red Cell Dist. Width 16.7 % (11.5-14.5)
[2025-03-17 11:41] LABS: Venous Blood Gas B.E. 2.9 mmol/L (-4 to +4); Venous Blood Gas O2 Sat % 79.7 %
[2025-03-17 11:56] LABS: ALT (SGPT) 17 U/L (0-35); AST (SGOT) 24 U/L (14-36); Albumin 3.8 g/dl (3.5-5.0); Alkaline Phosphatase 114 U/L (38-126); Blood Urea Nitrogen 34 mg/dl (7-17); Calcium 9.5 mg/dl (8.4-10.2); Carbon Dioxide 27 mmol/L (22-30); Chloride 101 mmol/L (98-107); Glucose 96 mg/dl (70-99); Magnesium 2.3 mg/dl (1.6-2.3); Potassium 5.2 mmol/L (3.5-5.1); Sodium 136 mmol/L (135-145); Total Protein 6.1 g/dl (6.3-8.2); eGFR 5.25
--- NOTE | 2025-03-17 13:13 | HPS.HSE ---
Family Physician
-
Family Physician: Patricia Horn
Chief Complaint
-
Nearly unresponsive
History of Present Illness
74 y/o female with past medical history of recent hospitalization at [facility] for syncope related to polypharmacy and headache/facial pain, ESRD on HD, CATA, HFpEF, hypertension, hyperlipidemia, hypothyroidism, anxiety, depression, DM-II and GERD / GAVE,
and asthma, presented with profound lethargy since this morning. Patient was recently hospitalized from 02/26/25 to 03/15/25 for syncope with encephalopathy (secondary to polypharmacy with sedating medications as well as pneumonia) and
headache/facial pains with multiple adjustments in her medications, she was then discharged to [facility] on 03/15/25, the nurse went to check on her this morning and she was noted to be lethargic, her blood pressure was elevated at
240/100 mmHg and heart rate was also elevated prompting EMS call.
Medical History
Past Medical History
Past Medical History: Reports Other (As per HPI above and Assessment/Plan section below)
Past Surgical History: Reports Other (Left Upper Extremity AV Fistula Right Upper Extremity AV Fistula Left Carpal Tunnel Left Tunneled HD Catheter)
Social History
Tobacco: Non-smoker
Alcohol: None
Drug: None
Family History
Family History: Not pertinent
Allergies / Home Medications
Allergies reflects when Allergies were last updated in State.
Home Medications with original date entered in State
Allergy/Medication List:
Allergies
Allergy/AdvReac Type Severity Reaction Status Date / Time
cephalexin Allergy rash, Verified 02/25/25 22:41
fever &
itching;
tolerates
cefazolin
(SEE
COMMENTS)
eggplant Allergy Shortness Verified 02/25/25 22:41
of Breath
erythromycin base Allergy Itching,Stomach Verified 02/25/25 22:41
pain 'bad'
latex Allergy Pt states Verified 02/25/25 22:41
she gets a
rash and
wheezes
shellfish derived Allergy Unknown Verified 02/27/25 15:46
Home Medications
atorvastatin 40 mg tablet 40 mg PO HS High cholesterol 02/13/20
sevelamer carbonate 800 mg tablet 1,600 mg PO MEALS Kidney Disease 07/30/21
albuterol sulfate 90 mcg/actuation aerosol inhaler 2 puff inhalation R BID Lung/Breathing Issues 05/18/23
aspirin 81 mg tablet,delayed release 81 mg PO DAILY Blood Clot Prevention/Tx 05/18/23
insulin glargine 100 unit/mL (3 mL) subcutaneous pen (Lantus Solostar U-100 Insulin) 10 unit SC HS Diabetes 05/18/23
cyclobenzaprine 10 mg tablet 10 mg PO DAILYPRN PRN muscle spasms 02/26/25
semaglutide 0.25 mg or 0.5 mg (2 mg/3 mL) subcutaneous pen injector (Ozempic) 0.5 mg SC FRIEDMAN WEIGHT LOSS 02/26/25
Held on 03/15/25. Instructions: Resume on 03/29/25. Discuss with outpatient doctor before resuming this medication
acetaminophen 325 mg tablet 650 mg (2 x 325 mg) PO Q4HPRN PRN Mild Pain / Temp > 101 #30 tabs 03/15/25
baclofen 5 mg tablet 2.5 mg (1/2 x 5 mg) PO Q12 #60 tabs 03/15/25
benzocaine 6 mg-menthol 10 mg lozenges (Chloraseptic Sore Throat) 1 aury PO Q4HPRN PRN throat irritation #18 ea 03/15/25
budesonide-formoterol HFA 160 mcg-4.5 mcg/actuation aerosol inhaler (Symbicort) 2 puff inhalation R BID #10.2 grams 03/15/25
furosemide 80 mg tablet 80 mg PO BID@0800,1600 #60 tabs 03/15/25
guaifenesin 600 mg tablet, extended release 12 hr 600 mg PO Q12 #10 tabs 03/15/25
levothyroxine 137 mcg tablet 137 mcg PO DAILY @ 0600 #30 tabs 03/15/25
melatonin 5 mg tablet 5 mg PO HSPRN PRN insomnia #30 tabs 03/15/25
oxcarbazepine 150 mg tablet 150 mg PO DAILY #60 tabs 03/15/25
pantoprazole 40 mg tablet,delayed release 40 mg PO BID #60 tabs 03/15/25
polyethylene glycol 3350 17 gram oral powder packet 17 g PO DAILY #30 ea 03/15/25
pregabalin 75 mg capsule 75 mg PO DAILY #30 caps 03/15/25
sennosides 8.6 mg-docusate sodium 50 mg tablet (Senna Plus) 1 tab PO BID #60 tabs 03/15/25
Review of Systems
-
Unable to obtain full review of systems at this time due to: Other (Patient severely lethargic)
Physical Exam
Vital Signs
Vital Signs
Temp Pulse Resp BP Pulse Ox
97.5 F 66 16 204/94 97
03/17/25 09:43 03/17/25 13:00 03/17/25 13:00 03/17/25 13:00 03/17/25 13:00
Physical Exam
General: No Apparent Distress
HEENT: NormoCephalic
Respiratory: Clear
Cardiac: S1/S2 and Regular Rhythm
GI: Soft, Non Tender and Normal Bowel Sounds
Musculoskeletal: No Cyanosis
Skin: Warm and Dry
Neuro: Other (Very lethargic, follows some commands, opens eyes transiently)
Psych: Calm
Laboratory Results
-
03/17/25 11:22
03/17/25 11:22
Laboratory Results
Total Bilirubin 1.3 mg/dl (0.2-1.3) 03/17/25 11:22
AST 24 U/L (14-36) 03/17/25 11:22
ALT 17 U/L (0-35) 03/17/25 11:22
Alkaline Phosphatase 114 U/L (38-126) 03/17/25 11:22
Impression/Plan
-
Assessment/Plan
Presentation with profound lethargy
-Related to recent Baclofen start (for head and face pain as per neuro) and Flexeril (in combination with Trileptal and Lyrica) versus high blood pressure
-pCO2 on ABG not high enough to cause this level of lethargy -- also no BiPAP for now given her level of lethargy
-Spoke to licensed chemical spray technician, use prn IV Hydralazine for now for blood pressure
-Given profound lethargy, concern for airway protection, consulted licensed chemical spray technician
-Monitor in IMU
-On 03/17/25, I discussed patient's case with Dr. Hancock and she recommended continuing Trileptal and Lyrica, but stop Baclofen and Flexeril -- but have patient as strict NPO at this time given current condition
-Neurology consulted as they were involved last admission given patient's sedating meds as well as trigeminal neuralgia pain
-Obtain serial blood gases to ensure pH + pCO2 remain stable
-UTI? Check UA
-Strict NPO until mental status improves. Aspiration precautions.
-Search Engine Optimization Analyst updated on 03/17/25 patient's daughter Ifrah -- appreciate licensed chemical spray technician help
-Patient's daughter said that she is not sure if the usp gave patient a sleeping pill, and that could be why she is like this (she previously became very confused after taking Ambien (last admission))
Hypertensive Urgency versus Emergency
-May need cardene gtt if BP remains elevated jone if SBP >200mmHg and resistant
-Patient initially was normotensive however as the morning hours went on she became hypertensive with SBP being as high as 204/94 --> appears her baseline BP is variable between 110/52 180/70
Dysphagia
- Patient is tolerating Diet
- Recently increased PPI to BID -- continue when able
- Abdominal x-ray to evaluate fecal burden
- Continue with Miralax/bowel regimen when able
- UGI earlier in Feb 2025 study showed no obstruction -- showed presbyesophagus and small HH contributor.
- Aspiration precautions; HOB elevated pre and post meals when diet resumedl THIN LIQUIDS
Left leg reduced sensation
Fecal incontinence (more so with coughing)
-MRI Thoracic and Lumbar Spine with and without contrast without significant findings to explain above symptoms
-On 03/13/25, I spoke with surgical nurse practitioner Dr. Melgar who said it is fine to do MRI contrast in the setting of ESRD
-Last admission earlier in February 2025, since contrast was given through patient's HD catheter during MRI, surgical nurse practitioner recommended 1x doses of antibiotics, discussed this case with on-call infectious disease Dr. Man and also on-call
surgical nurse practitioner, and the recommendation was to provide patient with Vancomycin 1 gram IV and Merrem 500 mg IV (both ordered)
Recent Pneumonia (Right>Left)
Recent Sepsis secondary to the above
- Received antibiotics last admission
- Bronchodilators and steroids (steroids course completed)
- Speech evaluation unremarkable
- Home/outpatient oxygen assessment performed on 03/01/25 -- at that time, did not need home oxygen
Severe bilateral hip osteoarthritis
Syncope/Encephalopathy -- suspected from polypharmacy and pneumonia
-possibly secondary to sepsis as noted above versus med effect - or combination thereof
- concern for possible Polypharmacy (gabapentin, Flexeril, Lyrica and Zolpidem) ---- SEE ABOVE NEURO RECOMMENDATIONS given new lethargy
- Vasovagal episodes also possible considering vomiting and syncope while on hemodialysis.
- Echo with EF 55% and worsened MR
- Patient since improved
- Follow fall precautions
Mild intermittent asthma with acute exacerbation
History of Childhood Asthma
- Patient sees outpatient pulmonary at [facility]
- On 02/26/25, wheezing on exam, together with fatigue and SOB
- Ordered Duonebs and Pulmicort
- Prednisone 40 mg daily for 5 days completed earlier in February 2025 hospitalization
- Pulm eval appreciated
- Continue Symbicort twice a day
- Monitor oxygen saturations
- Search Engine Optimization Analyst/pulmonary consulted this admission as concern for airway protection in the setting of profound lethargy
Recent Nausea/vomiting suspect due to severe constipation
-Needed enemas and Mag Citrate last admission
-Miralax for constipation when able
Chronic Dyspnea on exertion - likely multifactorial -- obstructive and restrictive lung disease, pneumonia, morbid obesity, heart failure, ESRD, physical deconditioning
Recent significantly elevated proBNP
- Repeat echo showed EF 55% with worsened mitral regurgitation
- Appreciate cardiology input: no need for GDMT right now, follow-up outpatient, nothing else to do from cardio standpoint right now
ESRD on HD
- Nephrology evaluation/consult for HD needs during acute stay.
- Continue (WHEN ABLE) patient's home Furosemide but at 80 mg BID instead of daily
Hypomagnesemia
-Monitor magnesium
Trigeminal Neuralgia vs Trigeminal Autonomic Cephalgia (type of headache)
Left-sided facial pain
-Last admission, left Ear Otitis Externa was ruled out and cipro ear drops discontinued
-Lyrica was increased to 75 mg daily (dose to be given after dialysis on dialysis days)
-Gabapentin discontinued in favor of increased dose Lyrica as above (doesn't make sense to be on both Lyrica and gabapentin)
oxcarbazepine 150 mg BID started, patient since noted significant improvement in left sided facial/head pain though not resolved, briefly increased to 300 mg BID since tapered back to 150 mg d/t the following.
Neuro eval appreciated assessed more likely Trigeminal Autonomic Cephalgia or other form of headache
-recommended tapering off Lyrica and Oxcarbazepine (concern toxic-metabolic myoclonus and polyneuropathy) patient however notes significant improvement with oxcarbazepine (more so than with Lyrica) would attempt to taper off Lyrica first,
oxcarbazepine was stopped, but restarted on 03/13/25, and Baclofen added as per neurology; Lyrica restarted 03/13/25
-prn Oxygen therapy NRB w/ at least 7L for 15 min while sitting upright (patient notes significant relief headache with this therapy)
-recommended prn cocktail Toradol/Benadryl/Reglan however pharmacy expressed significant concerns regarding use Toradol/High dose NSAID in ESRD patient. Holding off for now, especially since other therapies effective as above
-Continue Trileptal 150 mg once a day (WHEN ABLE) -- per neuro recs
-Stop Baclofen 2.5 mg 3 times daily per neuro recs
-Continue Lyrica 75 mg QD (WHEN ABLE) per neuro recs
-Will need outpatient ENT consult at some point
Hypertension
ASCVD
Chronic HFpEF
- Stable. Continue ASA, statin, etc.
- Home Lasix resumed at increased dose 80 mg BID as per Nephro
- Patient sees [facility] Card[facility] outpatient
- Patient needs repeat echo in 1 year
- ECHO noted as above
Type 2 Diabetes Mellitus
- Stable. Continue current regimen.
- Follow glucose and cover with SSI as needed.
Hypothyroidism (on replacement)
- TSH somewhat suppressed and free T4 elevated this hospitalization
- Home Levothyroxine reduced from 150 mcg to 137 mcg daily
- repeat TFT in 2 weeks
Hypercholesterolemia
GERD / GAVE / Hiatal Hernia
- Stable. Prior h/o GI bleeding.
- Continue PPI.
History of Depression
Morbid Obesity
- Affects all aspects of care.
- Encourage healthy diet and increased activity as tolerated with goal of weight loss.
- Follow-up outpatient with [facility] pulmonary
- Will need sleep study
Shellfish Allergy
DVT Prophylaxis: Subcutaneous Heparin
Code Status: Full Code
Profound lethargy with concerns for airway protection and very high blood pressure is a high risk encounter.
--- NOTE | 2025-03-17 13:30 | CON.NEURO ---
Consultation
Order
Date of Consultation: 03/17/25
Requesting Provider: Javi Vazquez MD
Reason for Consult: Encephalopathy
Neurology Consultation Note.
HPI: This is a 74-year-old woman who presented to [facility] on 03/17/2025 with encephalopathy. Ms. Henry is unable to provide a history. She denies having headache, change in vision or strength.
ER VS: 117/82�187/83-204/94, 66, afebrile.
Labs: Normal glucose, creatinine�7.6, normal WBCs.
CT head�Mild age-related parenchymal atrophy. No intra- or extra-axial mass, hemorrhage, or fluid collection. Moderate subcortical, deep, and periventricular white matter low-attenuation, compatible with changes of chronic small vessel ischemic
disease.
Brain MRI without cordell (03/11/2025)Mild to moderate age-related parenchymal atrophy. T2/FLAIR hyperintense signal in the white matter of the bilateral cerebral hemispheres, most compatible with mild chronic microangiopathic ischemia. No mass effect,
midline shift, or extra axial collection. No abnormal signal intensity on diffusion-weighted images. Stable single small chronic microhemorrhage in the right periventricular centrum semiovale.
PDMP:Cyclobenzaprine 10 Mg 30 tabs filled in on 03/16/2025, Baclofen 5 Mg 150 tablets filled in on 03/16/2025. Zolpidem Tartrate 5 Mg 30 tablets filled in on 02/08/2025
PMH: Migraines with aura, R rotator cuff tear, ESRD on HD, HTN, DLP, DM, polyneuropathy, hypothyroidism, anemia, thrombocytopenia, BMI 38, insomnia, cervical DJD, Gastric antral vascular ectasia, h/o GIB
PSH: Bilateral cataract surgery, brachiocephalic AVF
SH:lives with daughters; Previously worked for [employer] in [employer]; Never drove, non-smoker, denies excessive alcohol use
FH: Mother�breast cancer, father�diabetes
All: Erythromycin, cephalexin, shellfish
ROS:General: Positive for transient fatigue, confusion.
HEENT: Positive for runny nose
Respiratory: Positive for violent cough, shortness of breath.
Gastrointestinal: Positive for transient vomiting. Admission.
Neurological: Positive for headache
Musculoskeletal: Positive for chronic right arm pain
General: Well developed. In no acute distress.
Cardio: Regular rate and rhythm without murmur. Extremities are without cyanosis or edema.
Neuro:
Mental Status: Somnolent, oriented to location, name. Did not know her age, date of increased processing time. Not fluent in Bulgarian. Follows simple requests. No hemineglect.
Cranial Nerves: Pupils are equally round, surgical. EOMs full. Mild to threat bilaterally no ptosis. No nystagmus. Face symmetric. Normal hearing AU. The palate elevated well. SCMs and traps 5/5. Tongue midline. No dysarthria.
Motor: No pronator or arm drift
Coordination: No tremors myoclonic movements
Gait: deferred
Assessment and Plan:
I. Mixed encephalopathy(vascular, metabolic toxic)
II. Trigeminal cephalgia
III. Hypertensive emergency
-Fall precautions
-D/C cyclobenzaprine, baclofen
-Continue Trileptal 150 mg twice daily
-Please check CK, ammonia
- Brain MRI without cordell if no clinical improvement.
I personally reviewed all radiology and labs along with past medical records pertinent to current medical problems. Total time spent in patient care is 55 minutes.
Thank you for allowing us to participate in the care of this patient. We will continue to follow. Please do not hesitate to contact us with any questions or concerns.
Subjective/Objective
Subjective Data
Date of Service: March 17, 2025
Objective Data
Vital Signs
Temp Pulse Resp BP Pulse Ox
36.4 C 66 16 204/94 97
03/17/25 09:43 03/17/25 13:00 03/17/25 13:00 03/17/25 13:00 03/17/25 13:00
Lab Results
03/17/25 11:22
03/17/25 11:22
Sodium 136 mmol/L (135-145) 03/17/25 11:22
Potassium 5.2 mmol/L (3.5-5.1) H 03/17/25 11:22
BUN 34 mg/dl (7-17) H 03/17/25 11:22
Glucose 96 mg/dl (70-99) 03/17/25 11:22
Calcium 9.5 mg/dl (8.4-10.2) 03/17/25 11:22
Patient Allergies
cephalexin Allergy (Verified 02/25/25 22:41)
rash, fever & itching; tolerates cefazolin (SEE COMMENTS)
eggplant Allergy (Verified 02/25/25 22:41)
Shortness of Breath
erythromycin base Allergy (Verified 02/25/25 22:41)
Itching,Stomach pain 'bad'
latex Allergy (Verified 02/25/25 22:41)
Pt states she gets a rash and wheezes
shellfish derived Allergy (Verified 02/27/25 15:46)
Unknown
Medications
-
Active Medications
Generic Name Dose Route Start Last Admin
Trade Name Freq PRN Reason Stop Dose Admin
Epoetin Konrad-epbx 8,000 units 03/18/25 08:00
Epoetin Konrad-Epbx (Retacrit) 4,000 Units/Ml Vial IV 03/18/25 08:01
HD-ONCE ONE
Heparin Sodium 0 units 03/18/25 08:00
Heparin (1000 Units/Ml) 10,000 Units/10 Ml Vial INTRACATH 03/18/25 08:01
HD-ONCE ONE
Mannitol 12.5 grams 03/18/25 08:00
Mannitol 25% (12.5 Grams/50 Ml) Vial IV 03/18/25 23:59
HD-Q1HPRN PRN
SBP < 90 mmHg
Sodium Chloride 10 ml 03/18/25 08:00
Sodium Chloride (4 Meq/Ml) 30 Ml Vial *For Hemodialysis* IV 03/18/25 23:59
HD-Q1HPRN PRN
cramps
Home Medications
�Medication �Instructions �Recorded
atorvastatin 40 mg tablet 40 mg PO HS High cholesterol 02/13/20
sevelamer carbonate 800 mg tablet 1,600 mg PO MEALS Kidney Disease 07/30/21
albuterol sulfate 90 mcg/actuation 2 puff inhalation R BID 05/18/23
aerosol inhaler Lung/Breathing Issues
aspirin 81 mg tablet,delayed 81 mg PO DAILY Blood Clot 05/18/23
release Prevention/Tx
insulin glargine 100 unit/mL (3 10 unit SC HS Diabetes 05/18/23
mL) subcutaneous pen (Lantus
Solostar U-100 Insulin)
cyclobenzaprine 10 mg tablet 10 mg PO DAILYPRN PRN muscle spasms 02/26/25
semaglutide 0.25 mg or 0.5 mg (2 0.5 mg SC FRIEDMAN WEIGHT LOSS 02/26/25
mg/3 mL) subcutaneous pen injector
(Ozempic)
Held on 03/15/25.
Instructions: Resume on
03/29/25. Discuss with
outpatient doctor before
resuming this medication
acetaminophen 325 mg tablet 650 mg (2 x 325 mg) PO Q4HPRN PRN 03/15/25
Mild Pain / Temp > 101 #30 tabs
baclofen 5 mg tablet 2.5 mg (1/2 x 5 mg) PO Q12 #60 tabs 03/15/25
benzocaine 6 mg-menthol 10 mg 1 aury PO Q4HPRN PRN throat 03/15/25
lozenges (Chloraseptic Sore Throat) irritation #18 ea
budesonide-formoterol HFA 160 2 puff inhalation R BID #10.2 grams 03/15/25
mcg-4.5 mcg/actuation aerosol
inhaler (Symbicort)
furosemide 80 mg tablet 80 mg PO BID@0800,1600 #60 tabs 03/15/25
guaifenesin 600 mg tablet, 600 mg PO Q12 #10 tabs 03/15/25
extended release 12 hr
levothyroxine 137 mcg tablet 137 mcg PO DAILY @ 0600 #30 tabs 03/15/25
melatonin 5 mg tablet 5 mg PO HSPRN PRN insomnia #30 tabs 03/15/25
oxcarbazepine 150 mg tablet 150 mg PO DAILY #60 tabs 03/15/25
pantoprazole 40 mg tablet,delayed 40 mg PO BID #60 tabs 03/15/25
release
polyethylene glycol 3350 17 gram 17 g PO DAILY #30 ea 03/15/25
oral powder packet
pregabalin 75 mg capsule 75 mg PO DAILY #30 caps 03/15/25
sennosides 8.6 mg-docusate sodium 1 tab PO BID #60 tabs 03/15/25
50 mg tablet (Senna Plus)
Vital Signs and Labs
-
Vital Signs and Labs:
Vital Signs
Temp Pulse Resp BP Pulse Ox
36.4 C 66 16 204/94 97
03/17/25 09:43 03/17/25 13:00 03/17/25 13:00 03/17/25 13:00 03/17/25 13:00
Lab Results
03/17/25 11:22
03/17/25 11:22
Sodium 136 mmol/L (135-145) 03/17/25 11:22
Potassium 5.2 mmol/L (3.5-5.1) H 03/17/25 11:22
BUN 34 mg/dl (7-17) H 03/17/25 11:22
Glucose 96 mg/dl (70-99) 03/17/25 11:22
Calcium 9.5 mg/dl (8.4-10.2) 03/17/25 11:22
Medications
-
Medications:
Generic Name Dose Route Start Last Admin
Trade Name Freq PRN Reason Stop Dose Admin
Epoetin Konrad-epbx 8,000 units 03/18/25 08:00
Epoetin Konrad-Epbx (Retacrit) 4,000 Units/Ml Vial IV 03/18/25 08:01
HD-ONCE ONE
Heparin Sodium 0 units 03/18/25 08:00
Heparin (1000 Units/Ml) 10,000 Units/10 Ml Vial INTRACATH 03/18/25 08:01
HD-ONCE ONE
Mannitol 12.5 grams 03/18/25 08:00
Mannitol 25% (12.5 Grams/50 Ml) Vial IV 03/18/25 23:59
HD-Q1HPRN PRN
SBP < 90 mmHg
Sodium Chloride 10 ml 03/18/25 08:00
Sodium Chloride (4 Meq/Ml) 30 Ml Vial *For Hemodialysis* IV 03/18/25 23:59
HD-Q1HPRN PRN
cramps
Home Medications
-
Home Medications
atorvastatin 40 mg tablet 40 mg PO HS High cholesterol 02/13/20
sevelamer carbonate 800 mg tablet 1,600 mg PO MEALS Kidney Disease 07/30/21
albuterol sulfate 90 mcg/actuation aerosol inhaler 2 puff inhalation R BID Lung/Breathing Issues 05/18/23
aspirin 81 mg tablet,delayed release 81 mg PO DAILY Blood Clot Prevention/Tx 05/18/23
insulin glargine 100 unit/mL (3 mL) subcutaneous pen (Lantus Solostar U-100 Insulin) 10 unit SC HS Diabetes 05/18/23
cyclobenzaprine 10 mg tablet 10 mg PO DAILYPRN PRN muscle spasms 02/26/25
semaglutide 0.25 mg or 0.5 mg (2 mg/3 mL) subcutaneous pen injector (Ozempic) 0.5 mg SC FRIEDMAN WEIGHT LOSS 02/26/25
Held on 03/15/25. Instructions: Resume on 03/29/25. Discuss with outpatient doctor before resuming this medication
acetaminophen 325 mg tablet 650 mg (2 x 325 mg) PO Q4HPRN PRN Mild Pain / Temp > 101 #30 tabs 03/15/25
baclofen 5 mg tablet 2.5 mg (1/2 x 5 mg) PO Q12 #60 tabs 03/15/25
benzocaine 6 mg-menthol 10 mg lozenges (Chloraseptic Sore Throat) 1 aury PO Q4HPRN PRN throat irritation #18 ea 03/15/25
budesonide-formoterol HFA 160 mcg-4.5 mcg/actuation aerosol inhaler (Symbicort) 2 puff inhalation R BID #10.2 grams 03/15/25
furosemide 80 mg tablet 80 mg PO BID@0800,1600 #60 tabs 03/15/25
guaifenesin 600 mg tablet, extended release 12 hr 600 mg PO Q12 #10 tabs 03/15/25
levothyroxine 137 mcg tablet 137 mcg PO DAILY @ 0600 #30 tabs 03/15/25
melatonin 5 mg tablet 5 mg PO HSPRN PRN insomnia #30 tabs 03/15/25
oxcarbazepine 150 mg tablet 150 mg PO DAILY #60 tabs 03/15/25
pantoprazole 40 mg tablet,delayed release 40 mg PO BID #60 tabs 03/15/25
polyethylene glycol 3350 17 gram oral powder packet 17 g PO DAILY #30 ea 03/15/25
pregabalin 75 mg capsule 75 mg PO DAILY #30 caps 03/15/25
sennosides 8.6 mg-docusate sodium 50 mg tablet (Senna Plus) 1 tab PO BID #60 tabs 03/15/25
--- NOTE | 2025-03-17 13:39 | W.CON.NEPH ---
Consultation
-
Date/Time Consultation Requested: 03/17/2025 1:00 PM
Date/Time Consultation Performed: 03/17/2025 1:00 PM
Requesting Provider: Dr. Rodriguez
Performing Provider: Dr. Hickman
Reason for Consultation: End-stage renal disease
Medical History
-
Chief Complaint: End-stage renal disease
History of Present Illness:
This is a 74 yo female known to us with ESRD on HD MWF at [facility]. She dialyzes via a left IJ HD CVC after failed LUE AV access. She has diabetes stable on insulin therapy, anemia controlled though low with SHANDA on HD. She has chronic pain
in waist and hips as well as chronic depression. She does not sleep well and recently obtained a rx for zolpidem from her PCP. she also has lyrica for neuropathy. She recently underwent a prolonged several week hospitalization here at [place]
for ongoing neurological sequela and pneumonia. She also had underlying encephalopathy thought to be a function of her pneumonia and polypharmacy. She was seen by neurology for facial pain and headache and underwent a normal MRI of the brain on
03/11/2025. She then underwent an MRI of the thoracic and lumbar spine for back pain and fecal incontinence which showed some degenerative changes. She was discharged to [facility] 2 days prior from this hospital for rehab. She
represented today after being found hypotensive and profoundly lethargic with mental status changes at her rehab facility. Nephrology was consulted for end-stage renal disease management.
Past Medical History
Coronary Artery Disease
Chronic HFpEF
Essential Hypertension
Hyperlipidemia
Diabetes Mellitus, Insulin-Dependent
ESRD on HD Tuesday [facility] dialysis unit
Hypothyroidism
Anemia of Chronic Disease
Anxiety/Depression
GERD/Gastritis
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
Left Upper Extremity AV Fistula
Right Upper Extremity AV Fistula
Left Carpal Tunnel
Left Tunneled HD Catheter
Social History
Tobacco: Non-Smoker
Alcohol: None
Family History
Family History: Not Pertinent
Allergies / Home Medications
Allergy/AdvReac Type Severity Reaction Status Date / Time
cephalexin Allergy rash, Verified 02/25/25 22:41
fever &
itching;
tolerates
cefazolin
(SEE
COMMENTS)
eggplant Allergy Shortness Verified 02/25/25 22:41
of Breath
erythromycin base Allergy Itching,Stomach Verified 02/25/25 22:41
pain 'bad'
latex Allergy Pt states Verified 02/25/25 22:41
she gets a
rash and
wheezes
shellfish derived Allergy Unknown Verified 02/27/25 15:46
�Medication �Instructions �Recorded �Confirmed �Type
atorvastatin 40 mg tablet 40 mg PO HS High cholesterol 02/13/20 02/26/25 History
sevelamer carbonate 800 mg tablet 1,600 mg PO MEALS Kidney Disease 07/30/21 02/26/25 History
albuterol sulfate 90 mcg/actuation 2 puff inhalation R BID 05/18/23 02/26/25 History
aerosol inhaler Lung/Breathing Issues
aspirin 81 mg tablet,delayed 81 mg PO DAILY Blood Clot 05/18/23 02/26/25 History
release Prevention/Tx
insulin glargine 100 unit/mL (3 10 unit SC HS Diabetes 05/18/23 02/26/25 History
mL) subcutaneous pen (Lantus
Solostar U-100 Insulin)
cyclobenzaprine 10 mg tablet 10 mg PO DAILYPRN PRN muscle spasms 02/26/25 02/26/25 History
semaglutide 0.25 mg or 0.5 mg (2 0.5 mg SC FRIEDMAN WEIGHT LOSS 02/26/25 02/26/25 History
mg/3 mL) subcutaneous pen injector
(Ozempic)
Held on 03/15/25.
Instructions: Resume on
03/29/25. Discuss with
outpatient doctor before
resuming this medication
acetaminophen 325 mg tablet 650 mg (2 x 325 mg) PO Q4HPRN PRN 03/15/25 Rx
Mild Pain / Temp > 101 #30 tabs
baclofen 5 mg tablet 2.5 mg (1/2 x 5 mg) PO Q12 #60 tabs 03/15/25 Rx
benzocaine 6 mg-menthol 10 mg 1 aury PO Q4HPRN PRN throat 03/15/25 Rx
lozenges (Chloraseptic Sore Throat) irritation #18 ea
budesonide-formoterol HFA 160 2 puff inhalation R BID #10.2 grams 03/15/25 Rx
mcg-4.5 mcg/actuation aerosol
inhaler (Symbicort)
furosemide 80 mg tablet 80 mg PO BID@0800,1600 #60 tabs 03/15/25 Rx
guaifenesin 600 mg tablet, 600 mg PO Q12 #10 tabs 03/15/25 Rx
extended release 12 hr
levothyroxine 137 mcg tablet 137 mcg PO DAILY @ 0600 #30 tabs 03/15/25 Rx
melatonin 5 mg tablet 5 mg PO HSPRN PRN insomnia #30 tabs 03/15/25 Rx
oxcarbazepine 150 mg tablet 150 mg PO DAILY #60 tabs 03/15/25 Rx
pantoprazole 40 mg tablet,delayed 40 mg PO BID #60 tabs 03/15/25 Rx
release
polyethylene glycol 3350 17 gram 17 g PO DAILY #30 ea 03/15/25 Rx
oral powder packet
pregabalin 75 mg capsule 75 mg PO DAILY #30 caps 03/15/25 Rx
sennosides 8.6 mg-docusate sodium 1 tab PO BID #60 tabs 03/15/25 Rx
50 mg tablet (Senna Plus)
Review of Systems
-
Unable to obtain full review of systems at this time due to: Acuity and Other (Patient profoundly lethargic and only opens eyes to vigorous physical and verbal stimuli)
History Source: Patient
All other systems: Negative unless noted
Physical Exam
Vital Signs
Vital Signs
Temp Pulse Resp BP Pulse Ox
97.5 F 66 16 204/94 97
03/17/25 09:43 03/17/25 13:00 03/17/25 13:00 03/17/25 13:00 03/17/25 13:00
Lab Results
03/17/25 11:22
03/17/25 11:22
WBC 5.2 10^3/uL (4.8-10.8) 03/17/25 11:22
RBC 3.46 10^6/uL (4.20-5.40) L 03/17/25 11:22
Hgb 10.5 g/dL (12.0-16.0) L 03/17/25 11:22
Hct 33.1 % (37.0-47.0) L 03/17/25 11:22
Plt Count 150 10^3/uL (130-400) 03/17/25 11:22
Sodium 136 mmol/L (135-145) 03/17/25 11:22
Potassium 5.2 mmol/L (3.5-5.1) H 03/17/25 11:22
Chloride 101 mmol/L (98-107) 03/17/25 11:22
Carbon Dioxide 27 mmol/L (22-30) 03/17/25 11:22
BUN 34 mg/dl (7-17) H 03/17/25 11:22
Creatinine 7.6 mg/dL (0.6-1.0) H* 03/17/25 11:22
eGFR 5.25 03/17/25 11:22
Glucose 96 mg/dl (70-99) 03/17/25 11:22
Calcium 9.5 mg/dl (8.4-10.2) 03/17/25 11:22
Albumin 3.8 g/dl (3.5-5.0) 03/17/25 11:22
Physical Exam
General: Profoundly lethargic but arousable with vigorous physical and/or verbal stimuli, only mumbles words, does not follow commands
HEENT: PERRL, EOMI, Anicteric, Conjunctivae Clear, Ear/Nose Intact, Hearing Normal, Oropharynx Clear/Moist, Dentition Intact, Facial Symmetry, Neck Supple, Neck: Trachea Midline, No JVD and No Thyromegaly, no Bruits
Respiratory: Clear to auscultation bilaterally with normal lung excursion
Cardiac: S1/S2 and Regular Rate/Rhythm
Breast: Deferred by me
Abdomen: Soft, Nontender, Nondistended, Normal Bowel Sounds and No Hepatosplenomegaly
Rectal: Deferred by Provider
Genito-urinary: No Costovertebral Tenderness
Extremities: No Clubbing, No Cyanosis and trace pretibial. Edema
Skin: No Rash or open lesions
Neuro: Unable to obtain as patient is profoundly lethargic and does not follow commands, does move all 4 limbs independently
Hematologic/Lymphatic: No Cervical Lymphadenopathy, No Submandibular Lymphadenopathy and No Supraclavicular Lymphadenopathy
Psych: Mood/afflect pleasant, Insight/judgement good and Appropriate
Vascular: plus 1 pedal and radial pulses
Vascular Access: AVF and CVC (Left anterior chest wall)
Data Reviewed
-
Radiology: Image Personally Visualized and interpreted (Chest x-ray personally reviewed which noted the presence of a left anterior chest wall catheter slight elevated right hemidiaphragm no evidence of congestive heart failure or pneumonia by my
interpretation felt)
Medical Tests (Nuc Med, Echo etc): Other (EKG report reviewed sinus rhythm with left axis deviation with old septal infarct pattern at 63 bpm per report)
Labs: Labs Reviewed by me (BMP CBC)
Old Records: Reviewed (Reviewed previous nephrology consultation on 02/26/2025 for ESRD as well as discharge summary following admission from February 2025 for pneumonia and neuropathy)
Assessment/Plan
-
Impression:
Presentation with change of mental status lethargy/suspected polypharmacy for treatment of underlying neuralgia and pain
ESRD (MWF)
Hypertension
Anemia
Diabetes
Dyslipidemia
Hypothyroidism
Multiple failed peripheral vascular access points for dialysis
Left anterior chest wall hemodialysis catheter
Chronic musculoskeletal pain with DJD
Hyperphosphatemia
Plan:
ESRD:
- No acute dialysis requirement today orders,will be provided for tomorrow
- Will utilize dialysis catheter
- Low-sodium low potassium diet 1500 cc/day fluid restriction
- HSANDA will be provided on dialysis tomorrow for anemia
- Maintain phosphate binders i.e. sevelamer carbonate for hyperphosphatemia with meals
HTN:
- Can provide IV hydralazine 10 mg every 6 hours for systolic blood pressure of 170 or greater or diastolic blood pressure 110 or greater
-Should improve with dialysis tomorrow
-Likely exacerbated by underlying pain
-We can also provide her with Procardia XL 30 mg daily if hypertension persist although she is not normally on antihypertensives
Change of mental status:
- Likely due to polypharmacy due to recent adjustments of pain medications, currently being held
- CAT scan of head was negative
- I do not believe her lethargy is related to anything at this time
-venous blood gas was reviewed, there was mild hypercapnia but no overt hypoxia by VBG
- No obvious diagnostic or laboratory data noted for infectious causality
[2025-03-17] MEDS: APRESOLINE 10 MG IV (14:17)
--- NOTE | 2025-03-17 14:38 | CON.INTV ---
Consultation
Consultation Request
Date/Time Consultation Requested: 03/17/2025 - 1352
Date/Time Consultation Performed: 03/17/2025 - 1416
Requesting Provider: Dr. Vazquez
Performing Provider: Dr. Barriga
Reason for Consultation: AMS
Medical History
-
Chief Complaint: Altered mental status
History of Present Illness:
74-year-old female with a past medical history of CAD, chronic HFpEF, ESRD on HD, history of recurrent encephalopathy with concern for polypharmacy, hypothyroidism, anxiety, depression, GERD, GAVE, DM type II and hypertension who presents with
altered mental status. Patient was at [facility] and has been endorsing hallucinations since 2 days prior to arrival. Initial vitals showed she was afebrile with BP 117/82, pulse rate 66, breathing at 18 breaths minute, and saturating 98% on
room air. Labs showed normal WBC at 5.2, Hb 10.5, potassium 5.2, BUN 34, normal LFTs, TSH 0.47 and POCT glucose 87. CT head was negative for an acute intracranial abnormality, and CXR showed no acute cardiopulmonary process. Given her AMS with
concern for airway protection, Boiler Fireman/pulmonary service now consulted for further evaluation/recommendations.
When I saw the pt, she was in bed, awakening to voice but still confused and lethargic at times. Pt's HR is 77, BP 157/90 and SpO2 98% on room air. Daughter, fIrah, at bedside. She was annoyed that nobody told her from the NH that she was coming
back to the hospital, as she was just discharged from here 2 days ago (was hospitalized here from 02/26 - 03/15/2025). Last visit she was confused and had fallen from her bed 2x without recollection, and was started on ambien ~2 weeks prior for
chronic insomnia. 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
Past Medical History: Reports Other
Additional Past Medical History:
Coronary Artery Disease
Chronic HFpEF
Essential Hypertension
Hyperlipidemia
Diabetes Mellitus, Insulin-Dependent
ESRD on HD
Hypothyroidism
Anemia of Chronic Disease
Anxiety/Depression
GERD/Gastritis
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
Past Surgical History: Reports Other
Additional Past Surgical History:
Left Upper Extremity AV Fistula
Right Upper Extremity AV Fistula
Left Carpal Tunnel
left Tunneled HD Catheter
Past Medical History
Past Medical History: Other (Above as per HPI)
Past Surgical History: Other (Above as per HPI)
Social History
Tobacco: Non-smoker
Alcohol: None
Drug: None
Personal: Single
Living: [facility] (previously lived at home with her two daughters)
Family History
Family History: CAD, Cancer (Mother: Breast cancer), Diabetes and Other (Granddaughter: Asthma)
Allergies / Home Medications
Allergies
Allergy/AdvReac Type Severity Reaction Status Date / Time
cephalexin Allergy rash, Verified 02/25/25 22:41
fever &
itching;
tolerates
cefazolin
(SEE
COMMENTS)
eggplant Allergy Shortness Verified 02/25/25 22:41
of Breath
erythromycin base Allergy Itching,Stomach Verified 02/25/25 22:41
pain 'bad'
latex Allergy Pt states Verified 02/25/25 22:41
she gets a
rash and
wheezes
shellfish derived Allergy Unknown Verified 02/27/25 15:46
Home Medications
�Medication �Instructions �Recorded �Confirmed �Last Taken �Type
atorvastatin 40 mg tablet 40 mg PO HS High cholesterol 02/13/20 02/26/25 05/17/23 History
sevelamer carbonate 800 mg tablet 1,600 mg PO MEALS Kidney Disease 07/30/21 02/26/25 02/06/23 11:00 History
albuterol sulfate 90 mcg/actuation 2 puff inhalation R BID 05/18/23 02/26/25 05/18/23 History
aerosol inhaler Lung/Breathing Issues
aspirin 81 mg tablet,delayed 81 mg PO DAILY Blood Clot 05/18/23 02/26/25 05/18/23 History
release Prevention/Tx
insulin glargine 100 unit/mL (3 10 unit SC HS Diabetes 05/18/23 02/26/25 05/17/23 History
mL) subcutaneous pen (Lantus
Solostar U-100 Insulin)
cyclobenzaprine 10 mg tablet 10 mg PO DAILYPRN PRN muscle spasms 02/26/25 02/26/25 Unknown History
semaglutide 0.25 mg or 0.5 mg (2 0.5 mg SC FRIEDMAN WEIGHT LOSS 02/26/25 02/26/25 Unknown History
mg/3 mL) subcutaneous pen injector
(Ozempic)
Held on 03/15/25.
Instructions: Resume on
03/29/25. Discuss with
outpatient doctor before
resuming this medication
acetaminophen 325 mg tablet 650 mg (2 x 325 mg) PO Q4HPRN PRN 03/15/25 Unknown Rx
Mild Pain / Temp > 101 #30 tabs
baclofen 5 mg tablet 2.5 mg (1/2 x 5 mg) PO Q12 #60 tabs 03/15/25 Unknown Rx
benzocaine 6 mg-menthol 10 mg 1 aury PO Q4HPRN PRN throat 03/15/25 Unknown Rx
lozenges (Chloraseptic Sore Throat) irritation #18 ea
budesonide-formoterol HFA 160 2 puff inhalation R BID #10.2 grams 03/15/25 Unknown Rx
mcg-4.5 mcg/actuation aerosol
inhaler (Symbicort)
furosemide 80 mg tablet 80 mg PO BID@0800,1600 #60 tabs 03/15/25 Unknown Rx
guaifenesin 600 mg tablet, 600 mg PO Q12 #10 tabs 03/15/25 Unknown Rx
extended release 12 hr
levothyroxine 137 mcg tablet 137 mcg PO DAILY @ 0600 #30 tabs 03/15/25 Unknown Rx
melatonin 5 mg tablet 5 mg PO HSPRN PRN insomnia #30 tabs 03/15/25 Unknown Rx
oxcarbazepine 150 mg tablet 150 mg PO DAILY #60 tabs 03/15/25 Unknown Rx
pantoprazole 40 mg tablet,delayed 40 mg PO BID #60 tabs 03/15/25 Unknown Rx
release
polyethylene glycol 3350 17 gram 17 g PO DAILY #30 ea 03/15/25 Unknown Rx
oral powder packet
pregabalin 75 mg capsule 75 mg PO DAILY #30 caps 03/15/25 Unknown Rx
sennosides 8.6 mg-docusate sodium 1 tab PO BID #60 tabs 03/15/25 Unknown Rx
50 mg tablet (Senna Plus)
Review of Systems
-
Unable to Obtain full review of systems at this time due to: Acuity
Vitals / Labs / Diagnostic Testing
Vital Signs
Temp Pulse Resp BP Pulse Ox
97.5 F 73 10 175/73 99
03/17/25 09:43 03/17/25 14:45 03/17/25 14:45 03/17/25 14:40 03/17/25 14:45
Lab Data
03/17/25 11:22
03/17/25 11:22
Laboratory Results
03/17/25
14:26
PT 13.1
INR 0.97
APTT 26.6
Diagnostic Testing:
Physical Exam
-
HEENT: Normocephalic and Anicteric
Cardiovascular: S1/S2 and Peripheral Edema (negative)
Respiratory: Wheeze (negative), Rales (bibasilar), Rhonchi (negative) and Non-Labored Respirations
GI: Soft, Distended (abdominal obesity), Non Distended, Non Tender and Normal Bowel Sounds
Neurology: Tremors (negative) and Other (Lethargic but easily arousable to voice; unable to follow commands due to degree of lethargy; moving all 4 extremities)
Skin: Warm and Dry
General: Respiratory Distress (negative), Comfortable, Fever (negative) and Chills (negative)
Assessment
-
Assessment: 74-year-old female with a past medical history of CAD, chronic HFpEF, ESRD on HD, history of recurrent encephalopathy with concern for polypharmacy, hypothyroidism, anxiety, depression, GERD, GAVE, DM type II and hypertension who
presents with altered mental status. Patient was at [facility] and has been endorsing hallucinations since 2 days prior to arrival. Initial vitals showed she was afebrile with BP 117/82, pulse rate 66, breathing at 18 breaths minute, and
saturating 98% on room air. Labs showed normal WBC at 5.2, Hb 10.5, potassium 5.2, BUN 34, normal LFTs, TSH 0.47 and POCT glucose 87. CT head was negative for an acute intracranial abnormality, and CXR showed no acute cardiopulmonary process.
Given her AMS with concern for airway protection, cupola worker/pulmonary service now consulted for further evaluation/recommendations.
Impression:
#Altered mental status likely due to toxic�metabolic encephalopathy in setting of polypharmacy and ESRD; hypertensive encephalopathy is also on differential
#Hypertensive urgency (SBP on arrival here to ER was 117/82 but SBP has been >180-200mmHg since)
#Chronic hypercapnic respiratory failure (mild acute component)
#History of pneumonia (suspected aspiration)
#Obesity
#History of recurrent encephalopathy with concern for polypharmacy
#ESRD on HD
#Hypothyroidism
#DM type II
#GERD
#Chronic HFpEF
#Environmental allergies
Plan:
- Patient was sent to hospital due to hallucinations since this past Tuesday (03/15/2025) and patient not feeling well
- Patient initially was normotensive however as the morning hours went on she became hypertensive with SBP being as high as 204/94 --> appears her baseline BP is variable between 110/52 180/70
- Control BP with anti-hypertensives ---> use IV for now given her AMS
- Ideally want BP<130/80mmHg; given that she came in with normotension, ok to rapidly correct her BP without fear of hypoperfusion
- May need cardene gtt if BP remains elevated jone if SBP >200mmHg and resistant
- Patient has evidence of chronic respiratory acidosis with baseline pCO2 approximately 50
- Blood gas today shows mild acute hypercapnia component with pH 7.34, pCO2 55; it appears that this is also a venous blood gas given that the O2 saturation is 79.7 --> I strongly doubt that her hypercapnia is why she is having altered mental status
- Would avoid BiPAP for now given her AMS and would obtain serial blood gases to assure pH + pCO2 remained stable
- CT head negative for acute intracranial pathology
- Keep NPO until mental status improves
- Patient has no evidence of leukocytosis, although would check a urinalysis to evaluate for UTI
- Hold all PARKING MANAGER depressing medications (i.e. Lyrica + Flexeril)
- The daughter says that she is not sure if the correction gave her mom a sleeping pill, and that could be why she is like this. She previously became very confused after taking Ambien (last admission)
- TSH is WNL at 0.47; ammonia level is pending although her LFTs are WNL so I doubt that this will be clinically meaningful
- Neurochecks q2hr
- If pt does not awaken, then check MRI brain + EEG with neuro consult; no need for LP at this time given lack of leukocytosis, fever, neck pain, headache, etc (although exam and subjective history limited currently due to her acute clinical
condition)
- Maintain aspiration precautions
- Maintain SpO2 >90-94% using supplemental O2 if needed
- Keep HOB>30-45 degrees
- Continue home inhalers, but will use only nebs for now (budesonide + duonebs) given she is too lethargic to properly inhaler an MDI or SMI
- prn nebulized bronchodilators - not currently bronchospastic
- Once mentation improves, then restart Symbicort and albuterol MDI BID
- Maintain MAP>65
- Replete electrolytes with K>4, Mg>2
- Maintain euglycemia with goal BG 140-180; HbA1c 5.1 on 02/26/2025; monitor BG with q4-6hr glucose while she is NPO
- Trend H/H and transfuse if needed to keep Hb>7g/dL; keep plt>20k, unless there is concern for bleeding then keep plt>50k
- Once pt's mentation normalizes, then encourage incentive spirometer 10x per hour for at least 4 hrs a day
- PPI (home med)
- DVT ppx: HSQ --> raise to q8hr dosing
Admit to IMU. Pulmonary service will continue to follow along. She previously saw us in office in 2022 --> will arrange for follow up appt again.
Data:
CT Head 03/17/2025: No acute intracranial abnormality.
CXR 03/17/2025: No acute cardiopulmonary process.
Total time spent today was 78 minutes for this encounter. Time includes reviewing laboratory test/imaging results, reviewing pertinent medical records, obtaining and reviewing medical history, performing an appropriate exam, ordering medications,
tests and procedures. Time also includes documentation of this encounter, coordinating patient care and communicating with other healthcare professionals. Total time does not include separately billed tests performed on this date of service.
[2025-03-17 14:46] LABS: APTT 26.6 Sec (23.4-35.0); INR 0.97; PT 13.1 Sec (11.4-14.6)
--- NOTE | 2025-03-17 15:29 | CM ---
Addendum entered by Shira Black 03/17/25 16:12:
Conference call bacl from dtrs
Introduced self and explain role
They are not interested in pt returning back to [facility]
Original Note:
CM attempted bedside visit with pt and sleeping soundly
VM left for dtr/Felisa on introduce self and explain role
Pt admitted to [facility] from 02/26/25-03/15/25 and was dc to [facility] with bedside HD
During last admission, pt was clinically accepted to [facility] but was [facility] denied auth after P2P was completed
Pt typically resides with her dtr in a 2SH town-home with 16 [address], add'l 16 steps to bed/bath
Pt is independent with her ADLs, utilizes furniture to navigate through her home and a cane or WW while in the community
Pt attends outpt HD at [facility] MWF 550a chair time and utilizes BCT
Pt has hx with [facility] Fontane[facility], [facility], [facility] and [facility]
PCP- Patricia Horn
Rx- Tammy Fung
Discharge Disposition- TBD, anticipate SNF
[2025-03-17] MEDS: ZOFRAN 4 MG IV (19:26)
[2025-03-17] MEDS: RENVELA PO (19:43)
[2025-03-17] MEDS: SENOKOT-S PO (19:44)
[2025-03-17] MEDS: PROTONIX PO (19:58)
[2025-03-17] MEDS: APRESOLINE 5 MG IV (20:03)
[2025-03-17] MEDS: PULMICORT 0.5 MG INH (20:14)
[2025-03-17] MEDS: DUONEB 3 ML INH (20:14)
[2025-03-17] MEDS: LASIX PO (20:24)
[2025-03-17] MEDS: LASIX 40 MG IV (20:28)
[2025-03-17 21:28] LABS: Ammonia < 9 umol/L (9-30)
[2025-03-17 23:22] LABS: Glucose - Point of Care 113 mg/dl (70-99)
[2025-03-18] VITALS (36 sets, daily range): BP systolic 87–205; BP diastolic 38–101
[2025-03-18] MEDS: HEPARIN 5000 UNITS SC ×3 (00:13→17:36)
[2025-03-18] MEDS: APRESOLINE 5 MG IV ×3 (01:32→05:47)
--- NOTE | 2025-03-18 04:36 | PTCARENOTE ---
Pt awake, alert, oriented. Demonstrates some forgetfulness. Frequently asking staff about food and drink. Pt educated on NPO orders. Pt hypertensive despite PRN med, BUS ASSISTANT contacted. STAT dose given per MAR. Bed alarm placed for pt safety. Call davis
within reach.
[2025-03-18] MEDS: SYNTHROID PO (05:15)
[2025-03-18 05:48] LABS: Glucose - Point of Care 120 mg/dl (70-99)
[2025-03-18] MEDS: PULMICORT 0.5 MG INH (07:33)
[2025-03-18] MEDS: DUONEB 3 ML INH ×2 (07:33→20:11)
--- NOTE | 2025-03-18 08:05 | W.PN.HOSP.TC ---
Today's Communication/Plan
-
HD as per Nephro
Brain MRI
aspiration precautions
hold Lyrica Trileptal as per Neuro
bowel regimen
Assessment / Plan
Assessment / Plan
Physical Exam
General: No Apparent Distress, appears relatively comfortable at this time.
HEENT: NormoCephalic
Respiratory: Clear, stable respiratory status on room air
Cardiac: S1/S2 and Regular Rhythm
GI: Soft, Non Tender, decrease bowel sounds
Musculoskeletal: No Cyanosis
Skin: Warm and Dry
Neuro: Lethargic but arousable, spontaneous eye opening, intermittent fluent speech though speaking very little if at all
Psych: Calm
74F with past medical history of recent hospitalization at [facility] for syncope related to polypharmacy and headache/facial pain, ESRD on HD, CATA, HFpEF, hypertension, hyperlipidemia, hypothyroidism, anxiety, depression, DM-II and GERD / GAVE, and
asthma, presented with profound lethargy/unresponsiveness. Patient was recently hospitalized from 02/26/25 to 03/15/25 for syncope with encephalopathy (secondary to polypharmacy with sedating medications as well as pneumonia) and headache/facial
pains with multiple adjustments in her medications, she was then discharged to [facility] on 03/15/25, the nurse went to check on her in AM and she was noted to be lethargic, her blood pressure was elevated at 240/100 mmHg and heart rate
was also elevated prompting EMS call.
Presentation with profound lethargy
-Unclear etiology, possibly polypharmacy vs new CVA
-Brain MRI pending
-Monitor in IMU
-Neuro eval appreciated Lyrica and Trileptal discontinued
-Pulm eval appreciated chronic hypercapnia, no need to initiate BIPAP
-Briefly NPO d/t AMS diet since advanced with improvement in mental status
Hypertensive Urgency
-permissive HTN for now given concern possible new CVA
-consider prn hydralazine if BP>220/120
Nausea possibly d/t constipation
- Abd x-ray appreciated moderate stool burden
- bowel regimen Miralax Senokot-s
- UGI earlier in Feb 2025 study showed no obstruction -- showed presbyesophagus and small HH
- Aspiration precautions
Chronic Dyspnea on exertion - likely multifactorial -- obstructive and restrictive lung disease, pneumonia, morbid obesity, heart failure, ESRD, physical deconditioning
Hyperkalemia
ESRD on HD
- Nephrology eval appreciated
- cont HD as per Nephro
Left-sided facial/head pain
Trigeminal Neuralgia vs Trigeminal Autonomic Cephalgia
-Tylenol prn
-Lyrica and Trileptal discontinued as per Neuro
ASCVD
HLD
Chronic HFpEF
- cont ASA statin
- Lasix 80 mg BID w holding parameters
- Follows [facility] outpatient
Hx Type 2 Diabetes Mellitus
Recent A1c 5.1 02/26/25 non-diabetic
low dose sliding scale for now
Hypothyroidism
- TSH wnl
- cont Home Levothyroxine 137 mcg daily
GERD / GAVE / Hiatal Hernia
- Prior h/o GI bleeding.
- Continue PPI.
History of Depression
DVT Prophylaxis: Subcutaneous Heparin
Code Status: Full Code
Discussed with patient's daughter Felisa
I spent a total of 55 minutes with the patient or on the floor. More than 50% of this time involved counseling and coordination of care.
Anticipated Discharge: 24 - 48 hours
Subjective/Interval History
-
Date of Service: March 18, 2025
No acute distress, sitting up comfortably in bed. Lethargic but arousable, speaks few words at a time if at all. Either refuses or unable to answer orientation questions. Endorses nausea.
Objective Data
-
Labs:
Laboratory Results
03/18/25
07:00
WBC Pending
Hgb Pending
Hct Pending
Plt Count Pending
Sodium Pending
Potassium Pending
Chloride Pending
Carbon Dioxide Pending
BUN Pending
Creatinine Pending
Glucose Pending
Calcium Pending
Vital Signs:
Vital Signs
Temp Pulse Resp BP Pulse Ox
97.5 F 82 18 167/58 97
03/18/25 07:21 03/18/25 07:35 03/18/25 07:35 03/18/25 06:00 03/18/25 07:35
--- NOTE | 2025-03-18 08:32 | W.PN.NEURO.1 ---
Addendum entered and electronically signed by Jose Wan MD 03/18/25 09:34:
Studies reviewed.
I have personally examined the patient. I reviewed and agree with the [employer]'s Note.
My addenda:
Awake, minimally interactive. No acute distress.
Speech minimal output.
Follows 2-step requests w/o difficulty. No tremor.
Extra-ocular movements grossly intact.
Facial movements full and symmetric. Hearing intact to normal conversational volume.
Neck: full ROM.
Chest: no dyspnea
Heart: no JVD
Ext: (-) Clubbing, (-) Cyanosis, (-) Edema
IMPRESSIONS/RECOMMENDATIONS:
Abrupt onset of encephalopathy; differential diagnosis includes toxic metabolic etiologies
Unfortunately, differential diagnosis also includes acute onset stroke leading to the need for MRI of brain to be repeated if no improvement in the next 24 hours
Discontinue pregabalin, oxcarbazepine due to risks of these medications producing sedation
Provide thiamine
Avoid hydralazine as this medication can cause sedation
Consider lumbar puncture
D/W patient / nursing
Will continue to follow patient.
Original Note:
Documented by User: Justine Linder NP 03/18/25 09:17
Today's Communication / Plan
-
-continue Trileptal 150 mg twice daily, check level
-obtain brain MRI as planned
-dc pregabalin in the setting of sedation
-goal normotension
Neuro Assessment/Plan
Assessment
74-year-old female with a past medical history of CAD, chronic HFpEF, ESRD on HD, history of recurrent encephalopathy with concern for polypharmacy, hypothyroidism, anxiety, depression, GERD, GAVE, DM type II and hypertension who presents to [facility] on
03/17/2025 with altered mental status.
ER VS: 117/82�187/83-204/94, 66, afebrile.
Labs: Normal glucose, creatinine�7.6, normal WBCs.
CT head�Mild age-related parenchymal atrophy. No intra- or extra-axial mass, hemorrhage, or fluid collection. Moderate subcortical, deep, and periventricular white matter low-attenuation, compatible with changes of chronic small vessel ischemic
disease.
Brain MRI without cordell (03/11/2025)Mild to moderate age-related parenchymal atrophy. T2/FLAIR hyperintense signal in the white matter of the bilateral cerebral hemispheres, most compatible with mild chronic microangiopathic ischemia. No mass effect,
midline shift, or extra axial collection. No abnormal signal intensity on diffusion-weighted images. Stable single small chronic microhemorrhage in the right periventricular centrum semiovale.
Assessment and Plan:
I. Mixed encephalopathy(vascular, metabolic toxic)
II. Trigeminal cephalgia
III. Hypertensive emergency
Plan
-continue Trileptal 150 mg twice daily, check level
-obtain brain MRI as planned
-dc pregabalin in the setting of sedation
-goal normotension
Subjective/Objective
Subjective Data
Date of Service: March 18, 2025
No acute overnight events. Patient extremely lethargic this morning. She is able to tell us her name and that she is in a hospital. Unable to provide any history, unable to participate in physical exam.
Objective Data
Vital Signs
Temp Pulse Resp BP Pulse Ox
97.5 F 82 18 167/58 97
03/18/25 07:21 03/18/25 07:35 03/18/25 07:35 03/18/25 06:00 03/18/25 07:35
PT 13.1 Sec (11.4-14.6) 03/17/25 14:26
INR 0.97 03/17/25 14:26
APTT 26.6 Sec (23.4-35.0) 03/17/25 14:26
Sodium 136 mmol/L (135-145) 03/17/25 11:22
Potassium 5.2 mmol/L (3.5-5.1) H 03/17/25 11:22
BUN 34 mg/dl (7-17) H 03/17/25 11:22
Glucose 96 mg/dl (70-99) 03/17/25 11:22
Calcium 9.5 mg/dl (8.4-10.2) 03/17/25 11:22
Patient Allergies
cephalexin Allergy (Verified 02/25/25 22:41)
rash, fever & itching; tolerates cefazolin (SEE COMMENTS)
eggplant Allergy (Verified 02/25/25 22:41)
Shortness of Breath
erythromycin base Allergy (Verified 02/25/25 22:41)
Itching,Stomach pain 'bad'
latex Allergy (Verified 02/25/25 22:41)
Pt states she gets a rash and wheezes
shellfish derived Allergy (Verified 02/27/25 15:46)
Unknown
Data Reviewed
-
CT Head: Report Reviewed and Image Reviewed
MRI Head: Report Reviewed and Image Reviewed
Medical Test Reports: Report Reviewed
Labs: Report Reviewed
Reviewed with: Physician
Old Records: Summarized

Documented by User: Jose Wan MD 03/18/25 09:22
Past History
Past History
ED Past Medical History: Asthma, CHF, HTN, IDDM, Renal failure (End-stage renal disease, dialysis dependent.), Hypothyroidism and Other (Anemia)
ED Past Surgical History: Other (cardiac catheterization; cataract extraction)
Social History
Tobacco: Non-smoker
Alcohol: None
Personal: Single
Living: with family (Currently residing at a local [facility] for inpatient physical therapy August 2021)
Employment: Not employed
Family History
Family History: Diabetes, CAD and Other (Mother with breast cancer)
Medications
-
Medications:
Generic Name Dose Route Start Last Admin
Trade Name Freq PRN Reason Stop Dose Admin
Acetaminophen 650 mg 03/17/25 18:29
Acetaminophen 325 Mg Tablet PO 04/14/25 18:28
Q4HPRN PRN
Mild Pain / Temp > 101
Albuterol/Ipratropium 3 ml 03/17/25 20:00 03/18/25 07:33
Ipratropium 0.5/Albuterol 3 Mg (3 Ml Ampul) INH 3 ml
R QID EHSAN Administration
Protocol
Albuterol/Ipratropium 3 ml 03/17/25 19:11
Ipratropium 0.5/Albuterol 3 Mg (3 Ml Ampul) INH
R Q4HPRN PRN
SOB/wheezing
Protocol
Aspirin 81 mg 03/18/25 08:00
Aspirin 81 Mg (Enteric Coated) Tablet PO 04/15/25 07:59
DAILY EHSAN
Atorvastatin Calcium 40 mg 03/17/25 22:00 03/17/25 21:00
Atorvastatin (Lipitor) 40 Mg Tablet PO 04/14/25 21:59 Not Given
HS EHSAN
Budesonide 0.5 mg 03/17/25 20:00 03/18/25 07:33
Budesonide (Pulmicort Respules) 0.5 Mg/2 Ml INH 0.5 mg
R BID EHSAN Administration
Protocol
Furosemide 80 mg 03/17/25 18:29 03/17/25 20:24
Furosemide 80 Mg Tablet PO 04/14/25 18:28 Not Given
BID@0800,1600 EHSAN
Heparin Sodium 5,000 units 03/18/25 00:00 03/18/25 00:13
Heparin 5,000 Units/Ml 1 Ml Vial SC 04/15/25 00:00 5,000 units
Q8 EHSAN Administration
Levothyroxine Sodium 137 mcg 03/18/25 06:00 03/18/25 05:15
Levothyroxine 137 Mcg Tablet PO 04/15/25 05:59 Not Given
DAILY @ 0600 EHSAN
Mannitol 12.5 grams 03/18/25 08:00
Mannitol 25% (12.5 Grams/50 Ml) Vial IV 03/18/25 23:59
HD-Q1HPRN PRN
SBP < 90 mmHg
Melatonin 5 mg 03/17/25 18:29
Melatonin 5 Mg Tablet PO 04/14/25 18:28
HSPRN PRN
insomnia
Oxcarbazepine 150 mg 03/18/25 08:00
Oxcarbazepine 150 Mg Tablet PO 04/15/25 07:59
On Hold: 03/18/25 09:21 DAILY EHSAN
Resume: 03/20/25 08:00
Pantoprazole Sodium 40 mg 03/17/25 20:00 03/17/25 19:58
Pantoprazole 40 Mg Delayed Release Tablet PO 04/14/25 19:59 Not Given
BID EHSAN
Polyethylene Glycol 17 grams 03/18/25 08:00
Polyethylene Glycol Powder 17 Grams Packet PO 04/15/25 07:59
DAILY EHSAN
Senna/Docusate Sodium 1 tablet 03/17/25 20:00 03/17/25 19:44
Docusate W/Senna (Nel-Colace) Tablet PO 04/14/25 19:59 Not Given
BID EHSAN
Sevelamer Carbonate 1,600 mg 03/17/25 18:29 03/17/25 19:43
Sevelamer Carbonate (Renvela) 800 Mg Tablet PO 04/14/25 18:28 Not Given
MEALS EHSAN
Sodium Chloride 10 ml 03/18/25 08:00
Sodium Chloride (4 Meq/Ml) 30 Ml Vial *For Hemodialysis* IV 03/18/25 23:59
HD-Q1HPRN PRN
cramps
Sodium Chloride 0 flush 03/17/25 19:00
Sodium Chloride 0.9% (Flush) Syringe IV 04/14/25 18:59
PER PROTOCOL EHSAN
--- NOTE | 2025-03-18 08:43 | PTCARENOTE ---
Patient received from assistant shift supervisor. Patient resting comfortably in bed. AAO but extremely drowsy. VSS aside from hypertension. No events noted overnight. Complaints of some pain in throat. Patient to get HD today, time unknown. Strict NPO at
this time, will reassess mentation and aspiration risk. No other test scheduled at this time. Call davis in reach.
[2025-03-18] MEDS: ASPIR LOW (ENTERIC COATED) PO (09:59)
[2025-03-18] MEDS: SENOKOT-S PO (10:00)
[2025-03-18] MEDS: MIRALAX PO (10:00)
[2025-03-18] MEDS: LASIX PO ×3 (10:00→17:51)
[2025-03-18] MEDS: RENVELA PO ×3 (10:00→19:14)
[2025-03-18] MEDS: PROTONIX PO (10:00)
--- NOTE | 2025-03-18 10:37 | W.PN.PUL3 ---
Today's Communication / Plan
-
Transition to inhalers
DC nebulizers
No need to initiate BIPAP, MS improved.
Recommend outpx follow up. Info left in chart. Lost to follow up.
Sign off.
Assessment
-
Assessment: 74-year-old female with a past medical history of CAD, chronic HFpEF, ESRD on HD, history of recurrent encephalopathy with concern for polypharmacy, hypothyroidism, anxiety, depression, GERD, GAVE, DM type II and hypertension who
presents with altered mental status. Patient was at [facility] and has been endorsing hallucinations since 2 days prior to arrival. Initial vitals showed she was afebrile with BP 117/82, pulse rate 66, breathing at 18 breaths minute, and
saturating 98% on room air. Labs showed normal WBC at 5.2, Hb 10.5, potassium 5.2, BUN 34, normal LFTs, TSH 0.47 and POCT glucose 87. CT head was negative for an acute intracranial abnormality, and CXR showed no acute cardiopulmonary process.
Given her AMS with concern for airway protection, activity director/pulmonary service now consulted for further evaluation/recommendations.
Pulmonary following for chronic hypercanea.03/18/2025
Impression:
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
intolerant to CPAP.
#Altered mental status likely due to toxic�metabolic encephalopathy in setting of polypharmacy and ESRD; hypertensive encephalopathy is also on differential
#Hypertensive urgency (SBP on arrival here to ER was 117/82 but SBP has been >180-200mmHg since)
#History of recurrent encephalopathy with concern for polypharmacy
-
#History of pneumonia (suspected aspiration)
#Obesity
#ESRD on HD
#Hypothyroidism
#DM type II
#GERD
#Chronic HFpEF
#Environmental allergies
Plan:
- Patient was sent to hospital due to hallucinations since this past Tuesday (03/15/2025) and patient not feeling well
- Patient initially was normotensive however as the morning hours went on she became hypertensive with SBP being as high as 204/94 --> appears her baseline BP is variable between 110/52 180/70
- Control BP Control per primary team
- to get HD today.
- Patient has evidence of chronic respiratory acidosis with baseline pCO2 approximately 50- likely CATA/OHS
-- CT head negative for acute intracranial pathology
- H/o CATA - intolerant to CPAP.
- Mental status improved- unlikely has worsening hypercapnea.
- Blood gas -mild acute hypercapnia component with pH 7.34, pCO2 55; it appears that this is also a venous blood gas given that the O2 saturation is 79.7 --> I strongly doubt that her hypercapnia is why she is having altered mental status.
- Can reassses tolerance to NIV in outpatient setting.
?History of asthma.
Now that MS improved, place back on usual inhalers - Symbicort and PRN nebs- Not bronchospastic on exam
- Ongoing eval for encephalopathy per Primary team and neurology.
- Maintain aspiration precautions
- Maintain SpO2 >90-94% using supplemental O2 if needed- Currently on RA
- Keep HOB>30-45 degrees
- IS was encoraged.
- DVT ppx: HSQ --> q8hr dosing
Recommend re-establish care with pulmonary, information will be left in chart.
No additional recommendation at this point, will sign off.
Data:
CT Head 03/17/2025: No acute intracranial abnormality.
CXR 03/17/2025: No acute cardiopulmonary process.
Subjective Data
-
Date of Service:
Date of Service: March 18, 2025
Chief Complaint: Pulmonary Follow Up (Chronic hypercapnic resp failure/CATA)
Objective Data
Data Reviewed
Vital Signs / I&O / Oxygen:
Vital Signs
Temp Pulse Resp BP Pulse Ox
97.5 F 82 18 167/58 97
03/18/25 07:21 03/18/25 07:35 03/18/25 07:35 03/18/25 06:00 03/18/25 07:35
SaO2 97
Nasal Cannula flow liters per 99
minute
Labs/Micro/Reports
Laboratory Results
03/17/25
14:26
PT 13.1
INR 0.97
APTT 26.6
[2025-03-18] MEDS: ZOFRAN 4 MG IV ×2 (10:45→18:03)
[2025-03-18] MEDS: THIAMINE INJECTION 100 MG IV (10:45)
[2025-03-18] MEDS: TYLENOL 1000 MG PO (11:39)
[2025-03-18 11:43] LABS: Venous Blood Gas B.E. -0.1 mmol/L (-4 to +4); Venous Blood Gas O2 Sat % 99.5 %
[2025-03-18 11:44] LABS: Hematocrit 35.4 % (37.0-47.0); Hemoglobin 11.7 g/dL (12.0-16.0); Mean Corp Hgb Conc. 33.1 g/dL (33.0-37.0); Mean Corpuscular Volume 95.4 fL (81.0-99.0); Platelet Count 171 10^3/uL (130-400); Red Cell Dist. Width 16.8 % (11.5-14.5)
--- NOTE | 2025-03-18 12:26 | CM ---
Following up on Patient. Medical Progress notes state that patient had abrupt onset of encephalopathy and RN stated that patient is not as responsive today. PT/OT does not have her on their list as of yet, only orders for Speech.
[facility] read that patient was for Acute Rehab then denied by insurance so went to [facility] that the daughters prefer she not return. Right now unsure of her discharge needs, CM to follow.
PLAN: TBD, Anicipate SNF
[2025-03-18 12:31] LABS: Glucose - Point of Care 95 mg/dl (70-99)
[2025-03-18 13:48] LABS: Blood Urea Nitrogen 42 mg/dl (7-17); Calcium 9.5 mg/dl (8.4-10.2); Carbon Dioxide 25 mmol/L (22-30); Chloride 101 mmol/L (98-107); Glucose 96 mg/dl (70-99); Potassium 6.6 mmol/L (3.5-5.1); Sodium 134 mmol/L (135-145); eGFR 4.17
--- NOTE | 2025-03-18 13:48 | W.PN.NEPH.HD ---
Assessment
-
Seen on HD. confused, VSS, access ok
Progress Note - Hemodialysis
-
Date of Service: March 18, 2025
Duration: 30 minutes and 3 hours
Potassium Bath: 2
Calcium Bath: 2.5
Opti-Dialyzer: 160
Ultrafiltration: Other (2kg)
Blood Flow: 400
Dialysate Flow: 600
Heparin: 0
EPO: 8000 units
[2025-03-18] MEDS: MANNITOL 25% 12.5 GRAMS IV (14:09)
[2025-03-18] MEDS: HEPARIN 10000 UNITS INTRACATH (16:18)
[2025-03-18 17:47] LABS: Glucose - Point of Care 98 mg/dl (70-99)
[2025-03-18] MEDS: SYMBICORT 160/4.5 MCG INHALER 2 PUFF INH (20:10)
[2025-03-18] MEDS: PROTONIX 40 MG PO (20:29)
[2025-03-18] MEDS: SENOKOT-S 1 TABLET PO (20:29)
[2025-03-18] MEDS: ROBITUSSIN 100 MG PO (20:54)
[2025-03-18 22:18] LABS: Glucose - Point of Care 111 mg/dl (70-99)
[2025-03-19] VITALS (22 sets, daily range): BP systolic 94–145; BP diastolic 40–78
[2025-03-19] MEDS: HEPARIN 5000 UNITS SC ×4 (00:47→22:29)
[2025-03-19] MEDS: SYNTHROID 137 MCG PO (05:05)
[2025-03-19 05:13] LABS: Hematocrit 33.2 % (37.0-47.0); Hemoglobin 10.9 g/dL (12.0-16.0); Mean Corp Hgb Conc. 32.8 g/dL (33.0-37.0); Mean Corpuscular Volume 96.0 fL (81.0-99.0); Platelet Count 158 10^3/uL (130-400); Red Cell Dist. Width 17.2 % (11.5-14.5)
[2025-03-19 05:42] LABS: Blood Urea Nitrogen 21 mg/dl (7-17); Calcium 9.2 mg/dl (8.4-10.2); Carbon Dioxide 26 mmol/L (22-30); Chloride 103 mmol/L (98-107); Glucose 104 mg/dl (70-99); Potassium 5.2 mmol/L (3.5-5.1); Sodium 136 mmol/L (135-145); eGFR 7.57
[2025-03-19] MEDS: SYMBICORT 160/4.5 MCG INHALER 2 PUFF INH ×2 (07:23→20:42)
--- NOTE | 2025-03-19 07:41 | W.PN.HOSP.TC ---
Today's Communication/Plan
-
Brain MRI
Mandible X-ray
Once Milk and Molasses Enema
HD as per Nephro
Assessment / Plan
Assessment / Plan
Physical Exam
General: No Apparent Distress, appears relatively comfortable at this time.
HEENT: NormoCephalic
Respiratory: Clear, stable respiratory status on room air
Cardiac: S1/S2 and Regular Rhythm
GI: Soft, Non Tender, decrease bowel sounds
Musculoskeletal: No Cyanosis
Skin: Warm and Dry
Neuro: AOx3 conversant coherent
Psych: Calm
74F with past medical history of recent hospitalization at [facility] for syncope related to polypharmacy and headache/facial pain, ESRD on HD, CATA, HFpEF, hypertension, hyperlipidemia, hypothyroidism, anxiety, depression, DM-II and GERD / GAVE, and
asthma, presented with profound lethargy/unresponsiveness. Patient was recently hospitalized from 02/26/25 to 03/15/25 for syncope with encephalopathy (secondary to polypharmacy with sedating medications as well as pneumonia) and headache/facial
pains with multiple adjustments in her medications, she was then discharged to [facility] on 03/15/25, the nurse went to check on her in AM and she was noted to be lethargic, her blood pressure was elevated at 240/100 mmHg and heart rate
was also elevated prompting EMS call.
Presentation with profound lethargy
-Unclear etiology, possibly polypharmacy vs new CVA
-Brain MRI pending
-Monitor in IMU
-Neuro eval appreciated Lyrica and Trileptal discontinued
-Pulm eval appreciated chronic hypercapnia, no need to initiate BIPAP
-Briefly NPO d/t AMS diet since advanced with improvement in mental status
Hypertensive Urgency
-BP since improved with HD
-monitor for now
Nausea possibly d/t constipation
- Abd x-ray appreciated moderate stool burden
- bowel regimen Miralax Senokot-s
- UGI earlier in Feb 2025 study showed no obstruction -- showed presbyesophagus and small HH
- Aspiration precautions
- compazine prn
-once milk and molasses enema 03/19/25
Chronic Dyspnea on exertion - likely multifactorial -- obstructive and restrictive lung disease, pneumonia, morbid obesity, heart failure, ESRD, physical deconditioning
Hyperkalemia
ESRD on HD
- Nephrology eval appreciated
- cont HD as per Nephro
Left-sided facial/head pain/headache
-Tylenol prn
-Lyrica and Trileptal discontinued as per Neuro
Persistent jaw pain Left>Right
check Mandible X-ray
ASCVD
HLD
Chronic HFpEF
- cont ASA statin
- Lasix 80 mg BID w holding parameters
- Follows [facility] outpatient
Hx Type 2 Diabetes Mellitus
Recent A1c 5.1 02/26/25 non-diabetic
low dose sliding scale for now
Hypothyroidism
- TSH wnl
- cont Home Levothyroxine 137 mcg daily
GERD / GAVE / Hiatal Hernia
- Prior h/o GI bleeding.
- Continue PPI.
History of Depression
DVT Prophylaxis: Subcutaneous Heparin
Code Status: Full Code
Discussed with patient and patient's daughter Felisa
I spent a total of 50 minutes with the patient or on the floor. More than 50% of this time involved counseling and coordination of care.
Anticipated Discharge: 24 - 48 hours
Subjective/Interval History
-
Date of Service: March 19, 2025
No acute distress, mental status appears significantly improved this morning AOx3 conversant coherent. Nausea constipation persists. Patient also endorses persistent jaw pain Left more than right.
Objective Data
-
Labs:
Laboratory Results
03/19/25
05:01
WBC 5.1
Hgb 10.9 L
Hct 33.2 L
Plt Count 158
Sodium 136
Potassium 5.2 H
Chloride 103
Carbon Dioxide 26
BUN 21 H
Creatinine 5.6 H*
Glucose 104 H
Calcium 9.2
Vital Signs:
Vital Signs
Temp Pulse Resp BP Pulse Ox
98.6 F 84 18 145/51 96
03/18/25 23:00 03/19/25 07:23 03/19/25 07:23 03/19/25 04:00 03/19/25 07:23
[2025-03-19 09:01] LABS: Glucose - Point of Care 100 mg/dl (70-99)
--- NOTE | 2025-03-19 09:09 | W.PN.NEURO.1 ---
Addendum entered and electronically signed by Jose Wan MD 03/19/25 13:50:
Studies reviewed.
I have personally examined the patient. I reviewed and agree with the STORAGE GARAGE ATTENDANT's Note.
My addenda:
Awake, interactive. No acute distress.
Speech intact. Inattentive at times.
Follows 2-step requests w/ mild difficulty. No tremor.
Extra-ocular movements grossly intact.
Facial movements full and symmetric. Hearing intact to normal conversational volume.
Normal UE movements bilaterally.
Neck: full ROM.
Chest: no dyspnea
Heart: no JVD
Ext: (-) Clubbing, (-) Cyanosis, (-) Edema
IMPRESSIONS/RECOMMENDATIONS:
Abrupt onset of change in mental status. Most likely due to toxic metabolic factors, currently significantly improved.
Pregabalin patient should have provision of low-dose 50 mg every other day as needed for facial discomfort
Provide prochlorperazine for headache as needed
D/W patient
Will continue to follow as outpatient.
Original Note:
Documented by User: Justine Linder NP 03/19/25 09:52
Today's Communication / Plan
-
-obtain brain MRI as planned
-goal normotension
-give prochlorperizine for headache and nausea
Neuro Assessment/Plan
Assessment
74-year-old female with a past medical history of CAD, chronic HFpEF, ESRD on HD, history of recurrent encephalopathy with concern for polypharmacy, hypothyroidism, anxiety, depression, GERD, GAVE, DM type II and hypertension who presents to [facility] on
03/17/2025 with altered mental status.
ER VS: 117/82�187/83-204/94, 66, afebrile.
Labs: Normal glucose, creatinine�7.6, normal WBCs.
CT head�Mild age-related parenchymal atrophy. No intra- or extra-axial mass, hemorrhage, or fluid collection. Moderate subcortical, deep, and periventricular white matter low-attenuation, compatible with changes of chronic small vessel ischemic
disease.
Brain MRI without cordell (03/11/2025)Mild to moderate age-related parenchymal atrophy. T2/FLAIR hyperintense signal in the white matter of the bilateral cerebral hemispheres, most compatible with mild chronic microangiopathic ischemia. No mass effect,
midline shift, or extra axial collection. No abnormal signal intensity on diffusion-weighted images. Stable single small chronic microhemorrhage in the right periventricular centrum semiovale.
Assessment and Plan:
I. Mixed encephalopathy(vascular, metabolic toxic)
II. Trigeminal cephalgia
III. Hypertensive emergency
Plan
-obtain brain MRI as planned
-goal normotension
-give prochlorperizine for headache and nausea
Subjective/Objective
Subjective Data
Date of Service: March 19, 2025
No acute overnight events. Mental status improved and patient more awake, alert and interactive. Patient complains of headache and nausea.
Objective Data
Vital Signs
Temp Pulse Resp BP Pulse Ox
98.6 F 84 18 145/51 96
03/18/25 23:00 03/19/25 07:23 03/19/25 07:23 03/19/25 04:00 03/19/25 07:23
Lab Results
03/19/25 05:01
03/19/25 05:01
PT 13.1 Sec (11.4-14.6) 03/17/25 14:26
INR 0.97 03/17/25 14:26
APTT 26.6 Sec (23.4-35.0) 03/17/25 14:26
Sodium 136 mmol/L (135-145) 03/19/25 05:01
Potassium 5.2 mmol/L (3.5-5.1) H 03/19/25 05:01
BUN 21 mg/dl (7-17) H 03/19/25 05:01
Glucose 104 mg/dl (70-99) H 03/19/25 05:01
Calcium 9.2 mg/dl (8.4-10.2) 03/19/25 05:01
Patient Allergies
cephalexin Allergy (Verified 02/25/25 22:41)
rash, fever & itching; tolerates cefazolin (SEE COMMENTS)
eggplant Allergy (Verified 02/25/25 22:41)
Shortness of Breath
erythromycin base Allergy (Verified 02/25/25 22:41)
Itching,Stomach pain 'bad'
latex Allergy (Verified 02/25/25 22:41)
Pt states she gets a rash and wheezes
shellfish derived Allergy (Verified 02/27/25 15:46)
Unknown
Physical Exam
-
General: Appears Stated Age
Neck: Full Range of Motion
Cardiac: No JVD
GI: Non-distended
Skin: Unremarkable
Extremities: No Clubbing, No Cyanosis and No Edema
Psych: Confused
Extended Neurological Exam
Mood & Affect: Anxious
Attention Span & Concentration: Awake, Alert and Interactive
Cranial Nerve VII: Facial Symmetry: Normal Facial Symmetry
Muscle Strength, Overall: Spontaneously Moves

Documented by User: Jose Wan MD 03/19/25 10:38
Past History
Past History
ED Past Medical History: Asthma, CHF, HTN, IDDM, Renal failure (End-stage renal disease, dialysis dependent.), Hypothyroidism and Other (Anemia)
ED Past Surgical History: Other (cardiac catheterization; cataract extraction)
Social History
Tobacco: Non-smoker
Alcohol: None
Personal: Single
Living: with family (Currently residing at a local snf for inpatient physical therapy August 2021)
Employment: Not employed
Family History
Family History: Diabetes, CAD and Other (Mother with breast cancer)
Medications
-
Medications:
Generic Name Dose Route Start Last Admin
Trade Name Freq PRN Reason Stop Dose Admin
Acetaminophen 1,000 mg 03/19/25 16:00
Acetaminophen 500 Mg Tablet PO 04/16/25 15:59
TID EHSAN
Albuterol/Ipratropium 3 ml 03/17/25 19:11 03/18/25 20:11
Ipratropium 0.5/Albuterol 3 Mg (3 Ml Ampul) INH 3 ml
R Q4HPRN PRN Administration
SOB/wheezing
Protocol
Aspirin 81 mg 03/18/25 08:00 03/19/25 09:16
Aspirin 81 Mg (Enteric Coated) Tablet PO 04/15/25 07:59 81 mg
DAILY EHSAN Administration
Atorvastatin Calcium 40 mg 03/19/25 18:00
Atorvastatin (Lipitor) 40 Mg Tablet PO 04/16/25 17:59
QPM EHSAN
Benzocaine/Menthol 1 lozenge 03/18/25 10:53
Benzocaine/Menthol Lozenge PO 04/15/25 10:52
Q4HPRN PRN
sore throat
Budesonide/Formoterol Fumarate 2 puff 03/18/25 20:00 03/19/25 07:23
Symbicort Inhaler 160/4.5 INH 04/15/25 19:59 2 puff
R BID EHSAN Administration
Protocol
Dextrose 12.5 grams 03/18/25 17:55
Dextrose 50% (0.5 Grams/Ml) 50 Ml Syringe IV 04/15/25 17:54
[id number] PRN
hypoglycemia
Protocol
Furosemide 80 mg 03/17/25 18:29 03/19/25 09:16
Furosemide 80 Mg Tablet PO 04/14/25 18:28 80 mg
BID@0800,1600 EHSAN Administration
Heparin Sodium 5,000 units 03/18/25 00:00 03/19/25 09:17
Heparin 5,000 Units/Ml 1 Ml Vial SC 04/15/25 00:00 5,000 units
Q8 EHSAN Administration
Insulin Aspart 0 units 03/19/25 07:30 03/19/25 09:14
Insulin Aspart Low Resistance 300 Units/3 Ml Pen.Injctr SC 04/16/25 07:29 Not Given
AC EHSAN
Protocol
Levothyroxine Sodium 137 mcg 03/18/25 06:00 03/19/25 05:05
Levothyroxine 137 Mcg Tablet PO 04/15/25 05:59 137 mcg
DAILY @ 0600 EHSAN Administration
Melatonin 5 mg 03/17/25 18:29
Melatonin 5 Mg Tablet PO 04/14/25 18:28
HSPRN PRN
insomnia
Ondansetron HCl 4 mg 03/18/25 10:26 03/18/25 18:03
Ondansetron 4 Mg/2 Ml Vial IV 04/15/25 10:25 4 mg
Q6HPRN PRN Administration
NAUSEA/VOMITING
Pantoprazole Sodium 40 mg 03/17/25 20:00 03/19/25 09:16
Pantoprazole 40 Mg Delayed Release Tablet PO 04/14/25 19:59 40 mg
BID EHSAN Administration
Polyethylene Glycol 17 grams 03/18/25 08:00 03/19/25 09:16
Polyethylene Glycol Powder 17 Grams Packet PO 04/15/25 07:59 17 grams
DAILY EHSAN Administration
Prochlorperazine Edisylate 10 mg 03/19/25 09:50
Prochlorperazine 10 Mg/2 Ml Vial IV 04/16/25 09:49
Q6HPRN PRN
headache and nausea
Senna/Docusate Sodium 1 tablet 03/17/25 20:00 03/19/25 09:16
Docusate W/Senna (Nel-Colace) Tablet PO 04/14/25 19:59 1 tablet
BID EHSAN Administration
Sevelamer Carbonate 1,600 mg 03/17/25 18:29 03/19/25 09:16
Sevelamer Carbonate (Renvela) 800 Mg Tablet PO 04/14/25 18:28 Not Given
MEALS EHSAN
Sodium Chloride 0 flush 03/17/25 19:00
Sodium Chloride 0.9% (Flush) Syringe IV 04/14/25 18:59
PER PROTOCOL EHSAN
Thiamine HCl 100 mg 03/18/25 11:00 03/19/25 09:17
Thiamine (100 Mg/Ml) 2 Ml Vial IV 03/20/25 08:01 100 mg
DAILY EHSAN Administration
[2025-03-19] MEDS: MIRALAX 17 GRAMS PO (09:16)
[2025-03-19] MEDS: ASPIR LOW (ENTERIC COATED) 81 MG PO (09:16)
[2025-03-19] MEDS: PROTONIX 40 MG PO ×2 (09:16→20:39)
[2025-03-19] MEDS: SENOKOT-S 1 TABLET PO ×2 (09:16→20:39)
[2025-03-19] MEDS: RENVELA PO ×2 (09:16→15:04)
[2025-03-19] MEDS: LASIX 80 MG PO ×2 (09:16→17:47)
[2025-03-19] MEDS: THIAMINE INJECTION 100 MG IV (09:17)
--- NOTE | 2025-03-19 10:35 | W.PN.NEPH.PH ---
Today's Communication / Plan
-
HD tomorrow
Assessment/Plan
-
Impression:
Presentation with change of mental status lethargy/suspected polypharmacy for treatment of underlying neuralgia and pain
ESRD (MWF)
Hypertension
Anemia
Diabetes
Dyslipidemia
Hypothyroidism
Multiple failed peripheral vascular access points for dialysis
Left anterior chest wall hemodialysis catheter
Chronic musculoskeletal pain with DJD
Hyperphosphatemia
Plan:
HD tomorrow
off opiates
mental status improving, but not at baseline
-
-
Date of Service: March 19, 2025
CC / HPI / ROS
-
Chief Complaint:
ESRD
History of Present Illness:
tolerated HD yesterday
BP stable
pain controlled (back)
Review of Systems:
no CP/SOB
slightly confused still
Labs
-
Labs:
WBC 5.1 10^3/uL (4.8-10.8) 03/19/25 05:01
RBC 3.46 10^6/uL (4.20-5.40) L 03/19/25 05:01
Hgb 10.9 g/dL (12.0-16.0) L 03/19/25 05:01
Hct 33.2 % (37.0-47.0) L 03/19/25 05:01
Plt Count 158 10^3/uL (130-400) 03/19/25 05:01
Sodium 136 mmol/L (135-145) 03/19/25 05:01
Potassium 5.2 mmol/L (3.5-5.1) H 03/19/25 05:01
Chloride 103 mmol/L (98-107) 03/19/25 05:01
Carbon Dioxide 26 mmol/L (22-30) 03/19/25 05:01
BUN 21 mg/dl (7-17) H 03/19/25 05:01
Creatinine 5.6 mg/dL (0.6-1.0) H* 03/19/25 05:01
eGFR 7.57 03/19/25 05:01
Glucose 104 mg/dl (70-99) H 03/19/25 05:01
Calcium 9.2 mg/dl (8.4-10.2) 03/19/25 05:01
Albumin 3.8 g/dl (3.5-5.0) 03/17/25 11:22
Physical Exam
-
Vital Signs:
Vital Signs
Temp Pulse Resp BP Pulse Ox
98.5 F 84 18 145/51 96
03/19/25 07:35 03/19/25 07:23 03/19/25 07:23 03/19/25 04:00 03/19/25 07:23
Cardiovascular:: Regular rate and rhythm
Respiratory:: Bilateral: CTA
Lung Excursion:: Normal
Abdomen:: Nontender and Soft
Bowel Sounds:: Normal
Extremity Edema:: None: Bilateral:
[2025-03-19] MEDS: TYLENOL 1000 MG PO ×3 (12:30→22:29)
--- NOTE | 2025-03-19 12:40 | PTCARENOTE ---
pt off floor for MRI
--- NOTE | 2025-03-19 12:52 | PTOTSP ---
Speech Therapy Evaluation:
Pt with acute risk factors for dysphagia including mixed encephalopathy and concern for potential CVA, however oropharyngeal swallow appeared functional at bedside. CXR without pneumonia, WBC WNL, and pt on room air.
Recommend:
1. Regular solids and thin liquids with softer selections per pt preference
2. Medications as best tolerated
3. General aspiration precautions
4. SOLAR SITE ASSESSMENT SPECIALIST to follow to monitor tolerance of diet, likely brief and to determine if pt would benefit from language assessment (pending MRI) given new onset of word finding difficulty and concern for CVA
[2025-03-19 13:46] LABS: Glucose - Point of Care 99 mg/dl (70-99)
[2025-03-19] MEDS: RENVELA 1600 MG PO (17:48)
[2025-03-19] MEDS: LIPITOR 40 MG PO (17:49)
--- NOTE | 2025-03-19 17:51 | CM ---
Following up on Patient. RN stated that patient is getting an MRI so Medical Team still performing testing.
PLAN: SNF vs TBD
[2025-03-19 18:03] LABS: Glucose - Point of Care 79 mg/dl (70-99)
[2025-03-19 21:24] LABS: Glucose - Point of Care 89 mg/dl (70-99)
[2025-03-19] MEDS: MELATONIN 5 MG PO (22:29)
[2025-03-20] VITALS (35 sets, daily range): BP systolic 89–189; BP diastolic 50–88; PULSE 101
[2025-03-20] MEDS: SYNTHROID 137 MCG PO (06:09)
--- NOTE | 2025-03-20 06:29 | PTCARENOTE ---
Caring for pt overnight, aaox3 but forgetful and confused conversations. Still c/o SALGADO, tylenol given. Monitoring BP's overnight, starting to trend up this AM. Neuro checks complete. Pt oob to bsc X1. HD this AM. Other VSS. Melatonin given for sleep,
pt stated she did not sleep much. No other issues. will monitor.
[2025-03-20] MEDS: SYMBICORT 160/4.5 MCG INHALER 2 PUFF INH ×2 (07:30→19:29)
[2025-03-20 07:39] LABS: Glucose - Point of Care 97 mg/dl (70-99)
--- NOTE | 2025-03-20 07:51 | W.PN.HOSP.TC ---
Today's Communication/Plan
-
stable for downgrade to Tele
cont HD as per nephro
Assessment / Plan
Assessment / Plan
Physical Exam
General: No Apparent Distress, appears relatively comfortable at this time.
HEENT: NormoCephalic
Respiratory: Clear, stable respiratory status on room air
Cardiac: S1/S2 and Regular Rhythm
GI: Soft, Non Tender, decrease bowel sounds
Musculoskeletal: No Cyanosis
Skin: Warm and Dry
Neuro: AOx3 conversant coherent
Psych: Calm
74F with past medical history of recent hospitalization at [facility] for syncope related to polypharmacy and headache/facial pain, ESRD on HD, CATA, HFpEF, hypertension, hyperlipidemia, hypothyroidism, anxiety, depression, DM-II and GERD / GAVE, and
asthma, presented with profound lethargy/unresponsiveness. Patient was recently hospitalized from 02/26/25 to 03/15/25 for syncope with encephalopathy (secondary to polypharmacy with sedating medications as well as pneumonia) and headache/facial
pains with multiple adjustments in her medications, she was then discharged to [facility] on 03/15/25, the nurse went to check on her in AM and she was noted to be lethargic, her blood pressure was elevated at 240/100 mmHg and heart rate
was also elevated prompting EMS call.
Presentation with profound lethargy
-Unclear etiology, suspect polypharmacy, CVA ruled out
-Brain MRI appreciated
-Monitored in IMU stable for downgrade to Tele 03/20
-Neuro eval appreciated Lyrica and Trileptal discontinued, lyrica re-ordered at reduced dose and prn instead of scheduled
-Pulm eval appreciated chronic hypercapnia, no need to initiate BIPAP
-Briefly NPO d/t AMS diet since advanced with improvement in mental status
Hypertensive Urgency
-BP since improved with HD
-monitor for now
Nausea possibly d/t constipation
- Abd x-ray appreciated moderate stool burden
- bowel regimen Miralax Senokot-s
- UGI earlier in Feb 2025 study showed no obstruction -- showed presbyesophagus and small HH
- Aspiration precautions
- compazine prn
-once milk and molasses enema 03/19/25
-constipation since resolved
Chronic Dyspnea on exertion - likely multifactorial -- obstructive and restrictive lung disease, pneumonia, morbid obesity, heart failure, ESRD, physical deconditioning
Hyperkalemia
ESRD on HD
- Nephrology eval appreciated
- cont HD as per Nephro
Left-sided facial/head pain/headache
-Tylenol
-compazine prn
-Trileptal discontinued and Lyrica dose reduced and changed to prn as per Neuro
Persistent jaw pain Left>Right
Mandible X-ray appreciated not acute abn's
suspect TMJ
ASCVD
HLD
Chronic HFpEF
- cont ASA statin
- Lasix 80 mg BID w holding parameters
- Follows [facility] outpatient
Hx Type 2 Diabetes Mellitus
Recent A1c 5.1 02/26/25 non-diabetic
low dose sliding scale for now
Hypothyroidism
- TSH wnl
- cont Home Levothyroxine 137 mcg daily
GERD / GAVE / Hiatal Hernia
- Prior h/o GI bleeding.
- Continue PPI.
History of Depression
DVT Prophylaxis: Subcutaneous Heparin
Code Status: Full Code
Discussed with patient and patient's daughter Felisa
I spent a total of 45 minutes with the patient or on the floor. More than 50% of this time involved counseling and coordination of care.
Anticipated Discharge: 24 - 48 hours
Subjective/Interval History
-
Date of Service: March 20, 2025
mental status improved. Constipation resolved. Endorses poor appetite
Objective Data
-
Labs:
Laboratory Results
03/20/25
06:00
WBC Pending
Hgb Pending
Hct Pending
Plt Count Pending
Sodium Pending
Potassium Pending
Chloride Pending
Carbon Dioxide Pending
BUN Pending
Creatinine Pending
Glucose Pending
Calcium Pending
Vital Signs:
Vital Signs
Temp Pulse Resp BP Pulse Ox
97.5 F 85 14 159/62 97
03/20/25 03:25 03/20/25 07:31 03/20/25 07:31 03/20/25 06:10 03/20/25 07:31
I&O
03/19/25 03/20/25 03/21/25
06:59 06:59 06:59
Intake Total 480 / 480
Balance 480 / 480
[2025-03-20] MEDS: HEPARIN 5000 UNITS SC ×2 (08:00→15:51)
[2025-03-20 08:46] LABS: Hematocrit 32.9 % (37.0-47.0); Hemoglobin 10.5 g/dL (12.0-16.0); Mean Corp Hgb Conc. 31.9 g/dL (33.0-37.0); Mean Corpuscular Volume 94.8 fL (81.0-99.0); Platelet Count 163 10^3/uL (130-400); Red Cell Dist. Width 16.6 % (11.5-14.5)
[2025-03-20 09:00] LABS: Blood Urea Nitrogen 34 mg/dl (7-17); Calcium 9.3 mg/dl (8.4-10.2); Carbon Dioxide 27 mmol/L (22-30); Chloride 100 mmol/L (98-107); Glucose 127 mg/dl (70-99); Potassium 4.9 mmol/L (3.5-5.1); Sodium 138 mmol/L (135-145); eGFR 4.59
[2025-03-20] MEDS: MANNITOL 25% 12.5 GRAMS IV (09:05)
[2025-03-20] MEDS: RETACRIT 8000 UNITS IV (09:06)
[2025-03-20] MEDS: FLEXBUMIN 25% FOR HEMODIALYSIS 12.5 GRAMS IV (09:06)
[2025-03-20] MEDS: LASIX PO (09:21)
[2025-03-20] MEDS: RENVELA PO ×3 (09:22→16:46)
--- NOTE | 2025-03-20 09:41 | W.PN.NEPH.HD ---
Assessment
-
Patient seen on dialysis
Systolic blood pressure 152 at current U/F
HD via catheter
Patient mental status appears to be improved
Progress Note - Hemodialysis
-
Date of Service: March 20, 2025
Duration: 30 minutes and 3 hours
Potassium Bath: 2
Calcium Bath: 2.5
Opti-Dialyzer: 160
Ultrafiltration: Other (UF decreased to 2 kg due to drop in blood pressure)
Blood Flow: 400
Dialysate Flow: 600
Heparin: None
EPO: 8K
[2025-03-20] MEDS: TYLENOL PO (11:53)
[2025-03-20 14:18] LABS: Glucose - Point of Care 127 mg/dl (70-99)
[2025-03-20] MEDS: SENOKOT-S PO ×2 (14:22→19:47)
[2025-03-20] MEDS: MIRALAX PO (14:22)
--- NOTE | 2025-03-20 14:22 | CM ---
Following up on Patient. PT/OT will see the patient later today. BRE Grubbs received a call from [place] [place] who asked if the family wants patient to return. BRE Grubbs confirmed with Dtr Felisa that she does NOT want mom to return, [facility]
[place] is aware.
Felisa said that she would really like her mom to go home due to not trusting some facilities that she has been at as well as not wanting PT/OT at home due to the agency not providing adequate Home PT for mom. Dtr was frustrated. Dtr Felisa
will talk to her sister to confirm the DC plan and aware that Case Management can assist with services or DME if needed.
Dtr Felisa asked about obtaining a Motorized Scooter. BRE Grubbs found [employer] who will have families buy them, rent them, or try through their insurance via utilizing patient's PCP. Dtr Felisa was told this information.
PLAN:TBD, Home with DME vs Home No Needs
[2025-03-20] MEDS: THIAMINE INJECTION 100 MG IV (15:48)
[2025-03-20] MEDS: LASIX 80 MG PO (15:48)
[2025-03-20] MEDS: ASPIR LOW (ENTERIC COATED) 81 MG PO (15:50)
[2025-03-20] MEDS: TYLENOL 1000 MG PO ×2 (15:50→21:54)
[2025-03-20] MEDS: PROTONIX PO (15:51)
[2025-03-20 16:46] LABS: Glucose - Point of Care 94 mg/dl (70-99)
[2025-03-20] MEDS: LIPITOR 40 MG PO (16:59)
--- NOTE | 2025-03-20 17:10 | PTCARENOTE ---
Received pt from imu, she was able to transfer from stretcher to chair with walker, denies pain/sob, refused dinner. Resting in chair, watching TV, plans to call her daughter on room phone to update her on room change
--- NOTE | 2025-03-20 17:37 | PTCARENOTE ---
pt downgraded to tele and transferred to [address] [place] [address]. report given to Alex. hemodialysis done this am. pt was oob this afternoon and worked with pT. diet order changed for dinner and pt made aware.
[2025-03-20] MEDS: PROTONIX 40 MG PO (19:46)
[2025-03-20 21:07] LABS: Glucose - Point of Care 82 mg/dl (70-99)
[2025-03-20] MEDS: MELATONIN 5 MG PO (21:56)
[2025-03-21] MEDS: HEPARIN 5000 UNITS SC ×3 (00:27→16:42)
[2025-03-21 03:02] VITALS: BP 157/63
[2025-03-21] MEDS: SYNTHROID 137 MCG PO (05:48)
[2025-03-21 06:53] LABS: Hematocrit 31.5 % (37.0-47.0); Hemoglobin 10.3 g/dL (12.0-16.0); Mean Corp Hgb Conc. 32.7 g/dL (33.0-37.0); Mean Corpuscular Volume 96.0 fL (81.0-99.0); Platelet Count 146 10^3/uL (130-400); Red Cell Dist. Width 16.0 % (11.5-14.5)
[2025-03-21] MEDS: SYMBICORT 160/4.5 MCG INHALER 2 PUFF INH ×2 (07:14→19:20)
[2025-03-21 07:19] LABS: Blood Urea Nitrogen 17 mg/dl (7-17); Calcium 9.4 mg/dl (8.4-10.2); Carbon Dioxide 26 mmol/L (22-30); Chloride 101 mmol/L (98-107); Glucose 86 mg/dl (70-99); Potassium 4.3 mmol/L (3.5-5.1); Sodium 138 mmol/L (135-145); eGFR 8.47
[2025-03-21 07:20] VITALS: BP 161/64
--- NOTE | 2025-03-21 07:25 | W.PN.HOSP.TC ---
Today's Communication/Plan
-
Medically stable for discharge pending SNF rehab placement
Assessment / Plan
Assessment / Plan
Physical Exam
General: No Apparent Distress, appears relatively comfortable at this time.
HEENT: NormoCephalic
Respiratory: Clear, stable respiratory status on room air
Cardiac: S1/S2 and Regular Rhythm
GI: Soft, Non Tender, decrease bowel sounds
Musculoskeletal: No Cyanosis
Skin: Warm and Dry
Neuro: AOx3 conversant coherent
Psych: Calm
74F with past medical history of recent hospitalization at [facility] for syncope related to polypharmacy and headache/facial pain, ESRD on HD, CATA, HFpEF, hypertension, hyperlipidemia, hypothyroidism, anxiety, depression, DM-II and GERD / GAVE, and
asthma, presented with profound lethargy/unresponsiveness. Patient was recently hospitalized from 02/26/25 to 03/15/25 for syncope with encephalopathy (secondary to polypharmacy with sedating medications as well as pneumonia) and headache/facial
pains with multiple adjustments in her medications, she was then discharged to [facility] on 03/15/25, the nurse went to check on her in AM and she was noted to be lethargic, her blood pressure was elevated at 240/100 mmHg and heart rate
was also elevated prompting EMS call.
Presentation with profound lethargy
-Suspect polypharmacy, CVA ruled out
-Brain MRI appreciated
-Monitored in IMU stable for downgrade to Tele 03/20 further downgraded to med/surg 03/21
-Neuro eval appreciated Lyrica and Trileptal discontinued, lyrica re-ordered at reduced dose and prn instead of scheduled
-Pulm eval appreciated chronic hypercapnia, no need to initiate BIPAP
-Briefly NPO d/t AMS diet since advanced with improvement in mental status
Possible Hypertensive Urgency vs Emergency
Labile Pressures
-BP since improved with HD
-monitor for now
Nausea possibly d/t constipation
- Abd x-ray appreciated moderate stool burden
- bowel regimen Miralax Senokot-s
- UGI earlier in Feb 2025 study showed no obstruction -- showed presbyesophagus and small HH
- Aspiration precautions
- compazine prn
-once milk and molasses enema 03/19/25
-constipation since resolved
Chronic Dyspnea on exertion - likely multifactorial -- obstructive and restrictive lung disease, pneumonia, morbid obesity, heart failure, ESRD, physical deconditioning
Hyperkalemia
ESRD on HD
- Nephrology eval appreciated
- cont HD as per Nephro
Left-sided facial/head pain/headache
-Tylenol
-compazine prn
-Trileptal discontinued and Lyrica dose reduced and changed to prn as per Neuro
-Headache since significantly improved
Persistent jaw pain Left>Right
Mandible X-ray appreciated not acute abn's
suspect TMJ
outpt follow up with dentist recommended
Pain since improved
ASCVD
HLD
Chronic HFpEF
- cont ASA statin
- Lasix 80 mg BID w holding parameters
- Follows [facility] outpatient
Hx Type 2 Diabetes Mellitus
Recent A1c 5.1 02/26/25 non-diabetic
low dose sliding scale for now
Hypothyroidism
- TSH wnl
- cont Home Levothyroxine 137 mcg daily
GERD / GAVE / Hiatal Hernia
- Prior h/o GI bleeding.
- Continue PPI.
Allergies
-artificial tears
-nasal spray ocean mist
-Claritin bedtime
History of Depression
PT/OT appreciated SNF rehab
DVT Prophylaxis: Subcutaneous Heparin
Code Status: Full Code
Medically stable for discharge pending SNF rehab placement
Discussed with patient and patient's daughter Felisa
I spent a total of 45 minutes with the patient or on the floor. More than 50% of this time involved counseling and coordination of care.
Anticipated Discharge: Within 24 hours
Subjective/Interval History
-
Date of Service: March 21, 2025
No acute distress, resting comfortably in bed. Reports itchy eyes running nose, likely allergies. Reports improvement headache and jaw pain. Appetite remains poor, patient also endorses constipation. No abd pain. Nausea improved from prior.
Objective Data
-
Labs:
Laboratory Results
03/21/25
06:15
WBC 5.2
Hgb 10.3 L
Hct 31.5 L
Plt Count 146
Sodium 138
Potassium 4.3
Chloride 101
Carbon Dioxide 26
BUN 17
Creatinine 5.1 H*
Glucose 86
Calcium 9.4
Vital Signs:
Vital Signs
Temp Pulse Resp BP Pulse Ox
98.4 F 91 16 161/64 98
03/21/25 07:20 03/21/25 07:20 03/21/25 07:20 03/21/25 07:20 03/21/25 07:20
I&O
03/20/25 03/21/25 03/22/25
06:59 06:59 06:59
Intake Total 480 / 480 240 / 240
Balance 480 / 480 240 / 240
[2025-03-21] MEDS: MIRALAX PO (08:05)
[2025-03-21] MEDS: LASIX 80 MG PO ×2 (08:06→16:42)
[2025-03-21] MEDS: SENOKOT-S 1 TABLET PO ×2 (08:06→19:22)
[2025-03-21] MEDS: RENVELA 1600 MG PO ×2 (08:06→16:41)
[2025-03-21] MEDS: PROTONIX 40 MG PO ×2 (08:06→19:22)
[2025-03-21] MEDS: TYLENOL 1000 MG PO ×3 (08:06→20:51)
[2025-03-21] MEDS: ASPIR LOW (ENTERIC COATED) 81 MG PO (08:07)
[2025-03-21 08:23] LABS: Glucose - Point of Care 102 mg/dl (70-99)
[2025-03-21 11:09] VITALS: BP 161/68
--- NOTE | 2025-03-21 11:23 | W.PN.NEPH.PH ---
Today's Communication / Plan
-
Dialysis tomorrow
Assessment/Plan
-
Impression:
Presentation with change of mental status lethargy/suspected polypharmacy for treatment of underlying neuralgia and pain
ESRD (MWF)
Hypertension
Anemia
Diabetes
Dyslipidemia
Hypothyroidism
Multiple failed peripheral vascular access points for dialysis
Left anterior chest wall hemodialysis catheter
Chronic musculoskeletal pain with DJD
Hyperphosphatemia
Plan:
HD tomorrow, orders provided
off opiates
mental status improving and now at baseline
-
-
Date of Service: March 21, 2025
CC / HPI / ROS
-
Chief Complaint:
ESRD
History of Present Illness:
tolerated HD yesterday on Tuesday schedule
BP stable
Mental status improved
Review of Systems:
no CP/SOB
Mental status appears to be at baseline
Labs
-
Labs:
WBC 5.2 10^3/uL (4.8-10.8) 03/21/25 06:15
RBC 3.28 10^6/uL (4.20-5.40) L 03/21/25 06:15
Hgb 10.3 g/dL (12.0-16.0) L 03/21/25 06:15
Hct 31.5 % (37.0-47.0) L 03/21/25 06:15
Plt Count 146 10^3/uL (130-400) 03/21/25 06:15
Sodium 138 mmol/L (135-145) 03/21/25 06:15
Potassium 4.3 mmol/L (3.5-5.1) 03/21/25 06:15
Chloride 101 mmol/L (98-107) 03/21/25 06:15
Carbon Dioxide 26 mmol/L (22-30) 03/21/25 06:15
BUN 17 mg/dl (7-17) 03/21/25 06:15
Creatinine 5.1 mg/dL (0.6-1.0) H* 03/21/25 06:15
eGFR 8.47 03/21/25 06:15
Glucose 86 mg/dl (70-99) 03/21/25 06:15
Calcium 9.4 mg/dl (8.4-10.2) 03/21/25 06:15
Albumin 3.8 g/dl (3.5-5.0) 03/17/25 11:22
Physical Exam
-
Vital Signs:
Vital Signs
Temp Pulse Resp BP Pulse Ox
97.7 F 84 16 161/68 99
03/21/25 11:09 03/21/25 11:09 03/21/25 11:09 03/21/25 11:09 03/21/25 11:09
Cardiovascular:: Regular rate and rhythm
Respiratory:: Bilateral: CTA
Lung Excursion:: Normal
Abdomen:: Nontender and Soft
Bowel Sounds:: Normal
Extremity Edema:: None: Bilateral:
[2025-03-21 12:21] LABS: Glucose - Point of Care 89 mg/dl (70-99)
[2025-03-21] MEDS: RENVELA PO (12:57)
[2025-03-21] MEDS: OCEAN, SALINE MIST 1 SPRAYS NASAL ×3 (14:23→20:51)
[2025-03-21] MEDS: REFRESH EYE DROPS (PF) 1 DROPS OPHTH ×3 (14:24→20:48)
[2025-03-21] MEDS: ANESTHETIC LOZENGE 1 LOZENGE PO (14:28)
[2025-03-21 15:22] VITALS: BP 178/69
--- NOTE | 2025-03-21 15:26 | CM ---
Chart reviewed. Therapy rec SNF at d[facility]c. [facility]
Patient and family indecisive about going to another SNF vs going home
Met w/ patient bedside, shared she is confused and don't know if she wants to go to another facility. Patient stated she has to talk to her daughters.
--- NOTE | 2025-03-21 15:35 | PN.CDI ---
CDI
- -
CDI:
Physician Documentation Request
Admit Date: 03/17/25 14:09
Dear Doctor Kavita,
Please review the following and provide your response in the progress notes.
Clinical Indicators:
Pt admitted with profound lethargy.
ER: ' The nurse went to check on her this morning and she was noted to be lethargic. Her blood pressure was elevated at 240/100 and heart rate was also elevated prompting EMS call. This is reportedly an acute change in mental status from
yesterday. She did not receive any PRN medications this morning....'
Selected Entries
03/17/25
13:00 03/17/25
16:10 03/17/25
18:10
Blood pressure 204/94 204/99 210/95
Pt received 2 doses of hydralazine IV.
03/17 Neuro: ' Mental Status: 'Somnolent, oriented to location, name. Did not know her age, date of increased processing time. Not fluent in Indian. Follows simple requests. No hemineglect.
Assessment and Plan:
I. Mixed encephalopathy(vascular, metabolic toxic)
II. Trigeminal cephalgia
III. Hypertensive emergency'
03/20 HPN: ' Hypertensive Urgency
-BP since improved with HD
-monitor for now.'
Clarify which, if any of the following, is a more accurate diagnosis reflecting the type and acuity of the documented hypertension:
Hypertensive Emergency - B/P is severely elevated (systolic > or = to 180 or diastolic > or = to 110) but can occur at lower levels especially in patients who did not previously have high B/P. There is usually associated organ damage. Symptoms may
include: memory loss, LOC, CVA, NV, angina, renal failure, pulmonary edema. Generally requires more aggressive treatment and a hospitalization.
Hypertensive Urgency - B/P is severely elevated (systolic > or = to 180 or diastolic > or = to 110) but there is no associated organ damage. Symptoms may include: headache, shortness of breath, nosebleeds, severe anxiety. Treatment usually consists
of addition to or adjusting of oral medications and does not generally necessitate hospitalization.
Other (please specify)
Use of terms such as suspected, likely, concern for, or probable (associated with a specific diagnosis that is being evaluated, monitored, or treated as if it exists) are acceptable and can be coded in the inpatient setting, when documented at the
time of discharge.
Thank you,
Karo Claudio RN, BSN
CDI Specialist
[place] [facility]
Please use your independent medical judgment in providing your response.
[2025-03-21 16:42] LABS: Glucose - Point of Care 86 mg/dl (70-99)
--- NOTE | 2025-03-21 16:50 | PTCARENOTE ---
Patient with bp of 178/69, 84. No s/s of distress noted at this time. Dr. Walls made aware. no new orders at this time. advice to monitor. Plan of care ongoing.
[2025-03-21] MEDS: LIPITOR 40 MG PO (18:07)
[2025-03-21] MEDS: CLARITIN 10 MG PO (20:48)
[2025-03-21 21:21] LABS: Glucose - Point of Care 98 mg/dl (70-99)
[2025-03-21 23:00] VITALS: BP 166/67
[2025-03-22] MEDS: HEPARIN 5000 UNITS SC ×3 (00:43→23:35)
[2025-03-22] MEDS: SYNTHROID 137 MCG PO (06:25)
--- NOTE | 2025-03-22 06:49 | W.PN.HOSP.TC ---
Today's Communication/Plan
-
HD as per Nephro
Assessment / Plan
Assessment / Plan
Physical Exam
General: No Apparent Distress, appears relatively comfortable at this time.
HEENT: NormoCephalic
Respiratory: Clear, stable respiratory status on room air
Cardiac: S1/S2 and Regular Rhythm
GI: Soft, Non Tender, decrease bowel sounds
Musculoskeletal: No Cyanosis
Skin: Warm and Dry
Neuro: AOx3 conversant coherent
Psych: Calm
74F with past medical history of recent hospitalization at [facility] for syncope related to polypharmacy and headache/facial pain, ESRD on HD, CATA, HFpEF, hypertension, hyperlipidemia, hypothyroidism, anxiety, depression, DM-II and GERD / GAVE, and
asthma, presented with profound lethargy/unresponsiveness. Patient was recently hospitalized from 02/26/25 to 03/15/25 for syncope with encephalopathy (secondary to polypharmacy with sedating medications as well as pneumonia) and headache/facial
pains with multiple adjustments in her medications, she was then discharged to [facility] on 03/15/25, the nurse went to check on her in AM and she was noted to be lethargic, her blood pressure was elevated at 240/100 mmHg and heart rate
was also elevated prompting EMS call.
Presentation with profound lethargy
-Suspect polypharmacy, CVA ruled out
-Brain MRI appreciated
-Monitored in IMU stable for downgrade to Tele 03/20 further downgraded to med/surg 03/21
-Neuro eval appreciated Lyrica and Trileptal discontinued, lyrica re-ordered at reduced dose and prn instead of scheduled
-Pulm eval appreciated chronic hypercapnia, no need to initiate BIPAP
-Briefly NPO d/t AMS diet since advanced with improvement in mental status
Possible Hypertensive Urgency vs Emergency
Labile Pressures
-BP since improved with HD
-monitor for now, would not treat aggressively given low pressures noted during HD
Nausea possibly d/t constipation
- Abd x-ray appreciated moderate stool burden
- bowel regimen Miralax Senokot-s
- UGI earlier in Feb 2025 study showed no obstruction -- showed presbyesophagus and small HH
- Aspiration precautions
- compazine prn
-once milk and molasses enema 03/19/25
-constipation since resolved
Chronic Dyspnea on exertion - likely multifactorial -- obstructive and restrictive lung disease, pneumonia, morbid obesity, heart failure, ESRD, physical deconditioning
Hyperkalemia
ESRD on HD
- Nephrology eval appreciated
- cont HD as per Nephro
Left-sided facial/head pain/headache
-Tylenol
-compazine prn
-Trileptal discontinued and Lyrica dose reduced and changed to prn as per Neuro
-Headache since significantly improved
Persistent jaw pain Left>Right
Mandible X-ray appreciated not acute abn's
suspect TMJ
outpt follow up with dentist recommended
Pain since improved
ASCVD
HLD
Chronic HFpEF
- cont ASA statin
- Lasix 80 mg BID w holding parameters
- Follows [facility] outpatient
Hx Type 2 Diabetes Mellitus
Recent A1c 5.1 02/26/25 non-diabetic
low dose sliding scale for now
Hypothyroidism
- TSH wnl
- cont Home Levothyroxine 137 mcg daily
GERD / GAVE / Hiatal Hernia
- Prior h/o GI bleeding.
- Continue PPI.
Notes Brief Episode Floaters since resolved
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
Allergies
-artificial tears
-nasal spray ocean mist
-Claritin bedtime
History of Depression
PT/OT appreciated SNF rehab
DVT Prophylaxis: Subcutaneous Heparin
Code Status: Full Code
Medically stable for discharge pending SNF rehab placement
I spent a total of 45 minutes with the patient or on the floor. More than 50% of this time involved counseling and coordination of care.
Anticipated Discharge: 24 - 48 hours
Subjective/Interval History
-
Date of Service: March 22, 2025
No acute distres, resting comfortably in bed. Overall appears well, undergoing dialysis. Endorses poor appetite. Constipation persists.
Objective Data
-
Labs:
Laboratory Results
03/22/25
07:00
Hgb Pending
Hct Pending
Sodium Pending
Potassium Pending
Chloride Pending
Carbon Dioxide Pending
Vital Signs:
Vital Signs
Temp Pulse Resp BP Pulse Ox
98.2 F 83 16 166/67 97
03/21/25 23:00 03/21/25 23:00 03/21/25 23:00 03/21/25 23:00 03/21/25 23:00
I&O
03/20/25 03/21/25 03/22/25
06:59 06:59 06:59
Intake Total 480 / 480 240 / 240 360 / 360
Balance 480 / 480 240 / 240 360 / 360
[2025-03-22 07:00] VITALS: BP 181/77
[2025-03-22] MEDS: SYMBICORT 160/4.5 MCG INHALER 2 PUFF INH ×2 (07:32→19:46)
[2025-03-22 07:50] LABS: Glucose - Point of Care 114 mg/dl (70-99)
[2025-03-22 08:33] LABS: Hematocrit 31.4 % (37.0-47.0); Hemoglobin 10.3 g/dL (12.0-16.0)
[2025-03-22 08:42] LABS: Carbon Dioxide 25 mmol/L (22-30); Chloride 101 mmol/L (98-107); Potassium 3.9 mmol/L (3.5-5.1); Sodium 139 mmol/L (135-145)
[2025-03-22] MEDS: ANESTHETIC LOZENGE 1 LOZENGE PO ×3 (08:45→23:39)
[2025-03-22] MEDS: RETACRIT 8000 UNITS IV (09:05)
[2025-03-22] MEDS: MANNITOL 25% 12.5 GRAMS IV ×2 (10:06→11:06)
--- NOTE | 2025-03-22 10:07 | W.PN.NEPH.HD ---
Assessment
-
pt seen during HD
vital stable
UF as tolerates
appetite is poor with cough
ok for nepro if she can take
CVC functions fine
Progress Note - Hemodialysis
-
Date of Service: March 22, 2025
Duration: 30 minutes and 3 hours
Potassium Bath: 3
Calcium Bath: 2.5
Opti-Dialyzer: 160
Ultrafiltration: Other (1.-2kg)
Blood Flow: 400
Dialysate Flow: 600
Heparin: no
EPO: 8000
--- NOTE | 2025-03-22 10:21 | PN.CDI ---
CDI
- -
CDI:
Physician Documentation Request
Admit Date: 03/17/25 14:09
Dear Doctor Kavita,
Please review the following and provide your response in the progress notes.
Clinical Indicators:
The diagnosis of Toxic metabolic encephalopathy was documented on 03/17, but is not consistently noted in subsequent documentation.
Pt admitted with profound lethargy.
03/17 Neurology Note: ' Assessment and Plan:
I. Mixed encephalopathy(vascular, metabolic toxic)
II. Trigeminal cephalgia
III. Hypertensive emergency'
03/17 Modeling Analyst Note: 'Impression:
#Altered mental status likely due to toxic�metabolic encephalopathy in setting of polypharmacy and ESRD; hypertensive encephalopathy is also on differential'
Please clarify the following:
____ Toxic�metabolic encephalopathy was present on admission and is now resolved.
____ Toxic�metabolic encephalopathy was ruled out
____ Other
Use of terms such as suspected, likely, concern for, or probable (associated with a specific diagnosis that is being evaluated, monitored, or treated as if it exists) are acceptable and can be coded in the inpatient setting, when documented at the
time of discharge.
Thank you,
Karo Claudio RN, BSN
CDI Specialist
[place] [facility]
Please use your independent medical judgment in providing your response.
[2025-03-22] MEDS: HEPARIN 4700 UNITS INTRACATH (11:32)
[2025-03-22] MEDS: LASIX 80 MG PO ×2 (12:00→17:31)
[2025-03-22] MEDS: PROTONIX 40 MG PO ×2 (12:00→19:51)
[2025-03-22] MEDS: REFRESH EYE DROPS (PF) 1 DROPS OPHTH ×3 (12:01→19:51)
[2025-03-22] MEDS: RENVELA PO ×3 (12:01→12:09)
[2025-03-22] MEDS: REFRESH EYE DROPS (PF) OPHTH (12:01)
[2025-03-22] MEDS: ASPIR LOW (ENTERIC COATED) 81 MG PO (12:02)
[2025-03-22] MEDS: MIRALAX PO (12:02)
[2025-03-22] MEDS: OCEAN, SALINE MIST 1 SPRAYS NASAL ×3 (12:04→19:51)
[2025-03-22] MEDS: TYLENOL 1000 MG PO ×3 (12:04→23:34)
[2025-03-22] MEDS: SENOKOT-S 1 TABLET PO ×2 (12:04→19:51)
[2025-03-22 12:05] LABS: Glucose - Point of Care 89 mg/dl (70-99)
[2025-03-22] MEDS: OCEAN, SALINE MIST NASAL (12:09)
[2025-03-22] MEDS: MIRALAX 17 GRAMS PO (12:10)
[2025-03-22 15:06] VITALS: BP 146/52
[2025-03-22] MEDS: HEPARIN SC (15:11)
--- NOTE | 2025-03-22 15:36 | CM ---
Addendum entered by Bebo Shepherd 03/22/25 16:09:
CM spoke to pt's daughters and they requested [facility] SNF. A referral to [facility] SNF made.
Per daughters, if [facility] SNF denied then pt will return back home with VN.
Original Note:
CM following re: discharge planning.
Reviewed pt's chart, met with pt and left a message to pt's daughter Felisa to update on discharge plan progress.
Pt resides with her dtr in a 2SH town-home with 16 [address], add'l 16 steps to bed/bath. Pt is independent with her ADLs, utilizes furniture to navigate through her home and a cane or WW while in the community. Pt attends outpatient HD at
[facility] 5:50am chair time and utilizes BCT
pt stated she does not want to go back to [facility] and she uis requested to return back home at discharge. pt also stated she does not want to have [facility] at home and she is requested [facility]. Also, pt asked to coordinate her discharge plan
with her daughters.
A referral to [facility] made.
CM left a message to daughter Felisa.
PT and OT evaluations noted - SNF level of care recommended. Ongoing discussion between pt and her daughters regarding next level of care: home PT/OT vs SNF.
D/C plan: at this moment, per pt's strong feelings - home with VN, resumptions of HD treatment at [facility] and family support.
CM will follwo with discharge plan updates as hospitalization progresses
[2025-03-22 16:17] VITALS: BP 116/61; O2SAT 100
[2025-03-22 17:19] LABS: Glucose - Point of Care 108 mg/dl (70-99)
[2025-03-22] MEDS: RENVELA 1600 MG PO (17:31)
[2025-03-22] MEDS: LIPITOR 40 MG PO (17:31)
[2025-03-22] MEDS: CLARITIN 10 MG PO (19:51)
[2025-03-22 21:14] LABS: Glucose - Point of Care 123 mg/dl (70-99)
[2025-03-22 23:19] VITALS: BP 148/66
[2025-03-22] MEDS: MELATONIN 5 MG PO (23:34)
[2025-03-23] MEDS: SYNTHROID 137 MCG PO (05:36)
[2025-03-23 07:05] VITALS: BP 159/80
--- NOTE | 2025-03-23 07:44 | W.PN.HOSP.TC ---
Today's Communication/Plan
-
Medically stable for discharge pending SNF rehab placement
cont HD as per Nephro
Benadryl prn allergies
once Bisacodyl suppository for constipation
Assessment / Plan
Assessment / Plan
Physical Exam
General: No Apparent Distress, appears relatively comfortable at this time.
HEENT: NormoCephalic
Respiratory: Clear, stable respiratory status on room air
Cardiac: S1/S2 and Regular Rhythm
GI: Soft, Non Tender, decrease bowel sounds
Musculoskeletal: No Cyanosis
Skin: Warm and Dry
Neuro: AOx3 conversant coherent
Psych: Calm
74F with past medical history of recent hospitalization at [facility] for syncope related to polypharmacy and headache/facial pain, ESRD on HD, CATA, HFpEF, hypertension, hyperlipidemia, hypothyroidism, anxiety, depression, DM-II and GERD / GAVE, and
asthma, presented with profound lethargy/unresponsiveness. Patient was recently hospitalized from 02/26/25 to 03/15/25 for syncope with encephalopathy (secondary to polypharmacy with sedating medications as well as pneumonia) and headache/facial
pains with multiple adjustments in her medications, she was then discharged to [facility] on 03/15/25, the nurse went to check on her in AM and she was noted to be lethargic, her blood pressure was elevated at 240/100 mmHg and heart rate
was also elevated prompting EMS call.
Presentation with profound lethargy
Possible toxic metabolic encephalopathy since resolved
-Suspect polypharmacy, CVA ruled out
-Brain MRI appreciated
-Monitored in IMU stable for downgrade to Tele 03/20 further downgraded to med/surg 03/21
-Neuro eval appreciated Lyrica and Trileptal discontinued, lyrica re-ordered at reduced dose and prn instead of scheduled
-Pulm eval appreciated chronic hypercapnia, no need to initiate BIPAP
-Briefly NPO d/t AMS diet since advanced with improvement in mental status
Possible Hypertensive Urgency vs Emergency
Labile Pressures
-BP since improved with HD
-monitor for now, would not treat aggressively given low pressures noted during HD
Nausea possibly d/t constipation
- Abd x-ray appreciated moderate stool burden
- bowel regimen Miralax Senokot-s
- UGI earlier in Feb 2025 study showed no obstruction -- showed presbyesophagus and small HH
- Aspiration precautions
- compazine prn
-once milk and molasses enema 03/19/25
-constipation since resolved
Chronic Dyspnea on exertion - likely multifactorial -- obstructive and restrictive lung disease, pneumonia, morbid obesity, heart failure, ESRD, physical deconditioning
Hyperkalemia
ESRD on HD
- Nephrology eval appreciated
- cont HD as per Nephro
Left-sided facial/head pain/headache
-Tylenol
-compazine prn
-Trileptal discontinued and Lyrica dose reduced and changed to prn as per Neuro
-Headache since significantly improved
Persistent jaw pain Left>Right
Mandible X-ray appreciated not acute abn's
suspect TMJ
outpt follow up with dentist recommended
Pain since improved
ASCVD
HLD
Chronic HFpEF
- cont ASA statin
- Lasix 80 mg BID w holding parameters
- Follows [facility] outpatient
Hx Type 2 Diabetes Mellitus
Recent A1c 5.1 02/26/25 non-diabetic
low dose sliding scale for now
Hypothyroidism
- TSH wnl
- cont Home Levothyroxine 137 mcg daily
GERD / GAVE / Hiatal Hernia
- Prior h/o GI bleeding.
- Continue PPI.
Notes Brief Episode Floaters since resolved
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
Allergies
-artificial tears
-nasal spray ocean mist
-Claritin bedtime
-Benadryl prn itching
History of Depression
PT/OT appreciated SNF rehab
DVT Prophylaxis: Subcutaneous Heparin
Code Status: Full Code
Medically stable for discharge pending SNF rehab placement
I spent a total of 38 minutes with the patient or on the floor. More than 50% of this time involved counseling and coordination of care.
Anticipated Discharge: 24 - 48 hours
Subjective/Interval History
-
Date of Service: March 23, 2025
no acute distress, resting comfortably in bed, notes persistence constipation poor appetite and mild nausea, no vomiting. Allergy symptoms also persist with facial itching.
Objective Data
-
Vital Signs:
Vital Signs
Temp Pulse Resp BP Pulse Ox
98.3 F 94 18 148/66 96
03/22/25 23:19 03/22/25 23:19 03/22/25 23:19 03/22/25 23:19 03/22/25 23:19
I&O
03/22/25 03/23/25 03/24/25
06:59 06:59 06:59
Intake Total 360 / 360 520 / 520
Balance 360 / 360 520 / 520
[2025-03-23] MEDS: SYMBICORT 160/4.5 MCG INHALER 2 PUFF INH ×2 (07:58→17:41)
[2025-03-23] MEDS: OCEAN, SALINE MIST 1 SPRAYS NASAL ×3 (10:07→21:32)
[2025-03-23] MEDS: LASIX 80 MG PO ×2 (10:07→17:27)
[2025-03-23] MEDS: REFRESH EYE DROPS (PF) 1 DROPS OPHTH ×3 (10:08→21:33)
[2025-03-23] MEDS: PROTONIX 40 MG PO ×2 (10:08→20:05)
[2025-03-23] MEDS: SENOKOT-S 1 TABLET PO ×2 (10:08→20:05)
[2025-03-23] MEDS: TYLENOL 1000 MG PO ×3 (10:08→21:32)
[2025-03-23] MEDS: RENVELA PO ×2 (10:09→10:12)
[2025-03-23] MEDS: MIRALAX 17 GRAMS PO (10:09)
[2025-03-23] MEDS: ASPIR LOW (ENTERIC COATED) 81 MG PO (10:09)
[2025-03-23] MEDS: HEPARIN 5000 UNITS SC ×2 (10:09→17:26)
[2025-03-23] MEDS: ANESTHETIC LOZENGE 1 LOZENGE PO (10:17)
[2025-03-23] MEDS: ZOFRAN 4 MG IV (10:17)
[2025-03-23] MEDS: OCEAN, SALINE MIST NASAL (12:36)
[2025-03-23] MEDS: DULCOLAX 10 MG RECTAL (12:36)
[2025-03-23] MEDS: REFRESH EYE DROPS (PF) OPHTH (12:36)
[2025-03-23] MEDS: RENVELA 1600 MG PO ×2 (12:39→17:26)
[2025-03-23] MEDS: BENADRYL 25 MG PO (12:41)
[2025-03-23 14:45] VITALS: BP 133/58
[2025-03-23] MEDS: LIPITOR 40 MG PO (17:26)
[2025-03-23 17:30] LABS: Glucose - Point of Care 88 mg/dl (70-99)
[2025-03-23 17:30] LABS: Glucose - Point of Care 106 mg/dl (70-99)
[2025-03-23 17:30] LABS: Glucose - Point of Care 108 mg/dl (70-99)
--- NOTE | 2025-03-23 17:36 | W.PN.NEPH.PH ---
Today's Communication / Plan
-
HD on Tuesday
Assessment/Plan
-
Impression:
Presentation with change of mental status lethargy/suspected polypharmacy for treatment of underlying neuralgia and pain
ESRD (MWF)
Hypertension
Anemia
Diabetes
Dyslipidemia
Hypothyroidism
Multiple failed peripheral vascular access points for dialysis
Left anterior chest wall hemodialysis catheter
Chronic musculoskeletal pain with DJD
Hyperphosphatemia
Plan:
HD Tuesday
BP stable
encourage po intake, appetite poor, nephro daily
mental status at baseline
cough slow to improve
d/c lasix as she has no sig uop
-
-
Date of Service: March 23, 2025
CC / HPI / ROS
-
Chief Complaint:
ESRD
History of Present Illness:
tolerated HD yesterday on Tuesday schedule
BP stable
Mental status improved
Review of Systems:
no CP/SOB
cough+
poor appetite, nausea
Labs
-
Labs:
WBC 5.2 10^3/uL (4.8-10.8) 03/21/25 06:15
RBC 3.28 10^6/uL (4.20-5.40) L 03/21/25 06:15
Hgb 10.3 g/dL (12.0-16.0) L 03/22/25 08:21
Hct 31.4 % (37.0-47.0) L 03/22/25 08:21
Plt Count 146 10^3/uL (130-400) 03/21/25 06:15
Sodium 139 mmol/L (135-145) 03/22/25 08:21
Potassium 3.9 mmol/L (3.5-5.1) 03/22/25 08:21
Chloride 101 mmol/L (98-107) 03/22/25 08:21
Carbon Dioxide 25 mmol/L (22-30) 03/22/25 08:21
BUN 17 mg/dl (7-17) 03/21/25 06:15
Creatinine 5.1 mg/dL (0.6-1.0) H* 03/21/25 06:15
eGFR 8.47 03/21/25 06:15
Glucose 86 mg/dl (70-99) 03/21/25 06:15
Calcium 9.4 mg/dl (8.4-10.2) 03/21/25 06:15
Albumin 3.8 g/dl (3.5-5.0) 03/17/25 11:22
Physical Exam
-
Vital Signs:
Vital Signs
Temp Pulse Resp BP Pulse Ox
97.7 F 81 16 133/58 100
03/23/25 14:45 03/23/25 17:27 03/23/25 14:45 03/23/25 17:27 03/23/25 14:45
Cardiovascular:: Regular rate and rhythm
Respiratory:: Bilateral: CTA
Lung Excursion:: Normal
Abdomen:: Nontender and Soft
Bowel Sounds:: Normal
Extremity Edema:: None: Bilateral:
[2025-03-23] MEDS: MELATONIN 5 MG PO (21:32)
[2025-03-23] MEDS: CLARITIN 10 MG PO (21:32)
[2025-03-23 23:17] LABS: Glucose - Point of Care 140 mg/dl (70-99)
[2025-03-23 23:35] VITALS: BP 125/57
[2025-03-24] MEDS: HEPARIN 5000 UNITS SC ×4 (00:24→23:09)
[2025-03-24] MEDS: SYNTHROID 137 MCG PO (05:56)
[2025-03-24 07:00] VITALS: BP 153/74
[2025-03-24 07:07] LABS: Glucose - Point of Care 100 mg/dl (70-99)
[2025-03-24] MEDS: SYMBICORT 160/4.5 MCG INHALER 2 PUFF INH ×2 (07:30→18:12)
--- NOTE | 2025-03-24 07:53 | W.PN.HOSP.TC ---
Today's Communication/Plan
-
Cont HD as per Nephro
coughing suspect d/t allergies with exacerbation cough variant asthma
cont scheduled inhaler
start mucinex, prn robitussin, prn tessalon
Low suspicion but check sputum cx if possible, COVID/Flu check
once milk and molasses enema
remains medically stable for SNF rehab pending placement
Assessment / Plan
Assessment / Plan
Physical Exam
General: No Apparent Distress, appears relatively comfortable at this time.
HEENT: NormoCephalic
Respiratory: Clear, stable respiratory status on room air
Cardiac: S1/S2 and Regular Rhythm
GI: Soft, Non Tender, decrease bowel sounds
Musculoskeletal: No Cyanosis
Skin: Warm and Dry
Neuro: AOx3 conversant coherent
Psych: Calm
74F with past medical history of recent hospitalization at [facility] for syncope related to polypharmacy and headache/facial pain, ESRD on HD, CATA, HFpEF, hypertension, hyperlipidemia, hypothyroidism, anxiety, depression, DM-II and GERD / GAVE, and
asthma, presented with profound lethargy/unresponsiveness. Patient was recently hospitalized from 02/26/25 to 03/15/25 for syncope with encephalopathy (secondary to polypharmacy with sedating medications as well as pneumonia) and headache/facial
pains with multiple adjustments in her medications, she was then discharged to [facility] on 03/15/25, the nurse went to check on her in AM and she was noted to be lethargic, her blood pressure was elevated at 240/100 mmHg and heart rate
was also elevated prompting EMS call.
Presentation with profound lethargy
Possible toxic metabolic encephalopathy since resolved
-Suspect polypharmacy, CVA ruled out
-Brain MRI appreciated
-Monitored in IMU stable for downgrade to Tele 03/20 further downgraded to med/surg 03/21
-Neuro eval appreciated Lyrica and Trileptal discontinued, lyrica re-ordered at reduced dose and prn instead of scheduled
-Pulm eval appreciated chronic hypercapnia, no need to initiate BIPAP
-Briefly NPO d/t AMS diet since advanced with improvement in mental status
Possible Hypertensive Urgency vs Emergency
Labile Pressures
-BP since improved with HD
-monitor for now, would not treat aggressively given low pressures noted during HD
Nausea possibly d/t constipation
- Abd x-ray appreciated moderate stool burden
- bowel regimen Miralax Senokot-s
- UGI earlier in Feb 2025 study showed no obstruction -- showed presbyesophagus and small HH
- Aspiration precautions
- compazine prn
-once milk and molasses enema 03/19/25
-constipation since resolved but later returned, some improvement with once suppository 03/23 small BM however, 03/24 once milk and molasses enema ordered
Chronic Dyspnea on exertion - likely multifactorial -- obstructive and restrictive lung disease, pneumonia, morbid obesity, heart failure, ESRD, physical deconditioning
Hyperkalemia
ESRD on HD
- Nephrology eval appreciated
- cont HD as per Nephro
Left-sided facial/head pain/headache
-Tylenol
-compazine prn
-Trileptal discontinued and Lyrica dose reduced and changed to prn as per Neuro
-Headache since significantly improved
Persistent jaw pain Left>Right
Mandible X-ray appreciated not acute abn's
suspect TMJ
outpt follow up with dentist recommended
Pain since improved
ASCVD
HLD
Chronic HFpEF
- cont ASA statin
- Lasix discontinued as per Nephro, no urine output, no benefit
- Follows [facility] outpatient
Hx Type 2 Diabetes Mellitus
Recent A1c 5.1 02/26/25 non-diabetic
low dose sliding scale for now
Hypothyroidism
- TSH wnl
- cont Home Levothyroxine 137 mcg daily
GERD / GAVE / Hiatal Hernia
- Prior h/o GI bleeding.
- Continue PPI.
Notes Brief Episode Floaters since resolved
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
#Allergies
#Coughing
-artificial tears
-nasal spray ocean mist
-Claritin bedtime
-Benadryl prn itching
-possible cough variant asthma exacerbated by allergies, started on scheduled Ventolin inhaler BID with some improvement noted
-scheduled mucinex, prn robitussin, prn Tessalon
-sputum cx if possible, check COVID/Flu
History of Depression
PT/OT appreciated SNF rehab
DVT Prophylaxis: Subcutaneous Heparin
Code Status: Full Code
Medically stable for discharge pending SNF rehab placement
03/24 Daughter Sarah (also known as Melodie) called to provide update, no answer received, brief update message left with call back number for questions as necessary.
I spent a total of 38 minutes with the patient or on the floor. More than 50% of this time involved counseling and coordination of care.
Anticipated Discharge: 24 - 48 hours
Subjective/Interval History
-
Date of Service: March 24, 2025
No acute distress, notes cough persists though improved following start scheduled inhaler, patient also notes improvement itching with prn benadryl. Noted some improvement constipation w/ suppository yesterday though not resolved
Objective Data
-
Vital Signs:
Vital Signs
Temp Pulse Resp BP Pulse Ox
97.6 F 83 18 125/57 99
03/23/25 23:35 03/24/25 07:32 03/24/25 07:32 03/23/25 23:35 03/24/25 07:32
I&O
03/23/25 03/24/25 03/25/25
06:59 06:59 06:59
Intake Total 520 / 520 540 / 540
Balance 520 / 520 540 / 540
[2025-03-24] MEDS: REFRESH EYE DROPS (PF) 1 DROPS OPHTH ×4 (09:49→22:14)
[2025-03-24] MEDS: ASPIR LOW (ENTERIC COATED) 81 MG PO (09:49)
[2025-03-24] MEDS: MIRALAX 17 GRAMS PO (09:50)
[2025-03-24] MEDS: SENOKOT-S 1 TABLET PO ×2 (09:50→20:17)
[2025-03-24] MEDS: TYLENOL 1000 MG PO ×3 (09:50→22:14)
[2025-03-24] MEDS: PROTONIX 40 MG PO ×2 (09:50→20:17)
[2025-03-24] MEDS: RENVELA 1600 MG PO ×3 (09:51→18:24)
[2025-03-24] MEDS: BENADRYL 25 MG PO ×2 (09:56→22:14)
[2025-03-24] MEDS: OCEAN, SALINE MIST NASAL ×4 (09:56→22:15)
[2025-03-24 11:47] LABS: Glucose - Point of Care 163 mg/dl (70-99)
--- NOTE | 2025-03-24 12:31 | W.PN.NEPH.PH ---
Today's Communication / Plan
-
HD tomorrow
Assessment/Plan
-
Impression:
Presentation with change of mental status lethargy/suspected polypharmacy for treatment of underlying neuralgia and pain
ESRD (MWF)
Hypertension
Anemia
Diabetes
Dyslipidemia
Hypothyroidism
Multiple failed peripheral vascular access points for dialysis
Left anterior chest wall hemodialysis catheter
Chronic musculoskeletal pain with DJD
Hyperphosphatemia
Plan:
HD Tuesday
BP stable
encourage po intake, appetite poor, nepro daily
mental status at baseline
cough remains
d/c lasix as she has no sig uop
-
-
Date of Service: March 24, 2025
CC / HPI / ROS
-
Chief Complaint:
ESRD
History of Present Illness:
tolerated HD yesterday on Tuesday schedule
BP stable
no fever
Review of Systems:
no CP/SOB
cough+
poor appetite
Labs
-
Labs:
WBC 5.2 10^3/uL (4.8-10.8) 03/21/25 06:15
RBC 3.28 10^6/uL (4.20-5.40) L 03/21/25 06:15
Hgb 10.3 g/dL (12.0-16.0) L 03/22/25 08:21
Hct 31.4 % (37.0-47.0) L 03/22/25 08:21
Plt Count 146 10^3/uL (130-400) 03/21/25 06:15
Sodium 139 mmol/L (135-145) 03/22/25 08:21
Potassium 3.9 mmol/L (3.5-5.1) 03/22/25 08:21
Chloride 101 mmol/L (98-107) 03/22/25 08:21
Carbon Dioxide 25 mmol/L (22-30) 03/22/25 08:21
BUN 17 mg/dl (7-17) 03/21/25 06:15
Creatinine 5.1 mg/dL (0.6-1.0) H* 03/21/25 06:15
eGFR 8.47 03/21/25 06:15
Glucose 86 mg/dl (70-99) 03/21/25 06:15
Calcium 9.4 mg/dl (8.4-10.2) 03/21/25 06:15
Albumin 3.8 g/dl (3.5-5.0) 03/17/25 11:22
Physical Exam
-
Vital Signs:
Vital Signs
Temp Pulse Resp BP Pulse Ox
98.2 F 83 18 153/74 99
03/24/25 07:00 03/24/25 07:32 03/24/25 07:32 03/24/25 07:00 03/24/25 07:32
Cardiovascular:: Regular rate and rhythm
Respiratory:: Bilateral: CTA
Lung Excursion:: Normal
Abdomen:: Nontender and Soft
Bowel Sounds:: Normal
Extremity Edema:: None: Bilateral:
[place] Catheter: No
[2025-03-24 13:02] LABS: COVID-19 Antigen Negative (Negative)
[2025-03-24] MEDS: MUCINEX 600 MG PO ×2 (13:12→20:17)
[2025-03-24 15:00] VITALS: BP 129/60
[2025-03-24 16:46] LABS: Glucose - Point of Care 111 mg/dl (70-99)
[2025-03-24] MEDS: LIPITOR 40 MG PO (18:25)
[2025-03-24] MEDS: ANESTHETIC LOZENGE 1 LOZENGE PO (18:32)
[2025-03-24 21:00] LABS: Glucose - Point of Care 121 mg/dl (70-99)
[2025-03-24] MEDS: MELATONIN 5 MG PO (22:14)
[2025-03-24] MEDS: CLARITIN 10 MG PO (22:15)
[2025-03-24 23:00] VITALS: BP 139/64
[2025-03-25] MEDS: SYNTHROID 137 MCG PO (05:51)
[2025-03-25 07:08] VITALS: BP 160/71
[2025-03-25] MEDS: SYMBICORT 160/4.5 MCG INHALER 2 PUFF INH ×2 (07:20→18:42)
--- NOTE | 2025-03-25 08:16 | W.PN.HOSP.TC ---
Today's Communication/Plan
-
Discharge today
Assessment / Plan
Assessment / Plan
Physical Exam
General: No Apparent Distress, appears relatively comfortable at this time.
HEENT: NormoCephalic
Respiratory: Clear, stable respiratory status on room air
Cardiac: S1/S2 and Regular Rhythm
GI: Soft, Non Tender, decrease bowel sounds
Musculoskeletal: No Cyanosis
Skin: Warm and Dry
Neuro: AOx3 conversant coherent
Psych: Calm
Assessment/Plan
74 y/o female with past medical history of recent hospitalization at [facility] for syncope related to polypharmacy and headache/facial pain, ESRD on HD, CATA, HFpEF, hypertension, hyperlipidemia, hypothyroidism, anxiety, depression, DM-II and GERD / GAVE,
and asthma, presented with profound lethargy/unresponsiveness. Patient was recently hospitalized from 02/26/25 to 03/15/25 for syncope with encephalopathy (secondary to polypharmacy with sedating medications as well as pneumonia) and headache/facial
pains with multiple adjustments in her medications, she was then discharged to [facility] on 03/15/25, the nurse went to check on her in AM and she was noted to be lethargic, her blood pressure was elevated at 240/100 mmHg and heart rate
was also elevated prompting EMS call.
Presentation with profound lethargy
Possible toxic metabolic encephalopathy since resolved
-Suspect polypharmacy, CVA ruled out
-Brain MRI appreciated
-Monitored in IMU stable for downgrade to Tele 03/20/25 further downgraded to med/surg 03/21/25
-Neuro eval appreciated Lyrica and Trileptal discontinued, lyrica re-ordered at reduced dose and prn instead of scheduled
-Pulm eval appreciated chronic hypercapnia, no need to initiate BIPAP
-Briefly NPO d/t AMS diet since advanced with improvement in mental status
History of CATA -- intolerant to CPAP
Possible Hypertensive Urgency vs Emergency
Labile Pressures
-BP since improved with HD
-monitor for now, would not treat aggressively given low pressures noted during HD
Nausea possibly d/t constipation
- Abd x-ray appreciated moderate stool burden
- bowel regimen Miralax Senokot-s
- UGI earlier in Feb 2025 study showed no obstruction -- showed presbyesophagus and small HH
- Aspiration precautions
- compazine prn
-once milk and molasses enema 03/19/25
-constipation since resolved but later returned, some improvement with once suppository 03/23 small BM however, 03/24 once milk and molasses enema ordered
Chronic Dyspnea on exertion - likely multifactorial -- obstructive and restrictive lung disease, pneumonia, morbid obesity, heart failure, ESRD, physical deconditioning
Hyperkalemia
ESRD on HD
- Nephrology eval appreciated
- cont HD as per Nephro
Left-sided facial/head pain/headache
-Tylenol
-compazine prn
-Trileptal discontinued and Lyrica dose reduced and changed to prn as per Neuro
-Headache since significantly improved
Persistent jaw pain Left>Right
Mandible X-ray appreciated not acute abn's
suspect TMJ
outpt follow up with dentist recommended
Pain since improved
ASCVD
HLD
Chronic HFpEF
- cont ASA statin
- Lasix discontinued as per Nephro, no urine output, no benefit
- Follows [facility] outpatient
Hx Type 2 Diabetes Mellitus
Recent A1c 5.1 02/26/25 non-diabetic
low dose sliding scale for now
Hypothyroidism
- TSH wnl
- cont Home Levothyroxine 137 mcg daily
GERD / GAVE / Hiatal Hernia
- Prior h/o GI bleeding.
- Continue PPI.
Notes Brief Episode Floaters since resolved
-outpt follow up with pt's professional development manager recommended
#Allergies
#Coughing
-artificial tears
-nasal spray ocean mist
-Claritin bedtime
-Benadryl prn itching
-possible cough variant asthma exacerbated by allergies, started on scheduled Ventolin inhaler BID with some improvement noted
-scheduled mucinex, prn robitussin, prn Tessalon
-sputum cx if possible; COVID/Flu negative
History of Depression
PT/OT appreciated SNF rehab
DVT Prophylaxis: Subcutaneous Heparin
Diet: Renal Dialysis diet with THIN liquids. Aspiration precautions; small sips/bites, slow rate, sitting upright when eating, alternating liquid washes reflux precautions
Code Status: Full Code
Medically stable for discharge pending SNF rehab placement
03/24 Daughter Sarah (also known as Melodie) -- Dr. Walls called to provide update, no answer received, brief update message left with call back number for questions as necessary.
More than 30 minutes spent in discharge including
Final examination of the patient
Summarizing hospital stay
Instructions for continuing care to all relevant caregivers
Preparation of discharge records, prescriptions, and referral forms
Total time spent (in minutes): 39
Anticipated Discharge: Today
Subjective/Interval History
-
Date of Service: March 25, 2025
Patient was seen and examined. She denied any pain or any other symptoms or complaints.
Objective Data
-
Labs:
Laboratory Results
03/25/25
08:07
Hgb Pending
Hct Pending
Sodium Pending
Potassium Pending
Chloride Pending
Carbon Dioxide Pending
Vital Signs:
Vital Signs
Temp Pulse Resp BP Pulse Ox
98.2 F 98 16 160/71 96
03/25/25 07:08 03/25/25 07:26 03/25/25 07:26 03/25/25 07:08 03/25/25 07:26
I&O
03/24/25 03/25/25 03/26/25
06:59 06:59 06:59
Intake Total 540 / 540 1020 / 1020
Balance 540 / 540 1020 / 1020
[2025-03-25] MEDS: OCEAN, SALINE MIST NASAL ×3 (08:17→16:54)
[2025-03-25] MEDS: RENVELA PO (08:17)
[2025-03-25 08:18] LABS: Glucose - Point of Care 108 mg/dl (70-99)
[2025-03-25 08:29] LABS: Hematocrit 33.8 % (37.0-47.0); Hemoglobin 10.9 g/dL (12.0-16.0)
[2025-03-25 08:43] LABS: Carbon Dioxide 24 mmol/L (22-30); Chloride 99 mmol/L (98-107); Potassium 4.0 mmol/L (3.5-5.1); Sodium 137 mmol/L (135-145)
[2025-03-25] MEDS: RETACRIT 4000 UNITS IV (09:18)
--- NOTE | 2025-03-25 10:58 | W.PN.NEPH.HD ---
Assessment
-
Seen on HD no new complaints. VSS, access ok
dc planning, options limited.
Progress Note - Hemodialysis
-
Date of Service: March 25, 2025
Duration: 30 minutes and 3 hours
Potassium Bath: 2
Calcium Bath: 2.5
Opti-Dialyzer: 160
Ultrafiltration: Other
Blood Flow: 400
Dialysate Flow: 600
Heparin: 0
EPO: 4000 units
--- NOTE | 2025-03-25 11:05 | CM ---
Addendum entered by Bebo Shepherd 03/25/25 14:20:
CM spoke to [pt's daughter Felisa and she stated she is coming from [place] to bring her mother home.
CM spoke to [facility] HD treatment center RN and she is aware that pot will report to their center on Tuesday for scheduled HD treatment.
Original Note:
CM following re: discharge planning.
Reviewed pt's chart, met with pt during HD treatment and spoke to pt's daughter Felisa over the phone to update on discharge plan progress.
CM spoke to [facility] SNF liaison and she confirmed that do not have a chair available at their onsite HD unit, they will not transport the pt to outpatient HD treatment center and a referral has been denied.
Pt is aware and she stated she will not go to any SNF and she will return back home and she requested [facility].
CM spoke to daughter Felisa and she supports pt's plan and she stated at this point she or her sister Ifrah will bring the pt home. Pt's daughter Felisa stated she works in [employer] and coming home at 9:00 p.m. and she will not be able to
transport her mother home today and she will coordinate it with her sister Ifrah to see whether or not pt's daughter Ifrah will transport pt home today.
[facility] liaison following.
IMM reviewed, placed on chart, pt has a copy.
Please fax discharge instructions to [facility] at [phone] and [facility] HD center at [phone]
D/c plan: home with [facility], resumptions of HD treatment at [facility] and family support. Daughter to transport at discharge.
--- NOTE | 2025-03-25 11:54 | VNURNOTE ---
Home Health Liaison spoke with patient's daughter Felisa to discuss [facility] nurse/therapy, visits, schedule and homebound status. She is familair with our services and agreeable. She understands that visits at home will be 2-3 x per week to
assess and teach medical management.
She is aware that [facility] will contact them for start of care in 1-2 days after discharge from .
[facility] referral accepted in [facility] Port.
[2025-03-25 12:01] LABS: Glucose - Point of Care 112 mg/dl (70-99)
[2025-03-25] MEDS: REFRESH EYE DROPS (PF) 1 DROPS OPHTH ×2 (12:13→16:55)
[2025-03-25] MEDS: MUCINEX 600 MG PO (12:13)
[2025-03-25] MEDS: SENOKOT-S 1 TABLET PO (12:13)
[2025-03-25] MEDS: TYLENOL PO ×2 (12:13→15:27)
[2025-03-25] MEDS: ASPIR LOW (ENTERIC COATED) 81 MG PO (12:13)
[2025-03-25] MEDS: RENVELA 1600 MG PO ×2 (12:13→16:56)
[2025-03-25] MEDS: MIRALAX 17 GRAMS PO (12:13)
[2025-03-25] MEDS: PROTONIX 40 MG PO (12:13)
[2025-03-25] MEDS: HEPARIN 5000 UNITS SC (12:14)
[2025-03-25] MEDS: REFRESH EYE DROPS (PF) OPHTH (12:19)
[2025-03-25 15:07] VITALS: BP 127/53
--- NOTE | 2025-03-25 16:23 | W.DCSUMMARY ---
Discharge Summary
Discharge Data
Date of Admission: 03/17/25
Date of Discharge: 03/25/25
Total time spent discharging patient (in min): 39
-
Pending Results: No
Hospital Course
74 y/o female with past medical history of recent hospitalization at [facility] for syncope related to polypharmacy and headache/facial pain, ESRD on HD, CATA, HFpEF, hypertension, hyperlipidemia, hypothyroidism, anxiety, depression, DM-II and GERD / GAVE,
and asthma, presented with profound lethargy. Patient was recently hospitalized from 02/26/25 to 03/15/25 for syncope with encephalopathy (secondary to polypharmacy with sedating medications as well as pneumonia) and headache/facial pains with
multiple adjustments in her medications, she was then discharged to [facility] on 03/15/25, the nurse went to check on her (on the same day, in the morning of presentation) and patient was noted to be lethargic, her blood pressure was
elevated at 240/100 mmHg and heart rate was also elevated prompting EMS call. She had elevated pCO2 on blood gas studies but this was determined not to be high enough to cause her to be as lethargic as she was. Her lethargy was determined to be due
to her sedating medications. Case was discussed with on-jar filler and it was determined that patient could be monitored in IMU with no need for intubation. Given that neurology was involved in patient's case on the recent hospitalization and
adjusted meds for patient's facial pain, they were re-consulted. Patient sedating medications, including but not limited to Baclofen, were held. Nephrology was consulted and patient was continued on dialysis. MRI Brain was done with no acute stroke.
Neurology mentioned can do pregabalin as needed for facial pain. Patient's blood pressures improved significantly after dialysis. Patient was doing well and stable for discharge.
Discharge Plan
-
Patient Disposition: Home with Home Care
Discharge Diagnosis/Procedures: Presentation with profound lethargy -- suspected secondary to polypharmacy and sedating pain medications
Possible toxic metabolic encephalopathy
History of CATA -- intolerant to CPAP
Possible Hypertensive Urgency versus Emergency
Labile Pressures
Nausea possibly due to constipation
Chronic Dyspnea on exertion - likely multifactorial -- obstructive and restrictive lung disease, morbid obesity, heart failure, ESRD, physical deconditioning
Hyperkalemia
ESRD on Hemodialysis
Left-sided facial/head pain/headache
Persistent jaw pain Left>Right -- suspect TMJ -- outpatient follow up with dentist recommended
Atherosclerotic Cardiovascular Disease
Hyperlipidemia
Chronic HFpEF
Type 2 Diabetes Mellitus -- BUT Recent A1c 5.1 02/26/25 non-diabetic
Hypothyroidism
GERD / GAVE / Hiatal Hernia
Brief Episode Floaters since resolved -- outpt follow up with pt's snap attacher recommended
Allergies
Coughing
History of Depression
MRI Brain Results (as per radiologist's report):
'IMPRESSION:
1. Moderate to severe white matter disease in the frontal and parietal lobes, symmetric signal abnormality in the basal ganglia, and intramedullary signal abnormality in the phyllis which appears unchanged dating back to 09/10/2021.
2. Mild diffuse cerebral and cerebellar volume loss.
3. Severe discogenic degenerative disease at C4/C5.
4. Mild multilevel cervical spinal cord compression and central canal stenosis.'
Condition: Fair
Diet: Restrict fluids to 48 oz
Additional Diets: Renal Dialysis Diet
Blood Work: Check thyroid function tests in 2 to 3 weeks.
Activity Restrictions/Additional Instructions:
Needs outpatient appointment with an oral and maxillofacial specliast due to jaw/facial pain and also an appointment with snap attacher (due to transient eye floaters)
For Diet: Renal Dialysis diet with THIN liquids.
With any oral intake, follow Aspiration Precautions; small sips/bites, slow rate, sitting upright when eating, alternating liquid washes reflux precautions
Patient sees [facility] outpatient
- Patient needs repeat echocardiogram in 1 year
Instructions: Preventing falls in adults, Pregabalin
Referrals:
Phil Barriga MD [Active, Pulmonary Medicine] - in three to four weeks
Tobias Montiel MD [Active, Otology] - in one to two weeks
Referral Note: Facial pain follow-up
Tyson Boyd MD [Active, Orthopedics] - in less than 1 week
Referral Note: Cervical spinal cord compression and central canal stenosis on hospital MRI imaging, as per radiologist's report
Patricia Horn DO [Family Provider] - in less than 1 week
Referral Note: Hospitalization Follow-Up. Your office will need to obtain copies of all the imaging reports from February 2025 and March 2025 [facility] [place] Hospitalization
Additional Discharge Medication Instructions: Loratadine is a new medication for allergies.
Pregabalin can be sedating (see details on the handout instructions -- do not take this unless absolutely necessary) -- your previous lyrica was stopped and new script is being sent today.
Follow-up with your primary care doctor in 1 to 2 days to review your hospital discharge medication list, to check your routine lab-work and to discuss plan of care going forward.
Discuss with your primary doctor when you should resume Ozempic.
Baclofen, Cyclobenzaprine (Flexeril), Furosemide, Insulin, Oxcarbazepine have all been stopped.
Previously, your Zolpidem and Gabapentin were stopped to reduce chances of drowsiness and falls
Prescriptions:
New
loratadine 10 mg Tablet
See Rx Instructions .ROUTE .COMPLEX Qty: 14 0RF
Rx Instructions:
10 mg orally every 48 hours at bedtime
pregabalin 25 mg Capsule
25 mg PO DAILY PRN (Reason: severe facial pain greater than 1 hour) Qty: 7 0RF
Refresh Classic (PF) 1.4-0.6 % Dropperette
1 drp ophthalmic (eye) QID Qty: 30 0RF
Continued
atorvastatin 40 MG tablet
40 mg PO HS
sevelamer carbonate 800 MG tablet
1,600 mg PO MEALS
aspirin 81 mg Tablet,Delayed Release (Dr/Ec)
81 mg PO DAILY
Chloraseptic Sore Throat 6-10 mg Lozenge
1 aury PO Q4HPRN PRN (Reason: throat irritation) Qty: 18 0RF
levothyroxine 137 mcg Tablet
137 mcg PO DAILY @ 0600 Qty: 30 1RF
melatonin 5 mg Tablet
5 mg PO HSPRN PRN (Reason: insomnia) Qty: 30 0RF
guaifenesin 600 mg Tablet Extended Release 12hr
600 mg PO Q12 Qty: 7 0RF
polyethylene glycol 3350 17 gram Powder In Packet
17 g PO DAILY Qty: 30 0RF
sennosides-docusate sodium [Senna Plus] 8.6-50 mg Tablet
1 tab PO BID Qty: 60 0RF
pantoprazole 40 mg Tablet,Delayed Release (Dr/Ec)
40 mg PO BID Qty: 60 1RF
budesonide-formoterol [Symbicort] 160-4.5 mcg/actuation Hfa Aerosol Inhaler
2 puff inhalation R BID Qty: 10.2 0RF
albuterol sulfate 90 mcg/actuation Hfa Aerosol Inhaler
2 puff INHALATION R BID Qty: 8.5 1RF
Held
Ozempic 0.25 mg or 0.5 mg (2 mg/3 mL) pen injector
0.5 mg SC FRIEDMAN
Hold Instructions: Resume on 03/29/25. Discuss with outpatient doctor before resuming this medication
Discontinued
insulin glargine [Lantus Solostar U-100 Insulin] 100 unit/mL (3 mL) insulin pen
10 unit SC HS
cyclobenzaprine 10 mg Tablet
10 mg PO DAILYPRN PRN (Reason: muscle spasms)
furosemide 80 mg Tablet
80 mg PO BID@0800,1600 Qty: 60 1RF
baclofen 5 mg Tablet
2.5 mg PO Q12 Qty: 60 1RF
pregabalin 75 mg Capsule
75 mg PO DAILY Qty: 30 1RF
oxcarbazepine 150 mg Tablet
150 mg PO DAILY Qty: 60 1RF
acetaminophen 325 mg Tablet
650 mg PO Q4HPRN PRN (Reason: Mild Pain / Temp > 101) Qty: 30 0RF
Discharge Orders:
Discharge Patient (As Directed); Ordered 03/25/25
Ordered By: Javi Vazquez
Discharge Date and Time
Discharge Date/Time: 03/25/25 18:57
Print Language: SETSWANA
[2025-03-25 16:52] LABS: Glucose - Point of Care 109 mg/dl (70-99)
[2025-03-25] MEDS: HEPARIN SC (16:54)
[2025-03-25] MEDS: LIPITOR 40 MG PO (16:55)
== END 2025-03-25 18:57 | disposition home health service (06) | DRG 91 ==
LOC: 2 NORTH 14:09
PROVIDERS: Internal Medicine; Nurse Practitioner; Physician Assistant; Specialist; ADMITTING PHYSICIAN Hospitalist; CONSULT PHYSICIAN Internal Medicine Critical Care Medicine; CONSULT PHYSICIAN Psychiatry & Neurology Neurology; CONSULT PHYSICIAN Specialist; EMERGENCY PHYSICIAN Emergency Medicine; FAMILY PHYSICIAN Family Medicine
PROC: 5A1D70Z Performance of Urinary Filtration, Intermittent, Less than 6 Hours Per Day (ICD-10-PCS; 2025-03-18)
DX: G92.8 Other toxic encephalopathy (principal); J18.9 Pneumonia, unspecified organism; N18.6 End stage renal disease; I50.32 Chronic diastolic (congestive) heart failure; I16.1 Hypertensive emergency; J96.12 Chronic respiratory failure with hypercapnia; J45.21 Mild intermittent asthma with (acute) exacerbation; I13.2 Hypertensive heart and chronic kidney disease with heart failure and with stage 5 chronic kidney disease, or end stage renal disease; I67.4 Hypertensive encephalopathy; M47.12 Other spondylosis with myelopathy, cervical region; T50.915A Adverse effect of multiple unspecified drugs, medicaments and biological substances, initial encounter; I25.10 Atherosclerotic heart disease of native coronary artery without angina pectoris; E11.22 Type 2 diabetes mellitus with diabetic chronic kidney disease; E11.40 Type 2 diabetes mellitus with diabetic neuropathy, unspecified; D63.1 Anemia in chronic kidney disease; D69.6 Thrombocytopenia, unspecified; E03.9 Hypothyroidism, unspecified; E66.01 Morbid (severe) obesity due to excess calories; Z68.38 Body mass index [BMI] 38.0-38.9, adult; E83.42 Hypomagnesemia; E78.00 Pure hypercholesterolemia, unspecified; E83.39 Other disorders of phosphorus metabolism; F32.A Depression, unspecified; F41.9 Anxiety disorder, unspecified; K21.9 Gastro-esophageal reflux disease without esophagitis; E87.5 Hyperkalemia; G50.0 Trigeminal neuralgia; J98.4 Other disorders of lung; K29.70 Gastritis, unspecified, without bleeding; K59.00 Constipation, unspecified; M16.0 Bilateral primary osteoarthritis of hip; R13.10 Dysphagia, unspecified; Z79.4 Long term (current) use of insulin; Z79.82 Long term (current) use of aspirin; Z79.85 Long-term (current) use of injectable non-insulin antidiabetic drugs; Z79.899 Other long term (current) drug therapy; Z87.01 Personal history of pneumonia (recurrent); Z99.2 Dependence on renal dialysis
CPT/HCPCS: 70110; 70450; 70551; 71046; 74018; 80048; 80051; 80053; 80183; 82140; 82550; 82805; 82962; 83735; 84443; 85014; 85018; 85025; 85027; 85610; 85730; 87070; 87502; 87811; 92526; 92610; 93005; 94640; 96374; 96375; 97116; 97163; 97167; 97530; 99285; G0257; P9047; Q5106